=== PATIENT | female | born 1965 | race Caucasian/White ===

== ENCOUNTER → 2020-12-02 09:35 | Outpatient (BNVA) | payer OTHER, MEDICARE, SELFPAY | PROVIDERS: PCP Internal Medicine; Visit Provider Hospitalist ==

== ENCOUNTER → 2021-05-26 13:24 | Outpatient (BNVA) | payer OTHER, MEDICARE, SELFPAY | PROVIDERS: PCP Family Medicine; Visit Provider Hospitalist ==

== ENCOUNTER 2021-06-22 09:36 | Outpatient (REF) | payer OTHER, MEDICARE, SELFPAY ==
--- NOTE | ~2021-06-22 | XR_ITS ---
EXAMINATION: XR CHEST CLINICAL INFORMATION: Chronic obstructive pulmonary disease. COMPARISON: Most recent chest radiograph dated 09/08/2019. TECHNIQUE: 2 views of the chest were obtained. FINDINGS: The lungs are clear. The cardiomediastinal silhouette is normal in size. There is no pleural effusion or pneumothorax. No acute osseous abnormality. XR/XR chest 2V IMPRESSION: No acute cardiopulmonary findings.
[2021-06-22 10:43] LABS: MANUAL DIFF FLAG NO
[2021-06-22 10:57] LABS: Basophils Absolute Auto 0.1 X10*3/uL (0.0-0.2); Basophils Percent Auto 1.5 % (0-2); Eosinophils Absolute Auto 0.1 X10*3/uL (0.0-0.4); Eosinophils Percent Auto 1.9 % (0-4); Hematocrit 39.3 % (37-47); Hemoglobin 13.3 g/dl (12.0-16.0); Imm Gran Abs Auto 0.02 X10*3/uL (0.00-0.03); Imm Gran Pct Auto 0.3 % (0.0-0.4); Lymphocytes Absolute Auto 1.5 X10*3/uL (1.2-4.9); Lymphocytes Percent Auto 23.5 % (20-40); Mean Corpuscular HGB Conc 33.8 g/dl (31.0-35.0); Mean Corpuscular Hemoglobin 32.9 pg (27.0-33.0); Mean Corpuscular Volume 97.3 fL (80-98); Mean Platelet Volume 9.6 fL (9.4-12.3); Monocytes Absolute Auto 0.6 X10*3/uL (0.1-1.2); Neutrophils Absolute Auto 4.1 X10*3/uL (2.0-8.3); Neutrophils Percent Auto 63.8 % (45-73); Platelet Count 334 X10*3/uL (160-400); Red Blood Count 4.04 X10*6/uL (4.20-5.50); Red Cell Distribution Width 11.9 % (11.0-16.0); White Blood Count 6.5 X10*3/uL (4.8-10.8)
[2021-06-22 11:43] LABS: Erythrocyte Sedimentation Rate 9 MM/HR (0-20)
[2021-06-27 21:17] LABS: Immunoglobulin G Subclass 1 432 mg/dL (382-929); Immunoglobulin G Subclass 2 195 mg/dL (241-700); Immunoglobulin G Subclass 3 31 mg/dL (22-178); Immunoglobulin G Subclass 4 22.4 mg/dL (4-86); Immunoglobulin G Total 798 mg/dL (600-1640)
== END 2021-06-22 09:37 | disposition home or self-care (01) ==
LOC: HO.LAB 09:36
PROVIDERS: PCP Family Medicine; Visit Provider Hospitalist
DX: J44.9 Chronic obstructive pulmonary disease, unspecified (principal); R05 Cough; G47.33 Obstructive sleep apnea (adult) (pediatric)
CPT/HCPCS: 36415; 71046; 82784; 82785; 85025; 85652; 86003

== ENCOUNTER 2021-08-23 12:20 | Outpatient (RCR) | payer OTHER, MEDICARE, SELFPAY ==
--- NOTE | 2021-08-23 14:03 | MHC.PT.EP ---
[facility] [place] [facility] [place] [facility] [address] Rosmery Hardy [address] [phone] F: [phone] F: [phone] F: [phone] F: [phone] Physical Therapy Plan of Care Date of Evaluation: Date of Surgery: Diagnosis: vertigo Assessment: The patient arrived reporting dizziness consistent with positional vertigo. Upon examination she did not have any nystagmus in any diagnostic position. However she had reports of vertigo in right hallpike. I did CRM for the right PC as a precautionary measure. Upon repeat of CRM she no longer had reports of vertigo. The patient was encouraged to increase water intake, and to return for f/u to assess her balance and VOR. The patient is a good candidate for skilled PT. Frequency and Duration: The patient will be seen 1x/week x 4 weeks Short Term Goals: 1.Pt to be negative for nystagmus in all diagnostic positions for BPPV to facilitate improved functional movements. Nursing Home Goals: 1. For the patient to be negative for nystagmus or reports of vertigo in all diagnostic positions bilaterally to resolution of BPPV in 4 weeks. 2. For the patient to be able to functionally move in all planes and directions without provocation of dizziness to show return to PLOF. 3.For the patient to be educated on symptoms and indications to return to therapy when needed in 4 weeks. Treatment Plan: Modalities to reduce pain, spasms and effusion. Manual therapy to restore motion and function. Therapeutic exercise to improve strength and flexibility. Neuromuscular re-education for posture and balance. Therapeutic activities to return to functional activities of daily living. Electronically signed by: Cassie Lebron PT DPT Please sign and return to therapist. Thank you for your referral.
== END 2021-08-29 08:00 | disposition home or self-care (01) ==
LOC: HO.PT 12:20
PROVIDERS: PCP Family Medicine; Visit Provider Otolaryngology
DX: R42 Dizziness and giddiness (principal)
CPT/HCPCS: 95992; 97112; 97162

== ENCOUNTER → 2021-09-13 13:03 | Outpatient (BNVA) | payer OTHER, MEDICARE, SELFPAY | PROVIDERS: Visit Provider Hospitalist ==

== ENCOUNTER 2022-03-13 13:28 | Outpatient (REF) | payer OTHER, MEDICARE, SELFPAY ==
--- NOTE | ~2022-03-13 | XR_ITS ---
EXAMINATION: XR CHEST CLINICAL INFORMATION: Cough COMPARISON: Chest x-ray the 2020 TECHNIQUE: 2 views of the chest were obtained. FINDINGS: Cardiac silhouette is normal in size. The lungs are well aerated. There is no lobar consolidation. No pleural effusion or pneumothorax. Mild degenerative changes of the spine. XR/XR chest 2V IMPRESSION: No acute pulmonary pathology.
== END 2022-03-13 13:29 | disposition home or self-care (01) ==
LOC: HO.XRAY 13:28
PROVIDERS: PCP Family Medicine; Visit Provider Hospitalist
DX: Z23 Encounter for immunization (principal); R05.9 Cough, unspecified; G47.33 Obstructive sleep apnea (adult) (pediatric)
CPT/HCPCS: 71046; 90471; 90732

== ENCOUNTER 2022-05-04 06:18 | Day surgery (SDC) | payer OTHER, MEDICARE, SELFPAY ==
[2022-05-03 08:18] VITALS: BMI 31.4
--- NOTE | 2022-05-03 10:04 | P.CONAN_ITS ---
Documented by User: Yuki Cisneros NP 05/03/22 10:06 HPI - Anesthesia Eval Consult details Narrative: 56yo F for Upper Endoscopy with Balloon Dilitation PMFSH Active Problems Active Problems: All Active Problems (Updated 06/22/21 @ 22:50 by Kirill Huff MD) Chronic cough (Acute) Asthma-COPD overlap syndrome (Acute) BRIE (obstructive sleep apnea) (Acute) Past Medical History Medical History Asthma-COPD overlap syndrome Chronic cough BRIE (obstructive sleep apnea) Social History Social History Patient Tobacco Use Status: Never used Tobacco Use of substances other than those prescribed or required for medical reasons: Yes Substance Use Frequency: Daily Are you DNR?: No Advance Directives: No Advance Directives Information Provided: Yes Meds Allergies Allergy/AdvReac Type Severity Reaction Status Date / Time meperidine [Demerol] Allergy Severe Swelling Verified 03/13/22 14:19 sulfamethoxazole Allergy Severe Diarrhea Verified 03/13/22 14:20 [From Bactrim] trimethoprim [From Bactrim] Allergy Severe Diarrhea Verified 03/13/22 14:20 Home Medications Medication Instructions Recorded Confirmed Last Taken Type calcium carbonate 600 mg calcium 600 mg PO DAILY 12/02/20 06/22/21 Unknown History (1,500 mg) tablet (Calcium) cholecalciferol (vitamin D3) 25 25 mcg PO DAILY 12/02/20 06/22/21 Unknown History mcg (1,000 unit) capsule levothyroxine 100 mcg capsule 100 mcg PO DAILY 12/02/20 06/22/21 Unknown History lorazepam 1 mg tablet 1 mg PO DAILY PRN 12/02/20 06/22/21 Unknown History multivitamin 1 tab PO DAILY 12/02/20 06/22/21 Unknown History nortriptyline 10 mg capsule 10 mg PO DAILY 12/02/20 06/22/21 Unknown History omeprazole 40 mg capsule,delayed 40 mg PO DAILY 12/02/20 06/22/21 Unknown History release oxcarbazepine 300 mg tablet 300 mg PO BID 12/02/20 06/22/21 Unknown History (Trileptal) vitamin B complex (B 1 tab PO DAILY 12/02/20 06/22/21 Unknown History Complex-Vitamin B12) zonisamide 100 mg capsule 100 mg PO BID 12/02/20 06/22/21 Unknown History raloxifene 60 mg tablet 60 mg PO DAILY 05/26/21 06/22/21 Unknown History tizanidine 2 mg tablet 2 mg PO BID 09/13/21 Unknown History lidocaine 5 % topical patch 1 patch topical DAILY 03/13/22 Unknown History omega 0-pgd-xgv-fish oil 100 cap PO 03/13/22 Unknown History mg-160 mg-1,000 mg capsule (Fish Oil) Exam Exam Date and Time: May 03, 2022 1004 Height,Weight and Vital Signs: Height 5 ft 4 in Weight 83.007 kg Narrative Narrative: CXR 02/2022 FINDINGS: Cardiac silhouette is normal in size. The lungs are well aerated. There is no lobar consolidation. No pleural effusion or pneumothorax. Mild degenerative changes of the spine. XR/XR chest 2V IMPRESSION: No acute pulmonary pathology. Assessment and Plan Assessment Anesthesia Assessment: Chart Reviewed Documented by User: Elsa Miller MD 05/04/22 07:40 [facility] Active Problems Active Problems: All Active Problems (Updated 06/22/21 @ 22:50 by Kirill Huff MD) Chronic cough (Acute) Asthma-COPD overlap syndrome (Acute) BRIE (obstructive sleep apnea) (Acute) hypothyroid epilepsy Past Medical History Medical History Asthma-COPD overlap syndrome Chronic cough BRIE (obstructive sleep apnea) Surgical History History of Problems with Anesthesia: No Social History Social History Patient Tobacco Use Status: Never used Tobacco Use of substances other than those prescribed or required for medical reasons: Yes Substance Use Frequency: Daily Are you DNR?: No Advance Directives: No Advance Directives Information Provided: Yes Meds Allergies Allergy/AdvReac Type Severity Reaction Status Date / Time meperidine [Demerol] Allergy Severe Swelling Verified 03/13/22 14:19 sulfamethoxazole Allergy Severe Diarrhea Verified 03/13/22 14:20 [From Bactrim] trimethoprim [From Bactrim] Allergy Severe Diarrhea Verified 03/13/22 14:20 Home Medications Medication Instructions Recorded Confirmed Last Taken Type calcium carbonate 600 mg calcium 600 mg PO DAILY 12/02/20 06/22/21 Unknown History (1,500 mg) tablet (Calcium) cholecalciferol (vitamin D3) 25 25 mcg PO DAILY 12/02/20 06/22/21 Unknown History mcg (1,000 unit) capsule levothyroxine 100 mcg capsule 100 mcg PO DAILY 12/02/20 06/22/21 Unknown History lorazepam 1 mg tablet 1 mg PO DAILY PRN 12/02/20 06/22/21 Unknown History multivitamin 1 tab PO DAILY 12/02/20 06/22/21 Unknown History nortriptyline 10 mg capsule 10 mg PO DAILY 12/02/20 06/22/21 Unknown History omeprazole 40 mg capsule,delayed 40 mg PO DAILY 12/02/20 06/22/21 Unknown History release oxcarbazepine 300 mg tablet 300 mg PO BID 12/02/20 06/22/21 Unknown History (Trileptal) vitamin B complex (B 1 tab PO DAILY 12/02/20 06/22/21 Unknown History Complex-Vitamin B12) zonisamide 100 mg capsule 100 mg PO BID 12/02/20 06/22/21 Unknown History raloxifene 60 mg tablet 60 mg PO DAILY 05/26/21 06/22/21 Unknown History tizanidine 2 mg tablet 2 mg PO BID 09/13/21 Unknown History lidocaine 5 % topical patch 1 patch topical DAILY 03/13/22 Unknown History omega 2-cqd-tmo-fish oil 100 cap PO 03/13/22 Unknown History mg-160 mg-1,000 mg capsule (Fish Oil) Exam Airway Mallampati Class: II Neck ROM: Full Loose/Missing/Broken Teeth: No Heart: RRR Lungs: CTA Assessment and Plan Final Anesthetic Review History of Problems with Anesthesia: No NPO: Yes ASA Class: III Final Preanesthetic Review: Meds/Allgs Chart Reviewed, Consent Obtained/Reviewed and Anes Risks/Benef Reviewed Patient Risk: Intermediate Procedure Risk: Intermediate Anesthetic Plan Anesthetic Plan: MAC: Disposition: Standard PACU
[2022-05-04 07:02] VITALS: BP 145/91; PULSE 78; RESP 16; TEMP 35.7; O2SAT 99
[2022-05-04] MEDS: Lactated Ringers 1,000 ML 100 ML IVCONT (07:05)
[2022-05-04 08:13] VITALS: BP 138/63; PULSE 83; RESP 16; TEMP 36.6; O2SAT 96
--- NOTE | 2022-05-04 08:16 | P.BOP_ITS ---
Brief Operative Note Date of Service: 05/04/22 Pre-op diagnosis: GERD, Dysphagia Post-op diagnosis: other (Hiatal hernia, Gastric Retention, R/O EoE) Procedure: EGD with Balloon Dilation of EG Junction with 18mm to 19mm Balloons, and biopsie s Surgeon: Wilfrido Oconnell Anesthesia: MAC Was an Trench Digger Helper used for this Procedure?: No Estimated blood loss (mL): 2.0 Pathology: other (A. Gastric antrum B. Esophagus at 25cm) Condition: stable Disposition: PACU
[2022-05-04 08:28] VITALS: BP 137/84; PULSE 75; RESP 18; O2SAT 98
[2022-05-04 08:48] VITALS: BP 144/83; PULSE 69; RESP 18; TEMP 36.5; O2SAT 99
--- NOTE | 2022-05-04 10:03 | OP_ITS ---
SURGEON: Wilfrido Oconnell MD INDICATIONS: The patient presents for evaluation of dysphagia and abnormal upper GI series. Full consent has been obtained from her for this, including risks of bleeding and perforation. PREOPERATIVE DIAGNOSIS: Dysphagia and abnormal upper GI series. POSTOPERATIVE DIAGNOSIS: Dysphagia and abnormal upper GI series, gastric retention, rule out eosinophilic esophagitis, small hiatal hernia. PROCEDURE PERFORMED: Esophagogastroduodenoscopy with balloon dilation of gastroesophageal junction and biopsies. ESTIMATED BLOOD LOSS: COMPLICATIONS: ANESTHESIA: ASSISTANTS: SPECIMENS: PREOPERATIVE MEDICATIONS USED: Monitored anesthesia care. DESCRIPTION OF PROCEDURE: The patient was placed in left lateral decubitus position. The Olympus video gastroscope was passed in the posterior oropharynx and upper esophagus under direct vision. The scope was passed slowly to the distal esophagus. The gastroesophageal junction appeared at 34 cm. This appeared patent without any sign of stricture, ring, mass, inflammation, nor Manjarrez's esophagus. The scope easily entered into the stomach. There was a small hiatal hernia. There was a large amount of retained old food in the proximal portion of the stomach. The scope was advanced past this to the gastric antrum. The pyloric channel appeared normal and allowed easy passage of the scope into the 2nd and 3rd portions of duodenum. The duodenum including the bulb appeared normal without mass or ulceration. The scope was withdrawn back into the stomach. The gastric antrum and body had some mild areas of erythema, but no erosions or ulceration. Peristalsis appeared to be subjectively diminished. Again, the pyloric channel appeared widely patent and did not require dilation. Biopsies were obtained in the antrum. The scope was retroflexed but really was only able to visualize the old food. The scope was straightened and withdrawn back into the esophagus. I did use a [employer] incremental balloon to dilate the gastroesophageal junction from 18 mm to 19 mm at the recommended pressure for between 30 and 60 seconds each without any really appreciable effect nor any sign of heme post-dilation. The esophageal mucosa appeared normal. There were no proximal esophageal rings. Biopsies were obtained at 25 cm. The scope was then withdrawn from the patient. She tolerated the procedure well and was returned to the recovery area in stable condition. IMPRESSION: 1. Gastric retention with probable component of gastroparesis. 2. Small hiatal hernia. 3. Status post balloon dilation of gastroesophageal junction. 4. Rule out eosinophilic esophagitis. PLAN: The results of the biopsies will be checked. She has been advised to use omeprazole twice a day before breakfast and dinner. She has been advised to have small meals, and to stay on a low roughage diet with avoidance of things such as raw vegetables and salads. She has been advised to not eat for several hours before bedtime. I will arrange for an outpatient gastric emptying study. She will also have a followup office visit. She was instructed to speak with her neurologist to review all her medications, see if any of those might be causing the delayed emptying such as her nortriptyline. This has been discussed with her . She was advised not to use any aspirin or NSAIDs. Of note, she reports that her last intake of food was about 11 hours before the endoscopy at 8PM last evening. MD ROSALBA Dominique/JARED / [id number] MTDD
== END 2022-05-04 09:26 | disposition home or self-care (01) ==
PROVIDERS: PCP Family Medicine; Visit Provider Internal Medicine
PROC: (CPT 43249; principal; 2022-05-04 07:30)
DX: R13.10 Dysphagia, unspecified (principal); R93.3 Abnormal findings on diagnostic imaging of other parts of digestive tract; K30 Functional dyspepsia; K31.89 Other diseases of stomach and duodenum; K44.9 Diaphragmatic hernia without obstruction or gangrene; K21.9 Gastro-esophageal reflux disease without esophagitis; J44.9 Chronic obstructive pulmonary disease, unspecified; G40.909 Epilepsy, unspecified, not intractable, without status epilepticus; G62.9 Polyneuropathy, unspecified; E03.9 Hypothyroidism, unspecified; Z79.899 Other long term (current) drug therapy; Z88.2 Allergy status to sulfonamides; Z88.8 Allergy status to other drugs, medicaments and biological substances
CPT/HCPCS: 43249; 43239; 88305; 88342; C1726; J2250; J2405

== ENCOUNTER → 2022-05-08 07:45 | Outpatient (REF) | payer OTHER, MEDICARE, SELFPAY ==
--- NOTE | ~2022-05-08 | NM_ITS ---
EXAMINATION: RADIONUCLIDE SOLID FOOD GASTRIC EMPTYING 4-HOUR STUDY CLINICAL INFORMATION: Gastroparesis. COMPARISON: No previous gastric emptying study is available for comparison. TECHNIQUE: A standard meal consisting of 4 oz of Egg Beaters brand equivalent tagged with 890 microcuries Tc-99m Sulfur Colloid, 8 oz water and 2 slices of toast with jelly was administered orally to the patient. Images were obtained using a dual head gamma camera in the anterior and posterior projections over of the stomach immediately post ingestion and at hourly intervals up to 4 hours post ingestion. The anterior and posterior counts at each time interval were averaged using the geometric mean and expressed as percentage of the immediate post ingestion counts. FINDINGS: There is good visualization of activity in the stomach immediately post ingestion. As the study progresses, there is only minimal clearance of activity from the stomach with visualization of only a small amount of small bowel activity. At the end of the study at 4 hours post ingestion, there is marked abnormal retention of activity in the stomach. Retention in the stomach at each time interval was: 1 hour 89% (normal 37%-90%) 2 hours 81% (normal 30%-60%) 3 hours 84% 4 hours 85% (normal 0%-10%) NM/NM gastric emptying study IMPRESSION: Abnormal study. There is marked retention of solid food in the stomach at 4 hours.
== END ==
LOC: HO.NUCMED 07:45
PROVIDERS: PCP Family Medicine; Visit Provider Internal Medicine
DX: K31.84 Gastroparesis (principal); K31.89 Other diseases of stomach and duodenum
CPT/HCPCS: 78264; A9541

== ENCOUNTER → 2022-10-31 13:01 | Outpatient (BNVA) | payer OTHER, MEDICARE, SELFPAY | PROVIDERS: PCP Family Medicine; Visit Provider Hospitalist | DX: Z13.89 Encounter for screening for other disorder (principal) ==

== ENCOUNTER 2023-08-17 13:39 | Outpatient (AMB) | payer OTHER, MEDICARE, SELFPAY ==
[2023-08-17 13:44] VITALS: BP 128/70; PULSE 89; O2SAT 99; BMI 28.6
--- NOTE | 2023-08-17 13:44 | MHC.OFFVIS ---
Intake Vital Signs 08/17/23 13:44 Height 5 ft 5 in Weight 172 lb BMI 28.6 BP 128/70 Blood Pressure Location Rt brachial Position Sitting Pulse 89 Pulse Source Pulse Oximeter Pulse Oximetry (%) 99 Oxygen Delivery Method Room Air Intake Visit Reasons: asthma Wood Gluer Required: No Allergies meperidine [Demerol] Allergy (Severe, Verified 08/17/23 13:49) Swelling sulfamethoxazole [From Bactrim] Allergy (Severe, Verified 08/17/23 13:49) Diarrhea trimethoprim [From Bactrim] Allergy (Severe, Verified 08/17/23 13:49) Diarrhea HPI HPI Comments History of Present Illness Details The patient is a 57-year-old woman with known history of asthma COPD overlap syndrome in addition to history of seizures. She has had a persistent chronic cough. It is barky in nature, moderate in severity. Typically is worse at nighttime. She continues to use her respiratory medicine with only partial resolution of the symptoms. She has not had any recent x-rays are pulmonary function studies to review at this time. 12/02/2020 the patient is here for pulmonary follow-up visit. Overall the patient has been doing better from a respiratory status. The respiratory medications and the singular have been very effective. She had actually has not required the nebulized medicine as often. Sometimes the fact that she needs to set up she test to not be very adherent to the therapy. Therefore will go ahead and take her off the nebulized therapy and start her on inhaler therapy. Ideally Advair she can not use twice a day with better here as. In addition to that she should continue with the singular. The patient has been complaining of difficulty breathing at nighttime. She also has daytime drowsiness. Her [place] score is elevated 12/24. She also complains of headaches in the morning. She has a positive family history of sleep apnea. At this point doing home sleep study may be effective in treating her ongoing respiratory symptoms and her ongoing daytime drowsiness. 06/22/2021 the patient is here for a pulmonary follow-up visit. She continues to complain about her cough. Typically is nonproductive. Sometimes she is able to get a plug out. Did cough is usually worse at nighttime. She did complete the antibiotics and is doing a little bit better. She did feel improved after switching over to the Trelegy inhaler which appears to be more effective for her. She is going to significant amount of stress with her father's health. She has not had a sleep study as of yet. We will continue to maximize her respiratory therapy in order for her to be about a function well was she is tending to father. While she is in the hospital today I will have her get blood work and chest x-ray to further address this chronic cough. 09/13/2021 the patient is here for a pulmonary follow-up visit. overall she is doing better from a respiratory status. The Trelegy inhaler piece to be very effective for her. She has been able to be off her nebulized therapy. She recently was evaluated by Nephrology. It was noted that she has some slight renal insufficiency. She was wondering if any of her respiratory medications could be impacting her renal function. No real significant medication that I am concerned about. We did talk about considering decreasing the amount of inhaled steroids by decreasing the Trelegy from 200-100. But at this point I do not believe that does enough of a significant change to impacted kidneys. in addition to this the patient has been dealing with significant allergic symptoms. She complains of itchy eyes watery eyes. She has been seen by Ophthalmology. Will increase her allergy medication to see if we can provide some relief. Patient has been on singular. She is still grieving the loss of her father has been the depressed. Therefore I did recommend she cut down the singular to half tablet. If she did not see any significant difference to stop it altogether ascitic and worsening depressive symptoms. 03/13/2022 the patient is here for a pulmonary follow-up visit. She continues to have a persistent cough. The Trelegy has been helpful. She continues to require cough medicine. The patient also has been having significant allergies. She has been taking Lavonne in addition to singular. This is likely that her worse allergy season. She knows to continue rinsing her nose from the allergies in to continue with current regimen. She does have a rescue inhaler that she can use as needed as well. If the patient continues with symptoms she may benefit from an allergy referral. 10/31/2022 the patient is here for pulmonary follow-up visit. She is complaining of worsening shortness of breath. Moderate severity. Mainly when she is breathing in. She also notices worsening cough. Typically worse at nighttime. She ran out of her cough medicine. She has been using Trelegy inhaler without any significant improvement. She had a Combivent inhaler from her dad that she had available she did use it in did give her some relief. He is wondering if he can switch to that. Patient is agreeable to change her respiratory regimen. I will send Symbicort to the pharmacy and she can use Combivent also. The meantime we did talk about the reflux disease. Patient understands that reflux will resulting worsening there injury taken cough. This could explain her symptoms. She does have significant gastroparesis in addition to her reflux. She has been set up with a new GI doctor at this time. In the meantime we talked about the reflux diet again making sure that she sleeps elevated. She does have a positional bed. 08/17/2023 the patient is here for pulmonary follow-up visit. Overall she is doing a lot better. She is working on weight management and she is already lost more than 10 lb. Her breathing is also improved. She does continue to use her respiratory therapy as prescribed. Her cough is better although she still requires cough medication. Has not required any prednisone recently. No recent imaging studies to review. Her last chest x-ray from February 2022 was without any acute disease. overall the patient is doing well. She continues with positional therapy to minimize snoring and sleep apnea. [facility] Medical History (Updated 08/17/23 @ 13:59 by Kirill Huff MD) Epilepsy Asthma-COPD overlap syndrome Chronic cough BRIE (obstructive sleep apnea) Hypothyroidism GERD (gastroesophageal reflux disease) Surgical History (Updated 08/17/23 @ 12:37 by Vesna Cabrera PA-C) History of esophagogastroduodenoscopy (EGD) Social History Patient Tobacco Use Status: Never used Tobacco Review of Systems Const Denies night sweats Eyes Denies blurry vision ENT Denies change in voice, Denies lip swelling, Denies mouth pain, Reports nasal congestion, Reports nasal discharge and Denies tongue swelling Card Denies chest pain Resp Reports cough, Denies hemoptysis, Denies excessive phlegm production and Denies stridor GI Denies abdominal pain Musc Denies no additional complaints Neuro Denies Neuro-related abnormal movements Psych Denies no additional complaints Clark/Lymph Denies easy bleeding and Denies lymphadenopathy Aller/Immun Denies lip swelling and Denies tongue swelling Physical Exam Vital Signs: Last Vital Signs Pulse 89 08/17/23 13:44 BP 128/70 08/17/23 13:44 Pulse Ox 99 08/17/23 13:44 Oxygen Delivery Method Room Air 08/17/23 13:44 BMI result Body Mass Index 28.6 Const General: alert HEENT Ears: TM normal on the right ( Retracted) and TM normal on the left ( retracted) Eyes Pupils: Equal, round and reactive pupils present Neck Neck: Yes normal visual inspection, Yes full ROM and Yes no lymphadenopathy Chest Chest palpation & inspection: normal inspection of the chest Resp Effort & Inspection: normal respiratory effort Auscultation: clear to auscultation bilaterally Cardio Rate: regular rate Rhythm: regular rhythm Heart sounds: S1 normal heart sound present and S2 normal heart sound present GI Palpation (GI): Soft to palpation and nontender Auscultation: normal bowel sounds General: Yes no CVA tenderness Back/Spine/Pelvis Back: no CVA tenderness Skin General skin exam: rashes and/or lesions noted Neuro Cranial nerves: Yes Equal, round and reactive pupils present Assessment & Plan Assessment & Plan (1) Asthma-COPD overlap syndrome: Code(s): J44.9 - Chronic obstructive pulmonary disease, unspecified (2) BRIE (obstructive sleep apnea): Code(s): G47.33 - Obstructive sleep apnea (adult) (pediatric) (3) Chronic cough: Code(s): R05 - Cough (4) GERD (gastroesophageal reflux disease): Code(s): K21.9 - Gastro-esophageal reflux disease without esophagitis Qualifiers: Esophagitis presence: without esophagitis Qualified Code(s): K21.9 - Gastro-esophageal reflux disease without esophagitis Plan continue Advair continue combivent VINNY as needed Robitussin with codeine as needed for significant cough continue Singulair and zyrtec reflux diet sleep with HOB elevated F/U 12 months Medications: New azithromycin 500 mg PO DAILY 5 days 5 tabs 0RF Coding Level of Care Code Est Pt Level 4 (86574) Diagnoses Asthma-COPD overlap syndrome J44.9 BRIE (obstructive sleep apnea) G47.33 Chronic cough R05 Gastroesophageal reflux disease without esophagitis K21.9 Esophagitis presence: without esophagitis Time Spent (min) 16
== END 2023-08-17 14:06 | disposition home or self-care (01) ==
PROVIDERS: PCP Family Medicine; Visit Provider Hospitalist
DX: J44.9 Chronic obstructive pulmonary disease, unspecified (principal); G47.33 Obstructive sleep apnea (adult) (pediatric); R05.9 Cough, unspecified; K21.9 Gastro-esophageal reflux disease without esophagitis
CPT/HCPCS: 99214

== ENCOUNTER → 2023-08-17 13:39 | Outpatient (BNVA) | payer OTHER, MEDICARE, SELFPAY | PROVIDERS: Visit Provider Hospitalist ==

== ENCOUNTER 2024-09-30 14:36 | Outpatient (AMB) | payer OTHER, MEDICARE, SELFPAY ==
--- NOTE | 2024-09-30 14:38 | MHC.OFFVIS ---
Vital Signs 09/30/24 14:40 Height 5 ft 4 in Weight 174 lb 2.643 oz BMI 29.9 BP 120/70 Blood Pressure Location Rt brachial Position Sitting Pulse 78 Pulse Source Pulse Oximeter Pulse Oximetry (%) 100 Oxygen Delivery Method Room Air Intake Visit Reasons: Asthma Information Systems Security Developer Required: No Manager Talent: Manager Talent offered & declined Accompanied by: Self / Same As Patient Allergies meperidine [Demerol] Allergy (Severe, Verified 09/30/24 14:44) Swelling sulfamethoxazole [From Bactrim] Allergy (Severe, Verified 09/30/24 14:44) Diarrhea trimethoprim [From Bactrim] Allergy (Severe, Verified 09/30/24 14:44) Diarrhea Medication List - Last Reconciled 09/30/24 by Cecy Spence LPN azithromycin 500 mg PO DAILY 5 days benzonatate 200 mg PO BID PRN 30 days cetirizine 10 mg PO DAILY cholecalciferol (vitamin D3) 25 mcg PO DAILY fluticasone furoate-vilanterol 200-25 mcg/dose (Breo Ellipta) 1 inh inhalation DAILY 30 days gabapentin 300 mg PO BEDTIME ipratropium-albuterol 20-100 mcg/actuation (Combivent Respimat) 1 puff inhalation QID levothyroxine 100 mcg PO DAILY lidocaine 5% 1 patch topical DAILY magnesium 250 mg PO DAILY montelukast 10 mg PO DAILY multivitamin 1 tab PO DAILY nortriptyline 10 mg PO DAILY omega 0-cbx-vsc-fish oil 100-160-1,000 mg (Fish Oil) caps PO omeprazole 40 mg PO DAILY oxcarbazepine (Trileptal) 300 mg PO BID povidone (PF) 0.5% (iVizia (PF)) drps ophthalmic (eye) raloxifene 60 mg PO DAILY tizanidine 2 mg PO BID vitamin B complex (B Complex-Vitamin B12 tablet) 1 tab PO DAILY zonisamide 100 mg PO BID HPI Comments Details: The patient is a 59-year-old woman with known history of asthma COPD overlap syndrome in addition to history of seizures. She has had a persistent chronic cough. It is barky in nature, moderate in severity. Typically is worse at nighttime. She continues to use her respiratory medicine with only partial resolution of the symptoms. She has not had any recent x-rays are pulmonary function studies to review at this time. 12/02/2020 the patient is here for pulmonary follow-up visit. Overall the patient has been doing better from a respiratory status. The respiratory medications and the singular have been very effective. She had actually has not required the nebulized medicine as often. Sometimes the fact that she needs to set up she test to not be very adherent to the therapy. Therefore will go ahead and take her off the nebulized therapy and start her on inhaler therapy. Ideally Advair she can not use twice a day with better here as. In addition to that she should continue with the singular. The patient has been complaining of difficulty breathing at nighttime. She also has daytime drowsiness. Her [place] score is elevated 10/21. She also complains of headaches in the morning. She has a positive family history of sleep apnea. At this point doing home sleep study may be effective in treating her ongoing respiratory symptoms and her ongoing daytime drowsiness. 06/22/2021 the patient is here for a pulmonary follow-up visit. She continues to complain about her cough. Typically is nonproductive. Sometimes she is able to get a plug out. Did cough is usually worse at nighttime. She did complete the antibiotics and is doing a little bit better. She did feel improved after switching over to the Trelegy inhaler which appears to be more effective for her. She is going to significant amount of stress with her father's health. She has not had a sleep study as of yet. We will continue to maximize her respiratory therapy in order for her to be about a function well was she is tending to father. While she is in the hospital today I will have her get blood work and chest x-ray to further address this chronic cough. 09/13/2021 the patient is here for a pulmonary follow-up visit. overall she is doing better from a respiratory status. The Trelegy inhaler piece to be very effective for her. She has been able to be off her nebulized therapy. She recently was evaluated by Nephrology. It was noted that she has some slight renal insufficiency. She was wondering if any of her respiratory medications could be impacting her renal function. No real significant medication that I am concerned about. We did talk about considering decreasing the amount of inhaled steroids by decreasing the Trelegy from 200-100. But at this point I do not believe that does enough of a significant change to impacted kidneys. in addition to this the patient has been dealing with significant allergic symptoms. She complains of itchy eyes watery eyes. She has been seen by Ophthalmology. Will increase her allergy medication to see if we can provide some relief. Patient has been on singular. She is still grieving the loss of her father has been the depressed. Therefore I did recommend she cut down the singular to half tablet. If she did not see any significant difference to stop it altogether ascitic and worsening depressive symptoms. 03/13/2022 the patient is here for a pulmonary follow-up visit. She continues to have a persistent cough. The Trelegy has been helpful. She continues to require cough medicine. The patient also has been having significant allergies. She has been taking Lavonne in addition to singular. This is likely that her worse allergy season. She knows to continue rinsing her nose from the allergies in to continue with current regimen. She does have a rescue inhaler that she can use as needed as well. If the patient continues with symptoms she may benefit from an allergy referral. 10/31/2022 the patient is here for pulmonary follow-up visit. She is complaining of worsening shortness of breath. Moderate severity. Mainly when she is breathing in. She also notices worsening cough. Typically worse at nighttime. She ran out of her cough medicine. She has been using Trelegy inhaler without any significant improvement. She had a Combivent inhaler from her dad that she had available she did use it in did give her some relief. He is wondering if he can switch to that. Patient is agreeable to change her respiratory regimen. I will send Symbicort to the pharmacy and she can use Combivent also. The meantime we did talk about the reflux disease. Patient understands that reflux will resulting worsening there injury taken cough. This could explain her symptoms. She does have significant gastroparesis in addition to her reflux. She has been set up with a new GI doctor at this time. In the meantime we talked about the reflux diet again making sure that she sleeps elevated. She does have a positional bed. 08/17/2023 the patient is here for pulmonary follow-up visit. Overall she is doing a lot better. She is working on weight management and she is already lost more than 10 lb. Her breathing is also improved. She does continue to use her respiratory therapy as prescribed. Her cough is better although she still requires cough medication. Has not required any prednisone recently. No recent imaging studies to review. Her last chest x-ray from February 2022 was without any acute disease. overall the patient is doing well. She continues with positional therapy to minimize snoring and sleep apnea. 09/30/2024 the patient is here for a pulmonary follow-up visit. The patient overall has been doing well. Her Advair is no longer being made and she was switched over to Wixela. This is resulting in some chest heaviness and some coughing and she does not not like the adverse effects. Therefore will switch over to Advair HFA which she tolerated in the past. I did provide her with a spacer in order for her to minimize any upper airway adverse symptoms. The patient otherwise has been doing well from a respiratory status. She is monitoring closely reflux disease. No recent imaging studies at this time. Will plan to do 1 year's time when she comes back for her follow-up. If she has any issues with the Advair she will call otherwise will follow-up in a year's time. [facility] Medical History (Updated 08/17/23 @ 13:59 by Kirill Huff MD) Epilepsy Asthma-COPD overlap syndrome Chronic cough BRIE (obstructive sleep apnea) Hypothyroidism GERD (gastroesophageal reflux disease) Surgical History (Updated 08/17/23 @ 12:37 by Vesna Cabrera PA-C) History of esophagogastroduodenoscopy (EGD) Social History Patient Tobacco Use Status: Never used Tobacco Review of Systems Const Denies night sweats Eyes Denies blurry vision ENT Denies change in voice, Denies lip swelling, Denies mouth pain, Reports nasal congestion, Reports nasal discharge and Denies tongue swelling Card Denies chest pain Resp Reports cough, Denies hemoptysis, Denies excessive phlegm production and Denies stridor GI Denies abdominal pain Musc Denies no additional complaints Neuro Denies Neuro-related abnormal movements Psych Denies no additional complaints Clark/Lymph Denies easy bleeding and Denies lymphadenopathy Aller/Immun Denies lip swelling and Denies tongue swelling Physical Exam Vital Signs: Last Vital Signs Pulse 78 09/30/24 14:40 BP 120/70 09/30/24 14:40 Pulse Ox 100 09/30/24 14:40 Oxygen Delivery Method Room Air 09/30/24 14:40 BMI result Body Mass Index 29.9 Const General: alert HEENT Ears: TM normal on the right ( Retracted) and TM normal on the left ( retracted) Eyes Pupils: Equal, round and reactive pupils present Neck Neck: Yes normal visual inspection, Yes full ROM and Yes no lymphadenopathy Chest Chest palpation & inspection: normal inspection of the chest Resp Effort & Inspection: normal respiratory effort Auscultation: clear to auscultation bilaterally Cardio Rate: regular rate Rhythm: regular rhythm Heart sounds: S1 normal heart sound present and S2 normal heart sound present GI Palpation (GI): Soft to palpation and nontender Auscultation: normal bowel sounds General: Yes no CVA tenderness Back/Spine/Pelvis Back: no CVA tenderness Skin General skin exam: rashes and/or lesions noted Neuro Cranial nerves: Yes Equal, round and reactive pupils present Office Procedures Flu Questionnaire Does the patient have a severe egg allergy?: No Does the patient have severe life threatening allergies?: No Does the patient have a fever or illness today?: No Has the patient ever had Guillain-Galax Syndrome?: No Has the patient ever had any past reaction to a flu shot?: No Immunizations Fluarix Triv [id number] (PF) 45 mcg (15 mcg x 3)/0.5 mL IM syringe Performing Provider: Kirill Hfuf MD Performing Location: [facility] [place] [facility] Administered by: Nadja Valdez LPN on 09/30/24 15:13 Dose Route Admin Location Dispensed Lot Number Expiration Date NDC Pharmacy Analyst 0.5 mL IM Right Deltoid 0.5 mL [id number] 04/27/25 [id number] [email or web address] VIS Given Date VIS Provided VIS Publication Date 09/30/24 Single Vaccine 21 Eligibility Eligibility Date Funding Source Not [facility] [place] E[place]ible 09/30/24 Private Assessment & Plan Assessment & Plan (1) Asthma-COPD overlap syndrome: Code(s): J44.9 - Chronic obstructive pulmonary disease, unspecified Category: Medical (2) BRIE (obstructive sleep apnea): Code(s): G47.33 - Obstructive sleep apnea (adult) (pediatric) Category: Medical (3) Chronic cough: Code(s): R05 - Cough Category: Medical (4) GERD (gastroesophageal reflux disease): Code(s): K21.9 - Gastro-esophageal reflux disease without esophagitis Category: Medical Qualifiers: Esophagitis presence: without esophagitis Qualified Code(s): K21.9 - Gastro-esophageal reflux disease without esophagitis Plan start Advair HFA with spacer stop Wixela continue combivent VINNY as needed continue Singulair and zyrtec reflux diet sleep with HOB elevated F/U 12 months with CXR Orders: Orders Influenza [id number] Immunization Today J44.9 - Chronic obstructive pulmonary disease, unspecified XR chest 2V Today J44.9 - Chronic obstructive pulmonary disease, unspecified Medications: New fluticasone propion-salmeterol 115-21 mcg/actuation (Advair HFA) 2 puffs inhalation Q12H 30 days 12 grams 11RF Discontinued fluticasone furoate-vilanterol 200-25 mcg/dose (Breo Ellipta) Discontinued Reason: Doctor's Order 1 inh inhalation DAILY 30 days 60 ea 11RF Coding Level of Care Code Est Pt Level 4 (36798) Diagnoses Asthma-COPD overlap syndrome J44.9 BRIE (obstructive sleep apnea) G47.33 Chronic cough R05 Gastroesophageal reflux disease without esophagitis K21.9 Esophagitis presence: without esophagitis Time Spent (min) 16
[2024-09-30 14:40] VITALS: BP 120/70; PULSE 78; O2SAT 100; BMI 29.9
--- OUTSIDE RECORDS SUMMARY | 2024-10-07 14:59 | XMS_ITS | Continuity of Care Document ---
Author Organization [facility] Address [address] [place] [id number]- Support Name Relationship Address Phone WALI BROWNN Personal Relationship Unknown Unav ailable MIETKA, DIEUDONNE mother Unknown Unavailable STEPHANIE, MICHAAL Personal Relationship Unknown U navailable MIETKA, MUNIRA father Unknown Unavailable STEPHANIE, LUCRECIA Personal Relationship Unknown U navailable STEPHANIE, JOSETTE spouse Unknown Unavailabl e STEPHANIE, JOSETTE spouse Unknown Unavailabl e STEPHANIE, LUCRECIA spouse Unknown Unavailabl e STEPHANIE, JOSETTE Personal Relationship Unknown U navailable STEPHANIE, LUCRECIA Personal Relationship Unknown U navailable STEPHANIE, MARJAN Personal Relationship Unknown Unav ailable STEPHANIE, LUCRECIA Personal Relationship Unknown U navailable STEPHANIE, LUCRECIA Personal Relationship Unknown U navailable STEPHANIE, LUCRECIA Personal Relationship Unknown U navailable STEPHANIE, JOSETTE Personal Relationship Unknown U navailable STEPHANIE, LUCRECIA Personal Relationship Unknown U navailable STEPHANIE, LUCRECIA Personal Relationship Unknown U navailable STEPHANIE, LUCRECIA Personal Relationship Unknown U navailable Care Team Providers Care Life Trainer Name Role Phone Kacie Fajardo MD Primary Care Physician Encounter [facility] [place] Date(s): 08/28/24 - 09/27/24 [facility] [address] [place] [phone]- Encounter Type: Triage Allergies, Adverse Reactions, Alerts Substance Criticality Severity Reaction Reaction Severity Status Bactrim Unable to assess criticality Persistent Severe Active nystatin topical Unable to assess criticality Unknown rash Active Demerol HCl swelling Active Medications acetaminophen-oxyCODONE 325 mg-5 mg oral tablet Refills 0, Tot. Refills 0, Maintenance, 02/28/24 1:42:00 PM EDT, Partial fill upon patient request ifthe prescription is for a schedule II opioid drug. Start Date: 02/28/24 Status: Ordered Repeat number: 1 Advair HFA 230 mcg / 21 mcg 2 puffs, Inhalation, 2 times a day, 0 Refills, Maintenance, 11/06/13 3:03:46 PM EST Start Date: 11/06/13 Status: Ordered Repeat number: 1 B Complex 100 By Mouth, Daily, 0 Refills, Maintenance, 11/06/13 3:10:01 PM EST Start Date: 11/06/13 Status: Ordered Repeat number: 1 celecoxib 200 mg oral capsule 60 capsule, 0 Refill(s), 0 Refills, 08/06/24 1:49:00 PM EDT, Partial fill upon patient request if the prescription is for a schedule II opioid drug. Start Date: 08/06/24 Status: Ordered Repeat number: 1 CeleXA 10 mg oral tablet 10 mg, 1, tablet, By Mouth, Daily, # 30 tablet, Refills 3, Tot. Refills 3, Maintenance, 03/06/23 7:05:00 PM EDT, Route to Pharmacy Electronically, [id number], Partial fill upon patient request if the prescription is for a schedule II opioid drug., 167, cm, 03/06/23 13:45:00 EDT, Height, 82.5,kg, 04/20/22 13:47:00 EDT, Dry Weight Start Date: 03/06/23 Stop Date: 07/04/23 Status: Ordered Quantity: 30.0 Unit: tablet Repeat number: 4 Combivent Respimat 20 mcg-100 mcg/inh inhalation aerosol 1 puffs, Inhalation, 4 times a day, # 4 Gm, 0 Refills, Maintenance, 07/05/23 1:54:00 PM EDT, Aerosol,Partial fill upon patient request if the prescription is for a schedule II opioid drug. Start Date: 07/05/23 Status: Ordered Quantity: 4.0 Unit: g Repeat number: 1 cyclobenzaprine 5 mg oral tablet 60 tablet, 0 Refill(s), 0 Refills, 08/06/24 1:49:00 PM EDT, Partial fill upon patient request if theprescription is for a schedule II opioid drug. Start Date: 08/06/24 Status: Ordered Repeat number: 1 Daily Multiple Vitamins 1 tablet, By Mouth, Daily, 0 Refills, Maintenance, 11/06/13 3:08:43 PM EST Start Date: 11/06/13 Status: Ordered Repeat number: 1 Fish Oil = 1,000 mg, By Mouth, 0 Refills, Maintenance, 12/13/11 3:36:09 PM EST Start Date: 12/13/11 Status: Ordered Repeat number: 1 fluticasone 50 mcg/inh nasal spray 2 sprays, Nares, Both, 2 times a day, 0 Refills, Maintenance, 11/06/13 3:04:55 PM EST Start Date: 11/06/13 Status: Ordered Repeat number: 1 fluticasone-vilanterol 200 mcg-25 mcg/inh inhalation powder 0 Refill(s), 0 Refills, 08/06/24 1:49:00 PM EDT, Partial fill upon patient request if the prescription is for a schedule II opioid drug. Start Date: 08/06/24 Status: Ordered Repeat number: 1 ibuprofen 600 mg oral tablet 1 tablet = 600 mg, By Mouth, 4 times a day, PRN as needed for pain, 0 Refills, Maintenance, 11/06/13 3:11:00 PM EST Start Date: 11/06/13 Status: Ordered Repeat number: 1 Keppra 500 mg oral tablet See Instructions, 3 tabs By Mouth 2 times a day, # 540, 3 Refills Start Date: 04/15/07 Status: Ordered Quantity: 540.0 Unit: Repeat number: 4 Lamictal 100 mg oral tablet See Instructions, 3 tablet By Mouth bid, # 540, 0 Refills Start Date: 03/09/06 Status: Ordered Quantity: 540.0 Unit: Repeat number: 1 levothyroxine 0.1 mg oral tablet 1 tablet = 100 mcg, By Mouth, Daily, 0 Refills, Maintenance, 03/06/19 1:38:09 PM EDT Start Date: 03/06/19 Status: Ordered Repeat number: 1 lidocaine 1.8% topical film 1 patch, Topically, Daily, leave on up to 12 hours, # 30 each, 0 Refills, Maintenance, 03/01/22 4:11:00 PM EDT, Film, Partial fill upon patient request if the prescription is for a schedule II opioid drug. Start Date: 03/01/22 Status: Ordered Quantity: 30.0 Unit: each Repeat number: 1 Nasonex 50 mcg/inh nasal spray 2 sprays, Daily, 0 Refills, Maintenance, 03/01/22 4:11:00 PM EDT, Partial fill upon patient request if the prescription is for a schedule II opioid drug. Start Date: 03/01/22 Status: Ordered Repeat number: 1 nortriptyline 10 mg oral capsule 10 mg, 1, capsule, By Mouth, 3 times a day, Refills 0, Maintenance, 03/06/19 1:37:58 PM EDT Start Date: 03/06/19 Status: Ordered Repeat number: 1 OXcarbazepine 300 mg oral tablet 540 tablet, 0 Refill(s), Refills 0, 08/06/24 1:49:00 PM EDT, Partial fill upon patient request if the prescription is for a schedule II opioid drug. Start Date: 08/06/24 Status: Ordered Repeat number: 1 Prilosec OTC = 20 mg, By Mouth, Daily, 0 Refills, Maintenance, 07/05/23 1:42:00 PM EDT, Partial fill upon patient request if the prescription is for a schedule II opioid drug. Start Date: 07/05/23 Status: Ordered Repeat number: 1 ProAir HFA Inhalation, Every 6 hours, 0 Refills, Maintenance, 03/06/23 2:00:00 PM EDT, Partial fill upon patientrequest if the prescription is for a schedule II opioid drug. Start Date: 03/06/23 Status: Ordered Repeat number: 1 raloxifene 60 mg oral tablet 1 tablet = 60 mg, By Mouth, Daily, # 90 tablet, 3 Refills, Maintenance, 04/28/24 4:46:00 PM EDT, Tablet, [facility], 163, cm, 02/28/24 13:40:00 EDT, Height, 80, kg, 01/17/24 11:49:00 EDT, Dry Weight Start Date: 04/28/24 Stop Date: 04/23/25 Status: Ordered Quantity: 90.0 Unit: tablet Repeat number: 4 Singulair 10 mg oral tablet 10 mg, 1, tablet, By Mouth, Daily, Refills 0, Maintenance, 07/05/23 1:41:00 PM EDT, Partial fill uponpatient request if the prescription is for a schedule II opioid drug. Start Date: 07/05/23 Status: Ordered Repeat number: 1 tizanidine 2 mg oral capsule 2 capsule = 4 mg, By Mouth, 2 times a day, 0 Refills, Maintenance, 11/06/13 3:06:25 PM EST Start Date: 11/06/13 Status: Ordered Repeat number: 1 Trileptal 300 mg oral tablet 3 tablet = 900 mg, By Mouth, 2 times a day, 0 Refills, Maintenance, 11/06/13 3:07:55 PM EST Start Date: 11/06/13 Status: Ordered Repeat number: 1 Trileptal 300 mg oral tablet See Instructions, take two and a half (2.5) tabs PO BID, # 150, 5 Refills Start Date: 08/20/08 Status: Ordered Quantity: 150.0 Unit: Repeat number: 6 Tyrvaya 0.03 mg nasal spray 0 Refills, Maintenance, 03/06/23 2:03:00 PM EDT, Partial fill upon patient request if the prescription is for a schedule II opioid drug. Start Date: 03/06/23 Status: Ordered Repeat number: 1 Vitamin D3 = 1,000 International_Units, By Mouth, Daily, 0 Refills, Maintenance, 11/06/13 3:10:28 PM EST Start Date: 11/06/13 Status: Ordered Repeat number: 1 zonisamide = 100 mg, By Mouth, 2 times a day, 0 Refills, Maintenance, 11/06/13 3:08:15 PM EST Start Date: 11/06/13 Status: Ordered Repeat number: 1 zonisamide 100 mg oral capsule 450 capsule, 0 Refill(s), 0 Refills, 08/06/24 1:49:00 PM EDT, Partial fill upon patient request if the prescription is for a schedule II opioid drug. Start Date: 08/06/24 Status: Ordered Repeat number: 1 Zyrtec 10 mg oral tablet 1 tablet = 10 mg, By Mouth, Daily, 0 Refills, Maintenance, 11/06/13 3:05:24 PM EST Start Date: 11/06/13 Status: Ordered Repeat number: 1 Problem List Condition Confirmation Course Effective Dates Status Health St atus Informant Atypical lobular hyperplasia (ALH), Right breast, 2009 Confirmed 04/22/10 Active Atypical lobular hyperplasia (ALH) of left breast Confirmed Active Epilepsy Confirmed Active Mastalgia Confirmed Active Obese class I Confirmed Active Social History Social History Type Response Smoking Status Never (less than 100 in lifetime) entered on: 03/06/19 Sex Sex Representation Female (finding) Patient Care team information Care Team Personnel Name: Kacie Fajardo MD Position: Reference Physician Member Role: PCP Address: [address] [place] [address] Telecom: Care Team Related Persons Name: JOSETTE BROWN Name: MUNIRA HOWELL Insurance Providers Guarantor name: MARJAN BROWN Health Plan Information #: 1 Payer: [facility] Member Number: NA Policy Number: NA Group Number: NA Health Plan Information #: 2 Payer: MEDICARE PART B OUTPT Member Number: NA Policy Number: NA Group Number: NA
--- OUTSIDE RECORDS SUMMARY | 2024-10-07 15:00 | XMS_ITS | Patient Health Record ---
Author Organization [facility] Address [address] [place] [id number] Care Team Providers Care Asphalt Dauber Name Role Phone Kacie Fajardo Primary Care Provider Wilfrido Steinberg [phone] ALLERGIES Allergen (clinical drug ingredient) Drug/Non Drug Allergy documented on EMR Reaction Allergy Type Onset Date Status meperidine Demerol Unknown Drug Allergy Active sulfamethoxazole / trimethoprim Bactrim Unknown Drug Allergy Active REASON FOR REFERRAL No Information MEDICATIONS Medication SIG (Take, Route, Frequency, Duration) Notes Start Date End Date Status Prilosec 20 MG 2 capsule Orally twi ce a day Active tiZANidine HCl 2 MG 1 tablet as needed Orally twice a day Active Zonisamide 100 MG 1 capsule Orally Onc e a day Active Trileptal 300 MG 1 tablet Orally Twic e a day for 30 day(s) Active Nortriptyline HCl 10 MG 1 capsule Orally Once a day for 30 day(s) Active ZyrTEC Allergy 10 MG 1 tablet Orally Onc e a day for 30 day(s) Active Singulair 10 MG 1 tablet Orally Once a day for 30 day(s) Active Fish Oil 1200 MG 1 capsule Orally Onc e a day for 30 day(s) Active Levothyroxine Sodium 100 MCG 1 tablet in the morning on an empty stomach Orally Once a day for 30 day(s) Active LORazepam 1 MG 1 tablet at bedtime as needed Orally Once a day Active IMMUNIZATIONS Vaccine Route Administration Date Status Comme nts Influenza Unknown 06/29/2021 Administered Influenza Unknown 07/29/2021 Administered SOCIAL HISTORY Tobacco Use: Social History Observation Description Date Details (start date - stop date) Never Smoker NA - NA Sex Assigned At : Social History Observation Description Sex Assigned At Unknown Tobacco Use/Smoking Question Answer Notes Patient is a nonsmoker Alcohol Screen Question Answer Notes Did you have a drink containing alcohol in the p ast year? No Points 0 Interpretation Negative PROBLEMS Problem Type ICD Code Onset Dates Problem Status W/U Status Risk SNOMED Code Notes Problem Abnormal UGI series (R93.3) Active confirmed Problem Dysphagia (R13.10) Active confirmed Dysphagia (94851168) Problem Gastroparesis (K31.84) Active confirmed Gastroparesis (773779638) Problem Retained food in stomach (K31.89) Active confirmed PLAN OF TREATMENT Pending Test Test Name Order Date NUC GASTRIC ANTRUM EMPTYING 05/05/2022 Future Test Test Name Order Date UPPER GI ENDOSCOPY [place] DILATION OF ESOPH 04/18/2022 Insurance Providers Payer Name Payer Address Payer Phone Subscriber Number Group Number Insured Name Patient Relationship to Insured Coverage Start Date Coverage End Date [facility] [address] [address] [place] [address] [id number] MARJAN BROWN Self - patient is the insured MEDICARE OF [place] [address] [place] [address] [phone] [id number] MARJAN BROWN Self - patient is the insured MEDICAL (GENERAL) HISTORY Medical History History ICD Code Asthma/COPD Hypothyroidism Denies MT,DM,CVA,renal disease GERD-EGD with Dr. Schaefer--2017 per her P CP's records Negative colonoscopy-[address] Schaefer as per her PCP's records--patient states this was negative Epilepsy-uses meds and medical marijuana Neuropathy Surgical History Surgery Date(Month/Year) Thyroid Lipoma removal-abdominal wall Breast biopsies-[facility]
--- OUTSIDE RECORDS SUMMARY | 2024-10-07 15:00 | XMS_ITS | Data Portability ---
Author Organization [facility], Main Office Address [address] [place] [address] Care Team Providers Care Skid Wrapper Name Role Phone KAREN MCKEON Plastic Extrusion Operator ERIK WIHTE Neurologist [phone] ERIK NEWMAN Director Ship TAYLER MCLEOD Pet Supplies Salesperson PATRICA LEDBETTER Phys. Med. & Rehab [phone] [facility] Sports Medic ine LIV FAJARDO Primary Care Provider [phone] SELINA PERAZA Inside Sales Trainer [facility] Plastic/Reconstructive Surgeon DARIAN TOBAR Pool Hand NELY KRISHNAMURTHY Teletray Operator Assessment Encounter Date Assessment Date Assessment LastModified by Organization Details LastModified Time 01/28/2024 01/28/2024 Discussed with patient the signs/symptoms warranted for a return to office visit and/or an ER visit. Patient understood and agreed with the plan. [email or web address] Not available 01/27/2024 22:49:03 05/21/2024 05/21/2024 This service was provided using telemedicine. Patient consented to video & audio visit Patient was located in the [facility]. Provider was located in the office. No other persons participated in the telemedicine visit except for the patient unless otherwise indicated here. {{}} Total time of visit was 15 minutes. I was able to obtain a copy of the CT findings; the adrenal nodule is less than 3 cm. Her sunday school missionary has initiated some of the screening laboratory tests and I have added additional tests including serum catecholamines and serum metanephrines. 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 Once I receive these results, I will likely refer her to a urologist to determine if further follow-up is necessary. Previously, her osteoporosis was managed by an home service technician and breast specialist, and she was taking raloxifene. However, she experienced a lapse in care which she admitted and did not continue her treatment after her home service technician moved. There are plans to consider Prolia, which is a reasonable choice, but I suggested that if she completes therapy, it's important to be aware of the potential rebound effect. Data suggest transitioning to bisphosphonates after completing a course of Prolia to prevent this. I will defer this aspect of her care to her sunday school missionary, who has kindly agreed to help manage her osteoporosis. If the hormonal panel, which I have requested be done around 8 AM, indicates a possible overactive adrenal adenoma, further imaging and a referral to an home service technician might be warranted. The home service technician could also assist with her osteoporosis management if needed. [email or web address] Not available 05/21/2024 18:01:09 Plan of Treatment Reminders Order Date Submit Date Provider Last Modified By Organization Details Last Modified Time Details Appointments None recorde d. Lab vitamin D, 25-hydr oxy, total, serum 2022 [facility], [address], [address], [place], [address], 4 22:31:58 alkalin e phospha tase isoenzy mes, serum or plasma 2022 024 [facility], [address], [address], [place], [address], 4 02:05:50 unliste d lab - collage n 1 C telopep tide 2022 024 [facility], [address], [address], [place], [address], 4 17:05:46 unliste d lab - N-telop eptide cross links, serum 2022 024 [facility], [address], [address], [place], [address], 4 15:13:53 CBC w/ auto diff 2022 024 [facility], [address], [address], [place], [address], 4 20:33:42 CMP, serum or plasma 2022 024 [facility], [address], [address], [place], [address], 4 21:17:34 lipid panel, serum 2022 024 [facility], [address], [address], [place], [address], 4 17:10:57 thyroid panel, serum 2022 024 [facility], [address], [address], [place], [address], 4 22:31:57 folate, serum 2022 024 [facility], [address], [address], [place], [address], 4 22:37:58 haptogl obin, serum 2022 024 [facility], [address], [address], [place], [address], 4 21:17:36 homocys teine, serum or plasma 2022 024 [facility], [address], [address], [place], [address], 4 20:37:53 immunog lobulin s iga+igg +igm, quantit ative, serum 2022 024 [facility], [address], [address], [place], [address], 4 08:44:24 unliste d lab - kappa & lambda light chains, free, serum 2022 024 [facility], [address], [address], [place], [address], 4 12:14:02 mma (methyl malonic acid), serum 2022 [facility], [address], [address], [place], [address], 4 14:06:34 retic count, blood 2022 024 [facility], [address], [address], [place], [address], 4 20:33:44 vitamin B12, serum 2022 024 [facility], [address], [address], [place], [address], 4 22:37:28 ldh, serum or plasma 2022 024 [facility], [address], [address], [place], [address], 4 21:17:45 folate, RBC 2022 024 [facility], [address], [address], [place], [address], 4 15:06:44 gamma-g lutamyl transfe rase (ggt), serum 2022 024 [facility], [address], [address], [place], [address], 4 21:17:45 CBC w/ auto diff 2023 024 [facility], [address] [facility] [address], [place], [address], 4 18:05:51 CMP, serum or plasma 2023 024 [facility], [address], [place], [address], 4 18:05:52 vitamin D, 25-hydr oxy, total, serum 2023 024 [facility], [address], [facility] [address], [place], [address], 4 18:05:54 spep, serum, reflex immunof ixation 2023 024 [facility], [address] , [facility] [address], [place], [address], 4 18:05:52 protein electro phoresi s panel, serum or plasma 2023 024 [facility], [address] , [facility] [address], [place], [address], 4 18:05:53 catecho lamines , fractio nated, urine 2023 024 [facility], [address], [place], [address], 4 14:06:52 catecho lamines panel, QN, plasma 2023 024 [facility], [address], [place], [address], 4 16:06:51 metanep hrine, free, serum or plasma 2023 024 [facility], [address], [place], [address], 4 16:06:51 cytolog y, urine 2023 024 [facility], [address] [facility], [place], [address], 4 12:28:25 urinaly sis complet e, reflex culture 2023 024 [facility], [address] [address], [place], [address], 4 16:06:50 Referral sleep medicin e referra l 2023 024 [facility], [address] [place], [address], 4 08:31:05 dermato logist referra l 2023 024 [email or web address], [address] [facility] [address] [facility], [facility] [address], [place], [address], 4 10:01:[address] referra l 2023 024 [facility], [address] [place], [address], 4 08:48:03 physica l medicin e and rehabil itation referra l - t12 ani spenser 2023 024 [email or web address] [facility], [address] [place], [address], 4 15:01:17 Procedures None recorde d. Surgeries None recorde d. Imaging bone density 2023 024 [email or web address] [facility], [address], [place], [address], 11:15:20 DEXA 2023 024 [facility], [address], [place], [address], 4 10:45:30 US, bladder 2023 024 [facility] ([facility]), [address], [place], [address], 4 08:30:55 Medication Orders calcito jose elias (salmon ) 200 unit/ac tuation nasal spray 2023 [facility], [address] [place], [address], 4 11:44:43 Percoce t 5 mg-325 mg tablet 2023 024 [facility], [address] [place], [address], 11:46:43 Patient TargetsNo targets recorded. Patient Instructions Encounter Date Encounter Id Patient Instructions Last Modified By Organization Details Last Modified Time 12/31/2023 [id number] insomnia: care instructions [email or web address] Not available 12/31/2023 15:15:19 well visit, wome n 50 to 65: care instructions [email or web address] Not available 12/31/2023 15:13:44 starting a weigh t loss plan: care instructions [email or web address] Not available 12/31/2023 15:13:44 01/28/2024 [id number] At [facility] follow up visit, all current and discharge medications (OTC, herbal therapies, supplements) reviewed and reconciled with patient and or caregiver, including potential side effects, drug interactions, instructions, and the consequences of not taking medication. Reviewed potential barriers to medication adherence, such as side effects from medication or cost of medication. 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 Referring Physician: Liv Fajardo [facility], Encounter Date: 12/31/2023 Physical Therapist Referral for Compression fracture of thoracic vertebra Referring Physician: Aggie Solis [facility], Encounter Date: 01/28/2024 Physical Medicine And Rehabi litation Referral for Compression fracture of thoracic vertebra t12 compression Referring Physician: Aggie Solis [facility], Encounter Date: 01/28/2024 Results Created Date Observation Date Name Description Value Unit Range Abnormal Flag Note LastModifiedBy Organization Detail LastModifiedTime 03/21/2003/21/2023 COMPL ETE CBC WITH DIFF WBC 5.5 K/mm3 (4.0-1 1.0) Not Available [facility] [address] [place], [address], 03/21/2023 19:52:58 03/21/2003/21/2023 COMPL ETE CBC WITH DIFF RBC 3.82 M/mm3 (4.20- 5.40) low Not Available [facility] [address] [place], [address], 03/21/2023 19:52:58 03/21/2003/21/2023 COMPL ETE CBC WITH DIFF HGB 12.8 gm/dL (11.7- 15.5) Not Available [facility] [address] [place], [address], 03/21/2023 19:52:58 03/21/2003/21/2023 COMPL ETE CBC WITH DIFF HCT 38.9 % (35.7- 45.8) Not Available [facility] [address] [place], [address], 03/21/2023 19:52:58 03/21/20 23 03/21/2023 COMPL ETE CBC WITH DIFF MCV 101.8 fL (80.0- 100.0) high Not Available [facility] [address] [place], [address], 03/21/2023 19:52:58 03/21/20 23 03/21/2023 COMPL ETE CBC WITH DIFF MCH 33.5 pg (27.0- 34.0) Not Available [facility] [address] [place], [address], 03/21/2023 19:52:58 03/21/20 23 03/21/2023 COMPL ETE CBC WITH DIFF MCHC 32.9 g/dL (33.0- 37.0) low Not Available [facility] [address] [place], [address], 03/21/2023 19:52:58 03/21/20 23 03/21/2023 COMPL ETE CBC WITH DIFF plt 348 K/mm3 (150-4 60) Not Available [facility] [address] [place], [address], 03/21/2023 19:52:58 03/21/20 23 03/21/2023 COMPL ETE CBC WITH DIFF RDW-SD 45.1 fL (<47.0 ) Not Available [facility] [address] [place], [address], 03/21/2023 19:52:58 03/21/2003/21/2023 COMPL ETE CBC WITH DIFF MPV 10.4 fL (9.4-1 2.4) Not Available [facility] [address] [place], [address], 03/21/2023 19:52:58 03/21/2003/21/2023 COMPL ETE CBC WITH DIFF automated NRBC 0.0 #/100 _WBC' s Not Available [facility] [address] [place], [address], 03/21/2023 19:52:58 03/21/20 23 03/21/2023 COMPL ETE CBC WITH DIFF abs. NRBC 0.0 K/mm3 Not Available [facility] [address], [address], 03/21/2023 19:52:58 03/21/20 23 03/21/2023 COMPL ETE CBC WITH DIFF neut # 3.2 K/mm3 (1.3-7 .0) Not Available [facility] [address] [place], [address], 03/21/2023 19:52:58 03/21/20 23 03/21/2023 COMPL ETE CBC WITH DIFF lymph # 1.5 K/mm3 (0.8-3 .1) Not Available [facility] [address] [place], [address], 03/21/2023 19:52:58 03/21/20 23 03/21/2023 COMPL ETE CBC WITH DIFF mono# 0.6 K/mm3 (0.4-0 .9) Not Available [facility] [address] [place], [address], 03/21/2023 19:52:58 03/21/20 23 03/21/2023 COMPL ETE CBC WITH DIFF eo # 0.1 K/mm3 (0.0-0 .4) Not Available [facility] [address] [place], [address], 03/21/2023 19:52:58 03/21/20 23 03/21/2023 COMPL ETE CBC WITH DIFF baso # 0.1 K/mm3 (0.0-0 .1) Not Available [facility] [address] [place], [address], 03/21/2023 19:52:58 03/21/20 23 03/21/2023 COMPL ETE CBC WITH DIFF abs. imm gran 0.0 K/mm3 Not Available [facility] [address] [place], [address], 03/21/2023 19:52:58 03/21/20 23 03/21/2023 COMPL ETE CBC WITH DIFF neut 59.3 % (44-76 ) Not Available [facility] [address] [place], [address], 03/21/2023 19:52:58 03/21/20 23 03/21/2023 COMPL ETE CBC WITH DIFF lymph 26.5 % (15-43 ) Not Available [facility] [address] [place], [address], 03/21/2023 19:52:58 03/21/20 23 03/21/2023 COMPL ETE CBC WITH DIFF monocyte 10.1 % (4.5-1 0.5) Not Available [facility] [address] [place], [address], 03/21/2023 19:52:58 03/21/20 23 03/21/2023 COMPL ETE CBC WITH DIFF eo 2.0 % (0-6) Not Available [facility] [address] [place], [address], 03/21/2023 19:52:58 03/21/20 23 03/21/2023 COMPL ETE CBC WITH DIFF baso 1.6 % (0-2) Not Available [facility] [address] [place] [place], [address], 03/21/2023 19:52:58 03/21/20 23 03/21/2023 COMPL ETE CBC WITH DIFF imm gran 0.5 % Not Available [facility] [address] [place], [address], 03/21/2023 19:52:58 03/21/20 23 03/21/2023 BASIC METAB OLIC PANEL glucose 101 mg/dL (70-99 ) high Not Available [facility] [address] [place], [address], 03/21/2023 20:21:23 03/21/20 23 03/21/2023 BASIC METAB OLIC PANEL BUN 13 mg/dL (6-20) Not Available [facility] [address] [place], [address], 03/21/2023 20:21:23 03/21/20 23 03/21/2023 BASIC METAB OLIC PANEL creatinine 0.7 mg/dL (0.5-1 .0) Not Available [facility] [address], [address], 03/21/2023 20:21:23 03/21/20 23 03/21/2023 BASIC METAB OLIC PANEL sodium 133 mmol/ L (133-1 45) Not Available [facility] [address] [place], [address], 03/21/2023 20:21:23 03/21/20 23 03/21/2023 BASIC METAB OLIC PANEL potassium 4.1 mmol/ L (3.6-5 .2) Not Available [facility] [address] [place], [address], 03/21/2023 20:21:23 03/21/20 23 03/21/2023 BASIC METAB OLIC PANEL chloride 97 mmol/ L (98-10 7) low Not Available [facility] [address] [place], [address], 03/21/2023 20:21:23 03/21/20 23 03/21/2023 BASIC METAB OLIC PANEL bicarbonate 25 mmol/ L (22-29 ) Not Available [facility] [address] [place], [address], 03/21/2023 20:21:23 03/21/20 23 03/21/2023 BASIC METAB OLIC PANEL anion gap 11 (4-17) Not Available [facility] [address] [place], [address], 03/21/2023 20:21:23 03/21/20 23 03/21/2023 BASIC METAB OLIC PANEL calcium 10.0 mg/dL (8.6-1 0.5) Not Available [facility] [address] [place], [address], 03/21/2023 20:21:23 03/21/2003/21/2023 BASIC METAB OLIC PANEL estimated GFR creatinine 101 mL/mi n/1.7 3_M2 Creat inine based estim ated glome rular filtr ation (eGFR ) in adult s is calcu lated using the Natio nal Kidne y Found ation recom nallely d 2020 CKD-E PI equat ion. Estim ates GFR from serum creat inine , age and sex. Not Available [facility] [address] [place], [address], 03/21/2023 20:21:23 03/27/2003/27/2023 juvenal avery al (PROC ) done by Dr Fajardo Not Available In-Office Order Internal Use Only DO Not Attach Compendium DO Not Attach Compendium, Do Not Delete/merge, [id number] 03/25/2023 09:53:34 12/31/19 24 12/31/2023 COMPL ETE CBC WITH DIFF WBC 4.3 K/mm3 (4.0-1 1.0) Not Available [facility] [address] [place], [address], 12/31/2023 20:33:42 12/31/19 24 12/31/2023 COMPL ETE CBC WITH DIFF RBC 3.93 M/mm3 (4.20- 5.40) low Not Available [facility] [address] [place], [address], 12/31/2023 20:33:42 12/31/19 24 12/31/2023 COMPL ETE CBC WITH DIFF HGB 12.9 gm/dL (11.7- 15.5) Not Available [facility] [address] [place], [address], 12/31/2023 20:33:42 12/31/19 24 12/31/2023 COMPL ETE CBC WITH DIFF HCT 38.6 % (35.7- 45.8) Not Available [facility] [address] [place], [address], 12/31/2023 20:33:42 12/31/19 24 12/31/2023 COMPL ETE CBC WITH DIFF MCV 98.2 fL (80.0- 100.0) Not Available [facility] [address] [place], [address], 12/31/2023 20:33:42 12/31/19 24 12/31/2023 COMPL ETE CBC WITH DIFF MCH 32.8 pg (27.0- 34.0) Not Available [facility] [address] [place], [address], 12/31/2023 20:33:42 12/31/19 24 12/31/2023 COMPL ETE CBC WITH DIFF MCHC 33.4 g/dL (33.0- 37.0) Not Available [facility] [address] [place], [address], 12/31/2023 20:33:42 12/31/19 24 12/31/2023 COMPL ETE CBC WITH DIFF plt 329 K/mm3 (150-4 60) Not Available [facility] [address] [place], [address], 12/31/2023 20:33:42 12/31/19 24 12/31/2023 COMPL ETE CBC WITH DIFF RDW-SD 43.7 fL (<47.0 ) Not Available [facility] [address] [place], [address], 12/31/2023 20:33:42 12/31/19 24 12/31/2023 COMPL ETE CBC WITH DIFF MPV 10.2 fL (9.4-1 2.4) Not Available [facility] [address] [place], [address], 12/31/2023 20:33:42 12/31/19 24 12/31/2023 COMPL ETE CBC WITH DIFF automated NRBC 0.0 #/100 _WBC' s Not Available [facility] [address] [place], [address], 12/31/2023 20:33:42 12/31/19 24 12/31/2023 COMPL ETE CBC WITH DIFF abs. NRBC 0.0 K/mm3 Not Available [facility] [address] [place], [address], 12/31/2023 20:33:42 12/31/19 24 12/31/2023 COMPL ETE CBC WITH DIFF neut # 2.7 K/mm3 (1.3-7 .0) Not Available [facility] [address] [place], [address], 12/31/2023 20:33:42 12/31/19 24 12/31/2023 COMPL ETE CBC WITH DIFF lymph # 1.0 K/mm3 (0.8-3 .1) Not Available [facility] [address] [place], [address], 12/31/2023 20:33:42 12/31/19 24 12/31/2023 COMPL ETE CBC WITH DIFF mono# 0.4 K/mm3 (0.4-0 .9) Not Available [facility] [address] [place], [address], 12/31/2023 20:33:42 12/31/19 24 12/31/2023 COMPL ETE CBC WITH DIFF eo # 0.1 K/mm3 (0.0-0 .4) Not Available [facility] [address] [place], [address], 12/31/2023 20:33:42 12/31/19 24 12/31/2023 COMPL ETE CBC WITH DIFF baso # 0.1 K/mm3 (0.0-0 .1) Not Available [facility] [address] [place], [address], 12/31/2023 20:33:42 12/31/19 24 12/31/2023 COMPL ETE CBC WITH DIFF abs. imm gran 0.0 K/mm3 Not Available [facility] [address] [place], [address], 12/31/2023 20:33:42 12/31/19 24 12/31/2023 COMPL ETE CBC WITH DIFF neut 63.0 % (44-76 ) Not Available [facility] [address] [place], [address], 12/31/2023 20:33:42 12/31/19 24 12/31/2023 COMPL ETE CBC WITH DIFF lymph 24.2 % (15-43 ) Not Available [facility] [address] [place], [address], 12/31/2023 20:33:42 12/31/19 24 12/31/2023 COMPL ETE CBC WITH DIFF monocyte 9.1 % (4.5-1 0.5) Not Available [facility] [address] [place], [address], 12/31/2023 20:33:42 12/31/19 24 12/31/2023 COMPL ETE CBC WITH DIFF eo 1.6 % (0-6) Not Available [facility] [address] [place], [address], 12/31/2023 20:33:42 12/31/19 24 12/31/2023 COMPL ETE CBC WITH DIFF baso 1.9 % (0-2) Not Available [facility] [address] [place], [address], 12/31/2023 20:33:42 12/31/19 24 12/31/2023 COMPL ETE CBC WITH DIFF imm gran 0.2 % Not Available [facility] [address] [place], [address], 12/31/2023 20:33:42 12/31/19 24 12/31/2023 RETIC ULOCY TE COUNT retic % 1.2 % (0.9-2 .1) Not Available [facility] [address] [place], [address], 12/31/2023 20:33:43 12/31/19 24 12/31/2023 RETIC ULOCY TE COUNT reticulocyte count, corrected 1.0 % (0.9-2 .1) Not Available [facility] [address] [place], [address], 12/31/2023 20:33:43 12/31/19 24 12/31/2023 RETIC ULOCY TE COUNT reticulocyte production index 1.0 % (1.0-2 .0) Not Available [facility] [address] [place], [address], 12/31/2023 20:33:43 12/31/19 24 12/31/2023 HOMOC YSTEI NE, PLASM A homocysteine , plasma 8.8 umol/ L (0-15) Not Available [facility] [address] [place], [address], 12/31/2023 20:37:53 12/31/19 24 12/31/2023 COMPR EHENS JUAN METAB OLIC PANL glucose 116 mg/dL (70-99 ) high Not Available [facility] [address] [place], [address], 12/31/2023 21:17:34 12/31/19 24 12/31/2023 COMPR EHENS JUAN METAB OLIC PANL BUN 12 mg/dL (6-20) Not Available [facility] [address] [place], [address], 12/31/2023 21:17:34 12/31/19 24 12/31/2023 COMPR EHENS JUAN METAB OLIC PANL creatinine 0.8 mg/dL (0.5-1 .0) Not Available [facility] [address] [place], [address], 12/31/2023 21:17:34 12/31/19 24 12/31/2023 COMPR EHENS JUAN METAB OLIC PANL sodium 131 mmol/ L (133-1 45) low Not Available [facility] [address] [place], [address], 12/31/2023 21:17:34 12/31/19 24 12/31/2023 COMPR EHENS JUAN METAB OLIC PANL potassium 4.1 mmol/ L (3.6-5 .2) Not Available [facility] [address] [place], [address], 12/31/2023 21:17:34 12/31/19 24 12/31/2023 COMPR EHENS JUAN METAB OLIC PANL chloride 98 mmol/ L (98-10 7) Not Available [facility] [address], [address], 12/31/2023 21:17:34 12/31/19 24 12/31/2023 COMPR EHENS JUAN METAB OLIC PANL bicarbonate 22 mmol/ L (22-29 ) Not Available [facility] [address] [place], [address], 12/31/2023 21:17:34 12/31/19 24 12/31/2023 COMPR EHENS JUAN METAB OLIC PANL anion gap 11 (4-17) Not Available [facility] [address] [place], [address], 12/31/2023 21:17:34 12/31/19 24 12/31/2023 COMPR EHENS JUAN METAB OLIC PANL albumin 4.5 gm/dL (3.4-4 .8) Not Available [facility] [address] [place], [address], 12/31/2023 21:17:34 12/31/19 24 12/31/2023 COMPR EHENS JUAN METAB OLIC PANL calcium 9.5 mg/dL (8.6-1 0.5) Not Available [facility] [address] [place], [address], 12/31/2023 21:17:34 12/31/19 24 12/31/2023 COMPR EHENS JUAN METAB OLIC PANL bilirubin,to mounika 0.2 mg/dL (0-1.2 ) Not Available [facility] [address] [place], [address], 12/31/2023 21:17:34 12/31/19 24 12/31/2023 COMPR EHENS JUAN METAB OLIC PANL total protein 6.9 gm/dL (6.2-8 .2) Not Available [facility] [address] [place], [address], 12/31/2023 21:17:34 12/31/19 24 12/31/2023 COMPR EHENS JUAN METAB OLIC PANL Ag ratio 1.9 Not Available [facility] [address] [place], [address], 12/31/2023 21:17:34 12/31/19 24 12/31/2023 COMPR EHENS JUAN METAB OLIC PANL AST 18 U/L (0-32) Not Available [facility] [address] [place], [address], 12/31/2023 21:17:34 12/31/19 24 12/31/2023 COMPR EHENS JUAN METAB OLIC PANL alk phos 161 U/L (35-10 4) high Not Available [facility] [address] [place], [address], 12/31/2023 21:17:34 12/31/19 24 12/31/2023 COMPR EHENS JUAN METAB OLIC PANL ALT 15 U/L (0-33) Not Available [facility] [address] [place], [address], 12/31/2023 21:17:34 12/31/19 24 12/31/2023 COMPR EHENS JUAN METAB OLIC PANL estimated GFR creatinine 92 mL/mi n/1.7 3_M2 Creat inine based estim ated glome rular filtr ation (eGFR ) in adult s is calcu lated using the Natio nal Kidne y Found ation recom nallely d 2020 CKD-E PI equat ion. Estim ates GFR from serum creat inine , age and sex. Not Available [facility] [address] [place], [id number], 12/31/2023 21:17:34 12/31/19 24 12/31/2023 HAPTO GLOBI N haptoglobin 128 mg/dL (30-20 0) Not Available [facility] [address] [place], [id number], 12/31/2023 21:17:36 12/31/19 24 12/31/2023 GGTP ggtp 47 U/L (5-36) high Not Available [facility] [address] [place], [address], 12/31/2023 21:17:44 12/31/19 24 12/31/2023 LDH LDH 136 U/L (94-25 0) Not Available [facility] [address] [place], [id number], 12/31/2023 21:17:45 12/31/19 24 12/31/2023 THYRO ID PANEL free T4 0.71 NG/dL (0.70- 1.80) Not Available [facility] [address] [place], [id number], 12/31/2023 22:31:56 12/31/19 24 12/31/2023 THYRO ID PANEL TSH 0.60 uIU/m L (0.4-4 .2) Not Available [facility] [address] [place], [id number], 12/31/2023 22:31:56 12/31/19 24 12/31/2023 25OH VITAM IN D 25OH vitamin D 48.6 NG/mL (20-50 ) Not Available [facility] [address] [place], [address], 12/31/2023 22:31:58 12/31/19 24 12/31/2023 VITAM IN B12 vitamin B12 3281 pg/mL (232-1 245) high Not Available [facility] [address] [place], [address], 12/31/2023 22:37:28 12/31/19 24 12/31/2023 FOLIC ACID folic acid >40.0 NG/mL (4.8-3 7.3) high Not Available [facility] [address] [place], [address], 12/31/2023 22:37:58 12/31/19 24 01/01/2024 HEMOG LOBIN A1C hemoglobin A1C 5.3 % (4.0-5 .6) MONIT ORING : In known diabe tic patie nts, hemog lobin A1c targe ts shoul d be discu ssed with healt h care provi francisco j. DIAGN OSTIC USE: The Ameri can Diabe zak Assoc iatio n (ADA) and the World Healt h Organ izati on (WHO) recom mend the use of HbA1c to diagn ose diabe zak using a thres hold of 6.5%. Patie nts who have an HbA1c betwe en 5.7% and 6.4% are consi dered at incre ased risk for devel oping diabe zak in the futur nelli BACK ON: False ly low HbA1c resul ts may be obser payal in patie nts with hemol ytic anemi a, homoz ygous forms of abnor mal hemog lobin (e.g. SS, CC, SC), pregn camron, recen t blood loss or hemog lobin F great er than 7%. Fruct osami ne may be used as an alter rodrigo test in these cases . REFER ENCE: ADA: Stand ards of Medic al Care in Diabe zak 2019, The Journ al of Clini uriel and Appli ed Resea rc and Educa tion Volum e 43, Suppl ement 1 Not Available [facility] [address] [place], [address], 01/01/2024 10:27:15 12/31/19 24 01/02/2024 FREE KAPPA & LAMBD A LIGHT CHAIN S, SERUM free kappa, serum 14.87 mg/L (3.30- 19.40) Not Available [facility] [address] [place], [address], 01/02/2024 12:14:01 12/31/19 24 01/02/2024 FREE KAPPA & LAMBD A LIGHT CHAIN S, SERUM free lambda, serum 12.76 mg/L (5.71- 26.30) Not Available [facility] [address] [place], [address], 01/02/2024 12:14:01 12/31/19 24 01/02/2024 FREE KAPPA & LAMBD A LIGHT CHAIN S, SERUM free kappa/lambda ratio 1.17 (0.26- 1.65) A small porti on of sampl es conta ining high amilcar ntrat ions of free kappa and free lambd a can give a false ly low resul t for the invo lved light chain due to antig en exces s. Corre latio n with clini uriel prese ntati on and/o r other labor atory findi ngs is kapil carreon Not Available [facility] [address] [place], [address], 01/02/2024 12:14:01 12/31/19 24 01/02/2024 LIPID PANEL cholesterol, total 239 mg/dL (<200) high Not Available [facility] [address] [place], [address], 01/02/2024 17:10:57 12/31/19 24 01/02/2024 LIPID PANEL triglyceride 82 mg/dL (<150) Not Available [facility] [address] [place], [address], 01/02/2024 17:10:57 12/31/19 24 01/02/2024 LIPID PANEL HDL chol 64 mg/dL (>39) Not Available [facility] [address], [address], 01/02/2024 17:10:57 12/31/19 24 01/02/2024 LIPID PANEL LDL cholesterol, calculated 159 mg/dL (0-130 ) high Not Available [facility] [address], [address], 01/02/2024 17:10:57 12/31/19 24 01/02/2024 LIPID PANEL non HDL cholesterol (calc) 175 mg/dL (<160) high Not Available [facility] [address] [place], [address], 01/02/2024 17:10:57 12/31/19 24 12/31/2023 IMMUN OFIXA TION SERUM immunoglobul in IgG 742 mg/dL (700-1 600) Not Available [facility] [address] [place], [address], 01/03/2024 08:44:24 12/31/19 24 12/31/2023 IMMUN OFIXA TION SERUM immunoglobul in IgA 276 mg/dL (70-40 0) Not Available [facility] [address] [place], [address], 01/03/2024 08:44:24 12/31/19 24 12/31/2023 IMMUN OFIXA TION SERUM immunoglobul in IgM 49 mg/dL (40-23 0) Not Available [facility] [address] [place], [address], 01/03/2024 08:44:24 12/31/19 24 01/03/2024 IMMUN OFIXA TION SERUM immunofix Kasia l immun ofixa tion audelia rn (No monoc lonal prote in detec carol) Inter prete d by Kvng orta MD Not Available [facility] [address] [place], [address], 01/03/2024 08:44:24 12/31/19 24 01/03/2024 RBC FOLAT E RBC folate >1598 Refer ence range : >498 Unit: ng/mL Not Available [facility] [address] [place], [address], 01/03/2024 15:06:43 12/31/19 24 01/03/2024 RBC FOLAT E RBC HCT 38.8 (34.0- 46.6) Unit: % Not Available [facility] [address] [place], [address], 01/03/2024 15:06:43 12/31/19 24 01/03/2024 RBC FOLAT E folate hemolysate >620.0 Refer ence range : Not Estab . Unit: ng/mL Test perfo rmed by [facility], [address], [place], [place] [address] Not Available [facility] [address], [address], 01/03/2024 15:06:43 12/31/19 24 01/06/2024 COLLA GEN 1 C TELOP EPTID E collagen 1 C telopeptide 517 Unit: pg/mL (NOTE ) Refer ence Range : Preme nopau wendy Women : 34 - 635 Postm enopa usal Women : 34 - 1037 Test perfo rmed by Megna ricci, [address] [facility], [place] [address] Not Available [facility] [address] [place], [address], 01/06/2024 17:05:46 12/31/19 24 01/07/2024 ALK PHOS ISO alkaline phos, total for iso 163 high Refer ence range : 44 to 121 Unit: IU/L Test perfo rmed by [facility], [address], [place], [place] [address] Not Available [facility] [address] [place], [address], 01/07/2024 02:05:50 12/31/19 24 01/07/2024 ALK PHOS ISO bone fraction, alk phos isoenz 61 Refer ence range : 14 to 68 Unit: % Not Available [facility] [address] [place], [address], 01/07/2024 02:05:50 12/31/19 24 01/07/2024 ALK PHOS ISO intestinal frac alk phos isoen 9 Refer ence range : 0 to 18 Unit: % Not Available [facility] [address] [place], [address], 01/07/2024 02:05:50 12/31/19 24 01/07/2024 ALK PHOS ISO liver fraction alk phos isoenz 30 Refer ence range : 18 to 85 Unit: % [facility] [place] , [address] [place] [address] Not Available [facility] [address] [place], [address], 01/07/2024 02:05:50 12/31/19 24 01/07/2024 METHY LMALO LUIS A ACID, SERUM methylmaloni c acid, serum 185 Refer ence range : 0 to 378 Unit: nmol/ L (NOTE ) This test was devel oped and its perfo rmanc e charmaine cteri stics deter mined by [facility]. It has not been clear ed or appro payal by the Food and Drug Admin istra tion. Test [facility] at [facility] [place] , [address] [id number] Not Available [facility] [address] [place], [address], 01/07/2024 14:06:34 01/30/20 24 01/31/2024 CBC WITH DIFFE RENTI AL/PL ATELE T WBC 7.7 x10e3 /uL 3.4-10 .8 Not Available [facility] ([facility]) [address] [place], [address], 02/02/2024 18:05:51 01/30/20 24 01/31/2024 CBC WITH DIFFE RENTI AL/PL ATELE T RBC 3.76 x10e6 /uL 3.77-5 .28 below low normal Not Available [facility] ([facility]) [address] [facility], [place], [address], 02/02/2024 18:05:51 01/30/20 24 01/31/2024 CBC WITH DIFFE RENTI AL/PL ATELE T hemoglobin 12.3 g/dL 11.1-1 5.9 Not Available [facility] ([facility]) [address] [facility], [place], [address], 02/02/2024 18:05:51 01/30/20 24 01/31/2024 CBC WITH DIFFE RENTI AL/PL ATELE T hematocrit 37.0 % 34.0-4 6.6 Not Available [facility] ([facility]) [address] [facility], [place], [address], 02/02/2024 18:05:51 01/30/20 24 01/31/2024 CBC WITH DIFFE RENTI AL/PL ATELE T MCV 98 fL 79-97 above high normal Not Available [facility] ([facility]) [address] [facility], [place], [address], 02/02/2024 18:05:51 01/30/20 24 01/31/2024 CBC WITH DIFFE RENTI AL/PL ATELE T MCH 32.7 pg 26.6-3 3.0 Not Available [facility] ([facility]) [address] [facility], [place], [address], 02/02/2024 18:05:51 01/30/20 24 01/31/2024 CBC WITH DIFFE RENTI AL/PL ATELE T MCHC 33.2 g/dL 31.5-3 5.7 Not Available [facility] ([facility]) [address] [facility], [place], [address], 02/02/2024 18:05:51 01/30/20 24 01/31/2024 CBC WITH DIFFE RENTI AL/PL ATELE T RDW 11.6 % 11.7-1 5.4 below low normal Not Available [facility] ([facility]) [address] [facility], [place], [address], 02/02/2024 18:05:51 01/30/20 24 01/31/2024 CBC WITH DIFFE RENTI AL/PL ATELE T platelets 374 x10e3 /uL 150-45 0 Not Available [facility] ([facility]) [address] [facility], [place], [address], 02/02/2024 18:05:51 01/30/20 24 01/31/2024 CBC WITH DIFFE RENTI AL/PL ATELE T neutrophils 72 % not estab. Not Available [facility] ([facility]) [address] [facility], [place], [address], 02/02/2024 18:05:51 01/30/20 24 01/31/2024 CBC WITH DIFFE RENTI AL/PL ATELE T lymphs 18 % not estab. Not Available [facility] ([facility]) [address] [facility], [place], [address], 02/02/2024 18:05:51 01/30/20 24 01/31/2024 CBC WITH DIFFE RENTI AL/PL ATELE T monocytes 8 % not estab. Not Available [facility] ([facility]) [address] [facility], [place], [address], 02/02/2024 18:05:51 01/30/20 24 01/31/2024 CBC WITH DIFFE RENTI AL/PL ATELE T eos 1 % not estab. Not Available [facility] ([facility]) [address] [facility], [place], [address], 02/02/2024 18:05:51 01/30/20 24 01/31/2024 CBC WITH DIFFE RENTI AL/PL ATELE T basos 1 % not estab. Not Available [facility] ([facility]) [address] [facility], [place], [address], 02/02/2024 18:05:51 01/30/20 24 01/31/2024 CBC WITH DIFFE RENTI AL/PL ATELE T immature cells REPAIR CAMERAMAN Not Available [facility] ([facility]) [address] [facility], [place], [address], 02/02/2024 18:05:51 01/30/20 24 01/31/2024 CBC WITH DIFFE RENTI AL/PL ATELE T neutrophils (absolute) 5.5 x10e3 /uL 1.4-7. 0 Not Available [facility] ([facility]) [address] [place], [address], 02/02/2024 18:05:51 01/30/20 24 01/31/2024 CBC WITH DIFFE RENTI AL/PL ATELE T lymphs (absolute) 1.4 x10e3 /uL 0.7-3. 1 Not Available [facility] ([facility]) [address] [place], [address], 02/02/2024 18:05:51 01/30/20 24 01/31/2024 CBC WITH DIFFE RENTI AL/PL ATELE T monocytes(ab solute) 0.6 x10e3 /uL 0.1-0. 9 Not Available [facility] ([facility]) [address] [facility], [place], [address], 02/02/2024 18:05:51 01/30/20 24 01/31/2024 CBC WITH DIFFE RENTI AL/PL ATELE T eos (absolute) 0.1 x10e3 /uL 0.0-0. 4 Not Available [facility] ([facility]) [address] [place], [address], 02/02/2024 18:05:51 01/30/20 24 01/31/2024 CBC WITH DIFFE RENTI AL/PL ATELE T baso (absolute) 0.1 x10e3 /uL 0.0-0. 2 Not Available [facility] ([facility]) [address] [place], [address], 02/02/2024 18:05:51 01/30/20 24 01/31/2024 CBC WITH DIFFE RENTI AL/PL ATELE T immature granulocytes 0 % not estab. Not Available [facility] ([facility]) [address] [place], [address], 02/02/2024 18:05:51 01/30/20 24 01/31/2024 CBC WITH DIFFE RENTI AL/PL ATELE T immature grans (abs) 0.0 x10e3 /uL 0.0-0. 1 Not Available [facility] ([facility]) [address] [facility], [place], [address], 02/02/2024 18:05:51 01/30/20 24 01/31/2024 CBC WITH DIFFE RENTI AL/PL ATELE T NRBC REPAIR CAMERAMAN Not Available [facility] ([facility]) [address] [facility], [place], [address], 02/02/2024 18:05:51 01/30/20 24 01/31/2024 CBC WITH DIFFE RENTI AL/PL ATELE T hematology comments: REPAIR CAMERAMAN Not Available [facility] ([facility]) [address] [facility], [place], [address], 02/02/2024 18:05:51 01/30/20 24 01/31/2024 COMP. METAB OLIC PANEL (14) glucose 103 mg/dL 70-99 above high normal Not Available [facility] ([facility]) [address] [facility], [place], [address], 02/02/2024 18:05:52 01/30/20 24 01/31/2024 COMP. METAB OLIC PANEL (14) BUN 15 mg/dL 6-24 Not Available [facility] ([facility]) [address] [facility], [place], [address], 02/02/2024 18:05:52 01/30/20 24 01/31/2024 COMP. METAB OLIC PANEL (14) creatinine 0.64 mg/dL 0.57-1 .00 Not Available [facility] ([facility]) [address] [facility], [place], [address], 02/02/2024 18:05:52 01/30/20 24 01/31/2024 COMP. METAB OLIC PANEL (14) eGFR 102 mL/mi n/1.7 3 >59 Not Available [facility] ([facility]) [address] [facility], [place], [address], 02/02/2024 18:05:52 01/30/20 24 01/31/2024 COMP. METAB OLIC PANEL (14) BUN/creatini ne ratio 23 9-23 Not Available [facility] ([facility]) [address] [facility], [place], [address], 02/02/2024 18:05:52 01/30/20 24 01/31/2024 COMP. METAB OLIC PANEL (14) sodium 133 mmol/ L 134-14 4 below low normal Not Available [facility] ([facility]) [address] [facility], [place], [address], 02/02/2024 18:05:52 01/30/20 24 01/31/2024 COMP. METAB OLIC PANEL (14) potassium 4.1 mmol/ L 3.5-5. 2 Not Available [facility] ([facility]) [address] [facility], [place], [address], 02/02/2024 18:05:52 01/30/20 24 01/31/2024 COMP. METAB OLIC PANEL (14) chloride 96 mmol/ L 96-106 Not Available [facility] ([facility]) [address] [place], [address], 02/02/2024 18:05:52 01/30/20 24 01/31/2024 COMP. METAB OLIC PANEL (14) carbon dioxide, total 23 mmol/ L 20-29 Not Available [facility] ([facility]) [address] [place], [address], 02/02/2024 18:05:52 01/30/20 24 01/31/2024 COMP. METAB OLIC PANEL (14) calcium 9.5 mg/dL 8.7-10 .2 Not Available [facility] ([facility]) [address], [place], [address], 02/02/2024 18:05:52 01/30/20 24 01/31/2024 COMP. METAB OLIC PANEL (14) protein, total 6.8 g/dL 6.0-8. 5 Not Available [facility] ([facility]) [address], [place], [address], 02/02/2024 18:05:52 01/30/20 24 01/31/2024 COMP. METAB OLIC PANEL (14) albumin 4.4 g/dL 3.8-4. 9 Not Available [facility] ([facility]) [address], [place], [address], 02/02/2024 18:05:52 01/30/20 24 01/31/2024 COMP. METAB OLIC PANEL (14) globulin, total 2.4 g/dL 1.5-4. 5 Not Available [facility] ([facility]) [address] [facility] [place], [address], 02/02/2024 18:05:52 01/30/20 24 01/31/2024 COMP. METAB OLIC PANEL (14) A/G ratio 1.8 1.2-2. 2 Not Available [facility] ([facility]) [address] [facility] [place], [address], 02/02/2024 18:05:52 01/30/20 24 01/31/2024 COMP. METAB OLIC PANEL (14) bilirubin, total <0.2 mg/dL 0.0-1. 2 Not Available [facility] ([facility]) [address] [place], [address], 02/02/2024 18:05:52 01/30/20 24 01/31/2024 COMP. METAB OLIC PANEL (14) alkaline phosphatase 180 IU/L 44-121 above high normal Not Available [facility] ([facility]) [address] [facility], [place], [address], 02/02/2024 18:05:52 01/30/20 24 01/31/2024 COMP. METAB OLIC PANEL (14) AST (SGOT) 16 IU/L 0-40 Not Available [facility] ([facility]) [address] [facility], [place], [address], 02/02/2024 18:05:52 01/30/20 24 01/31/2024 COMP. METAB OLIC PANEL (14) ALT (SGPT) 17 IU/L 0-32 Not Available [facility] ([facility]) [address] [facility], [place], [address], 02/02/2024 18:05:52 01/30/20 24 01/30/2024 MULTI PLE MYELO MA CASCA DE please note: Commen t [facility] will follo w via compu ter, mail, or couri er arian fonseca. Not Available [facility] ([facility]) [address] [facility], [place], [address], 02/02/2024 18:05:52 01/30/20 24 02/01/2024 MULTI PLE MYELO MA CASCA DE albumin 3.8 g/dL 2.9-4. 4 Not Available [facility] ([facility]) [address] [facility], [place], [address], 02/02/2024 18:05:52 01/30/20 24 02/01/2024 MULTI PLE MYELO MA CASCA DE wowjb-4-vwfk ulin 0.3 g/dL 0.0-0. 4 Not Available [facility] ([facility]) [address] [facility], [place], [address], 02/02/2024 18:05:52 01/30/20 24 02/01/2024 MULTI PLE MYELO MA CASCA DE jqgub-2-cnvv ulin 0.8 g/dL 0.4-1. 0 Not Available [facility] ([facility]) [address] [facility], [place], [address], 02/02/2024 18:05:52 01/30/20 24 02/01/2024 MULTI PLE MYELO MA CASCA DE beta globulin 1.1 g/dL 0.7-1. 3 Not Available [facility] ([facility]) [address] [facility], [place], [address], 02/02/2024 18:05:52 01/30/20 24 02/01/2024 MULTI PLE MYELO MA CASCA DE gamma globulin 0.7 g/dL 0.4-1. 8 Not Available [facility] ([facility]) [address] [facility], [place], [address], 02/02/2024 18:05:52 01/30/20 24 02/01/2024 MULTI PLE MYELO MA CASCA DE M-spike Not Observ ed g/dL not observ ed Not Available [facility] ([facility]) [address] [facility], [place], [address], 02/02/2024 18:05:52 01/30/20 24 02/01/2024 MULTI PLE MYELO MA CASCA DE globulin, total 3.0 g/dL 2.2-3. 9 Not Available [facility] ([facility]) [address] [facility], [place], [address], 02/02/2024 18:05:52 01/30/20 24 02/01/2024 MULTI PLE MYELO MA CASCA DE A/G ratio 1.3 0.7-1. 7 Not Available [facility] ([facility]) [address] [facility], [place], [address], 02/02/2024 18:05:52 01/30/20 24 02/01/2024 MULTI PLE MYELO MA CASCA DE reflex testing . Not Available [facility] ([facility]) [address] [facility], [place], [address], 02/02/2024 18:05:52 01/30/20 24 02/01/2024 MULTI PLE MYELO MA CASCA DE pdf . Not Available [facility] ([facility]) [address] [facility], [place], [address], 02/02/2024 18:05:52 01/30/20 24 02/02/2024 MULTI PLE MYELO MA CASCA DE free kappa lt chains,S 16.3 mg/L 3.3-19 .4 Not Available [facility] ([facility]) [address] [facility], [place], [address], 02/02/2024 18:05:52 01/30/20 24 02/02/2024 MULTI PLE MYELO MA CASCA DE free lambda lt chains,S 13.6 mg/L 5.7-26 .3 Not Available [facility] ([facility]) [address] [facility], [place], [address], 02/02/2024 18:05:52 01/30/20 24 02/02/2024 MULTI PLE MYELO MA CASCA DE kappa/lambda ratio,S 1.20 0.26-1 .65 Not Available [facility] ([facility]) [address] [facility], [place], [address], 02/02/2024 18:05:52 01/30/20 24 02/02/2024 lab resul t comment: Commen t Consi francisco j order ing urine immun ofixa tion (uIFE ) to rule out Amylo idosi s (AL). Not Available [facility] ([facility]) [address] [facility], [place], [address], 02/02/2024 18:05:53 01/30/20 24 02/01/2024 PROTE IN ELEC + INTER P, SERUM P E interpretati on, S Commen t The SPE patte rn appea rs unrem arkab le. Evide nce of monoc lonal prote in is not appar ent. Not Available [facility] ([facility]) [address] [facility], [place], [address], 02/02/2024 18:05:53 01/30/20 24 01/31/2024 VITAM IN D, 25-HY DROXY vitamin D, 25-hydroxy 51.2 NG/mL 30.0-1 00.0 Vitam in D defic iency has been defin ed by the Insti tute of Medic ine and an Endoc rine Socie ty pract ice guide line as a level of serum 25-OH vitam in D less than 20 ng/mL (1,2) . The Endoc rine Socie ty went on to furth er defin e vitam in D insuf ficie ncy as a level betwe en 21 and 29 ng/mL (2). 1. IOM (Inst itute of Medic ine). 2010. Duong ry refer ence intak es for calci um and D. Duncan [place]: The [facility] . 2. Ariana gonzalez MF, Hema chaudhry [place], Prateek off-F debora i EVANS, et al. Evalu ation , treat ment, and preve ntion of vitam in D defic iency : an Endoc rine Socie ty clini uriel pract ice guide line. JCEM. 2010; 96(7) :1911 -30. Not Available [facility] ([facility]) [address] [facility], [place], [address], 02/02/2024 18:05:54 04/28/20 24 05/03/2024 BASIC METAB OLIC PANEL (8) glucose TNP mg/dL [facility] was unabl e to colle ct suffi cient speci men to perfo rm the follo wing test( s), and is provi ding the patie nt with re-co llect ion instr uctio ns. Not Available [facility] ([facility]) [address] [facility], [place], [address], 05/06/2024 16:07:00 04/28/20 24 05/03/2024 BASIC METAB OLIC PANEL (8) BUN TNP mg/dL [facility] was unabl e to colle ct suffi cient speci men to perfo rm the follo wing test( s), and is provi ding the patie nt with re-co llect ion instr uctio ns. Not Available [facility] ([facility]) [address] [facility], [place], [address], 05/06/2024 16:07:00 04/28/20 24 05/03/2024 BASIC METAB OLIC PANEL (8) creatinine TNP mg/dL [facility] was unabl e to colle ct suffi cient speci men to perfo rm the follo wing test( s), and is provi ding the patie nt with re-co llect ion instr uctio ns. Not Available [facility] ([facility]) [address] [facility], [place], [address], 05/06/2024 16:07:00 04/28/20 24 05/03/2024 BASIC METAB OLIC PANEL (8) eGFR REPAIR CAMERAMAN Not Available [facility] ([facility]) [address] [place], [address], 05/06/2024 16:07:00 04/28/20 24 05/03/2024 BASIC METAB OLIC PANEL (8) BUN/creatini ne ratio COMMEN T Unabl e to calcu late resul t since non-n umeri c resul t obtai barrie for compo nent test. Not Available [facility] ([facility]) [address] [facility], [place], [address], 05/06/2024 16:07:00 04/28/20 24 05/03/2024 BASIC METAB OLIC PANEL (8) sodium TNP mmol/ L [facility] was unabl e to colle ct suffi cient speci men to perfo rm the follo wing test( s), and is provi ding the patie nt with re-co llect ion instr uctio ns. Not Available [facility] ([facility]) [address] [place], [address], 05/06/2024 16:07:00 04/28/20 24 05/03/2024 BASIC METAB OLIC PANEL (8) potassium TNP mmol/ L [facility] was unabl e to colle ct suffi cient speci men to perfo rm the follo wing test( s), and is provi ding the patie nt with re-co llect ion instr uctio ns. Not Available [facility] ([facility]) [address] [place], [address], 05/06/2024 16:07:00 04/28/20 24 05/03/2024 BASIC METAB OLIC PANEL (8) chloride TNP mmol/ L [facility] was unabl e to colle ct suffi cient speci men to perfo rm the follo wing test( s), and is provi ding the patie nt with re-co llect ion instr uctio ns. Not Available [facility] ([facility]) [address] [place], [address], 05/06/2024 16:07:00 04/28/20 24 05/03/2024 BASIC METAB OLIC PANEL (8) carbon dioxide, total TNP mmol/ L [facility] was unabl e to colle ct suffi cient speci men to perfo rm the follo wing test( s), and is provi ding the patie nt with re-co llect ion instr uctio ns. Not Available [facility] ([facility]) [address] [place], [address], 05/06/2024 16:07:00 04/28/20 24 05/03/2024 BASIC METAB OLIC PANEL (8) calcium TNP mg/dL [facility] was unabl e to colle ct suffi cient speci men to perfo rm the follo wing test( s), and is provi ding the patie nt with re-co llect ion instr uctio ns. Not Available [facility] ([facility]) [address] [place], [address], 05/06/2024 16:07:00 04/28/20 24 05/05/2024 ANTI- EBONI H MUSCL E/DEEDEE OCHON D. actin (smooth muscle) antibody TNP units [facility] was unabl e to colle ct suffi cient speci men to perfo rm the follo wing test( s), and is provi ding the patie nt with re-co llect ion instr uctio ns. Negat juan 0 - 19 Weak posit juan 20 - 30 Moder ate to stron g posit juan >30 Actin Antib odies are found in 52-85 % of patie nts with autoi mmune hepat itis or chron ic activ e hepat itis and in 22% of patie nts with prima ry bilia ry cirrh osis. Not Available [facility] ([facility]) [address] [facility], [place], [address], 05/06/2024 16:07:01 04/28/20 24 05/05/2024 ANTI- EBONI H MUSCL E/DEEDEE OCHON D. mitochondria l (M2) antibody TNP units [facility] was unabl e to colle ct suffi cient speci men to perfo rm the follo wing test( s), and is provi ding the patie nt with re-co llect ion instr uctio ns. Negat juan 0.0 - 20.0 Equiv ocal 20.1 - 24.9 Posit juan >2 4.9 Mitoc hondr ial (M2) Antib odies are found in 90-96 % of patie nts with prima ry bilia ry cirrh osis. Not Available [facility] ([facility]) [address] [place], [address], 05/06/2024 16:07:01 04/28/20 24 04/30/2024 CORTI DYLON+A CTH acth, plasma TNP pg/mL [facility] was unabl e to colle ct suffi cient speci men to perfo rm the follo wing test( s), and is provi ding the patie nt with re-co llect ion instr uctio ns. ACTH refer ence inter errol for sampl es colle cted betwe en 7 and 10 AM. Not Available [facility] ([facility]) [address] [facility], [place], [address], 05/06/2024 16:07:02 04/28/20 24 05/03/2024 CORTI DYLON+A CTH cortisol TNP ug/dL [facility] was unabl e to colle ct suffi cient speci men to perfo rm the follo wing test( s), and is provi ding the patie nt with re-co llect ion instr uctio ns. Pleas e Note: The refer ence inter errol and casandra ing for this test is for an AM colle ction . If this is a PM colle ction pleas e use: Corti dylon PM: 2.3-1 1.9 Not Available [facility] ([facility]) [address] [facility], [place], [address], 05/06/2024 16:07:02 04/28/20 24 05/05/2024 OSMOL ALITY osmolality COMMEN T mosmo l/kg Test not perfo rmed. No serum recei payal. Not Available [facility] ([facility]) [address] [facility], [place], [address], 05/06/2024 16:07:02 04/28/20 24 05/03/2024 SODIU M, URINE sodium, urine TNP mmol/ L Test not perfo rmed. No urine speci men recei payal. Not Available [facility] ([facility]) [address] [facility], [place], [address], 05/06/2024 16:07:03 04/28/20 24 05/06/2024 ADALGISA BY IFA RFX TITER /NELA ENDY ADALGISA by ifa rfx titer/patter n TNP Test not perfo rmed. No serum gel recei payal. Negat juan <1:80 Borde rline 1:80 Posit juan >1:80 Not Available [facility] ([facility]) [address] [place], [address], 05/06/2024 16:07:04 04/28/20 24 04/30/[address] PROBL EM request problem TNP [facility] was unabl e to colle ct suffi cient speci men to perfo rm the follo wing test( s), and is provi ding the patie nt with re-co llect ion instr uctio ns. TEST: 55095 1 ACTH, Plasm a Panel : [id number] 3 Not Available [facility] ([facility]) [address] [place], [address], 05/06/2024 16:07:05 04/28/20 24 05/03/[address] PROBL EM request problem TNP [facility] was unabl e to colle ct suffi cient speci men to perfo rm the follo wing test( s), and is provi ding the patie nt with re-co llect ion instr uctio ns. TEST: 36018 5 Corti dylon Panel : [phone] 3 48048 2 Gluco se Panel : [phone] [phone] [id number] 0 BUN Panel : [id number] [phone] 00408 0 Creat inine Panel : 46141 8 46376 8 Sodiu m Panel : 10931 8 03778 0 Potas sium Panel : 54173 8 29863 6 Chlor stephanie Panel : [id number] 8 51936 8 Carbo n Dioxi de, Total Panel : 12483 8 37915 6 Calci um Panel : [id number] 8 Not Available [facility] ([facility]) [address] [facility], [place], [address], 05/06/2024 16:07:05 04/28/20 24 05/03/[address] PROBL EM request problem TNP Test not perfo rmed. No urine speci men recei payal. TEST: 15590 6 Sodiu m, Urine Not Available [facility] ([facility]) [address] [facility], [place], [address], 05/06/2024 16:07:06 04/28/20 24 05/05/2024 SPECI MEN STATU S REPOR T specimen status report TNP [facility] was unabl e to colle ct suffi cient speci men to perfo rm the follo wing test( s), and is provi ding the patie nt with re-co llect ion instr uctio ns. TEST: 54304 4 Actin (Smoo th Muscl e) Antib saji Panel : [id number] [phone] 41464 2 Mitoc hondr ial (M2) Antib saji Panel : [id number] 8 Not Available [facility] ([facility]) [address] [facility], [place], [address], 05/06/2024 16:07:07 05/22/20 24 05/26/2024 UA/M W/RFL X CULTU RE, COMP specific gravity COMMEN T Test not perfo rmed. Patie nt was unabl e to provi de a self- colle cted speci men for the reque sted testi ng. The follo wing test( s) were not perfo rmed: Not Available [facility] ([facility]) [address] [facility], [place], [address], 05/28/2024 16:06:50 05/22/20 24 05/26/2024 UA/M W/RFL X CULTU RE, COMP pH TNP Test not perfo rmed Not Available [facility] ([facility]) [address] [facility], [place], [address], 05/28/2024 16:06:50 05/22/20 24 05/26/2024 UA/M W/RFL X CULTU RE, COMP urine-color REPAIR CAMERAMAN Not Available [facility] ([facility]) [address] [facility], [place], [address], 05/28/2024 16:06:50 05/22/20 24 05/26/2024 UA/M W/RFL X CULTU RE, COMP appearance REPAIR CAMERAMAN Not Available [facility] ([facility]) [address] [facility], [place], [address], 05/28/2024 16:06:50 05/22/20 24 05/26/2024 UA/M W/RFL X CULTU RE, COMP WBC esterase REPAIR CAMERAMAN Not Available [facility] ([facility]) [address] [facility], [place], [address], 05/28/2024 16:06:50 05/22/20 24 05/26/2024 UA/M W/RFL X CULTU RE, COMP protein TNP Test not perfo rmed Not Available [facility] ([facility]) [address] [facility], [place], [address], 05/28/2024 16:06:50 05/22/20 24 05/26/2024 UA/M W/RFL X CULTU RE, COMP glucose TNP Test not perfo rmed Not Available [facility] ([facility]) [address] [place], [address], 05/28/2024 16:06:50 05/22/20 24 05/26/2024 UA/M W/RFL X CULTU RE, COMP ketones TNP Test not perfo rmed Not Available [facility] ([facility]) [address] [place], [address], 05/28/2024 16:06:50 05/22/20 24 05/26/2024 UA/M W/RFL X CULTU RE, COMP occult blood REPAIR CAMERAMAN Not Available [facility] ([facility]) [address] [place], [address], 05/28/2024 16:06:50 05/22/20 24 05/26/2024 UA/M W/RFL X CULTU RE, COMP bilirubin REPAIR CAMERAMAN Not Available [facility] ([facility]) [address] [place], [address], 05/28/2024 16:06:50 05/22/20 24 05/26/2024 UA/M W/RFL X CULTU RE, COMP urobilinogen ,semi-qn REPAIR CAMERAMAN Not Available [facility] ([facility]) [address] [facility], [place], [address], 05/28/2024 16:06:50 05/22/20 24 05/26/2024 UA/M W/RFL X CULTU RE, COMP nitrite, urine REPAIR CAMERAMAN Not Available [facility] ([facility]) [address] [facility], [place], [address], 05/28/2024 16:06:50 05/22/20 24 05/26/2024 UA/M W/RFL X CULTU RE, COMP microscopic examination REPAIR CAMERAMAN Not Available [facility] ([facility]) [address] [facility], [place], [address], 05/28/2024 16:06:50 05/22/20 24 05/26/2024 UA/M W/RFL X CULTU RE, COMP microscopic examination REPAIR CAMERAMAN Not Available [facility] ([facility]) [address] [facility], [place], [address], 05/28/2024 16:06:50 05/22/20 24 05/26/2024 UA/M W/RFL X CULTU RE, COMP urinalysis reflex REPAIR CAMERAMAN Not Available [facility] ([facility]) [address] [facility], [place], [address], 05/28/2024 16:06:50 05/22/20 24 05/27/2024 CATEC HOLAM KAYLA, PLASM A norepinephri ne, pl 880 pg/mL 0-874 above high normal Not Available [facility] ([facility]) [address] [facility], [place], [address], 05/28/2024 16:06:50 05/22/20 24 05/27/2024 CATEC HOLAM KAYLA, PLASM A epinephrine, pl <15 pg/mL 0-62 Not Available [facility] ([facility]) [address] [place], [address], 05/28/2024 16:06:50 05/22/20 24 05/27/2024 CATEC HOLAM KAYLA, PLASM A dopamine, pl <30 pg/mL 0-48 Not Available [facility] ([facility]) [address] [place], [address], 05/28/2024 16:06:50 05/22/20 24 05/28/2024 METAN EPHRI KRISTA, FRAC. , PL. FREE normetanephr ine, pl 113.5 pg/mL 0.0-24 4.0 Not Available [facility] ([facility]) [address] [place], [address], 05/28/2024 16:06:51 05/22/20 24 05/28/2024 METAN EPHRI KRISTA, FRAC. , PL. FREE metanephrine , pl <25.0 pg/mL 0.0-88 .0 Not Available [facility] ([facility]) [address] [place], [address], 05/28/2024 16:06:51 05/22/20 24 05/26/[address] PROBL EM request problem COMMEN T Test not perfo rmed. Patie nt was unabl e to provi de a self- colle cted speci men for the reque sted testi ng. The follo wing test( s) were not perfo rmed: TEST: [id number] 0 UA/M w/rfl x Cultu re, Comp Not Available [facility] ([facility]) [address] [place], [address], 05/28/2024 16:06:52 05/28/20 24 06/02/2024 IMMUN OFIXA TION, URINE ag interpretati on:U Commen t The immun ofixa tion audelia rn appea rs unrem arkab le. Evide nce of monoc lonal prote in is not appar ent. Not Available [facility] ([facility]) [address] [place], [address], 06/02/2024 14:06:19 05/28/20 24 05/28/2024 AG AND PE, RANDO M URINE note: Commen t Vito in elect [facility] scan will follo w via compu ter, mail, or couri reji fonseca. Not Available [facility] ([facility]) [address] [place], [address], 06/03/2024 20:06:33 05/28/20 24 05/29/2024 AG AND PE, RANDO M URINE protein,tota l,urine 4.8 mg/dL not estab. normal Not Available [facility] ([facility]) [address] [place], [address], 06/03/2024 20:06:33 05/28/20 24 05/30/2024 AG AND PE, RANDO M URINE albumin, U 70.4 % Not Available [facility] ([facility]) [address] [place], [address], 06/03/2024 20:06:33 05/28/20 24 05/30/2024 AG AND PE, RANDO M URINE ycxaz-8-ztaa ulin, U 4.0 % Not Available [facility] ([facility]) [address] [place], [address], 06/03/2024 20:06:33 05/28/20 24 05/30/2024 AG AND PE, RANDO M URINE dmiqp-2-pqqg ulin, U 6.3 % Not Available [facility] ([facility]) [address] [place], [address], 06/03/2024 20:06:33 05/28/20 24 05/30/2024 AG AND PE, RANDO M URINE beta globulin, U 13.9 % Not Available [facility] ([facility]) [address] [place], [address], 06/03/2024 20:06:33 05/28/20 24 05/30/2024 AG AND PE, RANDO M URINE gamma globulin, U 5.4 % Not Available [facility] ([facility]) [address] [place], [address], 06/03/2024 20:06:33 05/28/20 24 05/30/2024 AG AND PE, RANDO M URINE M-spike, % Not Observ ed % not observ ed Not Available [facility] ([facility]) [address] [place], [address], 06/03/2024 20:06:33 05/28/20 24 05/30/2024 AG AND PE, RANDO M URINE immunofixati on result, urine Commen t The immun ofixa tion audelia rn appea rs unrem arkab le. Evide nce of monoc lonal prote in is not appar ent. Not Available [facility] ([facility]) [address] [place], [address], 06/03/2024 20:06:33 05/28/20 24 05/30/2024 AG AND PE, RANDO M URINE pdf . Not Available [facility] ([facility]) [address] [place], [address], 06/03/2024 20:06:33 05/28/20 24 05/29/2024 BASIC METAB OLIC PANEL (8) glucose 91 mg/dL 70-99 normal Not Available [facility] ([facility]) [address] [place], [address], 06/03/2024 20:06:34 05/28/20 24 05/29/2024 BASIC METAB OLIC PANEL (8) BUN 11 mg/dL 6-24 normal Not Available [facility] ([facility]) [address] [facility] [place], [address], 06/03/2024 20:06:34 05/28/20 24 05/29/2024 BASIC METAB OLIC PANEL (8) creatinine 0.68 mg/dL 0.57-1 .00 normal Not Available [facility] ([facility]) [address] [facility] [place], [address], 06/03/2024 20:06:34 05/28/20 24 05/29/2024 BASIC METAB OLIC PANEL (8) eGFR 101 mL/mi n/1.7 3 >59 normal Not Available [facility] ([facility]) [address] [facility] [place], [address], 06/03/2024 20:06:34 05/28/20 24 05/29/2024 BASIC METAB OLIC PANEL (8) BUN/creatini ne ratio 16 9-23 normal Not Available [facility] ([facility]) [address] [facility], [place], [address], 06/03/2024 20:06:34 05/28/20 24 05/29/2024 BASIC METAB OLIC PANEL (8) sodium 129 mmol/ L 134-14 4 below low normal Not Available [facility] ([facility]) [address] [place], [address], 06/03/2024 20:06:34 05/28/20 24 05/29/2024 BASIC METAB OLIC PANEL (8) potassium 4.0 mmol/ L 3.5-5. 2 normal Not Available [facility] ([facility]) [address] [place], [address], 06/03/2024 20:06:34 05/28/20 24 05/29/2024 BASIC METAB OLIC PANEL (8) chloride 94 mmol/ L 96-106 below low normal Not Available [facility] ([facility]) [address] [facility], [place], [address], 06/03/2024 20:06:34 05/28/20 24 05/29/2024 BASIC METAB OLIC PANEL (8) carbon dioxide, total 22 mmol/ L 20-29 normal Not Available [facility] ([facility]) [address] [facility], [place], [address], 06/03/2024 20:06:34 05/28/20 24 05/29/2024 BASIC METAB OLIC PANEL (8) calcium 9.2 mg/dL 8.7-10 .2 normal Not Available [facility] ([facility]) [address] [facility], [place], [address], 06/03/2024 20:06:34 05/28/20 24 05/28/2024 N-TEL OPEPT STEPHANIE, URINE interpretive guide: Commen t The N-tel opept stephanie and Creat inine are used to calcu late the N-tel o/Cre at. Ratio which is refer red to as NTx . Junior gregg guide lines for the clini uriel use of NTx are as follo ws: 1. Menop ausal Women not on Hormo ne Repla cemen t Thera py (HRT) : Women with a basel ine NTx value >38 are at signi fican t risk for a decre ase in bone hide examiner al densi ty (BMD) after 1 year jeni red to women on HRT. The proba bilit y of a decli ne in BMD incre ases with NTx value as follo ws: (1): Basel ine NTx Proba bilit y of Decre ase in BMD 18- 38 1.4 p=0.2 8 38- 51 2.5 p=0.0 3 51- 67 3.8 p=0.0 006 67-18 8 17.3 p=0.0 001 2. Menop ausal Women Recei ving Antir esorp tive Thera py: The proba bilit y that treat ment is effec tive after three month s is incre ased when the measu red NTx value is or=30 % from basel ine.[ 1] 3. Patie nts with Paget 's Disea se of Bone: The proba bilit y that treat ment is effec tive after one month is incre ased when the measu red NTx value is withi n the refer ence range , or NTx has decre ased >or=3 0% from basel ine.[ 2] 1. Che ut CH, Lezama NH, Jim GS, et al. Am J Med, 102:2 9-37, 1996. (1):M 757, 1995. 2. Roman H, Breanne J, et al. J Bone Min Res.1 1(1): M757, 1995 Not Available [facility] ([facility]) [address] [place], [address], 06/03/2024 20:06:35 05/28/20 24 05/29/2024 N-TEL OPEPT STEPHANIE, URINE creatinine, urine 26.7 mg/dL not estab. normal Not Available [facility] ([facility]) [address] [place], [address], 06/03/2024 20:06:35 05/28/20 24 05/30/2024 N-TEL OPEPT STEPHANIE, URINE N-telopeptid e 480 nmol_ bce not estab. Not Available [facility] ([facility]) [address] [place], [address], 06/03/2024 20:06:35 05/28/20 24 05/30/2024 N-TEL OPEPT STEPHANIE, URINE N-telo/creat . ratio 203 nm_bc e/mm_ cr 0-89 above high normal Not Available [facility] ([facility]) [address] [place], [address], 06/03/2024 20:06:35 05/28/20 24 05/29/2024 KAIA+L IPASE amylase 34 U/L 31-110 normal Not Available [facility] ([facility]) [address] [place], [address], 06/03/2024 20:06:36 05/28/20 24 05/29/2024 KAIA+L IPASE lipase 24 U/L 14-72 normal Not Available [facility] ([facility]) [address] [place], [address], 06/03/2024 20:06:36 05/28/20 24 05/29/2024 CORTI DYLON+A CTH cortisol 15.0 ug/dL 6.2-19 .4 Pleas e Note: The refer ence inter errol and casandra ing for this test is for an AM colle ction . If this is a PM colle ction pleas e use: Corti dylon PM: 2.3-1 1.9 Not Available [facility] ([facility]) [address] [place], [address], 06/03/2024 20:06:36 05/28/20 24 05/29/2024 CORTI DYLON+A CTH acth, plasma 17.5 pg/mL 7.2-63 .3 ACTH refer ence inter errol for sampl es colle cted betwe en 7 and 10 AM. Not Available [facility] ([facility]) [address] [facility], [place], [address], 06/03/2024 20:06:36 05/28/20 24 06/02/2024 C-ANC A+P-A NCA W/REF GERSON cytoplasmic (C-anca) <1:20 titer neg:<1 :20 Not Available [facility] ([facility]) [address] [facility], [place], [address], 06/03/2024 20:06:37 05/28/20 24 06/02/2024 C-ANC A+P-A NCA W/REF GERSON perinuclear (P-anca) <1:20 titer neg:<1 :20 The prese nce of posit juan fluor escen ce exhib iting P-ANC A or C-ANC A patte rns alone is not speci fic for the diagn osis of Guera er's Granu lomat osis (WG) or micro scopi c polya ngiit is. Decis ions about treat ment shoul d not be based solel y on ANCA IFA resul ts. The Inter natio nal ANCA Group Conse nsus recom mends follo w up testi ng of posit juan sera with both MT-3 and MPO-A NCA enzym e immun oassa ys. As many as 5% serum sampl es are posit juan only by EIA. Ref. AM J Clin Patho l 1999; 111:5 07-51 3. Not Available [facility] ([facility]) [address] [facility], [place], [address], 06/03/2024 20:06:37 05/28/20 24 05/29/2024 PTH INTAC T+URIEL CIUM, IONIZ ED calcium, ionized, serum 5.0 mg/dL 4.5-5. 6 Not Available [facility] ([facility]) [address] [place], [address], 06/03/2024 20:06:37 05/28/20 24 05/29/2024 PTH INTAC T+URIEL CIUM, IONIZ ED PTH, intact 28 pg/mL 15-65 normal Not Available [facility] ([facility]) [address] [facility], [place], [address], 06/03/2024 20:06:37 05/28/20 24 06/03/2024 C-TEL OPEPT STEPHANIE, SERUM C-telopeptid e, serum 1156 pg/mL above high normal Refer ence Range : Preme nopau wendy Women : 34 - 635 Postm enopa usal Women : 34 - 1037 Not Available [facility] [address] [facility], [place], [address], 06/03/2024 20:06:38 05/28/20 24 05/31/2024 OSTEO CALCI N BY ECIA osteocalcin by ecia 34 NG/mL 8-36 INTER PRETI VE INFOR MATIO N: Osteo calci n by ECIA In patie nts with renal failu re, the osteo calci n resul t may be direc tly eleva carol, due to impai red clear ance, and/o r indir ectly eleva carol due to renal osteo dystr ophy. Acces s compl ete set of age- and/o r gende r-spe cifi refer ence inter vals for this test in the [facility] ([facility] om). Not Available [facility] ([facility]) [address] [place], [address], 06/03/2024 20:06:38 05/28/20 24 05/29/2024 ACTIN (SMOO TH MUSCL E) ANTIB SAJI actin (smooth muscle) antibody 3 units 0-19 Negat juan 0 - 19 Weak posit juan 20 - 30 Moder ate to stron g posit juan >30 Actin Antib odies are found in 52-85 % of patie nts with autoi mmune hepat itis or chron ic activ e hepat itis and in 22% of patie nts with prima ry bilia ry cirrh osis. Not Available [facility] ([facility]) [address] [place], [address], 06/03/2024 20:06:39 05/28/20 24 05/29/2024 MITOC HONDR IAL (M2) ANTIB SAJI mitochondria l (M2) antibody <20.0 units 0.0-20 .0 Negat juan 0.0 - 20.0 Equiv ocal 20.1 - 24.9 Posit juan >24.9 Mitoc hondr ial (M2) Antib odies are found in 90-96 % of patie nts with prima ry bilia ry cirrh osis. Not Available [facility] ([facility]) [address] [place], [address], 06/03/2024 20:06:39 05/28/20 24 05/29/2024 PHOSP HORUS phosphorus 3.0 mg/dL 3.0-4. 3 normal Not Available [facility] ([facility]) [address] [place], [address], 06/03/2024 20:06:40 05/28/20 24 05/29/2024 LDH LDH 136 IU/L 119-22 6 Not Available [facility] ([facility]) [address] [facility], [place], [address], 06/03/2024 20:06:40 05/28/20 24 05/31/2024 OSMOL ALITY osmolality 265 mosmo l/kg 275-29 5 below low normal Not Available [facility] ([facility]) [address] [facility], [place], [address], 06/03/2024 20:06:41 05/28/20 24 05/30/2024 OSMOL ALITY , URINE osmolality, urine 348 mosmo l/kg 24 hr : 300 - 900 Rando m: 50 - 1400 After 12hr fluid restr ictio n: >850 Not Available [facility] ([facility]) [address] [facility], [place], [address], 06/03/2024 20:06:41 05/28/20 24 05/29/2024 SODIU M, URINE sodium, urine 61 mmol/ L not estab. Not Available [facility] ([facility]) [address] [facility], [place], [address], 06/03/2024 20:06:42 05/28/20 24 05/29/2024 ADALGISA BY IFA RFX TITER /NELA ENDY ADALGISA by ifa rfx titer/patter n Negati ve Negat juan <1:80 Borde rline 1:80 Posit juan >1:80 ICAP nomen clatu re: AC-0 For more infor matio n about Hep-2 cell patte rns use ANApa ttern s.org , the offic ial websi te for the Inter natio nal Conse nsus on Antin uclea r Antib saji (ADALGISA) Patte rns (ICAP ). Not Available [facility] ([facility]) [address] [facility], [place], [address], 06/03/2024 20:06:42 06/06/20 24 06/12/2024 CATEC HOLAM KAYLA, UR.,F REE,2 4 HR epinephrine, urine <3 ug/L undefi barrie Total Volum e: 1000 mL Not Available [facility] ([facility]) [address] [place], [address], 06/12/2024 14:06:52 06/06/20 24 06/12/2024 CATEC HOLAM KAYLA, UR.,F REE,2 4 HR epinephrine, U, 24HR <3 ug/24 _HR 0-20 Not Available [facility] ([facility]) [address] [place], [address], 06/12/2024 14:06:52 06/06/20 24 06/12/2024 CATEC HOLAM KAYLA, UR.,F REE,2 4 HR norepinephri ne, ur 30 ug/L undefi barrie Not Available [facility] ([facility]) [address] [place], [address], 06/12/2024 14:06:52 06/06/20 24 06/12/2024 CATEC HOLAM KAYLA, UR.,F REE,2 4 HR norepinephri ne,U,24H 30 ug/24 _HR 0-135 Not Available [facility] ([facility]) [address] [place], [address], 06/12/2024 14:06:52 06/06/20 24 06/12/2024 CATEC HOLAM KAYLA, UR.,F REE,2 4 HR dopamine, urine 133 ug/L undefi barrie Not Available [facility] ([facility]) [address] [place], [address], 06/12/2024 14:06:52 06/06/20 24 06/12/2024 CATEC HOLAM KAYLA, UR.,F REE,2 4 HR dopamine, ur, 24HR 133 ug/24 _HR 0-510 Not Available [facility] ([facility]) [address] [place], [address], 06/12/2024 14:06:52 0806/14/2024 UA/M W/RFL X CULTU RE, ROUTI NE specific gravity 1.014 1.005- 1.030 normal Not Available [facility] ([facility]) [address] [facility], [place], [address], 06/14/2024 08:10:52 06/11/20 24 06/14/2024 UA/M W/RFL X CULTU RE, ROUTI NE pH 8.0 5.0-7. 5 above high normal Not Available [facility] ([facility]) [address] [facility], [place], [address], 06/14/2024 08:10:52 06/11/2006/14/2024 UA/M W/RFL X CULTU RE, ROUTI NE urine-color Yellow yellow Not Available [facility] ([facility]) [address] [facility], [place], [address], 06/14/2024 08:10:52 06/11/2006/14/2024 UA/M W/RFL X CULTU RE, ROUTI NE appearance Cloudy clear abnormal Not Available [facility] ([facility]) [address] [facility], [place], [address], 06/14/2024 08:10:52 06/11/20 24 06/14/2024 UA/M W/RFL X CULTU RE, ROUTI NE WBC esterase Negati ve negati ve Not Available [facility] ([facility]) [address] [facility], [place], [address], 06/14/2024 08:10:52 06/11/2006/14/2024 UA/M W/RFL X CULTU RE, ROUTI NE protein Negati ve negati ve/tra ce Not Available [facility] ([facility]) [address] [facility], [place], [address], 06/14/2024 08:10:52 06/11/20 24 06/14/2024 UA/M W/RFL X CULTU RE, ROUTI NE glucose Negati ve negati ve Not Available [facility] ([facility]) [address] [place], [address], 06/14/2024 08:10:52 06/11/20 24 06/14/2024 UA/M W/RFL X CULTU RE, ROUTI NE ketones Negati ve negati ve Not Available [facility] ([facility]) [address] [place], [address], 06/14/2024 08:10:52 06/11/2006/14/2024 UA/M W/RFL X CULTU RE, ROUTI NE occult blood Negati ve negati ve Not Available [facility] ([facility]) [address] [facility], [place], [address], 06/14/2024 08:10:52 06/11/20 24 06/14/2024 UA/M W/RFL X CULTU RE, ROUTI NE bilirubin Negati ve negati ve Not Available [facility] ([facility]) [address] [place], [address], 06/14/2024 08:10:52 06/11/20 24 06/14/2024 UA/M W/RFL X CULTU RE, ROUTI NE urobilinogen ,semi-qn 0.2 mg/dL 0.2-1. 0 normal Not Available [facility] ([facility]) [address] [place], [address], 06/14/2024 08:10:52 06/11/2006/14/2024 UA/M W/RFL X CULTU RE, ROUTI NE nitrite, urine Negati ve negati ve Not Available [facility] ([facility]) [address] [place], [address], 06/14/2024 08:10:52 06/11/20 24 06/14/2024 UA/M W/RFL X CULTU RE, ROUTI NE microscopic examination Commen t Micro scopi c follo ws if indic ated. Not Available [facility] ([facility]) [address] [facility], [place], [address], 06/14/2024 08:10:52 06/11/20 24 06/14/2024 UA/M W/RFL X CULTU RE, ROUTI NE microscopic examination See below: Micro scopi c was indic ated and was perfo rmed. Not Available [facility] ([facility]) [address] [facility], [place], [address], 06/14/2024 08:10:52 06/11/20 24 06/14/2024 UA/M W/RFL X CULTU RE, ROUTI NE WBC None seen /hpf 0 - 5 Not Available [facility] ([facility]) [address] [facility], [place], [address], 06/14/2024 08:10:52 06/11/20 24 06/14/2024 UA/M W/RFL X CULTU RE, ROUTI NE RBC None seen /hpf 0 - 2 Not Available [facility] ([facility]) [address] [facility], [place], [address], 06/14/2024 08:10:52 06/11/20 24 06/14/2024 UA/M W/RFL X CULTU RE, ROUTI NE epithelial cells (non renal) None seen /hpf 0 - 10 Not Available [facility] ([facility]) [address] [facility], [place], [address], 06/14/2024 08:10:52 06/11/20 24 06/14/2024 UA/M W/RFL X CULTU RE, ROUTI NE epithelial cells (renal) REPAIR CAMERAMAN Not Available [facility] ([facility]) [address] [facility], [place], [address], 06/14/2024 08:10:52 06/11/20 24 06/14/2024 UA/M W/RFL X CULTU RE, ROUTI NE casts None seen /lpf none seen Not Available [facility] ([facility]) [address], [place], [address], 06/14/2024 08:10:52 06/11/20 24 06/14/2024 UA/M W/RFL X CULTU RE, ROUTI NE cast type REPAIR CAMERAMAN Not Available [facility] ([facility]) [address], [place], [address], 06/14/2024 08:10:52 06/11/20 24 06/14/2024 UA/M W/RFL X CULTU RE, ROUTI NE crystals REPAIR CAMERAMAN Not Available [facility] ([facility]) [address] [facility], [place], [address], 06/14/2024 08:10:52 06/11/20 24 06/14/2024 UA/M W/RFL X CULTU RE, ROUTI NE crystal type REPAIR CAMERAMAN Not Available [facility] ([facility]) [address] [facility], [place], [address], 06/14/2024 08:10:52 06/11/20 24 06/14/2024 UA/M W/RFL X CULTU RE, ROUTI NE mucus threads REPAIR CAMERAMAN Not Available [facility] ([facility]) [address] [facility], [place], [address], 06/14/2024 08:10:52 06/11/20 24 06/14/2024 UA/M W/RFL X CULTU RE, ROUTI NE bacteria None seen none seen/f ew Not Available [facility] ([facility]) [address] [facility], [place], [address], 06/14/2024 08:10:52 06/11/20 24 06/14/2024 UA/M W/RFL X CULTU RE, ROUTI NE yeast REPAIR CAMERAMAN Not Available [facility] ([facility]) [address] [facility], [place], [address], 06/14/2024 08:10:52 06/11/20 24 06/14/2024 UA/M W/RFL X CULTU RE, ROUTI NE trichomonas REPAIR CAMERAMAN Not Available [facility] ([facility]) [address] [place], [address], 06/14/2024 08:10:52 06/11/20 24 06/14/2024 UA/M W/RFL X CULTU RE, ROUTI NE comment REPAIR CAMERAMAN Not Available [facility] ([facility]) [address] [place], [address], 06/14/2024 08:10:52 06/11/20 24 06/14/2024 UA/M W/RFL X CULTU RE, ROUTI NE urinalysis reflex Commen t This speci men will not refle x to a Urine Cultu re. 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 Red blood cells are prese nt. The speci men proce ssing and scree danii perfo rmed at [facility] , [address], [place] (CLIA #[id number]). Its perfo rmanc e charmaine cteri stics deter mined by [facility]. Clini uriel Histo ry: Date of Last Menst rual Perio d: not avail able Menst rual Histo ry: not avail able Contr acept juan Histo ry: not avail able Ancil neal Testi ng: not avail able Clini uriel Histo ry (othe r): not avail able Gross Descr iptio n: Recei payal 85cc of yello w, hazy fluid 1 ThinP rep cellu lar enhan cemen t techn ique Prima ry Patho logis t: Lissette james M.D. Phone #: [phone], On-Ca ll Patho logis t: [id number] Not Available [facility] [address], [place], [address], 06/17/2024 16:43:47 03/06/2003/06/2023 MAMMO , scree danii, digit al, bilat eral No observ ation record ed. [facility] [place] [address], [place], [address], 03/07/2023 05:53:25 03/11/20 23 03/11/2023 XR, foot No observ ation record ed. [facility] [address] [place] [address], [address], 03/12/2023 09:24:57 03/11/20 23 03/11/2023 CT, brain , w/o contr ast No observ ation record ed. [facility] [address] [place], [address], 03/12/2023 09:27:13 03/11/20 23 03/11/2023 XR, knee, 3 view No observ ation record ed. [facility] [address] [place], [address], 03/12/2023 09:26:48 03/11/20 23 03/11/2023 XR, chest , 2 view No observ ation record ed. [facility] [address] [place], [address], 03/12/2023 09:27:04 03/12/20 23 03/11/2023 elect bridgett schumachergr am No observ ation record ed. [email or web address] Not Available 2022 17:16:55 03/12/20 23 03/11/2023 CT, brain , w/o contr ast No observ ation record ed. [email or web address] Not Available 2022 17:16:55 03/12/20 23 03/11/2023 XR, chest , 2 view No observ ation record ed. [email or web address] Not Available 2022 17:16:56 03/12/20 23 03/11/2023 XR, foot, 3 or more view No observ ation record ed. [email or web address] Not Available 2022 17:16:56 03/12/20 23 03/11/2023 XR, knee, 4 or more view No observ ation record ed. [email or web address] Not Available 2022 17:16:57 07/09/20 loop monit or No observ ation record ed. [email or web address] Not Available 2022 15:46:59 12/03/19 24 12/03/2023 , echo ardio gram No observ ation record ed. [address], [place], [address], 12/03/2023 14:42:20 02/03/20 24 01/30/2024 bone densi ty Name:Negar FARHEENMarivel TITA Reynolds t ID: [id number] Age:58 years Sex:Fe male Ethnic ity:Wh ite Date of : [birth year] Reason : M48.54 XD; postme nopaus al. Collap sed thorac ic verteb ra with tresa isngh Referr ing Provid er:Devante Solis Study: Dexa Bone Densit y (Axial ) Bone Densit y: Region BMD T-Scor e Z-Scor e Classi ficati on AP Spine 0.682 -3.3 -2.0 Osteop orosis TOTAL HIP 0.750 -1.6 -0.7 Osteop enia FEM NECK 0.576 -2.5 -1.3 Osteop orosis 10-yea r Fractu re Risk: Fractu re Risk Not Report ed: FRAX not report ed becaus e: Some T-scor e for Spine Total or Hip Total or Femora l Neck at or below -2.5 Prior hip or verteb ral fractu re RATE OF CHANGE (SPINE ): BMD values have decrea sed11% from previo us BMD values have decrea sed 28.6% from baseli ne RATE OF CHANGE (TOTAL HIP): BMD values have decrea sed 9.8% from previo us BMD values have decrea sed 24.9% from baseli ne RATE OF CHANGE (FEMOR AL NECK): BMD values have decrea sed 6.9% from previo us BMD values have decrea sed 26.4% from baseli ne Impres spenser: The patien t has osteop orosis as determ ined by WHO criter ia. Based on the result s of the patien t's bone densit y assess ment, the risk of future fractu re increa ses approx imatel y two fold for each 1.0 SD decrea se in T-scor e. Howeve r, low BMD is not the only risk factor for a future fragil ity fractu re. Other clinic al risk factor s for osteop orotic fractu re should be consid ered in ascert aining this patien t's future fractu re risk includ ing the patien t's age, previo us osteop orotic (fragi lity) fractu re, estrog en defici ency/h ypogon adism, risk of fallin g, use of medica tions implic ated in bone loss (gluco cortic oids), family histor y of osteop orotic fractu re, diseas es and condit ions associ ated with bone loss, low body weight , smokin g, high bone turnov er, etc. Combin ing low BMD and other clinic al risk factor s result in a more precis e assess ment of future fractu re risk. Second shaka causes for osteop orosis , such as osteom alacia , other metabo lic bone disord ers, and diseas es and condit ions that may contri bute to accele rated bone loss may have to be consid ered depend ing on the clinic al situat ion. A repeat bone densit y assess ment should be consid ered in two years. WSN: [id number] Orderi ng Physic david: Aggie Solis Dictat ed By: Kaia Burton ra, MD Dictat ed Date/T jasmin: 8:22 pm Review ed By: Kaia Burton ra, MD Signed By: Kaia Burton ra, MD Signed Date/T jasmin: 8:22 pm Transc ribed By: CSB Transc ribed Date/T jasmin: 8:21 pm Patien t Class: Outpat ient [email or web address] [facility] (Outpt Imaging) [address] [place], [address], 04/29/2024 11:15:19 02/03/20 24 01/30/2024 DEXA No observ ation record ed. [facility] [address] [place], [address], 02/14/2024 11:53:32 04/18/20 24 04/11/2024 MRI, thora cic spine , w/o contr ast No observ ation record ed. clarence Not Available 2023 13:34:15 05/20/20 CT, abdom en + pelvi s, w/ contr ast No observ ation record ed. clarence Not Available 2023 17:11:16 06/11/20 24 06/11/2024 US, bladd er No observ ation record ed. [facility] [address] [place], [address], 06/11/2024 18:04:30 06/11/20 24 06/11/2024 US, bladd er US Bladde r Reason : Follow -up bladde r mass on prior CT. COMPAR VALERIA: CT Abdome n and Pelvis 024. FINDIN GS: Bladde r is underd istend ed, limiti aniyah its evalua tion. Patien t report s urge to void at the time of the examin ation and is unable to furthe r fill the bladde r. No stone or debris . There is no defini te sonogr aphic correl ate identi fied for the findin g descri bed on compar valeria CT. An ovoid slight ly hypere choic focus isolat ed for measur ement along the right bladde r wall measur ing 1.0 x 0.6 x 0.9 cm may repres ent the CT findin g, althou gh it is possib le this focus repres ents a fold of the urinar y bladde r wall second shaka to underd istent ion. No abnorm al vascul arity within this focus on color Dopple r imagin g. IMPRES SPENSER: Limite d assess ment due to underd istend ed urinar y bladde r. No defini te sonogr aphic correl ate for the findin g on compar valeria CT. Urolog ical consul tation with cystos copy can be consid ered for furthe r evalua tion if clinic [facility]. WSN: [id number] Orderi ng Physic david: Lisa Fajardo Dictat ed By: Lane Pierre MD Dictat ed Date/T jasmin: 5:25 pm Review ed By: Lane Pierre MD Signed By: Lane Pierre MD Signed Date/T jasmin: 5:25 pm Transc ribed By: LEXIE Transc ribed Date/T jasmin: 2:07 pm Patien t Class: Outpat ient [facility] (Outpt Imaging) [address], [place], [address], 06/11/2024 19:30:51 07/08/20 24 07/08/2024 US, abdom en, limit ed US RUQ Reason : Elevat ed alkali ne phosph atase. COMPAR VALERIA: Ultras ound 024, CT abdome n and pelvis 024. FINDIN GS: Liver: Normal in size and echote xture. No focal lesion . Smooth hepati c contou r. Main portal vein patent with normal hepato petal direct ion of flow. Gallbl adder: No gallst ones. Normal wall thickn ess. No perich olecys tic fluid. Negati ve Figueroa sign. Biliar y Tree: No intrah epatic or extrah epatic bile duct dilati on is identi fied. Common duct measur es: 0.3 cm. Pancre as: No abnorm ality in the visual ized portio ns of the pancre as. Right kidney : 10.3 cm in length . Normal parenc hymal echote xture and thickn ess. No hydron ephros is, stone or mass. IMPRES SPENSER: Normal right upper quadra nt ultras ound. I have person ally review ed the images and I agree with this report . WSN: [id number] Orderi ng Physic david: Lisa Fajardo Dictat ed By: Danielle Javed DO Dictat ed Date/T jasmin: 1:21 pm Review ed By: Lane Pierre MD Signed By: Lane Pierre MD Signed Date/T jasmin: 1:26 pm Transc ribed By: LEXIE Transc ribed Date/T jasmin: 1:18 pm Patien t Class: Outpat ient NAT [facility] (Outpt Imaging) [address] [place], [address], 07/08/2024 15:48:46 07/08/20 24 07/08/2024 US, abdom en, limit ed No observ ation record ed. [email or web address] [facility] [address] [facility], [place], [address], 07/09/2024 09:49:32 07/16/20 24 07/15/2024 CT, abdom en + pelvi s, w/ contr ast No observ ation record ed. [email or web address] [address], [place], [address], 07/16/2024 15:48:09 Result Notes None recorded. Problems Name Problem SNOMED Code Status Onset Date Resolution Date Notes Provider Name and Address Organization Details Recorded Time Mammogra phy abnormal 890686288 Completed 201305/12/2014 RECORDED 02/20/20 14 3:15PM BY ELIAS CORTEZ MA, ANNOTATI ON/ADDEN DUM Mikie HERMAN-C [address], [place], [address], [facility] 6 14:45:33 Allergic rhinitis 82093009 Completed 201301/29/2017 RECORDED 03/27/20 14 3:49PM BY SERENITY ROLAND MA, OFFICE VISIT Tiffany Wray MA [facility], [facility] 7 14:17:27 Anemia 682436165 Completed 201205/12/2014 RECORDED 10/14/20 13 3:55PM BY NICK CIFUENTES MD, ANNOTATI ON/ADDEN DUM Mikie HERMAN-C [address], [place], [address], [facility] 6 14:45:33 Adult health examinat ion Completed 201205/12/2014 RECORDED 02/26/20 13 4:42PM BY ELIAS CORTEZ MA, ANNOTATI ON/ADDEN DUM Mikie HERMAN-C [address], [place], [address], [facility] 6 14:45:33 Hypertro phy of breast 054356472 Completed 201303/04/2022 Liv Fajardo MD [address], [place], [address], [facility] 2 14:21:43 Screenin g for malignan t neoplasm of breast Completed 201105/12/2014 RECORDED 10/23/20 12 1:54PM BY BUCKY WILSON ON/ADDEN YEFRI HERMAN-C [address], [place], [address], [facility] 6 14:45:34 Neck pain 06951422 Completed 201105/12/2014 RECORDED 10/23/20 12 1:55PM BY BUCKY WILSON ON/ADDEN DUM Mikie Samuel PA-C [address] [facility] [address], [place], [address], [facility] 6 14:45:33 Cough 94742083 Completed 201105/12/2014 IMPRESSI ON: PERSISTE NT COUGH. LESS LIKELY TO BE POST-BRO NCHITIC GIVEN THE PROLONGE D DURATION ; RECORDED 10/23/20 12 1:56PM BY BUCKY IWLSON ON/ADDEN DUM Tiffany stevenson, [facility] 7 14:17:15 Major depressi on single episode, in partial remissio n 57892155 Active 2013 DX: F32.4 Ofelia Lindvedo null, [facility] 0 16:02:20 Dizzines s and giddines s 829263155 Completed 201305/12/2014 IMPRESSI ON: THERE SEEMS TO BE NO CHANGE FROM HER BASELINE AND HER EXAM IS NORMAL.; RECORDED 02/20/20 14 3:15PM BY ELIAS CORTEZ MA, BUCKY ON/ADDEN DUM Mikie Samuel PA-C [address] [facility] [address], [place], [address], [facility] 6 14:45:33 Epilepsy 06781146 Active 2013 RYANN Silvestre, [facility] 8 09:44:39 Epilepsy 32384453 Completed 201105/12/2014 RECORDED 01/19/20 12 1:46PM BY ELIAS CORTEZ MA, BUCKY ON/ADDEN DUM RYANN Silvestre, [facility] 8 09:44:39 Headache 69708121 Completed 201305/12/2014 RECORDED 02/20/20 14 3:15PM BY ELIAS CORTEZ MA, BUCKY ON/ADDEN DUM Mikie Samuel PA-C [address], [place], [address], [facility] 6 14:45:33 Influenz a vaccine needed 32529142615 06 Completed 201205/12/2014 RECORDED 01/07/20 13 1:14PM BY ELIAS CORTEZ MA, BUCKY ON/ADDEN DUM Mikie Samuel PA-C [address], [place], [address], [facility] 6 14:45:33 Follow-u p encounte r Completed 201105/12/2014 RECORDED 10/23/20 12 1:54PM BY BUCKY WILSON ON/ADDEN DUM Mikie Samuel PA-C [address] [facility] [address], [place], [address], [facility] 6 14:45:33 Gastroes ophageal reflux disease 895516788 Active 2013 Elias brennan [place] [facility], [facility] 6 13:19:02 Hip pain 14297695 Completed 201105/12/2014 IMPRESSI ON: FROM FALL, TO PT; RECORDED 10/23/20 12 1:55PM BY BUCKY WILSON ON/ADDEN DUM Mikie Samuel PA-C [address] [facility] [address], [place], [address], [facility] 6 14:45:33 Hyperlip idemia 68165449 Active 2013 11.19 - ascvd risk 3.6% Mikie Samuel PA-C [address], [place], [address], [facility] 9 13:45:01 Thyrotox icosis 65337883 Active 2013 STORY: FOLLOWED BY RYANN Mcgee, [facility] 8 09:44:46 Insomnia 259154562 Active 2013 RYANN Silvestre, [facility] 6 13:18:51 Irritabl e bowel syndrome 83145386 Active 2013 RYANN Silvestre, [facility] 6 13:18:38 Laborato ry procedur e performe d 106551798 Completed 201205/12/2014 RECORDED 10/14/20 13 3:15PM BY ELIAS CORTEZ MA, ANNOTATI ON/ADDEN DUM Mikie Samuel PA-C [address], [place], [address], [facility] 6 14:45:33 Malaise and fatigue 145203884 Completed 201205/12/2014 RECORDED 02/16/20 13 9:57AM BY SERENITY ROLAND MA, ANNOTATI ON/ADDEN DUM Mikie Samuel PA-C [address], [place], [address], [facility] 6 14:45:33 Renewal of prescrip tion Completed 201205/12/2014 RECORDED 02/16/20 13 9:57AM BY SERENITY ROLAND MA, ANNOTATI ON/ADDEN DUM Mikie Samuel PA-C [address], [place], [address], [facility] 6 14:45:33 Asthma 690536989 Active 2013 STORY: FOLLOWED BY RYANN Chance, [facility] 6 13:18:58 Multiple sclerosi s 22863523 Completed 201312/31/2023 Liv Fajardo MD [address], [place], [address], [facility] 4 14:55:38 Multiple sclerosi s 03291330 Completed 201105/12/2014 RECORDED 01/19/20 12 1:46PM BY ELIAS CORTEZ MA, ANNOTATI ON/ADDEN DUM Liv Fajardo MD [address] [facility] [address], [place], [address], [facility] 4 14:55:38 Administ ration of bacteria l and viral vaccine Completed 201105/12/2014 RECORDED 01/19/20 12 1:56PM BY ELIAS CORTEZ MA, OFFICE VISIT Mikie Samuel PA-C [address] [facility] [address], [place], [address], [facility] 6 14:45:33 Patient status finding 619631692 Completed 201205/12/2014 RECORDED 02/26/20 13 1:14PM BY DAWN FOWLER MA, YISSELATI ON/ADDEN DUM Mikie Samuel PA-C [address] [facility] [address], [place], [address], [facility] 6 14:45:33 Skin sensatio n disturba nce 01328726 Completed 201105/12/2014 IMPRESSI ON: PT TO ADDRESS WITH NEW NEUROLOG IST, THEY TOLD HER SHE DOES NOT HAVE MS BUT SHOUDL GET EYARLY MRI'S, PT WILL GET NEW NEUROLOG IST; RECORDED 10/23/20 12 1:54PM BY VONNIE LAW, BUCKY ON/ADDEN DUM Mikie Samuel PA-C [address] [facility] [address], [place], [address], [facility] 6 14:45:33 Postconc ussion syndrome 78054873 Completed 201312/31/2023 Liv Fajardo MD [address] [facility] [address], [place], [address], [facility] 4 14:56:04 Posttrau matic headache 94980787 Completed 201305/12/2014 RECORDED 03/02/20 14 1:27PM BY NADIA IBRAHIM MA, ANNOTATI ON/ADDEN DUM Mikie Samuel PA-C [address], [place], [address], [facility] 6 14:45:33 Pre-surg raymundo evaluati on Completed 201305/12/2014 RECORDED 02/20/20 14 3:15PM BY ELIAS CORTEZ MA, ANNOTATI ON/ADDEN DUM Mikie Samuel PA-C [address], [place], [address], [facility] 6 14:45:34 Chest pain 39494966 Completed 201205/12/2014 RECORDED 02/16/20 13 9:56AM BY SERENITY ROLAND MA, ANNOTATI ON/ADDEN DUM Mikie Samuel PA-C [address], [place], [address], [facility] 6 14:45:33 Shoulder joint pain 834758583 Completed 201105/12/2014 IMPRESSI ON: FROM FALL, PT TO SET UP PT AND START MUSCLE RELAXER; RECORDED 10/23/20 12 1:55PM BY YISSEL WILSONATI ON/ADDEN DUM Mikie Samuel PA-C [address], [place], [address], [facility] 6 14:45:33 Chronic sinusiti s 70304709 Completed 201205/12/2014 RECORDED 02/26/20 13 1:14PM BY DAWN FOWLER MA, ANNOTATI ON/ADDEN DUM Mikie Almeidaden PA-C [address], [place], [address], [facility] 6 14:45:33 Acute sinusiti s 02293936 Completed 201205/12/2014 RECORDED 10/14/20 13 3:15PM BY ELIAS CORTEZ MA, ANNOTATI ON/RYANN Blackmon, [facility] 6 13:18:43 Disorder of skin and/or subcutan eous tissue 38766212 Completed 201205/12/2014 IMPRESSI ON: SEE ABOVE NOTE, UNCLEAR CAUSE, PT TO SET UP APPT WITH DERM, URIEL IF WORSENS; RECORDED 10/14/20 13 3:15PM BY ELIAS CORTEZ MA, BUCKY ON/PRECIOUS Samuel PA-C [address], [place], [address], [facility] 6 14:45:33 Syncope and collapse 514957198 Completed 201301/29/2017 IMPRESSI ON: DUE TO BLOOD DONATION , NEG WORKUP FOR OTHER CAUSES, BP IS STABLE, NO FURTHER BLOOD DRAWS, NO DRIVING WHILE ON PAIN MEDS AND HAS SUCH SHOUDLER PAIN; RECORDED 03/27/20 14 3:49PM BY SERENITY ROLAND MA, OFFICE VISIT Tiffany stevenson, [facility] 7 14:17:03 Disorder of pharynx 63384142 Completed 201205/12/2014 IMPRESSI ON: FOR A MONTH LIMIT PHONE WORK TO 3 HOURS A DAY TO LIMIT THROAT IRRITATI ON; RECORDED 10/14/20 13 3:15PM BY ELIAS CORTEZ MA, BUCKY ON/ADDRADHA Samuel PA-C [address], [place], [address], [facility] 6 14:45:34 Non-toxi c uninodul ar goiter 195029808 Active 2013 RYANN Silvestre, [facility] 6 13:18:48 Abnormal involunt shaka movement 654546937 Completed 201205/12/2014 YOANNA ON: WE DISCUSSE D THAT NEUROLOG Y NEEDS TO TREAT HER TREMORS. SHE HAS ASKED THAT WE CALL HER NEUROLOG IST. I WILL CALL; RECORDED 10/14/20 13 3:15PM BY ELIAS CORTEZ MA, BUCKY ON/ADDEN DUM Mikie HERMAN-C [address], [place], [address], [facility] 6 14:45:33 Increase d frequenc y of urinatio n 166648206 Completed 201105/12/2014 RECORDED 10/23/20 12 1:54PM BY BUCKY WILSON ON/ADDRADHA Samuel PA-C [address], [place], [address], [facility] 6 14:45:33 Wheezing 82071665 Completed 201105/12/2014 RECORDED 10/23/20 12 1:54PM BY BUCKY WILSON ON/ADDEN DUM Mikie HERMAN-C [address], [place], [address], [facility] 6 14:45:33 Acute asthma 683997842 Completed 12/31/2023 Liv Fajardo MD [address], [place], [address], [facility] 4 14:54:02 Chronic headache disorder 421738891 Active follows neurolog y Liv Fajardo MD [address], [place], [address], [facility] 2 14:47:52 Mammogra phy abnormal 128500910 Completed 201306/04/2014 RECORDED 02/20/20 14 3:15PM BY ELIAS CORTEZ MA, BUCKY ON/ADDEN DUM Mikie Samuel PA-C [address], [place], [address], [facility] 6 14:45:33 Anemia 858880310 Completed 201206/04/2014 RECORDED 10/14/20 13 3:55PM BY NICK CIFUENTES MD, YISSELATI ON/ADDEN DUM Mikie Samuel PA-C [address], [place], [address], [facility] 6 14:45:33 Adult health examinat ion Completed 201206/04/2014 RECORDED 02/26/20 13 4:42PM BY ELIAS CORTEZ MA, BUCKY ON/ADDEN DUM Mikie Samuel PA-C [address] [facility] [address], [place], [address], [facility] 6 14:45:33 Screenin g for malignan t neoplasm of breast Completed 201106/04/2014 RECORDED 10/23/20 12 1:54PM BY BUCKY WILSON ON/ADDEN DUM Mikie Samuel PA-C [address] [facility] [address], [place], [address], [facility] 6 14:45:34 Neck pain 77147953 Completed 201106/04/2014 RECORDED 10/23/20 12 1:55PM BY BUCKY WILSON ON/ADDEN DUM Mikie Samuel PA-C [address] [facility] [address], [place], [address], [facility] 6 14:45:33 Cough 76448507 Completed 201106/04/2014 IMPRESSI ON: PERSISTE NT COUGH. LESS LIKELY TO BE POST-BRO NCHITIC GIVEN THE PROLONGE D DURATION ; RECORDED 10/23/20 12 1:56PM BY BUCKY WILSON ON/ADDEN [facility] 7 14:17:15 Dizzines s and giddines s 811986125 Completed 201306/04/2014 IMPRESSI ON: THERE SEEMS TO BE NO CHANGE FROM HER BASELINE AND HER EXAM IS NORMAL.; RECORDED 02/20/20 14 3:15PM BY ELIAS CORTEZ MA, BUCKY ON/ADDEN DUM Mikie Almeidaden PA-C [address], [place], [address], [facility] 6 14:45:33 Headache 68047285 Completed 201306/04/2014 RECORDED 02/20/20 14 3:15PM BY ELIAS CORTEZ MA, BUCKY ON/ADDEN DUM Mikie Almeidaden PA-C [address], [place], [address], [facility] [place] [place] 14:[place]:33 Influenz a vaccine needed [id number] Completed 201206/04/2014 RECORDED 01/07/20 13 1:14PM BY ELIAS CORTEZ MA, BUCKY ON/ADDEN DUM Mikie Samuel PA-C [address], [place], [address], [facility] [place] [facility] [place] Follow-u p encounte r Completed 201106/04/2014 RECORDED 10/23/20 12 1:54PM BY BUCKY WILSON ON/ADDRADHA Samuel PA-C [address], [place], [address], [facility] [place] [facility] [place] 14:[place] Hip pain [id number] Completed 201106/04/2014 IMPRESSI ON: FROM FALL, TO PT; RECORDED 10/23/20 12 1:55PM BY BUCKY WILSON ON/ADDRADHA DUM Mikie Almeidaden PA-C [address], [place], [address], [facility] [place] [place] 14:[place]:33 Laborato ry procedur e performe d [id number] Completed 201206/04/2014 RECORDED 10/14/20 13 3:15PM BY ELIAS CORTEZ MA, ANNOTATI ON/ADDEN DUM Mikie Samuel PA-C [address], [place], [address], [facility] 6 14:45:33 Malaise and fatigue [id number] Completed 201206/04/2014 RECORDED 02/16/20 13 9:57AM BY SERENITY ROLAND MA, YISSELATI ON/ADDEN DUM Mikie DICKEYC [address], [place], [address], [facility] 6 14:45:33 Renewal of prescrip tion Completed 201206/04/2014 RECORDED 02/16/20 13 9:57AM BY SERENITY ROLAND MA, BUCKY ON/ADDEN DUM Mikie DICKEYC [address], [place], [address], [facility] 6 14:45:33 Administ ration of bacteria l and viral vaccine Completed 201106/04/2014 RECORDED 01/19/20 12 1:56PM BY ELIAS CORTEZ MA, OFFICE VISIT Mikie Samuel PA-C [address] [facility] [address], [place], [address], [facility] 6 14:45:33 Skin sensatio n disturba vae [id number] Completed 201106/04/2014 IMPRESSI ON: PT TO ADDRESS WITH NEW NEUROLOG IST, THEY TOLD HER SHE DOES NOT HAVE MS BUT SHOUDL GET EYARLY MRI'S, PT WILL GET NEW NEUROLOG IST; RECORDED 10/23/20 12 1:54PM BY BUCKY WILSON ON/ADDEN DUM Mikie Samuel PA-C [address], [place], [address], [facility] 6 14:45:33 Posttrau matic headache [id number] Completed 201306/04/2014 RECORDED 03/02/20 14 1:27PM BY NADIA IBRAHIM MA, ANNOTATI ON/ADDEN DUM Mikie Samuel PA-C [address], [place], [address], [facility] 6 14:45:33 Pre-surg raymundo evaluati on Completed 201306/04/2014 RECORDED 02/20/20 14 3:15PM BY ELIAS CORTEZ MA, ANNOTATI ON/ADDEN DUM Mikie Samuel PA-C [address], [place], [address], [facility] 6 14:45:34 Chest pain [id number] Completed 201206/04/2014 RECORDED 02/16/20 13 9:56AM BY SERENITY ROLAND MA, ANNOTATI ON/ADDEN DUM Mikie Samuel PA-C [address], [place], [address], [facility] 6 14:45:33 Shoulder joint pain [id number] Completed 201106/04/2014 IMPRESSI ON: FROM FALL, PT TO SET UP PT AND START MUSCLE RELAXER; RECORDED 10/23/20 12 1:55PM BY BUCKY WILSON ON/ADDEN DUM Mikie Almeidaden PA-C [address] [facility] [address], [place], [address], [facility] 6 14:45:33 Chronic sinusiti s [id number] Completed 201206/04/2014 RECORDED 02/26/20 13 1:14PM BY DAWN FOWLER MA, ANNOTATI ON/ADDEN DUM Mikie Samuel PA-C [address], [place], [address], [facility] 6 14:45:33 Acute sinusiti s 66180150 Completed 201206/04/2014 RECORDED 10/14/20 13 3:15PM BY ELIAS CORTEZ MA, YISSELATI ON/ADDEN DUM Elias brennan MA [facility] 6 13:18:43 Disorder of skin and/or subcutan eous tissue [id number] Completed 201206/04/2014 IMPRESSI ON: SEE ABOVE NOTE, UNCLEAR CAUSE, PT TO SET UP APPT WITH DERM, URIEL IF WORSENS; RECORDED 10/14/20 13 3:15PM BY ELIAS CORTEZ MA, BUCKY ON/ADDEN DUM Mikie Samuel PA-C [address] [facility] [address], [place], [address], [facility] 6 14:45:33 Disorder of pharynx 04894542 Completed 201206/04/2014 IMPRESSI ON: FOR A MONTH LIMIT PHONE WORK TO 3 HOURS A DAY TO LIMIT THROAT IRRITATI ON; RECORDED 10/14/20 13 3:15PM BY ELIAS CORTEZ MA, BUCKY ON/ADD DUM Mikie Samuel PA-C [address] [facility] [address], [place], [address], [facility] 6 14:45:34 Abnormal involunt shaka movement [id number] Completed 201206/04/2014 IMPRESSI ON: WE DISCUSSE D THAT NEUROLOG Y NEEDS TO TREAT HER TREMORS. SHE HAS ASKED THAT WE CALL HER NEUROLOG IST. I WILL CALL; RECORDED 10/14/20 13 3:15PM BY ELIAS CORTEZ MA, BUCKY ON/ADDEN DUM Mikie Samuel PA-C [address] [facility] [address], [place], [address], [facility] 6 14:45:33 Increase d frequenc y of urinatio n [id number] Completed 201106/04/2014 RECORDED 10/23/20 12 1:54PM BY BUCKY WILSON ON/ADDEN DUM Mikie Samuel PA-C [address], [place], [address], [facility] 6 14:45:33 Wheezing [id number] Completed 201106/04/2014 RECORDED 10/23/20 12 1:54PM BY BUCKY WILSON ON/ADDEN DUM Mikie Almeidaden PA-C [address], [place], [address], [facility] 6 14:45:33 Mammogra phy abnormal [id number] Completed 201306/05/2014 RECORDED 02/20/20 14 3:15PM BY ELIAS CORTEZ MA, BUCKY ON/ADDEN DUM Mikie Almeidaden PA-C [address], [place], [address], [facility] 6 14:45:33 Anemia [id number] Completed 201206/05/2014 RECORDED 10/14/20 13 3:55PM BY NICK CIFUENTES MD, YISSELATI ON/ADDEN DUM Mikiemary Almeidaden PA-C [address], [place], [address], [facility] 6 14:45:33 Adult health examinat ion Completed 201206/05/2014 RECORDED 02/26/20 13 4:42PM BY ELIAS CORTEZ MA, BUCKY ON/ADDEN DUM Mikiemary Almeidaden PA-C [address], [place], [address], [facility] 6 14:45:33 Screenin g for malignan t neoplasm of breast Completed 201106/05/2014 RECORDED 10/23/20 12 1:54PM BY BUCKY WILSON ON/ADDEN DUM Mikiemary Almeidaden PA-C [address], [place], [address], [facility] 6 14:45:34 Neck pain [id number] Completed 201106/05/2014 RECORDED 10/23/20 12 1:55PM BY BUCKY WILSON ON/ADDEN DUM Mikie Samuel PA-C [address], [place], [address], [facility] 6 14:45:33 Cough [id number] Completed 201106/05/2014 IMPRESSI ON: PERSISTE NT COUGH. LESS LIKELY TO BE POST-BRO NCHITIC GIVEN THE PROLONGE D DURATION ; RECORDED 10/23/20 12 1:56PM BY BUCKY WILSON ON/ADDEN [facility] Dizzines s and giddines s [id number] Completed 201306/05/2014 IMPRESSI ON: THERE SEEMS TO BE NO CHANGE FROM HER BASELINE AND HER EXAM IS NORMAL.; RECORDED 02/20/20 14 3:15PM BY ELIAS CORTEZ MA, BUCKY ON/ADDEN DUM Mikie HERMAN-C [address] [facility] [address], [place], [address], [facility] 6 14:45:33 Headache [id number] Completed 201306/05/2014 RECORDED 02/20/20 14 3:15PM BY ELIAS CORTEZ MA, ANNOTATI ON/ADDEN DUM Mikie HERMAN-C [address] [facility] [address], [place], [address], [facility] 6 14:45:33 Influenz a vaccine needed [id number] 06 Completed 201206/05/2014 RECORDED 01/07/20 13 1:14PM BY ELIAS CORTEZ MA, BUCKY ON/ADDEN DUM Mikie HERMAN-C [address] [facility] [address], [place], [address], [facility] 6 14:45:33 Follow-u p encounte r Completed 201106/05/2014 RECORDED 10/23/20 12 1:54PM BY BUCKY WILSON ON/ADDEN DUM Mikie Almeidaden PA-C [address], [place], [address], [facility] 6 14:45:33 Hip pain [id number] Completed 201106/05/2014 IMPRESSI ON: FROM FALL, TO PT; RECORDED 10/23/20 12 1:55PM BY BUCKY WILSON ON/ADDEN DUM Mikie Samuel PA-C [address], [place], [address], [facility] 6 14:45:33 Laborato ry procedur e performe d [id number] Completed 201206/05/2014 RECORDED 10/14/20 13 3:15PM BY ELIAS CORTEZ MA, BUCKY ON/ADDEN DUM Mikie Samuel PA-C [address], [place], [address], [facility] 6 14:45:34 Malaise and fatigue 965971287 Completed 201206/05/2014 RECORDED 02/16/20 13 9:57AM BY SERENITY ROLAND MA, BUCKY ON/ADDEN DUM Mikie Almeidaden PA-C [address], [place], [address], [facility] 6 14:45:33 Renewal of prescrip tion Completed 201206/05/2014 RECORDED 02/16/20 13 9:57AM BY SERENITY ROLAND MA, BUCKY ON/ADDEN DUM Mikie Samuel PA-C [address], [place], [address], [facility] 6 14:45:33 Administ ration of bacteria l and viral vaccine Completed 201106/05/2014 RECORDED 01/19/20 12 1:56PM BY ELIAS CORTEZ MA, OFFICE VISIT Mikie Samuel PA-C [address], [place], [address], [facility] 6 14:45:33 Skin sensatio n disturba nce [id number] Completed 201106/05/2014 IMPRESSI ON: PT TO ADDRESS WITH NEW NEUROLOG IST, THEY TOLD HER SHE DOES NOT HAVE MS BUT SHOUDL GET EYARLY MRI'S, PT WILL GET NEW NEUROLOG IST; RECORDED 10/23/20 12 1:54PM BY BUCKY WILSON ON/ADDEN DUM Mikie Samuel PA-C [address], [place], [address], [facility] 6 14:45:33 Posttrau matic headache 46129380 Completed 201306/05/2014 RECORDED 03/02/20 14 1:27PM BY NADIA IBRAHIM MA, ANNOTATI ON/ADDEN DUM Mikie DICKEYC [address], [place], [address], [facility] 6 14:45:33 Pre-surg raymundo evaluati on Completed 201306/05/2014 RECORDED 02/20/20 14 3:15PM BY ELIAS CORTEZ MA, ANNOTATI ON/ADDEN DUM Mikie Samuel PA-C [address], [place], [address], [facility] 6 14:45:34 Chest pain [id number] Completed 201206/05/2014 RECORDED 02/16/20 13 9:56AM BY SERENITY ROLAND MA, YISSELATI ON/ADDEN DUM Mikie DICKEYC [address], [place], [address], [facility] 6 14:45:33 Shoulder joint pain 729862558 Completed 201106/05/2014 IMPRESSI ON: FROM FALL, PT TO SET UP PT AND START MUSCLE RELAXER; RECORDED 10/23/20 12 1:55PM BY BUCKY WILSON ON/ADDEN DUM Mikie HERMAN-C [address], [place], [address], [facility] 6 14:45:33 Chronic sinusiti s 64957516 Completed 201206/05/2014 RECORDED 02/26/20 13 1:14PM BY DAWN FOWLER MA, BUCKY ON/ADDEN DUM Mikie HERMAN-C [address] [facility] [address], [place], [address], [facility] 6 14:45:33 Acute sinusiti s 53845057 Completed 201206/05/2014 RECORDED 10/14/20 13 3:15PM BY ELIAS CORTEZ MA, BUCKY ON/ADDEN DUM Elias brennan MA [facility] 6 13:18:43 Disorder of skin and/or subcutan eous tissue 50595640 Completed 201206/05/2014 IMPRESSI ON: SEE ABOVE NOTE, UNCLEAR CAUSE, PT TO SET UP APPT WITH DERM, URIEL IF WORSENS; RECORDED 10/14/20 13 3:15PM BY ELIAS CORTEZ MA, BUCKY ON/ DUM Mikie HERMAN-C [address] [facility] [address], [place], [address], [facility] 6 14:45:33 Disorder of pharynx 48242129 Completed 201206/05/2014 IMPRESSI ON: FOR A MONTH LIMIT PHONE WORK TO 3 HOURS A DAY TO LIMIT THROAT IRRITATI ON; RECORDED 10/14/20 13 3:15PM BY ELIAS CORTEZ MA, BUCKY ON/ADD DUM Mikie HERMAN-C [address] [facility] [address], [place], [address], [facility] 6 14:45:34 Abnormal involunt shaka movement 422659201 Completed 201206/05/2014 YOANNA ON: WE DISCUSSE D THAT NEUROLOG Y NEEDS TO TREAT HER TREMORS. SHE HAS ASKED THAT WE CALL HER NEUROLOG IST. I WILL CALL; RECORDED 10/14/20 13 3:15PM BY ELIAS CORTEZ MA, BUCKY ON/ADDEN DUM Mikie Samuel PA-C [address], [place], [address], [facility] 6 14:45:33 Increase d frequenc y of urinatio n 680139394 Completed 201106/05/2014 RECORDED 10/23/20 12 1:54PM BY BUCKY WILSON ON/PRECIOUS DICKEYC [address], [place], [address], [facility] 6 14:45:33 Wheezing [id number] Completed 201106/05/2014 RECORDED 10/23/20 12 1:54PM BY BUCKY WILSON ON/PRECIOUS Samuel PA-C [address], [place], [address], [facility] 6 14:45:33 Cough 40295981 Completed 01/29/2017 Tiffany Wray MA [facility], [facility] 7 14:17:15 Menopaus al symptom 83665426 Completed 09/13/2022 Liv Fajardo MD [address], [place], [address], [facility] 2 14:48:10 Thoracic back pain 835925482 Completed 09/13/2022 Liv Fajardo MD [address], [place], [address], [facility] 2 14:48:24 Inflamma tion of sacroili ac joint 80394323 Active Mikie Samuel PA-C [address], [place], [address], [facility] 6 14:45:33 Inflamma tion of rotator cuff tendon 701336422 Completed 01/29/2017 Tiffany stevenson, [facility] 7 14:17:24 Acute upper respirat ory infectio n 46951307 Completed 01/29/2017 Tiffany stevenson, [facility] 7 14:17:19 Acute sinusiti s 78106218 Completed 09/13/2016 RYANN Silvestre, [facility] 6 13:18:43 Increase d blood pressure 59834749 Completed 09/13/2016 RYANN Silvestre, [facility] 6 13:19:07 Obesity 714825190 Active 2018 Ofelialinda Thrasher null, [facility] 9 16:45:45 Anxiety 44811247 Active 2020 Liv Fajardo MD [address], [place], [address], [facility] 1 18:28:09 Osteopor osis 85778326 Active 2021 Liv Fajardo MD [address], [place], [address], [facility] 2 14:32:37 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 [id number] 263647 Active 2021 follows [facility] center Liv Fajardo MD [address], [place], [address], [facility] 2 14:21:54 Gastropa resis syndrome 566312305 Active 2021 Mikie Samuel PA-C [address], [place], [address], [facility] 2 13:42:35 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 Please review this document and add these problems to the patient's chart manually as needed. Problem Notes None recorded. Procedures Surgical History Date Name Laterality Status Provider Name and Address Organization Details Recorded Time 023 Suture/Staple removal completed Liv Fajardo MD [address] [address], [place], [address], [facility] 04/02/2023 14:53:12 023 Suture/Staple removal completed Liv Fajardo MD [address] [address], [place], [address], [facility] 03/27/2023 14:58:04 023 Suture/Staple removal completed Caprice Cheney [facility] 03/23/2023 08:04:07 023 Dressing Change completed Caprice Cheney [facility] 03/23/2023 08:02:30 022 EGD completed Juliana Real [facility] 05/11/2022 15:28:09 021 laryngoscopy completed Juliana Real [facility] 08/23/2021 14:30:55 021 Most Recent Mammogram completed Juliana Real [facility] 12/07/2020 15:12:02 021 Mammogram Screening completed Juliana Real [facility] 12/07/2020 15:11:50 019 Mammogram one breast completed Serinaclay Chapman [facility] 04/02/2019 09:37:05 019 Most Recent Bone Density completed [facility] 03/26/2019 10:16:32 019 Dxa bone density study completed [facility] 03/26/2019 10:16:27 019 Date of Last Pap Smear completed Serina Money [facility] 07/24/2019 15:05:30 016 excision of intra-abdominal mass completed Elias Lucero MA [facility] 08/15/2021 13:53:40 016 Date of Last Colonoscopy completed Juliana Real [facility] 11/23/2015 09:28:38 016 Colonoscopy completed Juliana Real [facility] 11/23/2015 09:28:38 015 Joint Injection completed Nick Cifuentes MD [address] [address], [place], [address], [facility] 08/24/2015 14:54:08 013 Thyroid Surgery completed Dawn Fowler MA [facility] 08/18/2022 12:53:35 013 Gastrointestinal Surgery completed Dawn Fowler MA [facility] 08/18/2022 12:53:36 Imaging Results Imaging Date Name Status LastModified by Organization Details LastModified Time 03/06/2023 MAMMO, screening, digital, [facility] [address], [place], [address], 03/07/2023 05:53:25 03/11/2023 XR, foot completed [facility] [address] [place], [address], 03/12/2023 09:24:57 03/11/2023 CT, brain, w/o contrast completed [facility] [address] [place], [address], 03/12/2023 09:27:13 03/11/2023 XR, knee, 3 view completed [facility] [address] [place], [address], 03/12/2023 09:26:48 03/11/2023 XR, chest, [address] [facility] [address] [place] [address], [address], 03/12/2023 09:27:04 03/11/2023 electrocardiogram completed Informa tion not available 03/12/2023 17:16:55 03/11/2023 CT, brain, w/o contrast completed Information not available 03/12/2023 17:16:55 03/11/2023 XR, chest, 2 view completed Informa tion not available 03/12/2023 17:16:56 03/11/2023 XR, foot, 3 or more view completed Information not available 03/12/2023 17:16:56 03/11/2023 XR, knee, 4 or more view completed Information not available 03/12/2023 17:16:57 07/09/2023 loop monitor completed Information not available 07/09/2023 15:46:59 12/03/2023 US, echocardiogram completed [facility] [address] [facility], [place], [address], 12/03/2023 14:42:20 01/30/2024 bone density completed [address] (Outpt Imaging) [address] [place], [address], 04/29/2024 11:15:19 01/30/2024 DEXA completed [facility] [address] [place], [address], 02/14/2024 11:53:32 04/11/2024 MRI, thoracic spine, w/o contrast completed [facility] Information not available 04/18/2024 13:34:15 05/20/2024 CT, abdomen + pelvis, w/ contrast completed [facility] Information not available 05/20/2024 17:11:16 06/11/2024 US, bladder completed [facility] [address] [place], [address], 06/11/2024 18:04:30 06/11/2024 US, bladder completed [facility] (Outpt Imaging) [address] [place], [address], 06/11/2024 19:30:51 07/08/2024 US, abdomen, limited completed [facility] (Outpt Imaging) [address] [place] [address], [address], 07/08/2024 15:48:46 07/08/2024 US, abdomen, limited completed [address] [place] [address], [address], 07/09/2024 09:49:32 07/15/2024 CT, abdomen + pelvis, w/ contrast completed [facility] [address], [place], [address], 07/16/2024 15:48:09 Procedure Notes None recorded. Medical Equipment None Reported. Allergies Allergen ID Allergen Name Allergen Category Reaction Reaction Severity Criticality Documentation Date Start Date Code Code System Note Provider Name and Address Organization Details Recorded Time 3124 Demerol medicatio n angioedem a Not available Not available 05/12/20142013 70312 1 RxNorm arm swell ing Elias Farooq-RYANN Pa [place] - [facility] 5 14:10:49 Medications Name Sig Start Date Stop Date Status Note LastModified by Organization Details LastModified Time celecoxib 200 mg capsule 1 in am 1 in pm active Not Available Not Available No t Available cyclobenz aprine 10 mg tablet active Not Available Not Available No t Available amoxicill in 500 mg capsule TAKE 1 TABLET 3 TIMES A DAY UNTIL GONE 12/30 completed Not Available Not Available Not Available oxcarbaze pine 150 mg tablet THREE TIMES DAILY active RECORDED 03/02/20 14 1:27PM BY NADIA IBRAHIM MA, OFFICE VISIT;PE R NEUROLOG IST Not Available Not Available Not Available prednison e 10 mg tablet Take 4 tablets every day by oral route for 5 days. active Not Available Not Available No t Available doxycycli ne hyclate 100 mg capsule 06/28 completed Not Available Not Available Not Available ipratropi um 0.5 mg-albute rol 3 mg (2.5 mg base)/3 mL nebulizat ion soln Inhale 3 mL every 6 hours by inhalati on route as needed for 30 days. 11/20 completed Not Available Not Available Not Available tizanidin e 2 mg tablet TAKE ONE TABLET BY MOUTH TWICE A DAY NEEDED active Not Available Not Available No t Available albuterol sulfate 2.5 mg/3 mL (0.083 %) solution for nebulizat ion active Not Available Not Available Not Available azithromy melida 250 mg tablet TAKE 2 TABLETS (500 MG) BY ORAL ROUTE ONCE DAILY FOR 1 DAY THEN 1 TABLET (250 MG) BY ORAL ROUTE ONCE DAILY FOR 4 DAYS 07/29 completed Not Available Not Available Not Available benzonata te 200 mg capsule Take 1 capsule twice a day by oral route for 60 days. 12/30 completed Not Available Not Available Not Available sulfameth oxazole 400 mg-trimet hoprim 80 mg tablet 03/17 completed Not Available Not Available Not Available citalopra m 10 mg tablet 03/21 completed Not Available Not Available Not Available phenazopy ridine 200 mg tablet 03/13 completed Not Available Not Available Not Available ondansetr on HCl 4 mg tablet Take 1 tablet 3 times a day by oral route as needed for 30 days. 11/20 completed Not Available Not Available Not Available prednison e 20 mg tablet 2 tabs po qd x 5 days 06/18 completed Not Available Not Available Not Available calcium 600 mg tablet Take 1 tablet as needed by oral route as needed. 07/26 completed Not Available Not Available Not Available interfero n beta-1a (albumin) 30 mcg intramusc ular kit FOR MS active RECORDED 04/17/20 11 4:18PM BY JET Martins MD, ANNOTATI ON/PRECIOUS DUM; Not Available Not Available Not Available Zyrtec 10 mg tablet Take 1 tablet every day by oral route in the morning. active Not Available Not Available No t Available oxcarbaze pine 300 mg tablet Take 3 tablets twice a day by oral route. active Not Available Not Available No t Available acetamino phen 300 mg-codein e 30 mg tablet Take 1 tablet every 6 hours by oral route as needed for 7 days. 08/22 completed Not Available Not Available Not Available fexofenad ine 180 mg tablet Take 1 tablet every day by oral route in the morning. 06/20 completed Not Available Not Available Not Available ciproflox acin 500 mg tablet TAKE ONE TABLET BY MOUTH EVERY 12 HOURS FOR 7 DAYS 07/26 completed Not Available Not Available Not Available sulfameth oxazole 800 mg-trimet hoprim 160 mg tablet 08/15 completed Not Available Not Available Not Available omeprazol e 40 mg capsule,d elayed release TAKE ONE CAPSULE BY MOUTH TWICE A DAY active Not Available Not Available No t Available tramadol 50 mg tablet THREE TIMES DAILY, NEEDED. MAY TAKE WITH FLUOXETI NE 12/30 completed Not Available Not Available Not Available zonisamid e 100 mg capsule Take 3 capsules every day by oral route as directed . active Not Available Not Available No t Available levothyro xine 100 mcg tablet TAKE ONE TABLET BY MOUTH 6 DAYS PER WEEK AND 1+1/2 TABLETS ON 7TH DAY active Not Available Not Available No t Available Mobic 15 mg tablet Take 1 tablet every day by oral route for 10 days. 12/30 completed Not Available Not Available Not Available oxycodone -acetamin ophen 5 mg-325 mg tablet Take 1 tablet every 6 hours by oral route as needed for 3 days, for T12 compress ion. 05/21 completed Not Available Not Available Not Available levothyro xine 88 mcg tablet active Not Available Not Available Not Available amoxicill in 875 mg tablet TWO TIMES DAILY 02/25 completed RECORDED 02/26/20 13 12:09PM BY LUCRECIA GOMEZ MD, MEDICATI ON AUTO-ROSANNA CTIVATIO N; Not Available Not Available Not Available Vitamin C 1,000 mg tablet Take 1 tablet every day by oral route. 07/07 completed Not Available Not Available Not Available metoclopr amide 5 mg tablet Take 1 tablet twice a day by oral route as needed for 30 days. 03/21 completed Not Available Not Available Not Available methocarb emmy 750 mg tablet TAKE 1 TABLET BY MOUTH EVERY 6 HOURS NEEDED 03/23 completed Not Available Not Available Not Available calcitoni n (salmon) 200 unit/actu ation nasal spray Take 1 spray every day by nasal route as directed for 30 days. 05/21 completed Not Available Not Available Not Available amitripty line 10 mg tablet Take 1 tablet 4 times a day by oral route for 30 days. 06/18 completed Not Available Not Available Not Available benzonata te 100 mg capsule Take 1 capsule 3 times a day by oral route as needed for 10 days. 03/13 completed Not Available Not Available Not Available levothyro xine 50 mcg tablet DAILY active Not Available Not Available Not Available pantopraz ole 40 mg tablet,de layed release IN THE EVENING 11/16 completed RECORDED 11/16/19 11 4:03PM BY VONNIE LAW, OFFICE VISIT; Not Available Not Available Not Available nortripty line 10 mg capsule Take 2 capsules every day by oral route in the evening. active Not Available Not Available No t Available fluoxetin e 20 mg tablet TAKE ONE TABLET BY MOUTH EVERY DAY 2014 active Not Available Not Available Not Avai lable lidocaine 5 % topical patch APPLY 1 PATCH BY TOPICAL ROUTE ONCE DAILY (MAY WEAR UP TO 12HOURS. ) active Not Available Not Available No t Available fluticaso ne 500 mcg-salme terol 50 mcg/dose blistr powdr for inhalatio n Inhale 1 puff twice a day by inhalati on route. 05/21 completed generic Advair Not Available Not Available Not Available Advair Diskus 250 mcg-50 mcg/dose powder for inhalatio n Inhale 1 puff twice a day by inhalati on route. 10/18 /2021 completed Not Available Not Available Not Available methimazo le 5 mg tablet DAILY active RECORDED 03/02/20 14 1:27PM BY NADIA IBRAHIM MA, OFFICE VISIT;DR Charla ZIMMERMAN Not Available Not Available Not Available docusate sodium 100 mg capsule THREE TIMES PER WEEK 2012 active RECORDED 03/02/20 14 1:27PM BY NADIA IBRAHIM MA, OFFICE VISIT; Not Available Not Available Not Available gabapenti n 300 mg capsule Take 2 capsules twice a day by oral route for 90 days. active Not Available Not Available No t Available omeprazol e 20 mg capsule,d elayed release Take 1 capsule twice a day by oral route for 90 days. 01/29 completed Not Available Not Available Not Available budesonid e 0.5 mg/2 mL suspensio n for nebulizat ion Inhale 2 mL twice a day by nebuliza tion route as directed for 30 days. 03/13 completed Not Available Not Available Not Available raloxifen e 60 mg tablet Take 1 tablet every day by oral route for 90 days. active Not Available Not Available No t Available oxcarbaze pine 600 mg tablet DAILY 11/16 completed RECORDED 11/16/19 11 4:04PM BY VONNIE LAW, OFFICE VISIT;UT TH 150MG DOSE Not Available Not Available Not Available monteluka st 10 mg tablet Take 1 tablet every day by oral route for 90 days. active Not Available Not Available No t Available codeine 10 mg-guaife nesin 100 mg/5 mL oral liquid Take every 4-6 hours by oral route as needed for 10 days. 12/30 completed Not Available Not Available Not Available [facility] Vitamin B12 1,000 mcg tablet Take 1 tablet every day by oral route. 08/15 completed Not Available Not Available Not Available diclofena c sodium 50 mg tablet,de layed release 03/21 completed Not Available Not Available Not Available nystatin 100,000 unit/gram topical powder 08/22 completed Not Available Not Available Not Available lorazepam 1 mg tablet TAKE ONE TABLET BY MOUTH EVERY DAY DIRECTED 09/13 completed Not Available Not Available Not Available Nasonex 50 mcg/actua tion Fenton Fenton 2 sprays every day by intranas al route. 03/21 completed Not Available Not Available Not Available ibuprofen 600 mg tablet Take 1 tablet twice a day by oral route as needed. active Not Available Not Available No t Available methylpre dnisolone 4 mg tablets in a dose pack Take 1 dose pk by oral route. 08/11 completed Not Available Not Available Not Available albuterol sulfate HFA 90 mcg/actua tion aerosol inhaler Inhale 2 puffs every 4 hours by inhalati on route as directed for 30 days. 12/30 completed Not Available Not Available Not Available oxybutyni n chloride 5 mg tablet Take 1 tablet every day by oral route for 90 days. 06/28 completed Not Available Not Available Not Available fluoxetin e 20 mg capsule TAKE ONE CAPSULE BY MOUTH EVERY DAY 07/07 completed Not Available Not Available Not Available fluticaso ne propionat e 50 mcg/actua tion nasal spray,tej pension Inhale 2 sprays every day by nasal route for 90 days. 08/15 completed Not Available Not Available Not Available doxycycli ne hyclate 100 mg tablet Take 1 tablet twice a day by oral route for 10 days. 07/07 completed Not Available Not Available Not Available naproxen 500 mg tablet 03/13 completed Not Available Not Available Not Available amoxicill in 875 mg-potass ium clavulana te 125 mg tablet Take 1 tablet every 12 hours by oral route for 10 days. 01/30 completed Not Available Not Available Not Available oxycodone 5 mg tablet DAILY PRN PAIN 05/28 completed RECORDED 06/09/20 11 10:30AM BY JET Martins MD, MEDICATI ON AUTO-ROSANNA CTIVATIO N; Not Available Not Available Not Available albuterol (refill) 90 mcg/actua tion aerosol inhaler EVERY 4 HOURS NEEDED FOR EXACERBA TION OF ASTHMA 2012 active RECORDED 03/27/20 14 3:49PM BY SERENITY ROLAND MA, OFFICE VISIT; Not Available Not Available Not Available prednisol one sodium phosphate 5 mg base/5 mL (6.7 mg/5 mL) oral soln Take 5 mL twice a day by oral route for 7 days. 12/[address] Peraza Not Available Not Available Not Available azithromy melida 500 mg tablet 12/30 completed Not Available Not Available Not Available Vitamin D3 25 mcg (1,000 unit) capsule Take 1 capsule every day by oral route as directed for 90 days. active Not Available Not Available No t Available cyclobenz aprine 5 mg tablet 1 po bid active Not Available Not Available N ot Available bupropion HCl XL 300 mg 24 hr tablet, extended release DAILY 10/14 completed RECORDED 10/14/20 13 3:21PM BY ELIAS CORTEZ MA, OFFICE VISIT; Not Available Not Available Not Available nitrofura ntoin monohydra te/macroc rystals 100 mg capsule 03/13 completed Not Available Not Available Not Available Flonase TWO TIMES DAILY 2012 active RECORDED 10/14/20 13 3:22PM BY ELIAS CORTEZ MA, OFFICE VISIT; Not Available Not Available Not Available calcium DAILY active RECORDED 03/02/20 14 1:27PM BY NADIA IBRAHIM MA, OFFICE VISIT; Not Available Not Available Not Available B Complex 1 capsule po daily active Not Available Not Available No t Available Fish Oil 1 po qd active Not Available Not Hamida ilable Not Available amitripty line AT BEDTIME 2013 active RECORDED 03/02/20 14 2:17PM BY VIRGIL NEVAREZ, OFFICE VISIT; Not Available Not Available Not Available Trileptal active RECORDED 02/26/20 13 4:54PM BY ELIAS CORTEZ MA, OFFICE VISIT;PE R NEUROLOG Y Not Available Not Available Not Available multivita min 1 PO DAILY active Not Available Not Available No t Available Meclizine Hcl Chewable THREE TIMES DAILY active RECORDED 03/02/20 14 1:27PM BY NADIA IBRAHIM MA, OFFICE VISIT; Not Available Not Available Not Available Mucinex active RECORDED 03/27/20 14 4:39PM BY NICK CIFUENTES MD, OFFICE VISIT; Not Available Not Available Not Available fluticaso ne propionat e 115 mcg-salme terol 21 mcg/actua tion HFA inhaler active Not Available Not Available Not Available Advair HFA TWO TIMES DAILY active RECORDED 03/02/20 14 1:27PM BY NADIA IBRAHIM MA, OFFICE VISIT;DR Charla Ang Not Available Not Available Not Available Brovana 15 mcg/2 mL solution for nebulizat ion Inhale 2 mL twice a day by inhalati on route as directed for 30 days. 03/13 completed Not Available Not Available Not Available Symbicort 160 mcg-4.5 mcg/actua tion HFA aerosol inhaler Inhale 2 puffs twice a day by inhalati on route for 90 days. 09/09 completed PER pulmonar y Not Available Not Available Not Available CoQ-10 100 mg capsule Take 1 capsule every day by oral route. 02/04 completed Not Available Not Available Not Available Unisom SleepMelt s 25 mg disintegr ating tablet Take 1 tablet every 4 hours by oral route. 03/21 completed Not Available Not Available Not Available Calcium 500 + D (D3) 1 po daily 07/07 completed Not Available Not Available Not Available Vimpat 50 mg tablet Take 1 tablet every day by oral route as needed. 11/20 completed Not Available Not Available Not Available GaviLyte- G 236 gram-22.7 4 gram-6.74 gram-5.86 gram oral solution active Not Available Not Available Not Available Prolia 60 mg/mL subcutane ous syringe active Not Available Not Available Not Available Probiotic 1 po daily 09/17 completed Not Available Not Available Not Available loratadin e 10 mg capsule Take 1 capsule every day by oral route. 08/15 completed Not Available Not Available Not Available Daliresp 500 mcg tablet active Not Available Not Available Not Available Acidophil us Probiotic 1 po twice daily 09/17 completed Not Available Not Available Not Available gabapenti n ER 300 mg tablet,ex tended release 24 hr active Not Available Not Available Not Available melatonin 10 mg tablet Take 1 tablet every day by oral route at bedtime. active Not Available Not Available No t Available Combivent Respimat 20 mcg-100 mcg/actua tion solution for inhalatio n Inhale 1 puff 4 times a day by inhalati on route for 90 days. active Not Available Not Available No t Available Chlorella 500 mg PO 3 PO TWO TIMES DAILY 11/20 completed Not Available Not Available Not Available Breo Ellipta 200 mcg-25 mcg/dose powder for inhalatio n 1 puff am and 1 pm active Not Available Not Available No t Available Restasis MultiDose 0.05 % eye drops 01/15 completed Not Available Not Available Not Available Flonase Sensimist 27.5 mcg/actua tion nasal spray,tej pension Take 2 sprays every day by nasal route at bedtime for 30 days. 2023 active Not Available Not Available Not Avai lable Trelegy Ellipta 200 mcg-62.5 mcg-25 mcg powder for inhalatio n Inhale 1 inhalati on every day by inhalati on route in the morning for 90 days. 03/21 completed Not Available Not Available Not Available Vitals Date Recorded Body height Body mass index (BMI) Body weight Heart rate Oxygen saturation Oxygen saturation in Arterial blood by Pulse oximetry Body temperature Systolic blood pressure Diastolic blood pressure Provider Name and Address Organization Details Last Updated DateTime 3 163.2 cm 29.3 kg/m2 98139.8 9 g 71 /min 97 % 97 % 97.3 [degF] 128 mm[Hg] 80 mm[Hg] Elias brennan MA [facility] 3 14:36:40 Date Recorded Body height Body mass index (BMI) Body weight Heart rate Oxygen saturation Oxygen saturation in Arterial blood by Pulse oximetry Body temperature Systolic blood pressure Diastolic blood pressure Provider Name and Address Organization Details Last Updated DateTime 4 163.2 cm 30.5 kg/m2 22451.0 3 g 97 /min 98 % 98 % 97.9 [degF] 118 mm[Hg] 75 mm[Hg] Elias brennan MA [facility] 4 14:40:34 Date Recorded Body height Body mass index (BMI) Body weight Oxygen saturation Oxygen saturation in Arterial blood by Pulse oximetry Heart rate Body temperature Systolic blood pressure Diastolic blood pressure Provider Name and Address Organization Details Last Updated DateTime 4 163.2 cm 30.9 kg/m2 95651.6 2 g 98 % 98 % 80 /min 98 [degF] 127 mm[Hg] 81 mm[Hg] Vonnie Law MA [facility] 4 14:14:21 Date Recorded Body height Provider Name an d Address Organization Details Last Updated DateTime 05/21/2024 163.2 cm Vonnie Law MA [facility] 05/21/2024 11:43:45 Social History Question Answer Notes LastModified by Organizat ion Details LastModified Time Tobacco Smoking Status Never Smoker RYANN Meyer [facility] 05/19/2014 14:49:38 Do You Have An Advance Directive? Yes Information not available 09/13/2022 What Is Your Level Of Alcohol Consumption? Occasional Social Outings Information not available 05/19/2014 Is Blood Transfusion Acceptable In An Emergency? Yes Information not available 09/29/2015 What Is Your Level Of Caffeine Consumption? Moderate Coffee 2x Day Information not available 05/19/2014 How Much Tobacco Do You Chew? None Information not available 08/24/2015 Are You Currently Employed? No Information not available 08/31/2014 What Type Of Diet Are You Following? SPECIFIC Very Small Portions Due To Gastroparesis Information not available 12/31/2023 Which Illicit Or Recreational Drugs Have You Used? Medical Marijuana Medical Marijuana Card Information not available 08/15/2021 Do You Or Have You Ever Used E-cigarettes Or Vape? Never Used Electronic Cigarettes Information not available 09/13/2022 What Is Your Occupation? Disability Since 2013 Information not available 08/15/2021 Do You Take Precautions To Prevent Distracted Driving? Yes Information not available 11/20/2016 How Often Do You Need To Have Someone Help You When You Read Instructions, Pamphlets, Or Other Written Material From Your Doctor Or Pharmacy? Never Information not available 08/18/2022 Have You Served In The ? No Information not available 11/20/2016 Have You Or Anyone In Your Household Had Any Of The Following Symptoms In The Last 14 Days: Sore Throat, Cough, Chills, Body Aches For Unknown Reasons, Shortness Of Breath For Unknown Reasons, Loss Of Smell, Loss Of Taste, Fever At Or Greater Than 100 Degrees Fahrenheit? No Information not available 08/11/2020 Are You Or Anyone In Your Household A Health Care Provider Or Emergency Responder? No Information not available 08/11/2020 To The Best Of Your Knowledge Have You Been In Close Proximity To Any Individual Who Tested Positive For COVID-19? No Information not available 08/11/2020 *AWV ONLY* Are You Presently Prescribed Opioid Medication By PCP Or Specialist? If YES -Provider Assess The Benefit For Other, Non-opioid Pain Therapies Instead, Even If The Patient Does Not Have OUD But Is Possibly At Risk. No Information not available 08/18/2022 Have You Recently Traveled To A COVID-19 High Risk Area Or Gathering In The Last 10 Days? No Information not available 08/15/2021 What Was The Date Of Your Most Recent Tobacco Screening? 12/31/2023 Information not available 12/31/2023 How Many Children Do You Have? 0 Information not available 08/18/2022 Do You Use Protection During Sex? No Information not available 11/20/2016 Do You Use Your Seat Belt Or Car Seat Routinely? Yes Information not available 08/18/2022 Are You Sexually Active? Yes (Lucrecia) Information not available 12/31/2023 Do You Have Smoke And Carbon Monoxide Detectors In Your Home? Yes Information not available 08/18/2022 At What Age Did You Start Smoking Tobacco? 0 Information not available 08/24/2015 Are You Passively Exposed To Smoke? No Information not available 08/24/2015 Do You Or Have You Ever Used Smokeless Tobacco? Never Used Smokeless Tobacco rkanu Information not available 07/07/2019 How Much Tobacco Do You Smoke? No Information not available 08/24/2015 Do You Use Any Illicit Or Recreational Drugs? Yes Information not available 09/13/2022 Do You Use Sunscreen Routinely? Yes Information not available 09/29/2015 How Many Years Have You Smoked Tobacco? 0 Information not available 08/24/2015 Do You Or Have You Ever Used Any Other Forms Of Tobacco Or Nicotine? No Information not available 09/13/2022 Sex: Unknown Functional Status Question Answer Note LastModified by Organization D etails LastModified Time Are you able to walk? YESWOREST Information not available 09/13/2022 Are you able to care for yourself? Yes Information not available 05/19/2014 What is your exercise level? None Information not available 12/31/2023 Mental Status None recorded. Family History Relationship Description Onset Age of this Age Resolved Age Notes LastModified by Organization Details LastModified Time Father Congenital deafness Not available 2021 13:59:56 Father Emphysema Not available 09/13/2022 13:59:56 Father Depressive disorder [email or web address] Not available 11/2014 10:28:54 Father Leukemia 76 in 2020 [email or web address] s Not available 12/31/2023 14:45:52 Father Congestive heart failure Not available 2021 13:59:56 Father Heart disease abolcun Not available 2021 12:53:16 Father Sleep disorder abolcun Not available 2021 12:53:16 Father Allergy abolcun Not available 1 12:53:16 Mother Congenital deafness Not available 2021 13:59:56 Mother Hypertensive disorder [email or web address] Not available 11/2014 10:28:54 Mother Malignant neoplasm of skin Not available 2021 13:59:56 Mother Coronary arterioscler osis Not available 2021 13:59:56 Maternal Aunt Diabetes mellitus [email or web address] Not available 11/2014 10:28:54 Maternal Aunt Malignant tumor of ovary sabdulraheem Not available 11/2014 10:28:54 Brother Malignant lymphoma 56 Not available 2021 13:59:56 Brother Carcinoma in situ of body of stomach 2nd to lympho ma [email or web address] s Not available 12/31/2023 14:46:35 Unspecified Relation Blood coagulation disorder abolcun Not available 2021 12:53:16 Medical History Condition Response Gout N Other N Kidney Stones N Blood Diseases N Hyperthyroidism N Breast Cancer N Hypothyroidism Y Lung Disease N Depression N COPD Y Defects or Inherited Disease N Anesthesia Complications N Headaches/Migraines Y Anxiety Disorder N Varicose Veins N Obesity N Vision or Eye Problems N Arthritis N Head Injury/Concussion Y Infertility N Polyps N Congenital Anomalies N Acid Reflux (GERD) N Cancer N Stroke N ADHD N Endometriosis N High Cholesterol N Liver Disease N Fibromyalgia N Kidney Disease N Heart Problems N Ear or Hearing Problems N Hospitalizations N Thyroid Problems Y GI Problems Y Acne N Eating Disorder N Skin Problems N Anemia N Constipation N Bladder Problems N Mental Illness N Diabetes N Ovarian Cancer N Blood Transfusions N Seizures/Epilepsy Y Tuberculosis N AIDS/HIV N Congestive Heart Failure (CHF) N Eczema N Abuse/Domestic Violence N Diverticulitis N Asthma Y Allergies N Reflux/GERD Y Hepatitis N Pulmonary Embolism N Hypertension N Chicken Pox N Autism Spectrum Disorder (ASD) N Osteoporosis Y Gynecological History Statement/Question Response Date of Last Pap Smear 01/30/2019 Date of Last Colonoscopy 11/22/2015 Most Recent Mammogram 12/03/2020 Age at First Child 1 Most Recent Bone Density 03/10/2019 Obstetrics History GPAL:G 0 P 0 0 0 0 Type Value Living 0 Total 0 Immunizations Vaccine Type Date Status Provider Name and Address Organization Details Recorded Time Influenza, split virus, trivalent, preservative 09/07/2016 [facility] 13:22:20 Influenza, split virus, quadrivalent, preservative 07/13/2017 [facility] 13:39:59 Influenza, split virus, quadrivalent, preservative 09/08/2019 [facility] 15:17:51 COVID-19, mRNA, LNP-S, PF, 30 mcg/0.3 mL dose 03/25/2021 RYANN Cobian [facility] 08/15/2021 13:59:09 COVID-19, mRNA, LNP-S, PF, 30 mcg/0.3 mL dose 04/14/2021 completed Elias Lucero MA null, [facility] 08/15/2021 13:58:59 pneumococcal polysaccharide PPV23 03/13/2022 completed RYANN Mccormick, [facility] 03/23/2022 14:40:14 Influenza, split virus, quadrivalent, PF 08/15/2021 completed RYANN Alberts, [facility] 05/24/2022 15:17:50 Influenza, split virus, quadrivalent, PF 08/11/2020 completed RYANN Alberts, [facility] 05/24/2022 15:17:51 Tdap 08/15/2021 completed RYANN Alberts, [facility] 05/24/2022 15:17:51 Influenza, split virus, quadrivalent, PF 07/29/2018 completed RYANN Alberts, [facility] 05/24/2022 15:17:51 Influenza, split virus, quadrivalent, PF 08/18/2022 completed Laurita Arevalo MA null, [facility] 09/13/2022 14:08:34 Influenza, split virus, trivalent, preservative 09/16/2010 completed Not Available [facility] 05/12/2014 13:40:06 Tdap 01/19/2012 completed Not Available [facility] 13:40:06 Influenza, split virus, trivalent, preservative 07/24/2012 completed Not Available [facility] 05/12/2014 13:40:06 Influenza, split virus, trivalent, preservative 07/23/2013 completed Not Available [facility] 05/12/2014 13:40:06 Influenza, split virus, quadrivalent, PF 12/31/2023 completed RYANN Wilson, [facility] 12/31/2023 15:25:26 Past Encounters Encounter ID Performer Location Encounter Start Date Encounter Closed Date Diagnosis/Indication Diagnosis SNOMED-CT Code Diagnosis ICD10 Code [id number] Elias martin MA Main Office [address] [facility] [place] [id number] 05/19/2014 15:48:53 05/19/2014 16:39:57 Acute asthma 246250263 Chronic he adache disorder [id number] [employer] [address] [place] [address] 07/11/2010 00:00:00 [id number] [facility] [facility] [address] [facility],[address] [place] [address] 11/16/2010 00:00:00 [id number] [employer] [address] [facility],[address] [place] [address] 12/26/2010 00:00:00 [id number] [employer] [address] [facility] [address] [place] [address] 04/17/2011 00:00:00 [id number] [employer] [address] [facility],[address] [place] [address] 04/26/2011 00:00:00 [id number] [employer] [address] [facility],[address] [place] [address] 06/12/2011 00:00:00 [id number] [employer] [address] [facility],[address] [place] [address] 11/02/2011 00:00:00 [id number] [employer] [address] [facility],[address] [place] [address] 01/02/2012 00:00:00 [id number] [employer] [address] [facility],[address] [place] [address] 01/19/2012 00:00:00 [id number] [employer] [address] [facility],[address] [place] [address] 02/23/2012 00:00:00 [id number] [employer] [address] [facility],[address] [place] [address] 04/11/2012 00:00:00 [id number] [employer] [address] [place] [address] 10/23/2012 00:00:00 [id number] [employer] [address] [address] [place] [address] 01/06/2013 00:00:00 [id number] auto[employer] [address] [facility] [address] [place] [address] 02/15/2013 00:00:00 [id number] [employer] [address] [facility] [address] [place] [address] 02/25/2013 00:00:00 [id number] [employer] [address] [facility] [address] [place] [address] 04/16/2013 00:00:00 [id number] [employer] [address] [facility],[address] [place] [address] 10/14/2013 00:00:00 [id number] [employer] [address] [facility],[address] [place] [address] 01/31/2014 00:00:00 [id number] [employer] [address] [facility] [place] [address] 02/19/2014 00:00:00 [id number] [employer] [address] [facility],[address] [place] [address] 03/02/2014 00:00:00 [id number] [employer] [address] [facility],[address] [place] [address] 03/27/2014 00:00:00 [id number] Nadia [place] Main Office [address] [place], [place] [address] 08/31/2014 15:05:23 08/31/2014 15:54:26 Thoracic back pain [id number] [id number] Main Office [address] [place], [place] [address] 10/01/2014 14:00:18 10/01/2014 14:52:47 Screening for malignant neoplasm of cervix 356044427 Screening for malignant neoplasm of breast 255807971 Inflammati on of sacroiliac joint 45351276 Osteopenia 989921990 [id number] Nick Cifuentes MD Main Office [address] [facility] [address] [place] [address] 08/24/2015 14:03:42 08/24/2015 15:10:41 Inflammation of rotator cuff tendon 850476354 M65.812 [id number] Nick Cifuentes MD Main Office [address] [address] [place] [address] 09/29/2015 10:19:49 09/29/2015 10:59:05 Acute upper respiratory infection 15781042 J06.9 Multiple sclerosis 25331 007 G35 Asthma 642031668 J45.90 9 [id number] Jodi Boyce Main Office [address] [address] [place] [address] 01/11/2016 10:21:01 01/11/2016 13:07:30 Acute sinusitis 38758942 J01.90 [id number] Nick Cifuentes MD Main Office [address] [address] [place] [address] 03/20/2016 11:41:33 03/28/2016 18:07:28 [id number] Mike Ferreira MD Main Office [address] [address] [place] [address] 03/30/2016 13:48:22 03/30/2016 15:23:15 Epilepsy 51859870 G40.909 Increased blood pressure 65719391 R03.0 Asthma 335354024 J45.90 9 [id number] [employer] Main Office [address] [address] [place] [address] 08/16/2016 14:47:07 08/16/2016 15:34:58 Cough 22356866 R05 Epilepsy 31198516 G40.90 9 Sinusitis 15454429 J32.9 Asthma 326417375 J45.90 9 Right uppe r quadrant pain 830006270 R10.11 Nausea and vomiting 1693 2000 R11.2 [id number] Nick Cifuentes MD Main Office [address] [address] [place] [address] 08/22/2016 14:43:41 08/22/2016 16:04:19 Sinusitis 26634023 J32.9 Cough 72886812 R05 Asthma 684290292 J45.90 9 Right uppe r quadrant pain 521472657 R10.11 Nausea and vomiting 1693 1999 R11.2 Alkaline p hosphatase above reference range 302911129 R74.8 Non-alcoho lic fatty liver 360004384 K76.0 [id number] Nick Cifuentes MD Main Office [address] [address] 09/13/2016 13:14:09 09/13/2016 14:57:10 Shoulder joint pain 355468530 M25.519 Nausea and vomiting 1693 1999 R11.2 Asthma 520270446 J45.90 9 [id number] Yonny Heredia MD Main Office [address] [address] 11/20/2016 14:12:18 11/20/2016 15:54:29 Adult health examination 786036409 Z00.00 Body mass index 30+ - obesity 437707467 Z68.39 Hypothyroidism 48934430 E03.9 Asthma 465228569 J45.30 Epilepsy 20759118 G40.90 9 Multiple sclerosis 07497 007 G35 Irritable bowel syndrome 43832558 K58.9 Gastroesop hageal reflux disease 294989150 K21.9 Mixed anxi ety and depressive disorder 855369768 F41.8 [id number] Nick Cifuentes MD Main Office [address] [address] 01/29/2017 14:04:22 01/29/2017 15:22:00 Asthma 221571190 J45.30 Gastroesop hageal reflux disease 004677719 K21.9 Cough 89230662 R05 Sinusitis 90788789 J32.9 [id number] Ofelia Thrasher Main Office [address] [place] [address] 05/09/2017 14:36:53 05/09/2017 15:44:21 Dizziness 991849330 R42 Benign par oxysmal positional vertigo 275844204 H81.10 [id number] Nick Cifuentes MD Main Office [address] [address] 09/04/2017 14:48:06 09/04/2017 16:07:23 Moderate persistent asthma 989854259 J45.40 Atypical chest pain 1025 25830 R07.89 Costal chondritis 289986 04 M94.0 Allergic rhinitis 486440 04 J30.9 [id number] Yonny Heredia MD Main Office [address] [address] [place] [address] 01/15/2018 13:34:51 01/15/2018 16:01:17 Cough 42365195 R05 Acute sinusitis 73552459 J01.90 [id number] Yonny Heredia MD Main Office [address] [address] [place] [address] 01/30/2018 12:43:28 01/30/2018 13:38:24 Cough 70925743 R05 Pneumonia 544238586 J18. 9 Acute asthma 127663760 J 45.901 [id number] Nick Cifuentes MD Main Office [address] [address] [place] [address] 02/04/2018 13:20:28 02/04/2018 14:55:42 Adult health examination 300024378 Z00.00 Screening for malignant neoplasm of cervix 481277943 Z12.4 Thyrotoxicosis 63598687 E05.90 Chronic back pain 923677 002 G89.29 Epilepsy 77351624 G40.90 9 Multiple sclerosis 68181 007 G35 Asthma 446451196 J45.40 Major depr ession single episode, in partial remission 04416453 F32.4 Irritable bowel syndrome 14442357 K58.9 Gastroesop hageal reflux disease 663750306 K21.9 Body mass index 30+ - obesity 099965023 Z68.33 Obesity 347940950 E66.9 Vitamin D deficiency 347 64169 E55.9 [id number] Yonny Heredia MD Main Office [address] [address] [place] [address] 06/18/2018 15:49:55 06/18/2018 17:00:50 Dysphagia 84942434 R13.10 Atypical chest pain 1025 96336 R07.89 Chronic low back pain 27 5976003 M54.5 G89.29 Gastroesop hageal reflux disease without esophagitis 657842491 K21.9 Costal chondritis 379275 04 M94.0 [id number] Nick Cifuentes MD Main Office [address] [address] [place] [address] 07/29/2018 13:21:09 07/29/2018 14:23:06 Needs influenza immunization 431818365 Z23 Gastroesop hageal reflux disease without esophagitis 534130489 K21.9 Patient en counter status 794635752 Z00.00 Hypothyroidism 34536821 E03.9 Epilepsy 04787096 G40.90 9 Abrasion o f skin of left knee 8573911936 4828818 S80.212A [id number] Ofelia Thrasher Main Office [address] [address] [place] [address] 07/07/2019 12:52:15 07/07/2019 15:06:02 Adult health examination 367328154 Z00.00 Osteoporosis 83556277 M8 1.0 Thyrotoxicosis 66880158 E05.90 Asthma 043326263 J45.40 Multiple sclerosis 17657 007 G35 Epilepsy 82580299 G40.90 9 Major depr essive disorder 866814171 F32.9 Gastroesop hageal reflux disease 075947850 K21.9 Varicella vaccination 68 453755 Z23 Body mass index 30+ - obesity 750054281 Z68.32 Obesity 359438563 E66.9 Chronic low back pain 27 8169558 M54.5 G89.29 Impaired f asting glycemia 407727783 R73.01 [id number] Shyla Samuel PA-C Main Office [address] [address] [place] [address] 08/22/2019 11:27:14 08/22/2019 12:41:24 Upper respiratory infection 53741065 J06.9 Acute asthma 187057808 J 45.901 [id number] Ofelia Thrasher Main Office [address] [address] [place] [address] 08/11/2020 13:27:52 08/11/2020 14:45:28 Adult health examination 478214920 Z00.00 Needs infl uenza immunization 506354329 Z23 Tension-type headache 39 1261521 G44.209 Neck pain 46093180 M54.2 Dizziness 060596725 R42 Osteoporosis 80696411 M8 1.0 Thyrotoxicosis 08758520 E05.90 Asthma 275811817 J45.40 Multiple sclerosis 25094 007 G35 Epilepsy 68384603 G40.90 9 Major depr essive disorder 142570366 F32.9 Gastroesop hageal reflux disease 281658595 K21.9 Obesity 941196454 E66.9 Body mass index 30+ - obesity 759003940 Z68.33 Impaired f asting glycemia 041968784 R73.01 Varicella vaccination 68 111789 Z23 Hyperlipidemia 39474312 E78.5 Benign par oxysmal positional vertigo 601928332 H81.10 Constipation 92794304 K5 9.00 [id number] Mikie Samuel PA-C Main Office [address] [address] 03/17/2021 13:52:13 03/17/2021 14:55:32 Pain of left wrist 4077879989 21184 M25.532 [id number] Liv Fajardo MD Main Office [address] [address] 06/28/2021 13:04:48 06/28/2021 14:53:24 Dizziness 918391321 R42 Sore throat 121246539 J0 2.9 Elevated blood-pressure reading without diagnosis of hypertension 983211877 R03.0 Benign par oxysmal positional vertigo 545062431 H81.10 [id number] Ofelia Thrasher Main Office [address] [address] 08/15/2021 13:38:43 08/15/2021 15:02:38 Epilepsy 10800957 G40.909 Major depr ession single episode, in partial remission 16920007 F32.4 Adult heal th examination 583913655 Z00.00 Needs infl uenza immunization 213360255 Z23 Administra tion of viral vaccine 51255297 Z23 Varicella vaccination 68 394130 Z23 Screening for malignant neoplasm of breast 016728970 Z12.39 Multiple sclerosis 51357 007 G35 Counseling 609041321 Z71 .9 Menopause present 449801 006 Z78.0 Bereavement 02009165 Z63 .4 Right uppe r quadrant pain 581918916 R10.11 Impaired f asting glycemia 313339949 R73.01 Obesity 789198862 E66.9 Body mass index 30+ - obesity 546182912 Z68.30 Elevated blood-pressure reading without diagnosis of hypertension 628402470 R03.0 [id number] Liv Fajardo MD Main Office [address] [address] [place] [address] 12/07/2021 09:42:51 12/07/2021 11:27:13 Multiple sclerosis 24639981 G35 Epilepsy 36576213 G40.90 9 Neck pain 53134502 M54.2 Hip pain 87713764 M25.55 2 [id number] Liv Fajardo MD Main Office [address] [address] [place] [address] 02/13/2022 13:58:44 02/13/2022 14:48:43 Mixed anxiety and depressive disorder 821398780 F41.8 Hyperlipidemia 07331197 E78.5 Major depr ession single episode, in partial remission 18045000 F32.4 Osteoporosis 37432341 M8 1.0 Anxiety 16876508 F41.9 Spasm of back muscles 20 0873053 M62.830 [id number] Mikie Samuel PA-C Main Office [address] [address] [place] [address] 03/23/2022 14:25:01 03/23/2022 15:20:22 Gastroesophageal reflux disease 151443142 K21.9 Epigastric pain 46974821 R10.13 Early satiety 948811452 R68.81 Nausea 786607634 R11.0 [id number] Mikie Samuel PA-C Main Office [address] [address] [place] [address] 05/24/2022 14:56:33 05/24/2022 16:08:23 Gastroesophageal reflux disease 919014075 K21.9 Gastropare sis syndrome 266529678 K31.84 Constipation 12878866 K5 9.00 [id number] Mik[facility]C [facility] [address] [place] [address] 06/20/2022 08:32:15 06/20/2022 13:48:59 Burning sensation 68636580 R20.8 Urinary tr act infectious disease 05041549 N39.0 Gastropare sis syndrome 606967220 K31.84 [id number] Ofelia Thrasher Main Office [address] [address] [place] [address] 07/26/2022 15:44:16 07/26/2022 16:56:33 Postconcussion syndrome 94524099 F07.81 Contusion of head 010540 009 S00.03XA Accidental ly struck by or against objects or persons 694911183 W22.8XXA [id number] Liv Fajardo MD Main Office [address] [address] [place] [address] 08/18/2022 12:42:04 08/18/2022 13:53:20 Adult health examination 679564244 Z00.00 Epilepsy 55535901 G40.90 9 Major depr ession single episode, in partial remission 39568621 F32.4 Obesity 720951527 E66.9 Body mass index 30+ - obesity 282361043 Z68.30 Elevated blood-pressure reading without diagnosis of hypertension 109858667 R03.0 Varicella vaccination 68 889828 Z23 Needs infl uenza immunization 052582437 Z23 Screening for malignant neoplasm of breast 786679742 Z12.39 Gastropare sis syndrome 944437244 K31.84 Fatigue 84907205 R53.83 Hyperlipidemia 67061884 E78.5 Anxiety 18133381 F41.9 [id number] Liv Fajardo MD Main Office [address] [address] [place] [address] 09/13/2022 13:59:36 09/13/2022 15:03:04 Elevated blood-pressure reading without diagnosis of hypertension 074314205 R03.0 Hyperlipidemia 72319587 E78.5 Gastropare sis syndrome 118271270 K31.84 Pain of right wrist 3169 340564 70709 M25.531 [id number] Ofelia Thrasher Main Office [address] [address] [place] [address] 03/21/2023 13:20:35 03/21/2023 14:34:36 Laceration of left knee 2942135483 7227665 S81.012A Closed fra cture of fifth metatarsal bone 51158364 S92.354A Syncope 238465578 R55 Hyponatremia 64406622 E8 7.1 [id number] Ofelia Thrasher Main Office [address] [facility] [address] [place] [address] 03/27/2023 14:18:40 03/27/2023 15:18:53 Removal of suture 16384767 Z48.02 Closed fra cture of fifth metatarsal bone 86418527 S92.351D [id number] Ofelia Thrasher Main Office [address] [facility] [address] [place] [address] 04/02/2023 14:12:59 04/02/2023 15:01:40 Removal of suture 63309661 Z48.02 Closed fra cture of fifth metatarsal bone 46753654 S92.351D [id number] Liv Fajardo MD Main Office [address] [facility] [address] [place] [address] 12/31/2023 14:18:56 12/31/2023 15:26:13 Adult health examination 904665606 Z00.00 Epilepsy 37595223 G40.90 9 Major depr ession single episode, in partial remission 48862733 F32.4 Obesity 025853885 E66.9 Body mass index 30+ - obesity 405261803 Z68.30 Varicella vaccination 68 238794 Z23 Screening for malignant neoplasm of breast 367629220 Z12.39 Gastropare sis syndrome 848887058 K31.84 Fatigue 50409310 R53.83 Hyperlipidemia 02999430 E78.5 Macrocytos is - no anemia 317274423 D75.89 Alkaline p hosphatase above reference range 891836305 R74.8 Osteoporosis 30987878 M8 1.0 Thyrotoxicosis 19280040 E05.90 Needs infl uenza immunization 696348766 Z23 Insomnia 334796098 G47.0 0 Melanocytic nevus 987750 001 D22.9 [id number] VIRGIL DYER Main Office [address] [facility] [address] [place] [address] 01/18/2024 08:58:26 01/18/2024 14:23:50 [id number] iLv Fajardo MD Main Office [address] [place] [address] 01/28/2024 13:57:09 01/28/2024 14:46:09 Syncope 607619369 R55 Compressio n fracture of thoracic vertebra 7233583710 104 M48.54XD Transition of care from emergency department to self-care 4540552093 93796 Z76.89 Bone density finding 385 459415 M85.89 [id number] Liv Fajardo MD Main Office [address] [place] [address] 05/21/2024 11:40:11 05/21/2024 14:41:30 Adrenal incidentaloma 2463789707 9105 D49.7 Mass of ur inary bladder 037474642 N32.89 Osteoporosis 49189297 M8 1.0 Health Concerns Section Related Observation LastModified by Organization Detai ls LastModified Time None Recorded Concern Status LastModified by Organization Details LastModified Time None Recorded Advance Directives Directive Y: Payers Encounter Date Sequence Insurance Name Policy Number Policy Barbour Covered Member ID Barbour Member ID Guarantor Name 04/02/2023 1 [facility] [id number] Lucrecia Cleaning [id number] Lucrecia Cleaning 04/02/2023 2 MEDICARE [place]: [facility] Laurie Cleaning [id number] Lucrecia Cleaning 12/31/2023 1 [facility] [id number] Lucrecia Cleaning [id number] Lucrecia Cleaning 12/31/2023 2 [place] [employer] Laurie Cleaning [id number] Lucrecia Cleaning 01/18/2024 1 [facility] [id number] Lucrecia Cleaning [id number] Lucrecia Cleaning 01/18/2024 2 MED[place]: [employer] Laurie Cleaning [id number] Lucrecia Cleaning 01/28/2024 1 [facility] [id number] Lucrecia Cleaning [id number] Lucrecia Cleaning 01/28/2024 2 MEDICARE [place]: [employer] Laurie Cleaning [id number] Lucrecia Cleaning 05/21/2024 1 [facility] [id number] Lucrecia Cleaning [id number] Lucrecia Cleaning 05/21/2024 2 MEDICARE [place]: [facility] [employer] SERVICES Laurie Cleaning [id number] Lucrecia Cleaning Notes Date Note Type Note Provider Name and Address Organization Details Recorded Time 04/02/2023 text/html A follow-up visi t for suture removal.Last vist we removed 3 suture as, 2 other side still open, return today for wound check.No new recent episode feels fine. Ofelia stevenson, [facility] 04/06/2023 11:14:58 12/31/2023 text/html Here for wellnes s visit. Reviewed chronic medications and medical problems. Discussed screening guidelines as well as goals for fitness and weight management. Liv Fajardo MD [address], [address], [facility] 12/31/2023 15:19:57 01/18/2024 text/html Emergency Depart ment Follow-Up RecordReported bypatient.Discharge Informationname of [facility]; emergency department discharge date: (Please enter in format 'MM/DD/YYYY') (01/17/2024); date of follow-up phone call: (Please enter in format 'MM/DD/YYYY') (01/18/2024)Notes:58 year old female presented to [facility] after sustaining 2 syncopal episodes per witness of her . Patient did sustained a fall during the second event. Laying on the floor patient complained of severe lower back pain unable to get up. ED evaluation: EKG within normal limitsChest x ray within normal limitsHead CT within normal limitsCT of abdomen and pelvis revealed T12 lumbar compression fracture.- Patient was consulted by neuro surgery was given brace to wear at home and to follow up in 6 weeks. Given short course of muscle relaxant. Gauge Inspector outreach call to patient regarding ED discharge status, reports stable at this time. No further syncopal episodes since discharge to home. Denies nausea, vomiting , chest pain, shortness of breath, fever, headache or visual changes. Scheduled patient with Aggie on 01/28/2024 at 2pm , patient deferred sooner appointment. Aware to return to ED in status changes . VIRGIL DYER [address] [facility] [address], [place], [address], [facility] 01/18/2024 14:23:48 01/28/2024 text/html Emergency Room Follow-Up RecordFor discharge information, patient reports name of ed [facility], emergency department discharge date: (01/17/2024), and date of follow-up phone call: (01/18/2024). 58 year old female presented to [facility] after sustaining 2 syncopal episodes per witness of her . Patient did sustained a fall during the second event. Laying on the floor patient complained of severe lower back pain unable to get up. ED evaluation: EKG within normal limitsChest x ray within normal limitsHead CT within normal limitsCT of abdomen and pelvis revealed T12 lumbar compression fracture.- Patient was consulted by neuro surgery was given brace to wear at home and to follow up in 6 weeks. Given short course of muscle relaxant. Gauge Inspector outreach call to patient regarding ED discharge status, reports stable at this time. No further syncopal episodes since discharge to home. Denies nausea, vomiting , chest pain, shortness of breath, fever, headache or visual changes. Scheduled patient with Aggie on 01/28/2024 at 2pm , patient deferred sooner appointment. Aware to return to ED in status changes. Laurie presents to the office wearing a back brace. Was advised to wear the back brace daily- takes it off when laying down. Has an appt with neurology scheduled in April and a f/u appt with neurosurgery in February. Has been applying heat the the area and taking motrin to alleviate the pain. Conservative measurements reduce the pain from a 8-9/10 to a 6/10. Liv Fajardo MD [address] [facility] [address], [place], [address], [facility] 02/01/2024 08:02:50 05/21/2024 text/html Laurie presents fo r a visit to discuss incidental findings from a CT scan of her abdomen and pelvis, performed at the hospital where she was treated for a vertebral compression fracture at the thoracic levels. She recently underwent a kyphoplasty and is recovering well. She has been under the care of a sunday school missionary who initiated a workup for an adrenal incidentaloma discovered during the CT scan. Additionally, the scan incidentally revealed a hypodensity protruding from the right wall of the bladder, suspected to be a small bladder lipoma. Her sunday school missionary recommended she follow up with us for this issue. She also has an upcoming appointment for suture removal, and plans to begin treatment for her osteoporosis. Liv Fajardo MD [address] [address], [place], [address], [facility] 05/21/2024 18:06:21 OBGyn Episode No OBEpisode recorded.
== END 2024-09-30 15:08 | disposition home or self-care (01) ==
PROVIDERS: PCP Family Medicine; Visit Provider Hospitalist
DX: J44.9 Chronic obstructive pulmonary disease, unspecified (principal); G47.33 Obstructive sleep apnea (adult) (pediatric); R05.9 Cough, unspecified; K21.9 Gastro-esophageal reflux disease without esophagitis
CPT/HCPCS: 99214

== ENCOUNTER → 2024-09-30 14:36 | Outpatient (BNVA) | payer OTHER, MEDICARE, SELFPAY | PROVIDERS: PCP Family Medicine; Visit Provider Hospitalist | DX: J44.89 Other specified chronic obstructive pulmonary disease (principal); G47.33 Obstructive sleep apnea (adult) (pediatric); K21.9 Gastro-esophageal reflux disease without esophagitis; Z23 Encounter for immunization | CPT/HCPCS: 90471; 90656 ==

== ENCOUNTER 2025-05-19 08:59 | Outpatient (AMB) | payer OTHER, MEDICARE, SELFPAY ==
[2025-05-19 09:08] VITALS: BP 134/80; PULSE 76; O2SAT 97; BMI 33.3
--- NOTE | 2025-05-19 09:08 | A.OFFVIS_ITS ---
Vital Signs 05/19/25 09:08 Height 5 ft 4 in Weight 194 lb 0.108 oz BMI 33.3 BP 134/80 Blood Pressure Location Lt brachial Position Sitting Pulse 76 Pulse Source Pulse Oximeter Pulse Oximetry (%) 97 Oxygen Delivery Method Room Air Intake Visit Reasons: Asthma Linux System Engineer Required: No Allergies meperidine (Demerol) Allergy (Severe, Verified 05/19/25 09:13) Swelling sulfamethoxazole (From Bactrim) Allergy (Severe, Verified 05/19/25 09:13) Diarrhea trimethoprim (From Bactrim) Allergy (Severe, Verified 05/19/25 09:13) Diarrhea HPI Comments Details: The patient is a 59-year-old woman with known history of asthma COPD overlap syndrome in addition to history of seizures. She has had a persistent chronic cough. It is barky in nature, moderate in severity. Typically is worse at nighttime. She continues to use her respiratory medicine with only partial resolution of the symptoms. She has not had any recent x-rays are pulmonary function studies to review at this time. 12/02/2020 the patient is here for pulmonary follow-up visit. Overall the patient has been doing better from a respiratory status. The respiratory medications and the singular have been very effective. She had actually has not required the nebulized medicine as often. Sometimes the fact that she needs to set up she test to not be very adherent to the therapy. Therefore will go ahead and take her off the nebulized therapy and start her on inhaler therapy. Ideally Advair she can not use twice a day with better here as. In addition to that she should continue with the singular. The patient has been complaining of difficulty breathing at nighttime. She also has daytime drowsiness. Her [place] score is elevated 12/24. She also complains of headaches in the morning. She has a positive family history of sleep apnea. At this point doing home sleep study may be effective in treating her ongoing respiratory symptoms and her ongoing daytime drowsiness. 06/22/2021 the patient is here for a pulmonary follow-up visit. She continues to complain about her cough. Typically is nonproductive. Sometimes she is able to get a plug out. Did cough is usually worse at nighttime. She did complete the antibiotics and is doing a little bit better. She did feel improved after switching over to the Trelegy inhaler which appears to be more effective for her. She is going to significant amount of stress with her father's health. She has not had a sleep study as of yet. We will continue to maximize her respiratory therapy in order for her to be about a function well was she is tending to father. While she is in the hospital today I will have her get blood work and chest x-ray to further address this chronic cough. 09/13/2021 the patient is here for a pulmonary follow-up visit. overall she is doing better from a respiratory status. The Trelegy inhaler piece to be very effective for her. She has been able to be off her nebulized therapy. She recently was evaluated by Nephrology. It was noted that she has some slight renal insufficiency. She was wondering if any of her respiratory medications could be impacting her renal function. No real significant medication that I am concerned about. We did talk about considering decreasing the amount of inhaled steroids by decreasing the Trelegy from 200-100. But at this point I do not believe that does enough of a significant change to impacted kidneys. in addition to this the patient has been dealing with significant mazin rgic symptoms. She complains of itchy eyes watery eyes. She has been seen by Ophthalmology. Will increase her allergy medication to see if we can provide some relief. Patient has been on singular. She is still grieving the loss of her father has been the depressed. Therefore I did recommend she cut down the singular to half tablet. If she did not see any significant difference to stop it altogether ascitic and worsening depressive symptoms. 03/13/2022 the patient is here for a pulmonary follow-up visit. She continues to have a persistent cough. The Trelegy has been helpful. She continues to require cough medicine. The patient also has been having significant allergies. She has been taking Lavonne in addition to singular. This is likely that her worse allergy season. She knows to continue rinsing her nose from the allergies in to continue with current regimen. She does have a rescue inhaler that she can use as needed as well. If the patient continues with symptoms she may benefit from an allergy referral. 10/31/2022 the patient is here for pulmonary follow-up visit. She is complaining of worsening shortness of breath. Moderate severity. Mainly when she is breathing in. She also notices worsening cough. Typically worse at nighttime. She ran out of her cough medicine. She has been using Trelegy inhaler without any significant improvement. She had a Combivent inhaler from her dad that she had available she did use it in did give her some relief. He is wondering if he can switch to that. Patient is agreeable to change her respiratory regimen. I will send Symbicort to the pharmacy and she can use Combivent also. The meantime we did talk about the reflux disease. Patient understands that reflux will resulting worsening there injury taken cough. This could explain her symptoms. She does have significant gastroparesis in addition to her reflux. She has been set up with a new GI doctor at this time. In the meantime we talked about the reflux diet again making sure that she sleeps elevated. She does have a positional bed. 08/17/2023 the patient is here for pulmonary follow-up visit. Overall she is doing a lot better. She is working on weight management and she is already lost more than 10 lb. Her breathing is also improved. She does continue to use her respiratory therapy as prescribed. Her cough is better a lthough she still requires cough medication. Has not required any prednisone recently. No recent imaging studies to review. Her last chest x-ray from February 2022 was without any acute disease. overall the patient is doing well. She continues with positional therapy to minimize snoring and sleep apnea. 09/30/2024 the patient is here for a pulmonary follow-up visit. The patient overall has been doing well. Her Advair is no longer being made and she was switched over to [place]. This is resulting in some chest heaviness and some coughing and she does not not like the adverse effects. Therefore will switch over to Advair HFA which she tolerated in the past. I did provide her with a spacer in order for her to minimize any upper airway adverse symptoms. The patient otherwise has been doing well from a respiratory status. She is monitoring closely reflux disease. No recent imaging studies at this time. Will plan to do 1 year's time when she comes back for her follow-up. If she has any issues with the Advair she will call otherwise will follow-up in a year's time. 05/19/2025 the patient is here for a pulmonary follow-up visit. Overall she is doing okay. She does respond very well to the Advair HFA. However, feels like she has been having increasing chest tightness and wheezing. Qkiu-xi-xnoyzgon severity. The inhalers helping but only partially. She also c ontinues with the other allergy medications. She is also dealing with other issues including back problems. In addition she was found to have an abnormal finding in the kidney. She is following closely with specialists for that as well. Will go ahead and maximize her respiratory therapy by switching her Advair to the highest dose. She knows to rinse and gargle to minimize any thrush. Should continue with the allergy medicine as prescribed. [facility] Medical History (Updated 08/17/23 @ 13:59 by Kirill Huff MD) Epilepsy Asthma-COPD overlap syndrome Chronic cough BRIE (obstructive sleep apnea) Hypothyroidism GERD (gastroesophageal reflux disease) Surgical History (Updated 08/17/23 @ 12:37 by Vesna Cabrera PA-C) History of esophagogastroduodenoscopy (EGD) Social History Patient Tobacco Use Status: Never used Tobacco Review of Systems Const Denies night sweats Eyes Denies blurry vision ENT Denies change in voice, Denies lip swelling, Denies mouth pain, Reports nasal congestion, Reports nasal discharge and Denies tongue swelling Card Denies chest pain, Reports radiating jaw, neck or arm pain and Reports dyspnea on exertion Resp Reports cough, Denies hemoptysis, Denies excessive phlegm production, Reports dyspnea on exertion, Denies stridor and Reports wheezing GI Denies abdominal pain Musc Reports back pain Neuro Denies Neuro-related abnormal movements Psych Denies no additional complaints Clark/Lymph Denies easy bleeding and Denies lymphadenopathy Aller/Immun Denies lip swelling, Denies tongue swelling and Reports wheezing Physical Exam Vital Signs: Last Vital Signs Pulse 76 05/19/25 09:08 BP 134/80 05/19/25 09:08 Pulse Ox 97 05/19/25 09:08 Oxygen Delivery Method Room Air 05/19/25 09:08 BMI result Body Mass Index 33.3 Const General: alert HEENT Ears: TM normal on the right ( Retracted) and TM normal on the left ( retracted) Eyes Pupils: Equal, round and reactive pupils present Neck Neck: Yes normal visual inspection, Yes full ROM and Yes no lymphadenopathy Chest Chest palpation & inspection: normal inspection of the chest Resp Effort & Inspection: normal respiratory effort Auscultation: diminished lung sounds Cardio Rate: regular rate Rhythm: regular rhythm Heart sounds: S1 normal heart sound present and S2 normal heart sound present GI Palpation (GI): Soft to palpation and nontender Auscultation: normal bowel sounds General: Yes no CVA tenderness Back/Spine/Pelvis Back: no CVA tenderness Skin General skin exam: rashes and/or lesions noted Neuro Cranial nerves: Yes Equal, round and reactive pupils present Assessment & Plan Assessment & Plan (1) Asthma-COPD overlap syndrome: Code(s): J44.9 - Chronic obstructive pulmonary disease, unspecified Category: Medical (2) BRIE (obstructive sleep apnea): Code(s): G47.33 - Obstructive sleep apnea (adult) (pediatric) Category: Medical (3) Chronic cough: Code(s): R05 - Cough Category: Medical (4) GERD (gastroesophageal reflux disease): Code(s): K21.9 - Gastro-esophageal reflux disease without esophagitis Category: Medical Qualifiers: Esophagitis presence: without esophagitis Qualified Code(s): K21.9 - Gastro-esophageal reflux disease without esophagitis Plan increase Advair HFA 115->230/21 rx a spacer continue combivent VINNY as needed continue Singulair and zyrtec reflux diet sleep with HOB elevated F/U 6 months Medications: New inhalational spacing device (Aerochamber MV spacer) As directed 1 ea 0RF fluticasone propion-salmeterol 230-21 mcg/actuation (Advair HFA) 2 puffs inhalation BID 12 grams 11RF 30 days Coding Level of Care Code Est Pt Level 4 (71913) Diagnoses Asthma-COPD overlap syndrome J44.9 BRIE (obstructive sleep apnea) G47.33 Chronic cough R05 Gastroesophageal reflux disease without esophagitis K21.9 Esophagitis presence: without esophagitis Time Spent (min) 16
--- OUTSIDE RECORDS SUMMARY | 2025-05-19 09:28 | XMS_ITS | Patient Health Record ---
Author Organization [facility] Address [address] [place] [id number] Care Team Providers Care Motor Vehicle Dispatcher Name Role Phone Kacie Fajardo Primary Care Provider Wilfrido Steinberg [phone] Allergies Allergen (clinical drug ingredient) Drug/Non Drug Allergy documented on EMR Reaction Allergy Type Onset Date Status meperidine Demerol Unknown Drug Allergy Active sulfamethoxazole / trimethoprim Bactrim Unknown Drug Allergy Active Reason For Referral No Information Medications Medication SIG (Take, Route, Frequency, Duration) Notes [...] as needed Orally Once a day Active Immunizations Vaccine Route Administration Date Status Comme nts Influenza Unknown 06/29/2021 Administered Influenza Unknown 07/29/2021 Administered Social History Tobacco Use: Social History Observation Description Date Details (start date - stop date) Never Smoker NA - NA Tobacco Use/Smoking Question Answer Notes Patient is a nonsmoker Alcohol Screen Question Answer Notes Did you have a drink containing alcohol in the p ast year? No Points 0 Interpretation Negative Section Notes: Nonsmoker; no alcohol Problems Problem Type SNOMED Code ICD Code Onset Dates Problem Status W/U Status Risk Notes Problem Gastroparesis (041379306) Gastroparesis (K31.84) Active confirmed Problem Dysphagia (21253578) Dysphagia (R13.10) Active confirmed Problem Abnormal UGI series (R93.3) Active confirmed Problem Retained food in stomach (K31.89) Active confirmed Plan Of Treatment Pending Test Test Name Order Date NUC GASTRIC ANTRUM EMPTYING 05/05/2022 Future Test Test Name Order Date UPPER GI ENDOSCOPY [place] DILATION OF ESOPH 04/18/2022 Insurance Providers Payer Name Payer Address Payer Phone Subscriber Number Group Number Insured Name Patient Relationship to Insured Coverage Start Date Coverage End Date [facility] [address] [address] [place] [address] [id number] MARJAN BROWN Self - patient is the insured MEDICARE OF [place] [address] [place] [address] [phone] [id number] MARJAN BROWN Self - patient is the insured Medical (General) History Medical History History ICD Code Asthma/COPD Hypothyroidism Denies MS,DM,CVA,renal disease GERD-EGD with Dr. Schaefer--2017 per her P CP's records Negative colonoscopy-2015 Dr. Schaefer as per her PCP's records--patient states this was negative Epilepsy-uses meds and medical marijuana Neuropathy Surgical History Surgery Date(Month/Year) Thyroid Lipoma removal-abdominal wall Breast biopsies-[facility]
--- OUTSIDE RECORDS SUMMARY | 2025-05-19 09:28 | XMS_ITS | Clinical Summary ---
Author Organization [facility] Address [address] [place] [address] Care Team Providers Care Workforce Development Specialist Name Role Phone Kacie Fajardo Primary Care Provider [phone] Allergies Active Allergy Reactions Criticality Noted Date Comments Sulfamethoxazole-Trimethopr im Gastritis 09/05/2021 Meperidine Edema 09/05/2021 Arm swelling per patient Morphine Swelling High ALLERGY PER PATIENT Nystatin Rash 05/05/2024 Medications * This document contains information received from the source organization and may not represent a complete record from that organization. fluticasone (FLONASE) 50 mcg/actuation nasal spray Administer 2 sprays into each nostril 2 times a day. Active montelukast (SINGULAIR) 10 mg tablet Take 10 mg by mouth nightly. Active VITAMIN B COMPLEX (B COMPLEX ORAL) B Complex TABS 100 MG TAKE 1 TABLET DAILY Refills: 0 Active Active levothyroxine (SYNTHROID, LEVOTHROID) 100 mcg tablet 1 tab (6 days) 1 1/2 on (7 days) 04/13/20 15 Active multivitamin (THERAGRAN) tablet Multivitamins CAPS 1TAB Qday, Quantity: 0; Refills: 0 Started 12-Nov-2008 Active 11/12/19 09 Active omega-3 acid ethyl esters (LOVAZA) 1 gram capsule [place] 3 1000 MG Oral Capsule 1 TAB DAILY Refills: 0 Active Active tiZANidine (ZANAFLEX) 2 mg tablet TiZANidine HCl - 2 MG Oral Tablet 1 TAB 2XDAY Refills: 0 ERIK WHITE M.D.; Active Active cholecalcifero l (VITAMIN D3) 2,000 unit tablet 12/03/19 09 Active cetirizine (ZyrTEC) 10 mg tablet ZyrTEC Allergy 10 MG Oral Tablet TAKE 1 TABLET DAILY DIRECTED. Quantity: 90; Refills: 3 Active Active omeprazole (PriLOSEC) 20 mg capsule Take 40 mg by mouth once a day. Active raloxifene (EVISTA) 60 mg tablet 60 mg daily. 02/27/20 20 Active fluticasone propion-salmet Ilsa (ADVAIR DISKUS) 500-50 mcg inhaler Inhale 1 puff by mouth 2 times a day. Rinse mouth with water after use. Do not swallow. Active cyanocobalamin (vitamin B-12) 1,000 mcg tablet Take 1,000 mcg by mouth once a day. Active lidocaine (LIDODERM) 5% patch Active magnesium 250 mg tablet Take by mouth. Activ e benzonatate (TESSALON) 200 mg capsule As needed Active cloBAZam (ONFI) 10 mg tabletIndicati ons:Partial symptomatic epilepsy with complex partial seizures, intractable, without status epilepticus (HCC) Take 1 tablet (10 mg total) by mouth 2 times a day. Start taking 0.5 tablets (5 mg) at bedtime for 1 week, then take 1 tablet (10 mg) at bedtime for next 1 week, and then increase to 1 tablet (10 mg) twice daily (20 mg total) which is your goal maintenance dose. 60 tablet 1 03/12/20 25 Active OXcarbazepine (TRILEPTAL) 300 mg tabletIndicati ons:Localz-rlt d symptomatic epilepsy w smpl part sz, intract, wo status (HCC) TAKE THREE TABLETS BY MOUTH TWICE A DAY 540 tablet 1 04/17/20 25 Active zonisamide (ZONEGRAN) 100 mg capsuleIndicat ions:Localz-rl td symptomatic epilepsy w smpl part sz, intract, wo status (HCC) TAKE 2 CAPSULES BY MOUTH EVERY MORNING AND TAKE 3 CAPSULES BY MOUTH EVERY EVENING 450 capsule 1 04/22/20 25 Active nortriptyline (PAMELOR) 10 mg capsule TAKE TWO CAPSULES BY MOUTH EVERY EVENING 180 capsule 04/27/20 25 Active nortriptyline (PAMELOR) 10 mg capsule TAKE TWO CAPSULES BY MOUTH EVERY EVENING 180 capsule 08/12/20 24 2024 Discontinued Active Problems Problem Noted Date Diagnosed Date Musculoskeletal pain 06/17/2018 Vertigo 03/22/2017 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 Presurgical work up was discussed with patient, in the past, but patient continues to declines surgical interventions. She has been maintained on Zonisamide and Oxcarbazepine with no side effects. Seizure frequency is increased when she is ill; but are brief, denies AJ/LOC, no injuries. At this time, seizures are stable, ~3 every other month. In the past, she had reported up to 42 seizures/per month. Syncopal events that occurred in December likely related to hypoglycemia. We discussed keeping a diary of dizzy spells and to adequately hydrate during this season. During our visit, I did call surgical center to discuss sedation concerns but unable to reach the anesthesiologist. - Continue Zonisamide 200 mg in AM and 300 mg in PM - Continue Oxcarbazepine 900 mg BID - Continue Nortriptyline 20 mg for nerve pain/migraines - AED levels ordered - Seizure and Fall precautions at all times - Seizure diary encouraged. Recommend she also keep track of dizzy events - Adequate hydration encouraged - Follow up in June 2024 as scheduled Assessment & Plan (03/05/2023 1:34 PM EDT): This is a 57 year old right handed female with right mesial temporal sclerosis, confirmed on MRI brain. Presurgical work up was discussed with patient, in the past, but patient continues to declines surgical interventions. She has been maintained on Zonisamide and Oxcarbazepine with no side effects. Seizure frequency is increased when she is ill; but are brief, denies AJ/LOC, no injuries.At this time, seizures are stable, ~3 every other month. In the past, she had reported up to 42 seizures/per month. - Continue Zonisamide 200 mg in AM and 300 mg in PM - Continue Oxcarbazepine 900 mg BID - Continue Nortriptyline 20 mg for nerve pain/migraines - Continue Magnesium oxide 400 mg daily for migraines. Hold for loose stool - Defer labs until next visit - Seizure and Fall precautions at all times - Seizure diary encouraged - Follow up in 8 months Assessment & Plan (09/01/2022 2:54 PM EDT): This is a 56 year old right handed female with right mesial temporal sclerosis, confirmed on MRI brain. Presurgical work up was discussed with patient, in the past, but patient continues to declines surgical interventions. She has been maintained on Zonisamide and Oxcarbazepine with no side effects. Seizure frequency is increased when she is ill; but are brief, denies AJ/LOC, no injuries. She reports recent concussion resulting in increase in seizures, headaches, and photophobia. We discussed symptoms from a cncsuiion may last several months. She has an upcoming follow up with her PCP, who had also referred her to a concussion clinic. At this time, seizures are stable, ~3 every other month. In the past, she had reported up to 42 seizures/per month. Based off pt's description, she may have physiologic tremors, likely related to medications. Plan to check labs and follow up with PCP. For poor sleep, can trial Melatonin 3 mg , titrate up to 10 mg as needed. She would like to keep trying Unisom at this time. - Continue Zonisamide 200 mg in AM and 300 mg in PM - Continue Oxcarbazepine 900 mg BID - Continue Nortriptyline 20 mg for nerve pain/migraines - Trial Magnesium oxide 400 mg daily for migraines. Hold for loose stool - Surveillance lab work ordered/mailed to pt's home address - Seizure and Fall precautions at all times. Discussed [place] state law regarding no driving x 6 months with any event involving LOC. - Seizure diary encouraged - Continue follow up with PCP as scheduled - Follow up in 6 months Numbness 03/11/2015 Irritable bowel syndrome 04/01/2009 Esophageal reflux 04/01/2009 Encounters Date Type Department Care Team Description 05/17/2025 Banyan Message [facility] [address] [place] [address] [id number] Zhou Pineda MD Dizziness and balance 05/12/2025 Banyan Message [facility] [address] [place] [address] [phone] Zhou Pineda MD Approval 05/07/2025 myChart Message [facility] [address] [place] [address] [phone] Zhou Pineda MD Lab work 05/06/2025 Telephone [facility] [address] [place] [address] [id number] Zhou Pineda MD 05/02/2025 myChart Message [facility] [address] [place] [address] [id number] Zhou Pineda MD I had a fall on 05/0104/27/2025 Refill [facility] [address] [place] [address] [phone] Parth Stallworth, DEYA 04/21/2025 Refill [facility] [address] [place] [address] [phone] Eileen Cornell MA Seizure disorder, partial, intractable 04/20/2025 Orders Only [facility] [address] [place] [address] [id number] Provider, Raimundo, 04/16/2025 Refill [facility] [address] [place] [address] [phone] Parth Stallworth, CLIENT SERVICES ASSISTANT Seizure disorder, partial, intractable; Localz-rltd symptomatic epilepsy w smpl part sz, intract, wo status ([facility]) 04/10/2025 myChart Message [facility] [address] [place] [address] [id number] Zhou Pineda MD Dizziness 03/26/2025 Telephone [facility] [address] [place] [address] [phone] Mera Escobar, rental sales representative Follow Up Assessment 03/16/2025 Documentation [facility] Building [address] [place] [address] [phone] Calos Ferreira CPhT Prior Authorization ([place] Appro[place] for Clobazam 10mg tablet, #60/30, through [employer] [PA# [id number]]. Effective 03/13/25 - 03/13/26. May fill with [facility]/) 03/13/2025 Telephone [facility] [address] [place] [address] [phone] Zhou Pineda MD Prior Authorization (ONFI 10MG TABLET) 03/10/2025 3:00 PM EDT Office Visit [facility] [address] [place] [address] [phone] Zhou Pineda MD Partial symptomatic epilepsy with complex partial seizures, intractable, without status epilepticus (HCC) (Primary Dx) from Last 3 Months Family History Medical History Relation Name Comments Other Mother Family History of cardiac disorder /Family History of hypertension Relation Name Status Comments Father Alive Mother Alive Social History Tobacco Use Types Packs/Day Years Used Date Smoking Tobacco: Never Smokeless Tobacco: Never Comments:: Alcohol Use Standard Drinks/Week Comments No 0 (1 standard drink = 0.6 oz pur e alcohol) Comments Unknown Sex and Gender Information Value Date Recorded Sex Assigned at Female 08/15/2021 5:07 PM EDT Legal Sex Female 1:41 AM EDT Gender Identity Female 08/15/2021 5:07 PM EDT Sexual Orientation Straight 08/15/2021 5: 07 PM EDT Last Filed Vital Signs Vital Sign Reading Time Taken Comments Blood Pressure 128/80 03/10/2025 2:34 PM EDT Pulse 64 03/10/2025 2:34 PM EDT Temperature 36.7 C (98.1 F) 03/10/2025 2:34 PM EDT Respiratory Rate 18 03/10/2025 2:34 PM EDT Oxygen Saturation - - Inhaled Oxygen Concentration - - Weight 48 kg (105 lb 13.1 oz) 03/10/2025 2:34 PM EDT Height 165.1 cm (5' 5 ) 05/05/2024 1:37 PM EDT Body Mass Index 17.61 05/05/2024 1:37 PM EDT Plan of Treatment Upcoming Encounters Date Type Department Care Team (Late st Contact Info) Description 06/03/2025 10:30 AM EDT Appointment [facility] [address] [place] [phone] Zhou Pineda MD [address] [place] [address] Jojo Simms 09/01/2025 3:30 PM EST Telehealth [facility] [address] [place] [address] Zhou Pineda MD [address] [place] [address] Health Maintenance Due Date Last Done Comments Cervical Cancer Screening 1965 Cologuard 1965 Colon Cancer Screening 1965 Colonoscopy 1965 FOBT / Fit Test 1965 HIV Screening 1965 HPV and Pap Smear 1965 Hepatitis C Screening 1965 Pap Smear 1965 Sigmoidoscopy 1965 Hepatitis B Vaccines (1 of 3 - 19+ 3-dose series) 1984 Mammogram 2005 Zoster Vaccines (1 of 2) 2015 Pneumococcal Vaccine: 50+ Ye ars (2 of 2 - PCV) 03/13/2023 03/13/2022 COVID-19 Vaccine (3 - 2023-2 5 season) 2024 04/14/2021, 03/25/2021 Alcohol/Substance Use Screening 10/29/2024 Depression Screening and Follow-Up 10/29/2024 Social Drivers of Health Roseline ual Screening 10/29/2024 Influenza Vaccine (#1) 2025 , 12/31/2023, 08/18/2022, Additional history exists DTaP,Tdap,and Td Vaccines (3 - Td or Tdap) 08/15/2031 08/15/2021, 01/19/2012 RSV Vaccine (60+ years old a nd patients) (1 - 1-dose 75+ series) 2040 Procedures * Due to [place] [employer] law, this organization might not be sharing negative HIV tests. Procedure Name Priority Date/Time Associated Diagnosis Comments LAB - SCANNED Routine 04/14/2025 9:46 AM EDT from Last 3 Months Results * Due to [place] state law, this organization might not be sharing negative HIV tests. * LAB - SCANNED (04/14/2025 9:46 AM EDT) us Unknown Provider MD LAB HISTORICAL RESULTS Final Result from Last 3 Months Insurance MEDICARE [facility] Advance Directives Documents on File Type Date Recorded Patient Datacap Developer Expl anation Advance Directive 05/29/2009 12:00 AM [facility] dical Dec Making (Adv.Dir) Care Teams Workforce Development Specialist Relationship Specialty Start Date End Date Kacie Fajardo [id number] [address] PCP - General 08/16/21
--- OUTSIDE RECORDS SUMMARY | 2025-05-19 09:29 | XMS_ITS | Clinical Summary ---
Author Organization [employer] [facility] Address [address] [place] [address] Care Team Providers Care Internet Architect Name Role Phone Kacie Fajardo MD Primary Care Provider [phone] Surgical History Surgery Date Site/Laterality Comments OTHER SURGICAL HISTORY 2013 Right PROCEDURE: HISTORICAL SUBTOTAL THYROIDECTOMY UPPER GASTROINTESTINAL ENDOSCOPY PROCEDURE: WA UPPER GI ENDOSCOPY PERFORMED; COMMENT: 2002, 2000-normal; no report BREAST BIOPSY PROCEDURE: BX BREAST; PERC NEEDLE CORE W/IMAG GUID; COMMENT: multiple Medical History Medical History Date Comments Asthma, moderate persistent DX:A sthma, moderate persistent At high risk for breast cancer 04/16/2019 D X:At high risk for breast cancer; COMMENT: Fern risk estimate 38% life time risk Depression DX:Depression Hypothyroidism 01/30/2017 DX:Hypothyroidis m; COMMENT: 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 Multiple sclerosis (CMS/HCC V24, CMS/HCC V28) DX:Multiple sclerosis (HCC) BRIE (obstructive sleep apnea) DX :BRIE (obstructive sleep apnea) Osteopenia 04/16/2019 DX:Osteopenia Seasonal allergic rhinitis 01/31/2019 DX:Se asonal allergic rhinitis Seizure disorder (CMS/HCC V2 4, CMS/HCC V28) DX:Seizure disorder (HCC) Family History Medical History Relation Name Comments Other: cancer in ovary Aunt maternal Depression Father reflux Hypertension Mother melanoma in her 60's, , IBS, migraine, hyperlipidemia Breast cancer Other paternal 1st cousin Relation Name Status Comments Aunt maternal Alive Father Alive Mother Alive Other paternal 1st cousin Alive Social History Tobacco Use Types Packs/Day Years Used Date Smoking Tobacco: Never Smokeless Tobacco: Never Alcohol Use Standard Drinks/Week Comments No 0 (1 standard drink = 0.6 oz pur e alcohol) Comments Unknown Sex and Gender Information Value Date Recorded Sex Assigned at Not on file Legal Sex Female 2:01 PM EST Gender Identity Not on file Sexual Orientation Not on file Obstetrics History Plan of Treatment Upcoming Encounters Date Type Department Care Team (Collins st Contact Info) Description 06/02/2025 3:15 PM EDT Appointment [facility] CT Scan [address] [place] [address] Health Maintenance Due Date Last Done Comments Hepatitis B Vaccines (1 of 3 - 19+ 3-dose series) 1984 Cervical Cancer Screening: Pap Smear 1986 Zoster Vaccines (1 of 2) 2015 Cholesterol Screening (Lipid Panel) 09/27/2022 Colorectal Cancer Screening: Colonoscopy 09/27/2022 HIV Screening 09/27/2022 Hepatitis C Screening 09/27/2022 Medicare Annual Wellness Visit 09/27/2022 Social Influencers of Health Screening 09/27/2022 Breast Cancer Screening 12/03/2022 12/03/19, 03/31/2019, 09/09/2018 Pneumococcal Vaccine: 50+ Years (2 of 2 - PCV) 03/13/2023 03/13/2022 Osteoporosis Screening (Bone Density Screening) 03/10/2024 03/10/2019 COVID-19 Vaccine ( season) 2024 04/14/2021, 03/25/2021 Depression Screening 10/29/2024 Influenza Vaccine (#1) 2025 , 12/31/2023, 08/18/2022, Additional history exists Hypertension/CHF/CAD Annual BMP Blood Test 04/14/2026 04/14/2025 DTaP,Tdap,and Td Vaccines (3 - Td or Tdap) 08/15/2031 08/15/2021, 01/19/2012 RSV Immunization Adult Patients (1 - 1-dose 75+ series) 2040 HIB Vaccines Aged Out No longer eligi ble based on patient's age to complete this topic HPV Vaccines Aged Out No longer eligi ble based on patient's age to complete this topic Hepatitis A Vaccines Aged Out No long er eligible based on patient's age to complete this topic IPV Vaccines Aged Out No longer eligi ble based on patient's age to complete this topic MMR Vaccines Aged Out No longer eligi ble based on patient's age to complete this topic Meningococcal ACWY Vaccine Aged Out N o longer eligible based on patient's age to complete this topic Meningococcal B Vaccine Aged Out No l onger eligible based on patient's age to complete this topic RSV Immunization Patients Under 20 months Aged Out No longer eligible based on patient's age to complete this topic Varicella Vaccines Aged Out No longer eligible based on patient's age to complete this topic Procedures Procedure Name Priority Date/Time Associated Diagnosis Comments [facility] SCREENING DIGITAL Routine 09/09/2018 5:27 PM EST Encounter for screening mammogram for malignant neoplasm of breast from Last 3 Months or Most Recently Relevant to Health Maintenance Results * [facility] SCREENING DIGITAL (09/09/2018 5:27 PM EST) Anatomical Region Laterality Modality Mammography 09/09/2018 3:22 PM EST Narrative 09/09/2018 5:27 PM EST [facility] Diagnostic Imaging Department [address] [place] [address] Patient: LAURIE CLEANING Nash /Age/Sex: 1965 - 53 - F Unit#: [id number] [facility]Ordering Site[facility] Ordering Physician: NICK HARRINGTON MD [facility] Screening Digital - 09/09/18 - 1547 INDICATION: SCREENING COMPARISON: 08/29/2017, and additional outside prior mammograms of April 2016, April 2015 and April 2014 FINDINGS: CC and MLO views of the breasts were obtained, using full field digital mammography with 3D tomosynthesis views in the MLO projection. Computer aided detection with the Sprio 7.2-H was employed. Previous benign breast biopsies bilaterally most recently in 2015 reported. The breasts contain scattered fibroglandular tissues. 3 biopsy markers are visualized within the right breast one within the upper outer quadrant into within the upper inner quadrant. A metallic marker is seen within the 7:00 axis of left breast anteriorly. Developing seen microcalcifications within the central third of the right breast lateral to the nipple line only seen in the CC projection. There is no evidence for developing suspicious microcalcification on the left. No suspicious masses, or areas of architectural distortion are identified within either breast. IMPRESSION: Developing faint microcalcifications within the lateral right breast only seen in the CC projection. Recommend full field ML and CC magnification views of the right breast for initial further evaluation. No specific mammographic evidence of breast malignancy or adverse interval change on the left. Lack of a mammographic finding in the presence of a clinically suspicious palpable abnormality does not preclude the possibility of malignancy or alter th e indications for biopsy. BI-RADS - Category 0 - Incomplete needs additional imaging evaluation. [id number], [id number] ([id number] / [id number]) , [id number] Dictating Physician: SHAWN HURTADO MD Electronically Signed by: SHAWN HURTADO MD Dic Date/Time: 09/09/181718 Sign date/Time: 09/09/181726 Procedure Note Shawn Hurtado MD - 10/17/2022 [facility] Diagnostic Imaging Department [address] [place] [id number] Patient: WALI CLEANINGGenny Cao D.O.B./Age/Sex: 1965 - 53 - F Unit#: [id number] Location/Status: [facility] Mnemonic/Ordering Site: [facility] Ordering Physician: NICK HARRINGTON MD [facility] Screening Digital - 09/09/18 - 1547 INDICATION: SCREENING COMPARISON: 08/29/2017, and additional outside prior mammograms of April2016, April 2015 and April 2014 FINDINGS: CC and MLO views of the breasts were obtained, using full field digital mammography with 3D tomosynthesis views in the MLO projection. Computeraided detection with the Social Reality.2-WeatherBug was employed. Previous benign breast biopsies bilaterally most recently in 2014reported. The breasts contain scattered fibroglandular tissues. 3 biopsy markersare visualized within the right breast one within the upper outer quadrantinto within the upper inner quadrant. A metallic marker is seen within the 7:00axis of left breast anteriorly. Developing seen microcalcifications within the central third of theright breast lateral to the nipple line only seen in the CC projection. There isno evidence for developing suspicious microcalcification on the left. No suspicious masses, or areas of architectural distortion areidentified within either breast. IMPRESSION: Developing faint microcalcifications within the lateralright breast only seen in the CC projection. Recommend full field ML and CC magnification views of the right breast for initial further evaluation. No specific mammographic evidence of breast malignancy or adverseinterval change on the left. Lack of a mammographic finding in the presence of a clinicallysuspicious palpable abnormality does not preclude the possibility of malignancy oralter th e indications for biopsy. BI-RADS - Category 0 - Incomplete needs additional imaging evaluation.[id number], [id number] ([id number] / [id number]) , [id number] Dictating Physician: SHAWN HURTADO MD Electronically Signed by: SHAWN HURTADO MD Dic Date/Time: 09/09/181718 Sign date/Time: 09/09/181726 Nick Harrington MD IMG BI PROCEDURES Final Result from Last 3 Months or Most Recently Relevant to Health Maintenance Insurance MEDICARE [facility] [place] [id number] Care Teams Internet Architect Relationship Specialty Start Date End Date Kacie Fajardo MD [address] [id number] PCP - General Family Medicine 05/14/25
--- OUTSIDE RECORDS SUMMARY | 2025-05-19 09:29 | XMS_ITS | Clinical Summary ---
Author Organization [facility] Address [address] [phone] Phone Care Team Providers Care Outsole Compressor Name Role Phone Kacie Fajardo MD Primary Care Provider Allergies Active Allergy Reactions Criticality Noted Date Comments Meperidine Swelling 09/05/2021 Arm swelling per patient Morphine Swelling High 10/07/2024 ALLERGY PER PATIENT Nystatin Rash Low 05/05/2024 Sulfamethoxazole-Trime thoprim Other (see comments),Cough 09/05/2021 Medications albuterol (2.5 MG/3ML) 0.083% nebulizer solution Active cetirizine (ZyrTEC ALLERGY) 10 MG tablet Take 1 tablet every day by oral route in the morning. 4 Active cyclobenzaprine (FLEXERIL) 5 MG tablet 60 tablet, 0 Refill(s), 0 Refills, 08/06/24 1:49:00 PM EDT, Partial fill upon patient request if the prescription is for a schedule II opioid drug. 4 Active fluticasone (Flonase Sensimist) 27.5 MCG/SPRAY nasal spray Administer 2 sprays into each nostril 1 (one) time each day 4 Active Breo Ellipta 200-25 MCG/ACT aerosol powder 4 Active ipratropium-alb uterol (Combivent Respimat) 20-100 MCG/ACT inhaler Inhale 1 puff 4 times a day by inhalation route for 90 days. 3 Active levothyroxine (SYNTHROID, LEVOTHROID) 100 MCG tablet TAKE ONE TABLET BY MOUTH 6 DAYS PER WEEK AND 1+1/2 TABLETS ON 7TH DAY 5 Active lidocaine (LIDODERM) 5 % patch 4 Active nortriptyline (PAMELOR) 10 MG capsule TAKE TWO CAPSULES BY MOUTH EVERY EVENING 9 Active omeprazole (PriLOSEC) [address] capsule 180 capsule, 0 Refill(s), 0 Refills, 08/06/24 13:49:00 EDT, Partial fill upon patient request if the prescription is for a schedule II opioid drug. 4 Active OXcarbazepine (TRILEPTAL) 300 MG tablet Take 300 mg by mouth in the morning and 300 mg in the evening. Active zonisamide (ZONEGRAN) 100 MG capsule Take 100 mg by mouth 1 (one) time each day Active tiZANidine (ZANAFLEX) 2 MG tablet Take 1 tablet by mouth 2 (two) times a day if needed 4 Active Active Problems Problem Noted Date Diagnosed Date Asthma Chronic airway obstruction, not elsewhere classi fied Epilepsy Esophageal reflux Hypothyroidism Migraine Osteoporosis Thyroid acropachy Encounters Date Type Department Care Team Description 05/03/2025 Orders Only [facility] [address] [phone] David Martinez MD Hypo-osmolality and hyponatremia 04/03/2025 Orders Only [facility] [address] [phone] David Martinez MD Hypo-osmolality and hyponatremia 03/03/2025 1:45 PM EDT Office Visit [facility] [address] [phone] David Martinez MD Hypo-osmolality and hyponatremia (Primary Dx) from Last 3 Months Family History Medical History Relation Comments Bipolar disorder Father Emphysema Father Heart failure Father Leukemia Father 2020 Sleep disorder Father congestional deafness Mother hypertensive disoder Mother Relation Status Comments Father Mother Social History Tobacco Use Types Packs/Day Years Used Date Smoking Tobacco: Never Assessed Comments Unknown Sex and Gender Information Value Date Recorded Sex Assigned at Not on file Legal Sex Female 3:23 PM EDT Gender Identity Not on file Sexual Orientation Not on file Last Filed Vital Signs Vital Sign Reading Time Taken Comments Blood Pressure 132/88 03/03/2025 1:47 PM EDT Pulse 98 03/03/2025 1:47 PM EDT Temperature - - Respiratory Rate - - Oxygen Saturation 97% 03/03/2025 1:47 PM EDT Inhaled Oxygen Concentration - - Weight 84.8 kg (187 lb) 03/03/2025 1:47 PM EDT Height - - Body Mass Index - - Plan of Treatment Upcoming Encounters Date Type Department Care Team (Late st Contact Info) Description 06/03/2025 Orders Only [facility] [address] [phone] David Martinez MD [address] [place] [phone] Hypo-osmolality and hyponatremia 08/03/2025 9:15 AM EDT Office Visit [facility] [address] [phone] David Martinez MD [address] [place] [phone] Health Maintenance Due Date Last Done Comments Breast Cancer Screening 1965 Hepatitis B Vaccine (1 of 3 - 19+ 3-dose series) 1984 Colorectal Cancer Screening: Annual FOBT 2014 Colorectal Cancer Screening: Colonoscopy 2014 Colorectal Cancer Screening: Sigmoidoscopy 2014 Pneumococcal Vaccine: 50+ Ye ars (2 of 2 - PCV) 03/13/2023 03/13/2022 Influenza Vaccine (#1) 2025 , 12/31/2023, 08/18/2022, Additional history exists Pneumococcal Vaccine: Peds ( 0 to 5 Years) and At-Risk Patients (6 to 49 Years) Discontinued 03/13/2022 Procedures Procedure Name Priority Date/Time Associated Diagnosis Comments BASIC METABOLIC PANEL Routine 04/14/2025 3:47 PM EDT from Last 3 Months Results * Basic Metabolic Panel (04/14/2025 3:47 PM EDT) Sodium 136 134 - 144 mmol/L [facility] Chloride 98 96 - 106 mmol/L [facility] Calcium 9.4 8.7 - 10.2 mg/dL [facility] Glucose 90 70 - 99 mg/dL [facility] BUN 15 6 - 24 mg/dL [facility] Creatinine 0.69 0.57 - 1.00 mg/dL [facility] eGFR CKD-EPI CR 2020 100 >59 mL/min/1.7 3 [facility] BUN/Creatinine Ratio 22 9 - 23 [facility] Potassium 4.6 3.5 - 5.2 mmol/L [facility] Bicarbonate (CO2) 21 20 - 29 mmol/L [facility] 04/14/2025 3:47 PM EDT 04/14/2025 us David Martinez MD LAB BLOOD ORDERABLES Final Result [facility] [address] [place] [phone] from Last 3 Months Insurance [facility] Medicare Medicare Care Teams Outsole Compressor Relationship Specialty Start Date End Date Kacie Fajardo MD [address] [phone] PCP - General Family Medicine 07/17/24
--- OUTSIDE RECORDS SUMMARY | 2025-05-19 09:29 | XMS_ITS | Data Portability ---
Author Organization [facility], Main Office Address [address] [place] [address] Care Team Providers Care Assistant Inventory Manager Name Role Phone KAREN MCKEON Account Strategist ERIK WHITE Neurologist ERIK NEWMAN Superintendent [employer] [phone] TAYLER HUFF Wire Fence Erector [phone] PATRICA LEDBETTER Phys. Med. & Rehab [phone] [facility] Sports Medic ine LIV FAJARDO Primary Care Provider [phone] SELINA PERAZA Clamper [phone] [facility] PLASTIC SURGERY Plastic/Reconstructive Surgeon DARIAN TOBAR Physical Testing Supervisor [phone] NELY KRISHNAMURTHY Lead Machinist HEATHER ISBELL Neurologist OCTAVIANO REAVES Trimmer Buffing Wheel Assessment Encounter Date Assessment Date Assessment LastModified by Organization Details LastModified Time 05/21/2024 05/21/2024 This service was provided using telemedicine. Patient consented to video & audio visit Patient was located in the [facility]. Provider was located in the office. No other persons participated in the telemedicine visit except for the patient unless otherwise indicated here. Total time of visit was 15 minutes. I was able to obtain a copy of the CT findings; the adrenal nodule is less than 3 cm. Her skylights assembler has initiated some of the screening laboratory [...] Previously, her osteoporosis was managed by an meal cooker and breast specialist, and she was taking raloxifene. However, she experienced a lapse in care which she admitted and did not continue her treatment after her meal cooker moved. There are plans to consider Prolia, which is a reasonable choice, but I suggested that if she completes therapy, it's important to be aware of the potential rebound effect. Data suggest transitioning to bisphosphonates after completing a course of Prolia to prevent this. I will defer this aspect of her care to her skylights assembler, who has kindly agreed to help manage her osteoporosis. If the hormonal panel, which I have requested be done around 8 AM, indicates a possible overactive adrenal adenoma, further imaging and a referral to an meal cooker might be warranted. The meal cooker could also assist with her osteoporosis management if needed. clarence Not available 05/21/2024 18:01:09 11/19/2024 11/19/2024 This service was provided using telemedicine. Patient consented to video & audio visit Patient was located in the [facility]. Provider was located in the office. No other persons participated in the telemedicine visit except for the patient unless otherwise indicated here. Total time of visit was 15 minutes. [email or web address] Not available 11/19/2024 15:40:59 02/06/2025 02/06/2025 This service was provided using telemedicine. Patient consented to video & audio visit Patient was located at home in the [facility]. Provider was located in the office. No other persons participated in the telemedicine visit except for the patient unless otherwise indicated here. Total time of visit was 19 minutes. hector Not available 02/06/2025 14:56:48 Plan of Treatment Reminders Order Date Submit Date Provider Last Modified By Organization Details Last Modified Time Details Appointments PE EST 2024 02:30P M Liv Fajardo MD Not available Not available Not available Lab uric acid, serum or plasma 2024 025 NAT [facility] (Centralized Electronic Ordering - All Locations), Patient Can Go To The Location Of Their Choice, 05/06/2025 16:24:34 urinalysi s, complete 2024 025 NAT [facility] (Centralized Electronic Ordering - All Locations), Patient Can Go To The Location Of Their Choice, 05/06/2025 16:24:34 culture, urine 2024 025 NAT [facility] (Centralized Electronic Ordering - All Locations), Patient Can Go To The Location Of Their Choice, 05/06/2025 16:24:18 phosphoru s, serum or plasma 2024 025 NAT [facility] (Centralized Electronic Ordering - All Locations), Patient Can Go To The Location Of Their Choice, 05/06/2025 16:24:19 magnesium , serum or plasma 2024 025 NAT [facility] (Centralized Electronic Ordering - All Locations), Patient Can Go To The Location Of Their Choice, 05/06/2025 16:24:19 TSH, ultra-sen sitive, serum 2024 025 NAT [facility] (Centralized Electronic Ordering - All Locations), Patient Can Go To The Location Of Their Choice, 05/06/2025 16:24:19 CBC w/ auto diff 2024 025 NAT [facility] (Centralized Electronic Ordering - All Locations), Patient Can Go To The Location Of Their Choice, 05/06/2025 16:24:19 CMP, serum or plasma 2024 025 NAT [facility] ([facility]ized Electronic Ordering - All Locations), Patient Can Go To The Location Of Their Choice, 05/06/2025 16:24:19 vitamin D, 25-hydrox y, total, serum 2024 025 NAT [facility], [address], [place], [address], 05/06/2025 16:24:34 catechola mines, fractiona carol, urine 2023 024 NAT [facility] (Centralized [facility] Ordering - All Locations), Patient Can Go To The Location Of Their Choice, [id number] 06/12/2024 14:06:52 catechola mines panel, QN, plasma 2023 024 NAT [facility] (Centralized Electronic Ordering - All Locations), Patient Can Go To The Location Of Their Choice, 05/28/2024 16:06:51 metanephr ine, free, serum or plasma 2023 024 NAT [facility] (Centralized Electronic Ordering - All Locations), Patient Can Go To The Location Of Their Choice, 05/28/2024 16:06:51 cytology, urine 2023 024 NAT [facility] (Centralized Electronic Ordering - All Locations), Patient Can Go To The Location Of Their Choice, 05/21/2024 12:28:25 urinalysi s complete, reflex culture 2023 024 CROP[facility]Y [facility] (Centralized Electronic Ordering - All Locations), Patient Can Go To The Location Of Their Choice, 05/28/2024 16:06:50 Referral dermatolo gist referral - for eval of recurrent left sided abdominal rash 2024 025 [email or web address] [facility], [address], [facility] [address], [address], 03/03/2025 12:30:33 Procedures electroen cephalogr am (EEG), ambulator y (PROC) 2024 025 stacy [facility] (Imaging), [address] [place], [address], 05/13/2025 11:18:53 Surgeries None recorded. Imaging CT, brain, w/o contrast - s/p head strike - pt symptomat ic - r/o intracran ial hemorrhag e 2024 025 stacy [facility] M[facility], [address] [place], [address], 05/08/2025 15:36:35 electroca rdiogram 2024 025 [email or web address] In-Office Order, Internal Use Only DO Not Attach Compendium DO Not Attach Compendium, Do Not Delete/merge, [id number] 03/03/2025 12:30:33 US, bladder 2023 024 stacy [facility] ([facility]), [address] [place] [address], [address], 06/17/2024 08:30:55 Medication Orders ondansetr on 4 mg disintegr ating tablet 2024 025 [facility], [address] [place], [address], 05/06/2025 16:24:17 verapamil ER (SR) 120 mg tablet,ex tended release 2024 025 [facility], [address] [place], [address], 03/03/2025 12:07:47 ketoconaz ole 2 % topical cream 2024 025 [facility], [address] [place], [address], 03/03/2025 12:47:45 cephalexi n 500 mg capsule 2024 025 [facility], [address] [place], [address], 02/18/2025 05:01:33 prednison e 10 mg tablet 2024 025 [facility], [address] [place], [address], 03/03/2025 11:34:00 prednison e 20 mg tablet 2024 025 [facility], [address] [place], [address], 01/12/2025 12:23:58 doxycycli ne hyclate 100 mg tablet 2024 025 NAT [facility], [address] [facility], [place], [address], 02/06/2025 14:16:03 Patient TargetsNo targets recorded. Patient Instructions Encounter Date Encounter Id Patient Instructions Last Modified By Organization Details Last Modified Time 05/21/2024 [id number] osteoporosis: ca re instructions [email or web address] Not available 05/21/2024 12:28:15 11/19/2024 [id number] asthma in adults : care instructions [email or web address] Not available 11/19/2024 15:42:18 Acute Sinusitis: Care Instructions [email or web address] Not available 11/19/2024 15:37:00 To call or retur n for worsening or concerns jthabet Not available 11/19/2024 15:38:27 03/03/2025 [id number] high blood pressure: care instructions [email or web address] Not available 03/03/2025 12:04:44 learning about high blood pressure awychowski Not available 03/03/2025 12:04:44 05/06/2025 [id number] postconcussion syndrome: care instructions pmadden Not available 05/06/2025 16:24:14 Patient will follow up and keep appointment as scheduled. [email or web address] Not available 05/06/2025 16:22:29 Reason for Referral Tax Manager Cpa Referral for P ruritic dermatitis for eval of recurrent left sided abdominal rash Referring Physician: Yonny Heredia, Family Medicine, Encounter Date: 03/03/2025 Results Created Date Observation Date Name Description Value Unit Range Abnormal Flag Note LastModifiedBy Organization Detail LastModifiedTime 04/28/2005/03/2024 BASIC METAB OLIC PANEL (8) glucose TNP mg/dL [facility] was unabl e to colle ct suffi cient speci men to perfo rm the follo wing test( s), and is provi ding the patie nt with re-co llect ion instr uctio ns. Not Available [facility] ([facility]) [address], [place], [address], 05/06/2024 16:07:00 04/28/20 24 05/03/2024 BASIC METAB OLIC PANEL (8) BUN TNP mg/dL [facility] was unabl e to colle ct suffi cient speci men to perfo rm the follo wing test( s), and is provi ding the patie nt with re-co llect ion instr uctio ns. Not Available [facility] ([facility]) [address], [place], [address], 05/06/2024 16:07:00 04/28/20 24 05/03/2024 BASIC METAB OLIC PANEL (8) creatinine TNP mg/dL [facility] was unabl e to colle ct suffi cient speci men to perfo rm the follo wing test( s), and is provi ding the patie nt with re-co llect ion instr uctio ns. Not Available [facility] ([facility]) [address], [place], [address], 05/06/2024 16:07:00 04/28/20 24 05/03/2024 BASIC METAB OLIC PANEL (8) eGFR BUSINESS DEVELOPMENT ASSISTANT Not Available [facility] ([facility]) [address], [place], [address], 05/06/2024 16:07:00 04/28/20 24 05/03/2024 BASIC METAB OLIC PANEL (8) BUN/creatini ne ratio COMMEN T Unabl e to calcu late resul t since non-n umeri c resul t obtai barrie for compo nent test. Not Available [facility] ([facility]) [address], [place], [address], 05/06/2024 16:07:00 04/28/20 24 05/03/2024 BASIC METAB OLIC PANEL (8) sodium TNP mmol/ L [facility] was unabl e to colle ct suffi cient speci men to perfo rm the follo wing test( s), and is provi ding the patie nt with re-co llect ion instr uctio ns. Not Available [facility] ([facility]) [address] [place], [address], 05/06/2024 16:07:00 04/28/20 24 05/03/2024 BASIC METAB OLIC PANEL (8) potassium TNP mmol/ L [facility] was unabl e to colle ct suffi cient speci men to perfo rm the follo wing test( s), and is provi ding the patie nt with re-co llect ion instr uctio ns. Not Available [facility] ([facility]) [address] [place], [address], 05/06/2024 16:07:00 04/28/20 24 05/03/2024 BASIC METAB OLIC PANEL (8) chloride TNP mmol/ L [facility] was unabl e to colle ct suffi cient speci men to perfo rm the follo wing test( s), and is provi ding the patie nt with re-co llect ion instr uctio ns. Not Available [facility] ([facility]) [address], [place], [address], 05/06/2024 16:07:00 04/28/20 24 05/03/2024 BASIC METAB OLIC PANEL (8) carbon dioxide, total TNP mmol/ L [facility] was unabl e to colle ct suffi cient speci men to perfo rm the follo wing test( s), and is provi ding the patie nt with re-co llect ion instr uctio ns. Not Available [facility] ([facility]) [address] [place], [address], 05/06/2024 16:07:00 04/28/20 24 05/03/2024 BASIC METAB OLIC PANEL (8) calcium TNP mg/dL [facility] was unabl e to colle ct suffi cient speci men to perfo rm the follo wing test( s), and is provi ding the patie nt with re-co llect ion instr uctio ns. Not Available [facility] ([facility]) [address] [facility], [place], [address], 05/06/2024 16:07:00 04/28/20 24 05/05/2024 ANTI- EBONI [...] bilia ry cirrh osis. Not Available [facility] ([facility]) [address], [place], [address], 05/06/2024 16:07:01 04/28/20 24 05/05/2024 ANTI- EBONI [...] bilia ry cirrh osis. Not Available [facility] ([facility]) [address], [place], [address], 05/06/2024 16:07:01 04/28/20 24 04/30/2024 CORTI DYLON+A [...] 7 and 10 AM. Not Available [facility] ([facility]) [address], [place], [address], 05/06/2024 16:07:02 04/28/20 24 05/03/2024 CORTI DYLON+A [...] dylon PM: 2.3-1 1.9 Not Available [facility] ([facility]) [address], [place], [address], 05/06/2024 16:07:02 04/28/20 24 05/05/2024 OSMOL ALITY osmolality COMMEN T mosmo l/kg Test not perfo rmed. No serum recei payal. Not Available [facility] ([facility]) [address], [place], [address], 05/06/2024 16:07:02 04/28/20 24 05/03/2024 SODIU M, URINE sodium, urine TNP mmol/ L Test not perfo rmed. No urine speci men recei payal. Not Available [facility] ([facility]) [address], [place], [address], 05/06/2024 16:07:03 04/28/20 24 05/06/2024 ADALGISA BY IFA RFX TITER /NELA ENDY ADALGISA by ifa rfx titer/patter n TNP Test not perfo rmed. No serum gel recei payal. Negat juan <1:80 Borde rline 1:80 Posit juan >1:80 Not Available [facility] ([facility]) [address] [place], [address], 05/06/2024 16:07:04 04/28/20 24 04/30/[address] PROBL EM request problem TNP [facility] was unabl e to colle ct suffi cient speci men to perfo rm the follo wing test( s), and is provi ding the patie nt with re-co llect ion instr uctio ns. TEST: [id number] 1 ACTH, Plasm a Panel : 11138 3 Not Available [facility] ([facility]) [address] [place], [address], 05/06/2024 16:07:05 04/28/20 24 05/03/[address] PROBL EM request problem TNP [facility] was unabl e to colle ct suffi cient speci men to perfo rm the follo wing test( s), and is provi ding the patie nt with re-co llect ion instr uctio ns. TEST: [id number] 5 Corti dylon Panel : 17663 3 72495 2 Gluco se Panel : 44428 8 59500 0 BUN Panel : 36256 8 68974 0 Creat inine Panel : 79863 8 28607 8 Sodiu m Panel : 69453 8 44661 0 Potas sium Panel : 25457 8 14358 6 Chlor stephanie Panel : 94541 8 00249 8 Carbo n Dioxi de, Total Panel : 71528 8 72138 6 Calci um Panel : 45180 8 Not Available [facility] ([facility]) [address], [place], [address], 05/06/2024 16:07:05 04/28/20 24 05/03/[address] PROBL EM request problem TNP Test not perfo rmed. No urine speci men recei payal. TEST: 07538 6 Sodiu m, Urine Not Available [facility] ([facility]) [address] [place], [address], 05/06/2024 16:07:06 04/28/20 24 05/05/2024 SPECI MEN STATU S REPOR T specimen status report TNP [facility] was unabl e to colle ct suffi cient speci men to perfo rm the follo wing test( s), and is provi ding the patie nt with re-co llect ion instr uctio ns. TEST: [id number] 4 Actin (Smoo th Muscl e) Antib saji Panel : 13372 8 96675 2 Mitoc hondr ial (M2) Antib saji Panel : 35287 8 Not Available [facility] ([facility]) [address] [place], [address], 05/06/2024 16:07:07 05/22/20 24 05/26/2024 UA/M W/RFL X CULTU RE, COMP specific gravity COMMEN T Test not perfo rmed. Patie nt was unabl e to provi de a self- colle cted speci men for the reque sted testi ng. The follo wing test( s) were not perfo rmed: Not Available [facility] ([facility]) [address] [place], [address], 05/28/2024 16:06:50 05/22/20 24 05/26/2024 UA/M W/RFL X CULTU RE, COMP pH TNP Test not perfo rmed Not Available [facility] ([facility]) [address] [place], [address], 05/28/2024 16:06:50 05/22/20 24 05/26/2024 UA/M W/RFL X CULTU RE, COMP urine-color BUSINESS DEVELOPMENT ASSISTANT Not Available [facility] ([facility]) [address] [place], [address], 05/28/2024 16:06:50 05/22/20 24 05/26/2024 UA/M W/RFL X CULTU RE, COMP appearance BUSINESS DEVELOPMENT ASSISTANT Not Available [facility] ([facility]) [address] [place], [address], 05/28/2024 16:06:50 05/22/20 24 05/26/2024 UA/M W/RFL X CULTU RE, COMP WBC esterase BUSINESS DEVELOPMENT ASSISTANT Not Available [facility] ([facility]) [address], [place], [address], 05/28/2024 16:06:50 05/22/20 24 05/26/2024 UA/M W/RFL X CULTU RE, COMP protein TNP Test not perfo rmed Not Available [facility] ([facility]) [address], [place], [address], 05/28/2024 16:06:50 05/22/20 24 05/26/2024 UA/M W/RFL X CULTU RE, COMP glucose TNP Test not perfo rmed Not Available [facility] ([facility]) [address], [place], [address], 05/28/2024 16:06:50 05/22/20 24 05/26/2024 UA/M W/RFL X CULTU RE, COMP ketones TNP Test not perfo rmed Not Available [facility] ([facility]) [address], [place], [address], 05/28/2024 16:06:50 05/22/20 24 05/26/2024 UA/M W/RFL X CULTU RE, COMP occult blood BUSINESS DEVELOPMENT ASSISTANT Not Available [facility] ([facility]) [address], [place], [address], 05/28/2024 16:06:50 05/22/20 24 05/26/2024 UA/M W/RFL X CULTU RE, COMP bilirubin BUSINESS DEVELOPMENT ASSISTANT Not Available [facility] ([facility]) [address], [place], [address], 05/28/2024 16:06:50 05/22/20 24 05/26/2024 UA/M W/RFL X CULTU RE, COMP urobilinogen ,semi-qn BUSINESS DEVELOPMENT ASSISTANT Not Available [facility] ([facility]) [address], [place], [address], 05/28/2024 16:06:50 05/22/20 24 05/26/2024 UA/M W/RFL X CULTU RE, COMP nitrite, urine BUSINESS DEVELOPMENT ASSISTANT Not Available [facility] ([facility]) [address] [place], [address], 05/28/2024 16:06:50 05/22/20 24 05/26/2024 UA/M W/RFL X CULTU RE, COMP microscopic examination BUSINESS DEVELOPMENT ASSISTANT Not Available [facility] ([facility]) [address] [place], [address], 05/28/2024 16:06:50 05/22/20 24 05/26/2024 UA/M W/RFL X CULTU RE, COMP microscopic examination BUSINESS DEVELOPMENT ASSISTANT Not Available [facility] ([facility]) [address] [place], [address], 05/28/2024 16:06:50 05/22/20 24 05/26/2024 UA/M W/RFL X CULTU RE, COMP urinalysis reflex BUSINESS DEVELOPMENT ASSISTANT Not Available [facility] ([facility]) [address] [place], [address], 05/28/2024 16:06:50 05/22/20 24 05/27/2024 CATEC HOLAM KAYLA, PLASM A norepinephri ne, pl 880 pg/mL 0-874 above high normal Not Available [facility] ([facility]) [address] [place], [address], 05/28/2024 16:06:50 05/22/20 24 05/27/2024 CATEC HOLAM KAYLA, PLASM A epinephrine, pl <15 pg/mL 0-62 Not Available [facility] ([facility]) [address] [place], [address], 05/28/2024 16:06:50 05/22/20 24 05/27/2024 CATEC HOLAM KAYLA, PLASM A dopamine, pl <30 pg/mL 0-48 Not Available [facility] ([facility]) [address] [place], [address], 05/28/2024 16:06:50 05/22/20 24 05/28/2024 METAN EPHRI KRISTA, FRAC. , PL. FREE normetanephr ine, pl 113.5 pg/mL 0.0-24 4.0 Not Available [facility] ([facility]) [address] [place], [address], 05/28/2024 16:06:51 05/22/20 24 05/28/2024 METAN EPHRI KRISTA, FRAC. , PL. FREE metanephrine , pl <25.0 pg/mL 0.0-88 .0 Not Available [facility] ([facility]) [address] [place], [address], 05/28/2024 16:06:51 05/22/20 24 05/26/[address] PROBL EM request problem COMMEN T Test not perfo rmed. Patie nt was unabl e to provi de a self- colle cted speci men for the reque sted testi ng. The follo wing test( s) were not perfo rmed: TEST: [id number] 0 UA/M w/rfl x Cultu re, Comp Not Available [facility] ([facility]) [address] [place], [address], 05/28/2024 16:06:52 05/28/20 24 06/02/2024 IMMUN OFIXA TION, URINE ag interpretati on:U Commen t The immun ofixa tion liliate rn appea rs unrem arkab le. Evide nce of monoc lonal prote in is not appar ent. Not Available [facility] ([facility]) [address], [place], [address], 06/02/2024 14:06:19 05/28/20 24 05/28/2024 AG AND PE, RANDO M URINE note: Commen t Prote in [facility] scan will follo w via compu ter, mail, or couri er arian fonseca. Not Available [facility] ([facility]) [address], [place], [address], 06/03/2024 20:06:33 05/28/20 24 05/29/2024 AG AND PE, RANDO M URINE protein,tota l,urine 4.8 mg/dL not estab. normal Not Available [facility] ([facility]) [address] [facility], [place], [address], 06/03/2024 20:06:33 05/28/20 24 05/30/2024 AG AND PE, RANDO M URINE albumin, U 70.4 % Not Available [facility] ([facility]) [address] [facility], [place], [address], 06/03/2024 20:06:33 05/28/20 24 05/30/2024 AG AND PE, RANDO M URINE bmstq-3-miac ulin, U 4.0 % Not Available [facility] ([facility]) [address] [facility], [place], [address], 06/03/2024 20:06:33 05/28/20 24 05/30/2024 AG AND PE, RANDO M URINE fwtak-7-zawy ulin, U 6.3 % Not Available [facility] ([facility]) [address] [facility], [place], [address], 06/03/2024 20:06:33 05/28/20 24 05/30/2024 AG AND PE, RANDO M URINE beta globulin, U 13.9 % Not Available [facility] ([facility]) [address] [place], [address], 06/03/2024 20:06:33 05/28/20 24 05/30/2024 AG AND PE, RANDO M URINE gamma globulin, U 5.4 % Not Available [facility] ([facility]) [address] [place], [address], 06/03/2024 20:06:33 05/28/20 24 05/30/2024 AG AND PE, RANDO M URINE M-spike, % Not Observ ed % not observ ed Not Available [facility] ([facility]) [address] [place], [address], 06/03/2024 20:06:33 05/28/20 24 05/30/2024 AG AND PE, RANDO M URINE immunofixati on result, urine Commen t The immun ofixa mylene win rn appea rs unrem arkab le. Evide nce of monoc lonal prote in is not appar ent. Not Available [facility] ([facility]) [address] [place], [address], 06/03/2024 20:06:33 05/28/20 24 05/30/2024 AG AND PE, RANDO M URINE pdf . Not Available [facility] ([facility]) [address] [place], [address], 06/03/2024 20:06:33 05/28/20 24 05/29/2024 BASIC METAB OLIC PANEL (8) glucose 91 mg/dL 70-99 normal Not Available [facility] ([facility]) [address] [place], [address], 06/03/2024 20:06:34 05/28/20 24 05/29/2024 BASIC METAB OLIC PANEL (8) BUN 11 mg/dL 6-24 normal Not Available [facility] ([facility]) [address] [place], [address], 06/03/2024 20:06:34 05/28/20 24 05/29/2024 BASIC METAB OLIC PANEL (8) creatinine 0.68 mg/dL 0.57-1 .00 normal Not Available [facility] ([facility]) [address] [place], [address], 06/03/2024 20:06:34 05/28/20 24 05/29/2024 BASIC METAB OLIC PANEL (8) eGFR 101 mL/mi n/1.7 3 >59 normal Not Available [facility] ([facility]) [address] [place], [address], 06/03/2024 20:06:34 05/28/20 24 05/29/2024 BASIC METAB OLIC PANEL (8) BUN/creatini ne ratio 16 9-23 normal Not Available [facility] [facility]) [address] [place], [address], 06/03/2024 20:06:34 05/28/20 24 05/29/2024 BASIC METAB OLIC PANEL (8) sodium 129 mmol/ L 134-14 4 below low normal Not Available [facility] ([facility]) [address], [place], [address], 06/03/2024 20:06:34 05/28/20 24 05/29/2024 BASIC METAB OLIC PANEL (8) potassium 4.0 mmol/ L 3.5-5. 2 normal Not Available [facility] ([facility]) [address] [place], [address], 06/03/2024 20:06:34 05/28/20 24 05/29/2024 BASIC METAB OLIC PANEL (8) chloride 94 mmol/ L 96-106 below low normal Not Available [facility] ([facility]) [address] [facility], [address], 06/03/2024 20:06:34 05/28/20 24 05/29/2024 BASIC METAB OLIC PANEL (8) carbon dioxide, total 22 mmol/ L 20-29 normal Not Available [facility] ([facility]) [address] [facility], [place], [address], 06/03/2024 20:06:34 05/28/20 24 05/29/2024 BASIC METAB OLIC PANEL (8) calcium 9.2 mg/dL 8.7-10 .2 normal Not Available [facility] ([facility]) [address] [facility], [place], [address], 06/03/2024 20:06:34 05/28/20 24 05/28/2024 N-TEL OPEPT [...] risk for a decre ase in bone digital forensics examiner al densi ty (BMD) after 1 [...] >or=3 0% from basel ine.[ 2] 1. Marvin feliciano CH, Lise NH, Jim GS, et al. Am J Med, 102:2 9-37, 1996. (1):M 75, 1995. 2. Bone H, Breanne J, et al. J Bone Min Res.1 1(1): M757, 1995 Not Available [facility] ([facility]) [address] [place], [address], 06/03/2024 20:06:35 05/28/20 24 05/29/2024 N-TEL OPEPT STEPHANIE, URINE creatinine, urine 26.7 mg/dL not estab. normal Not Available [facility] ([facility]) [address] [place], [address], 06/03/2024 20:06:35 05/28/20 24 05/30/2024 N-TEL OPEPT STEPHANIE, URINE N-telopeptid e 480 nmol_ bce not estab. Not Available [facility] ([facility]) [address] [place], [address], 06/03/2024 20:06:35 05/28/20 24 05/30/2024 N-TEL OPEPT STEPHANIE, URINE N-telo/creat . ratio 203 nm_bc e/mm_ cr 0-89 above high normal Not Available [facility] ([facility]) [address] [place], [address], 06/03/2024 20:06:35 05/28/20 24 05/29/2024 SUREKHA+L IPASE amylase 34 U/L 31-110 normal Not Available [facility] ([facility]) [address] [place], [address], 06/03/2024 20:06:36 05/28/20 24 05/29/2024 SUREKHA+L IPASE lipase 24 U/L 14-72 normal Not Available [facility] ([facility]) [address] [facility], [place], [address], 06/03/2024 20:06:36 05/28/20 24 05/29/2024 CORTI DYLON+A CTH cortisol 15.0 ug/dL 6.2-19 .4 Pleas e Note: The refer ence inter errol and casandra ing for this test is for an AM colle ction . If this is a PM colle ction pleas e use: Corti dylon PM: 2.3-1 1.9 Not Available [facility] ([facility]) [address] [facility], [place], [address], 06/03/2024 20:06:36 05/28/20 24 05/29/2024 CORTI DYLON+A CTH acth, plasma 17.5 pg/mL 7.2-63 .3 ACTH refer ence inter errol for sampl es colle cted betwe en 7 and 10 AM. Not Available [facility] ([facility]) [address] [facility], [place], [address], 06/03/2024 20:06:36 05/28/20 24 06/02/2024 C-ANC A+P-A NCA W/REF GERSON cytoplasmic (C-anca) <1:20 titer neg:<1 :20 Not Available [facility] ([facility]) [address] [facility], [place], [address], 06/03/2024 20:06:37 05/28/20 24 06/02/2024 C-ANC A+P-A [...] ng of posit juan sera with both NH-3 and MPO-A NCA enzym e immun oassa ys. As many as 5% serum sampl es are posit juan only by EIA. Ref. AM J Clin Patho l 1999; 111:5 07-51 3. Not Available [facility] ([facility]) [address] [facility], [place], [address], 06/03/2024 20:06:37 05/28/20 24 05/29/2024 PTH INTAC T+URIEL CIUM, IONIZ ED calcium, ionized, serum 5.0 mg/dL 4.5-5. 6 Not Available [facility] ([facility]) [address] [facility], [place], [address], 06/03/2024 20:06:37 05/28/20 24 05/29/2024 PTH INTAC T+URIEL CIUM, IONIZ ED PTH, intact 28 pg/mL 15-65 normal Not Available [facility] ([facility]) [address] [facility], [place], [address], 06/03/2024 20:06:37 05/28/20 24 06/03/2024 C-TEL OPEPT STEPHANIE, SERUM C-telopeptid e, serum 1156 pg/mL above high normal Refer ence Range : Preme nopau wendy Women : 34 - 635 Postm enopa usal Women : 34 - 1037 Not Available [facility] [address] [facility], [place], [address], 06/03/2024 20:06:38 05/28/20 24 05/31/2024 OSTEO CALCI [...] set of age- and/o r gende r-spe cific refer ence inter vals for this test in the [facility] ([facility]). Not Available [facility] ([facility]) [address] [place], [address], 06/03/2024 20:06:38 05/28/20 24 05/29/2024 ACTIN (SMOO [...] bilia ry cirrh osis. Not Available [facility] ([facility]) [address] [facility], [place], [address], 06/03/2024 20:06:39 05/28/20 24 05/29/2024 MITOC HONDR IAL (M2) ANTIB SAJI mitochondria l (M2) antibody <20.0 units 0.0-20 .0 Negat juan 0.0 - 20.0 Equiv ocal 20.1 - 24.9 Posit juan >24.9 Mitoc hondr ial (M2) Antib odies are found in 90-96 % of patie nts with prima ry bilia ry cirrh osis. Not Available [facility] ([facility]) [address] [facility], [place], [address], 06/03/2024 20:06:39 05/28/20 24 05/29/2024 PHOSP HORUS phosphorus 3.0 mg/dL 3.0-4. 3 normal Not Available [facility] ([facility]) [address] [facility], [place], [address], 06/03/2024 20:06:40 05/28/20 24 05/29/2024 LDH LDH 136 IU/L 119-22 6 Not Available [facility] ([facility]) [address] [facility], [place], [address], 06/03/2024 20:06:40 05/28/20 24 05/31/2024 OSMOL ALITY osmolality 265 mosmo l/kg 275-29 5 below low normal Not Available [facility] ([facility]) [address] [facility], [place], [address], 06/03/2024 20:06:41 05/28/20 24 05/30/2024 OSMOL ALITY , URINE osmolality, urine 348 mosmo l/kg 24 hr : 300 - 900 Rando m: 50 - 1400 After 12hr fluid restr ictio n: >850 Not Available [facility] ([facility]) [address] [facility], [place], [address], 06/03/2024 20:06:41 05/28/20 24 05/29/2024 SODIU M, URINE sodium, urine 61 mmol/ L not estab. Not Available [facility] ([facility]) [address] [facility], [place], [address], 06/03/2024 20:06:42 05/28/20 24 05/29/2024 ADALGISA BY [...] uclea r Antib saji (ADALGISA) Patte rns (ICA ). Not Available [facility] ([facility]) [address] [facility], [place], [address], 06/03/2024 20:06:42 06/06/20 24 06/12/2024 CATEC HOLAM KAYLA, UR.,F REE,2 4 HR epinephrine, urine <3 ug/L undefi barrie Total Volum e: 1000 mL Not Available [facility] ([facility]) [address] [place], [address], 06/12/2024 14:06:52 06/06/20 24 06/12/2024 CATEC HOLAM KAYLA, UR.,F REE,2 4 HR epinephrine, U, 24HR <3 ug/24 _HR 0-20 Not Available [facility] ([facility]) [address] [place], [address], 06/12/2024 14:06:52 06/06/20 24 06/12/2024 CATEC HOLAM KAYLA, UR.,F REE,2 4 HR norepinephri ne, ur 30 ug/L undefi barrie Not Available [facility] ([facility]) [address] [place], [address], 06/12/2024 14:06:52 06/06/20 24 06/12/2024 CATEC HOLAM KAYLA, UR.,F REE,2 4 HR norepinephri ne,U,24H 30 ug/24 _HR 0-135 Not Available [facility] ([facility]) [address] [place], [address], 06/12/2024 14:06:52 06/06/20 24 06/12/2024 CATEC HOLAM KAYLA, UR.,F REE,2 4 HR dopamine, urine 133 ug/L undefi barrie Not Available [facility] ([facility]) [address] [place], [address], 06/12/2024 14:06:52 06/06/20 24 06/12/2024 CATEC HOLAM KAYLA, UR.,F REE,2 4 HR dopamine, ur, 24HR 133 ug/24 _HR 0-510 Not Available [facility] ([facility]) [address] [place], [address], 06/12/2024 14:06:52 06/11/2006/14/2024 UA/M W/RFL X CULTU RE, ROUTI NE specific gravity 1.014 1.005- 1.030 normal Not Available [facility] ([facility]) [address] [facility], [place], [address], 06/14/2024 08:10:52 06/11/2006/14/2024 UA/M W/RFL X CULTU RE, ROUTI NE pH 8.0 5.0-7. 5 above high normal Not Available [facility] ([facility]) [address] [facility], [place], [address], 06/14/2024 08:10:52 06/11/2006/14/2024 UA/M W/RFL X CULTU RE, ROUTI NE urine-color Yellow yellow Not Available [facility] ([facility]) [address] [facility], [place], [address], 06/14/2024 08:10:52 06/11/2006/14/2024 UA/M W/RFL X CULTU RE, ROUTI NE appearance Cloudy clear abnormal Not Available [facility] ([facility]) [address] [facility], [place], [address], 06/14/2024 08:10:52 06/11/2006/14/2024 UA/M W/RFL X CULTU RE, ROUTI NE WBC esterase Negati ve negati ve Not Available [facility] ([facility]) [address] [facility], [place], [address], 06/14/2024 08:10:52 06/11/2006/14/2024 UA/M W/RFL X CULTU RE, ROUTI NE protein Negati ve negati ve/tra ce Not Available [facility] ([facility]) [address] [facility], [place], [address], 06/14/2024 08:10:52 06/11/20 24 06/14/2024 UA/M W/RFL X CULTU RE, ROUTI NE glucose Negati ve negati ve Not Available [facility] ([facility]) [address] [place], [address], 06/14/2024 08:10:52 06/11/2006/14/2024 UA/M W/RFL X CULTU RE, ROUTI NE ketones Negati ve negati ve Not Available [facility] ([facility]) [address] [facility], [place], [address], 06/14/2024 08:10:52 06/11/2006/14/2024 UA/M W/RFL X CULTU RE, ROUTI NE occult blood Negati ve negati ve Not Available [facility] ([facility]) [address] [place], [address], 06/14/2024 08:10:52 06/11/2006/14/2024 UA/M W/RFL X CULTU RE, ROUTI NE bilirubin Negati ve negati ve Not Available [facility] ([facility]) [address] [place], [address], 06/14/2024 08:10:52 06/11/2006/14/2024 UA/M W/RFL X CULTU RE, ROUTI NE urobilinogen ,semi-qn 0.2 mg/dL 0.2-1. 0 normal Not Available [facility] ([facility]) [address] [place], [address], 06/14/2024 08:10:52 06/11/2006/14/2024 UA/M W/RFL X CULTU RE, ROUTI NE nitrite, urine Negati ve negati ve Not Available [facility] ([facility]) [address] [place], [address], 06/14/2024 08:10:52 06/11/2006/14/2024 UA/M W/RFL X CULTU RE, ROUTI NE microscopic examination Commen t Micro scopi c follo ws if indic ated. Not Available [facility] ([facility]) [address] [facility], [place], [address], 06/14/2024 08:10:52 06/11/20 24 06/14/2024 UA/M W/RFL X CULTU RE, ROUTI NE microscopic examination See below: Micro scopi c was indic ated and was perfo rmed. Not Available [facility] ([facility]) [address] [facility], [place], [address], 06/14/2024 08:10:52 06/11/20 24 06/14/2024 UA/M W/RFL X CULTU RE, ROUTI NE WBC None seen /hpf 0 - 5 Not Available [facility] ([facility]) [address] [facility], [place], [address], 06/14/2024 08:10:52 06/11/20 24 06/14/2024 UA/M W/RFL X CULTU RE, ROUTI NE RBC None seen /hpf 0 - 2 Not Available [facility] ([facility]) [address] [facility], [place], [address], 06/14/2024 08:10:52 06/11/20 24 06/14/2024 UA/M W/RFL X CULTU RE, ROUTI NE epithelial cells (non renal) None seen /hpf 0 - 10 Not Available [facility] ([facility]) [address] [facility], [place], [address], 06/14/2024 08:10:52 06/11/20 24 06/14/2024 UA/M W/RFL X CULTU RE, ROUTI NE epithelial cells (renal) BUSINESS DEVELOPMENT ASSISTANT Not Available [facility] ([facility]) [address] [facility], [place], [address], 06/14/2024 08:10:52 06/11/20 24 06/14/2024 UA/M W/RFL X CULTU RE, ROUTI NE casts None seen /lpf none seen Not Available [facility] ([facility]) [address] [facility], [place], [address], 06/14/2024 08:10:52 06/11/20 24 06/14/2024 UA/M W/RFL X CULTU RE, ROUTI NE cast type BUSINESS DEVELOPMENT ASSISTANT Not Available [facility] ([facility]) [address] [facility], [place], [address], 06/14/2024 08:10:52 06/11/20 24 06/14/2024 UA/M W/RFL X CULTU RE, ROUTI NE crystals BUSINESS DEVELOPMENT ASSISTANT Not Available [facility] ([facility]) [address] [facility], [place], [address], 06/14/2024 08:10:52 06/11/20 24 06/14/2024 UA/M W/RFL X CULTU RE, ROUTI NE crystal type BUSINESS DEVELOPMENT ASSISTANT Not Available [facility] ([facility]) [address] [facility], [place], [address], 06/14/2024 08:10:52 06/11/20 24 06/14/2024 UA/M W/RFL X CULTU RE, ROUTI NE mucus threads BUSINESS DEVELOPMENT ASSISTANT Not Available [facility] ([facility]) [address] [facility], [place], [address], 06/14/2024 08:10:52 06/11/20 24 06/14/2024 UA/M W/RFL X CULTU RE, ROUTI NE bacteria None seen none seen/f ew Not Available [facility] ([facility]) [address] [facility], [place], [address], 06/14/2024 08:10:52 06/11/20 24 06/14/2024 UA/M W/RFL X CULTU RE, ROUTI NE yeast BUSINESS DEVELOPMENT ASSISTANT Not Available [facility] ([facility]) [address] [facility], [place], [address], 06/14/2024 08:10:52 06/11/20 24 06/14/2024 UA/M W/RFL X CULTU RE, ROUTI NE trichomonas BUSINESS DEVELOPMENT ASSISTANT Not Available [facility] ([facility]) [address] [facility], [place], [address], 06/14/2024 08:10:52 06/11/20 24 06/14/2024 UA/M W/RFL X CULTU RE, ROUTI NE comment BUSINESS DEVELOPMENT ASSISTANT Not Available [facility] ([facility]) [address] [facility], [place], [address], 06/14/2024 08:10:52 06/11/20 24 06/14/2024 UA/M W/RFL X CULTU RE, ROUTI NE urinalysis reflex Commen t This speci men will not refle x to a Urine Cultu re. Not Available [facility] ([facility]) [address] [facility], [place], [address], 06/14/2024 08:10:52 06/13/2006/13/2024 [facility] CYTOL OGY results Patie nt Name: LAURIE SCOTT nt : 1964 [...] [facility] , [address], [place] (CLIA #[id number]). Its perfo rmanc e charmaine cteri [...] logis t: Lissette james M.D. Phone #: [phone], On-Ca ll Patho logis t: [id number] Not Available [facility] (Centralized Electronic Ordering - All Locations) Patient Can Go To The Location Of Their Choice, [id number] 06/17/2024 16:43:47 05/20/20 CT, abdom en + pelvi s, w/ contr ast No observ ation record ed. [email or web address] Not Available 2023 17:11:16 06/11/20 24 06/11/2024 US, bladd er No observ ation record ed. [email or web address] [facility] [address], [place], [address], 06/11/2024 18:04:30 06/11/20 24 06/11/2024 US, bladd er US Bladde r Reason : Follow -up bladde r mass on prior CT. COMPAR VALERIA: CT Abdome n and Pelvis 024. FINDIN GS: Bladde r is underd istend ed, limiti ng its evalua tion. Patien t report s [...] evalua tion if [facility]. WSN: [id number] Orderi ng Physic advid: Lisa Fajardo Dictat ed By: Lane Pierre MD Dictat ed Date/T jasmin: 5:25 pm Review ed By: Lane Pierre MD Signed By: Lane Pierre MD Signed Date/T jasmin: 5:25 pm Transc ribed By: LEXIE Transc ribed Date/T jasmin: 2:07 pm Patien t Class: Outpat ient [facility] [address] , [place], [address], 06/11/2024 19:30:51 07/08/20 24 07/08/2024 US, abdom [...] I agree with this report . WSN: [id number] Orderi ng Physic david: Lisa Fajardo ai Dictat ed By: Danielle Javed DO Dictat ed Date/T jasmin: 1:21 pm Review ed By: Lane Pierre MD Signed By: Lane Pierre MD Signed Date/T jasmin: 1:26 pm Transc ribed By: LEXIE Transc ribed Date/T jasmin: 1:18 pm Patien t Class: Outpat ient [facility] ([facility]) [address], [place], [address], 07/08/2024 15:48:46 07/08/20 24 07/08/2024 US, abdom en, limit ed No observ ation record ed. [email or web address] [facility] [address], [place], [address], 07/09/2024 09:49:32 07/16/20 24 07/15/2024 CT, abdom en + pelvi s, w/ contr ast No observ ation record ed. [facility] [address], [place], [address], 07/16/2024 15:48:09 03/03/20 25 03/03/2025 elect rocar diogr am No observ ation record ed. [email or web address] In-Office Order Internal Use Only DO Not Attach Compendium DO Not Attach Compendium, Do Not Delete/merge, [id number] 03/03/2025 15:12:02 03/03/20 elect rocar diogr am No observ ation record ed. NAT In-Office Order Internal Use Only DO Not Attach Compendium DO Not Attach Compendium, Do Not Delete/merge, [id number] 03/03/2025 13:47:23 Result Notes None recorded. Problems Name Problem SNOMED Code Status Onset Date Resolution Date Notes Provider Name and Address Organization Details Recorded Time Acute asthma 523693029 Completed 12/31/2023 Liv Fajardo MD [address], [place], [address], [facility] 4 14:54:02 Chronic headache disorder 881205983 Active follows neurolog y Liv Fajardo MD [address], [place], [address], [facility] 2 14:47:52 Cough 25624946 Completed 01/29/2017 Tiffany stevenson, [facility] 7 14:17:15 Menopaus al symptom 43201854 Completed 09/13/2022 Liv Fajardo MD [address], [place], [address], [facility] 2 14:48:10 Thoracic back pain 665132988 Completed 09/13/2022 Liv Fajardo MD [address], [place], [address], [facility] 2 14:48:24 Inflamma tion of sacroili ac joint 58457717 Active Mikie Samuel PA-C [address], [place], [address], [facility] 6 14:45:33 Inflamma tion of rotator cuff tendon 089833795 Completed 01/29/2017 Tiffnay stevenson, [facility] 7 14:17:24 Acute upper respirat ory infectio n 87785804 Completed 01/29/2017 Tiffany stevenson, [facility] 7 14:17:19 Acute sinusiti s 90180331 Completed 09/13/2016 JOSE GUADALUPE Ortiz [address] [facility], [place], [address], [facility] 5 15:35:52 Increase d blood pressure 17131182 Completed 09/13/2016 Elias brennan MA null, [facility] 6 13:19:07 Epilepsy 80804296 Completed 201105/12/2014 RECORDED 01/19/20 12 1:46PM BY ELIAS CORTEZ MA, ANNOTATI ON/ADDEN DUM Elias brennan MA null, [facility] 8 09:44:39 Multiple sclerosi s 86987221 Completed 201105/12/2014 RECORDED 01/19/20 12 1:46PM BY ELIAS CORTEZ MA, ANNOTATI ON/ADDEN DUM Liv Fajardo MD [address], [facility] [place], [address], [facility] 4 14:55:38 Administ ration of bacteria l and viral vaccine Completed 201105/12/2014 RECORDED 01/19/20 12 1:56PM BY ELIAS CORTEZ MA, OFFICE VISIT Mikie Samuel PA-C [address], [place], [address], [facility] 6 14:45:33 Administ ration of bacteria l and viral vaccine Completed 201106/04/2014 RECORDED 01/19/20 12 1:56PM BY ELIAS CORTEZ MA, OFFICE VISIT Mikie Samuel PA-C [address], [place], [address], [facility] 6 14:45:33 Administ ration of bacteria l and viral vaccine Completed 201106/05/2014 RECORDED 01/19/20 12 1:56PM BY ELIAS CORTEZ MA, OFFICE VISIT Mikie Samuel PA-C [address], [place], [address], [facility] 6 14:45:33 Screenin g for malignan t neoplasm of breast Completed 201105/12/2014 RECORDED 10/23/20 12 1:54PM BY BUCKY WILSON ON/ADDEN DUM Mikie HERMAN-C [address] [facility] [address], [place], [address], [facility] 6 14:45:34 Neck pain 18210261 Completed 201105/12/2014 RECORDED 10/23/20 12 1:55PM BY BUCKY WILSON ON/ADDEN DUM Mikie HERMAN-C [address] [facility] [address], [place], [address], [facility] 6 14:45:33 Cough 36689538 Completed 201105/12/2014 IMPRESSI ON: PERSISTE NT COUGH. LESS LIKELY TO BE POST-BRO NCHITIC GIVEN THE PROLONGE D DURATION ; RECORDED 10/23/20 12 1:56PM BY BUCKY WILSON ON/ADDEN YEFRI Wray MA null, [facility] 7 14:17:15 Follow-u p encounte r Completed 201105/12/2014 RECORDED 10/23/20 12 1:54PM BY BUCKY WILSON ON/ADDEN DUM iMkie HERMAN-C [address] [facility] [address], [place], [address], [facility] 6 14:45:33 Pain of hip region 20452352 Completed 201105/12/2014 IMPRESSI ON: FROM FALL, TO PT; RECORDED 10/23/20 12 1:55PM BY BUCKY WILSON ON/PRECIOUS DICKEYC [address] [facility] [address], [place], [address], [facility] 6 14:45:33 Skin sensatio n disturba nce 04858923 Completed 201105/12/2014 IMPRESSI ON: PT TO ADDRESS WITH NEW NEUROLOG IST, THEY TOLD HER SHE DOES NOT HAVE MS BUT SHOUDL GET EYARLY MRI'S, PT WILL GET NEW NEUROLOG IST; RECORDED 10/23/20 12 1:54PM BY BUCKY WILSON ON/ADDRADHA HERMAN-C [address], [place], [address], [facility] 6 14:45:33 Shoulder joint pain 131394998 Completed 201105/12/2014 IMPRESSI ON: FROM FALL, PT TO SET UP PT AND START MUSCLE RELAXER; RECORDED 10/23/20 12 1:55PM BY BUCKY WILSON ON/ADDRADHA Samuel PA-C [address], [place], [address], [facility] 6 14:45:33 Increase d frequenc y of urinatio n [id number] Completed 201105/12/2014 RECORDED 10/23/20 12 1:54PM BY BUCKY WILSON ON/ADDRADHA DUM Mikie Samuel PA-C [address], [place], [address], [facility] 6 14:45:33 Wheezing 28090568 Completed 201105/12/2014 RECORDED 10/23/20 12 1:54PM BY BUCKY WILSON ON/PRECIOUS HERMAN-C [address], [place], [address], [facility] 6 14:45:33 Screenin g for malignan t neoplasm of breast Completed 201106/04/2014 RECORDED 10/23/20 12 1:54PM BY BUCKY WILSON ON/PRECIOUS HERMAN-C [address], [place], [address], [facility] 6 14:45:34 Neck pain 93942585 Completed 201106/04/2014 RECORDED 10/23/20 12 1:55PM BY BUCKY WILSON ON/ADDEN DUM Mikie Samuel PA-C [address] [facility] [address], [facility] [place], [address], [facility] 6 14:45:33 Cough 63051687 Completed 201106/04/2014 IMPRESSI ON: PERSISTE NT COUGH. LESS LIKELY TO BE POST-BRO NCHITIC GIVEN THE PROLONGE D DURATION ; RECORDED 10/23/20 12 1:56PM BY BUCKY WILSON ON/ADDEN DUM Tiffany Wray MA null, [facility] 7 14:17:15 Follow-u p encounte r Completed 201106/04/2014 RECORDED 10/23/20 12 1:54PM BY BUCKY WILSON ON/ADDEN DUM Mikie Samuel PA-C [address] [facility] [address], [facility] [place], [phone], [facility] 6 14:45:33 Pain of hip region [id number] Completed 201106/04/2014 IMPRESSI ON: FROM FALL, TO PT; RECORDED 10/23/20 12 1:55PM BY BUCKY WILSON ON/ADDRADHA DUM Mikie Samuel PA-C [address] [facility] [address], [place], [phone], [facility] 6 14:45:33 Skin sensatio n disturba are [id number] Completed 201106/04/2014 IMPRESSI ON: PT TO ADDRESS WITH NEW NEUROLOG IST, THEY TOLD HER SHE DOES NOT HAVE MS BUT SHOUDL GET EYARLY MRI'S, PT WILL GET NEW NEUROLOG IST; RECORDED 10/23/20 12 1:54PM BY BUCKY WILSON ON/PRECIOUS Samuel PA-C [address] [facility] [address], [place], [address], [facility] 6 14:45:33 Shoulder joint pain [id number] Completed 201106/04/2014 IMPRESSI ON: FROM FALL, PT TO SET UP PT AND START MUSCLE RELAXER; RECORDED 10/23/20 12 1:55PM BY BUCKY WILSON ON/ADDEN DUM Mikie Samuel PA-C [address] [facility] [address], [place], [address], [facility] 6 14:45:33 Increase d frequenc y of urinatio n 627855039 Completed 201106/04/2014 RECORDED 10/23/20 12 1:54PM BY BUCKY WILSON ON/ADDEN DUM Mikie Samuel PA-C [address] [facility] [address], [place], [address], [facility] 6 14:45:33 Wheezing 91548527 Completed 201106/04/2014 RECORDED 10/23/20 12 1:54PM BY BUCKY WILSON ON/ADDEN DUM Mikie Samuel PA-C [address] [facility] [address], [place], [address], [facility] 6 14:45:33 Screenin g for malignan t neoplasm of breast Completed 201106/05/2014 RECORDED 10/23/20 12 1:54PM BY BUKCY WILSON ON/ADDEN DUM Mikie Samuel PA-C [address] [facility] [address], [place], [address], [facility] 6 14:45:34 Neck pain 02606093 Completed 201106/05/2014 RECORDED 10/23/20 12 1:55PM BY BUCKY WILSON ON/ADDEN DUM Mikie Samuel PA-C [address] [facility] [address], [place], [address], [facility] 6 14:45:33 Cough 14121582 Completed 201106/05/2014 IMPRESSI ON: PERSISTE NT COUGH. LESS LIKELY TO BE POST-BRO NCHITIC GIVEN THE PROLONGE D DURATION ; RECORDED 10/23/20 12 1:56PM BY BUCKY WILSON ON/ADDEN DUM Tiffany Wray MA null, [facility] 7 14:17:15 Follow-u p encounte r Completed 201106/05/2014 RECORDED 10/23/20 12 1:54PM BY BUCKY WILSON ON/ADDEN DUM Mikie HERMAN-C [address], [place], [address], [facility] 6 14:45:33 Pain of hip region 57844785 Completed 201106/05/2014 IMPRESSI ON: FROM FALL, TO PT; RECORDED 10/23/20 12 1:55PM BY BUCKY WILSON ON/PRECIOUS HERMAN-C [address] [facility] [address], [place], [address], [facility] 6 14:45:33 Skin sensatio n disturba are 37988141 Completed 201106/05/2014 IMPRESSI ON: PT TO ADDRESS WITH NEW NEUROLOG IST, THEY TOLD HER SHE DOES NOT HAVE MS BUT SHOUDL GET EYARLY MRI'S, PT WILL GET NEW NEUROLOG IST; RECORDED 10/23/20 12 1:54PM BY BUCKY WILSON ON/ADDRADHA DUM Mikie HERMAN-C [address] [facility] [address], [place], [address], [facility] 6 14:45:33 Shoulder joint pain 777273519 Completed 201106/05/2014 IMPRESSI ON: FROM FALL, PT TO SET UP PT AND START MUSCLE RELAXER; RECORDED 10/23/20 12 1:55PM BY BUCKY WILSON ON/PRECIOUS HERMAN-C [address] [facility] [address], [place], [address], [facility] 6 14:45:33 Increase d frequenc y of urinatio n 482691137 Completed 201106/05/2014 RECORDED 10/23/20 12 1:54PM BY BUCKY WILSON ON/ADDEN DUM Mikie Samuel PA-C [address] [facility] [address], [place], [address], [facility] 6 14:45:33 Wheezing 64849798 Completed 201106/05/2014 RECORDED 10/23/20 12 1:54PM BY YISSEL WILSONATI ON/ADDEN DUM Mikie Samuel PA-C [address] [facility] [address], [place], [address], [facility] 6 14:45:33 Influenz a vaccine needed [id number] 06 Completed 201205/12/2014 RECORDED 01/07/20 13 1:14PM BY ELIAS CORTEZ MA, YISSELATI ON/ADDEN DUM Mikie Samuel PA-C [address] [facility] [address], [place], [address], [facility] 6 14:45:33 Influenz a vaccine needed 24393638791 06 Completed 201206/04/2014 RECORDED 01/07/20 13 1:14PM BY ELIAS CORTEZ MA, BUCKY ON/ADDEN DUM Mikie Samuel PA-C [address] [facility] [address], [place], [address], [facility] 6 14:45:33 Influenz a vaccine needed 73699566149 06 Completed 201206/05/2014 RECORDED 01/07/20 13 1:14PM BY ELIAS CORTEZ MA, YISSELATI ON/ADDEN DUM Mikie Samuel PA-C [address] [facility] [address], [place], [address], [facility] 6 14:45:33 Malaise and fatigue 496057560 Completed 201205/12/2014 RECORDED 02/16/20 13 9:57AM BY SERENITY ROLAND MA, ANNOTATI ON/ADDEN DUM Mikie Samuel PA-C [address] [facility] [address], [place], [address], [facility] 6 14:45:33 Renewal of prescrip tion Completed 201205/12/2014 RECORDED 02/16/20 13 9:57AM BY SERENITY ROLAND MA, ANNOTATI ON/ADDEN DUM Mikie Samuel PA-C [address], [place], [address], [facility] 6 14:45:33 Chest pain 05331105 Completed 201205/12/2014 RECORDED 02/16/20 13 9:56AM BY SERENITY ROLAND MA, ANNOTATI ON/ADDEN DUM Mikie Samuel PA-C [address], [place], [address], [facility] 6 14:45:33 Malaise and fatigue 360840974 Completed 201206/04/2014 RECORDED 02/16/20 13 9:57AM BY SERENITY ROLAND MA, ANNOTATI ON/ADDEN DUM Mikie Samuel PA-C [address], [place], [address], [facility] 6 14:45:33 Renewal of prescrip tion Completed 201206/04/2014 RECORDED 02/16/20 13 9:57AM BY SERENITY ROLAND MA, ANNOTATI ON/ADDEN DUM Mikie Samuel PA-C [address], [place], [address], [facility] 6 14:45:33 Chest pain 76814832 Completed 201206/04/2014 RECORDED 02/16/20 13 9:56AM BY SERENITY ROLAND MA, ANNOTATI ON/ADDEN DUM Mikie Samuel PA-C [address], [place], [address], [facility] 6 14:45:33 Malaise and fatigue 963713467 Completed 201206/05/2014 RECORDED 02/16/20 13 9:57AM BY SERENITY ROLAND MA, ANNOTATI ON/ADDEN DUM Mikie Samuel PA-C [address], [place], [address], [facility] 6 14:45:33 Renewal of prescrip tion Completed 201206/05/2014 RECORDED 02/16/20 13 9:57AM BY SERENITY ROLAND MA, ANNOTATI ON/ADDEN DUM Mikie Samuel PA-C [address], [place], [address], [facility] 6 14:45:33 Chest pain 72096686 Completed 201206/05/2014 RECORDED 02/16/20 13 9:56AM BY SERENITY ROLAND MA, ANNOTATI ON/ADDEN DUM Mikie Samuel PA-C [address], [place], [address], [facility] 6 14:45:33 Adult health examinat ion Completed 201205/12/2014 RECORDED 02/26/20 13 4:42PM BY ELIAS CORTEZ MA, ANNOTATI ON/ADDEN DUM Mikie Samuel PA-C [address], [place], [address], [facility] 6 14:45:33 Patient status finding [id number] Completed 201205/12/2014 RECORDED 02/26/20 13 1:14PM BY DAWN FOWLER MA, ANNOTATI ON/ADDEN DUM Mikie Samuel PA-C [address], [place], [address], [facility] 6 14:45:33 Chronic sinusiti s 04356721 Completed 201205/12/2014 RECORDED 02/26/20 13 1:14PM BY DAWN FOWLER MA, ANNOTATI ON/ADDEN DUM Mikie Almeidaden PA-C [address], [place], [address], [facility] 6 14:45:33 Adult health examinat ion Completed 201206/04/2014 RECORDED 02/26/20 13 4:42PM BY ELIAS CORTEZ MA, ANNOTATI ON/ADDEN DUM Mikie Samuel PA-C [address], [place], [address], [facility] 6 14:45:33 Chronic sinusiti s 19612450 Completed 201206/04/2014 RECORDED 02/26/20 13 1:14PM BY DAWN FOWLER MA, ANNOTATI ON/ADDEN DUM Mikie Samuel PA-C [address], [place], [address], [facility] 6 14:45:33 Adult health examinat ion Completed 201206/05/2014 RECORDED 02/26/20 13 4:42PM BY ELIAS CORTEZ MA, ANNOTATI ON/ADDEN DUM Mikie Samuel PA-C [address], [place], [address], [facility] 6 14:45:33 Chronic sinusiti s 79516903 Completed 201206/05/2014 RECORDED 02/26/20 13 1:14PM BY DAWN FOWLER MA, ANNOTATI ON/ADDEN DUM Mikie Samuel PA-C [address], [place], [address], [facility] 6 14:45:33 Anemia 868069875 Completed 201205/12/2014 RECORDED 10/14/20 13 3:55PM BY NICK CIFUENTES MD, ANNOTATI ON/ADDEN DUM Mikie Samuel PA-C [address], [place], [address], [facility] 6 14:45:33 Laborato ry procedur e performe d 528810906 Completed 201205/12/2014 RECORDED 10/14/20 13 3:15PM BY ELIAS CORTEZ MA, ANNOTATI ON/ADDEN DUM Mikie Samuel PA-C [address] [facility] [address], [place], [address], [facility] 6 14:45:33 Acute sinusiti s 12895892 Completed 201205/12/2014 RECORDED 10/14/20 13 3:15PM BY ELIAS CORTEZ MA, ANNOTATI ON/ADDEN DUM JOSE GUADALUPE Ortiz [address] [facility] [address], [place], [address], [facility] 5 15:35:52 Disorder of skin and/or subcutan eous tissue 84259035 Completed 201205/12/2014 IMPRESSI ON: SEE ABOVE NOTE, UNCLEAR CAUSE, PT TO SET UP APPT WITH DERM, URIEL IF WORSENS; RECORDED 10/14/20 13 3:15PM BY ELIAS CORTEZ MA, ANNOTBEBETO ON/ADDEN DUM Mikie Samuel PA-C [address] [facility] [address], [place], [address], [facility] 6 14:45:33 Disorder of pharynx 36028878 Completed 201205/12/2014 IMPRESSI ON: FOR A MONTH LIMIT PHONE WORK TO 3 HOURS A DAY TO LIMIT THROAT IRRITATI ON; RECORDED 10/14/20 13 3:15PM BY ELIAS CORTEZ MA, BUCKY ON/ADDRADHA Samule PA-C [address] [facility] [address], [place], [address], [facility] 6 14:45:34 Abnormal involunt shaka movement 371009555 Completed 201205/12/2014 IMPRESSI ON: WE DISCUSSE D THAT NEUROLOG Y NEEDS TO TREAT HER TREMORS. SHE HAS ASKED THAT WE CALL HER NEUROLOG IST. I WILL CALL; RECORDED 10/14/20 13 3:15PM BY ELIAS CORTEZ MA, BUCKY ON/ADDRADHA HERMAN-C [address], [place], [address], [facility] 6 14:45:33 Anemia 539425484 Completed 201206/04/2014 RECORDED 10/14/20 13 3:55PM BY NICK CIFUENTES MD, BUCKY ON/ADDRADHA HERMAN-C [address], [place], [address], [facility] 6 14:45:33 Laborato ry procedur e performe d 644002957 Completed 201206/04/2014 RECORDED 10/14/20 13 3:15PM BY ELIAS CORTEZ MA, BUCKY ON/ADDRADHA DUM Mikie HERMAN-C [address], [place], [address], [facility] 6 14:45:33 Acute sinusiti s 50982811 Completed 201206/04/2014 RECORDED 10/14/20 13 3:15PM BY ELIAS CORTEZ MA, BUCKY ON/ADDEN DUM JOSE GUADALUPE Ortiz [address] [facility] [address], [place], [address], [facility] 5 15:35:52 Disorder of skin and/or subcutan eous tissue 64959407 Completed 201206/04/2014 IMPRESSI ON: SEE ABOVE NOTE, UNCLEAR CAUSE, PT TO SET UP APPT WITH DERM, URIEL IF WORSENS; RECORDED 10/14/20 13 3:15PM BY ELIAS CORTEZ MA, BUCKY ON/PRECIOUS HERMAN-C [address], [place], [address], [facility] 6 14:45:33 Disorder of pharynx 00739529 Completed 201206/04/2014 IMPRESSI ON: FOR A MONTH LIMIT PHONE WORK TO 3 HOURS A DAY TO LIMIT THROAT IRRITATI ON; RECORDED 10/14/20 13 3:15PM BY ELIAS CORTEZ MA, BUCKY ON/PRECIOUS Samuel PA-C [address] [facility] [address], [place], [address], [facility] 6 14:45:34 Abnormal involunt shaka movement 769623757 Completed 201206/04/2014 IMPRESSI ON: WE DISCUSSE D THAT NEUROLOG Y NEEDS TO TREAT HER TREMORS. SHE HAS ASKED THAT WE CALL HER NEUROLOG IST. I WILL CALL; RECORDED 10/14/20 13 3:15PM BY ELIAS CORTEZ MA, BUCKY ON/PRECIOUS DICKEYC [address] [facility] [address], [place], [address], [facility] 6 14:45:33 Anemia 369041363 Completed 201206/05/2014 RECORDED 10/14/20 13 3:55PM BY NICK CIFUENTES MD, BUCKY ON/PRECIOUS Samuel PA-C [address] [facility] [address], [place], [address], [facility] 6 14:45:33 Laborato ry procedur e performe d 408598527 Completed 201206/05/2014 RECORDED 10/14/20 13 3:15PM BY ELIAS CORTEZ MA, BUCKY ON/PRECIOUS Samuel PA-C [address] [facility] [address], [place], [address], [facility] 6 14:45:34 Acute sinusiti s 67854435 Completed 201206/05/2014 RECORDED 10/14/20 13 3:15PM BY ELIAS CORTEZ MA, BUCKY ON/JOSE GUADALUPE Britt [address] [facility] [address], [place], [address], [facility] 5 15:35:52 Disorder of skin and/or subcutan eous tissue 14613997 Completed 201206/05/2014 IMPRESSI ON: SEE ABOVE NOTE, UNCLEAR CAUSE, PT TO SET UP APPT WITH DERM, URIEL IF WORSENS; RECORDED 10/14/20 13 3:15PM BY ELIAS CORTEZ MA, BUCKY ON/PRECIOUS Samuel PA-C [address] [facility] [address], [place], [address], [facility] 6 14:45:33 Disorder of pharynx 09462028 Completed 201206/05/2014 IMPRESSI ON: FOR A MONTH LIMIT PHONE WORK TO 3 HOURS A DAY TO LIMIT THROAT IRRITATI ON; RECORDED 10/14/20 13 3:15PM BY ELIAS CORTEZ MA, BUCKY ON/PRECIOUS Samuel PA-C [address] [facility] [address], [place], [address], [facility] 6 14:45:34 Abnormal involunt shaka movement 436287527 Completed 201206/05/2014 IMPRESSI ON: WE DISCUSSE D THAT NEUROLOG Y NEEDS TO TREAT HER TREMORS. SHE HAS ASKED THAT WE CALL HER NEUROLOG IST. I WILL CALL; RECORDED 10/14/20 13 3:15PM BY ELIAS CORTEZ MA, BUCKY ON/PRECIOUS Samuel PA-C [address] [facility] [address], [place], [address], [facility] 6 14:45:33 Mammogra phy abnormal 627165518 Completed 201305/12/2014 RECORDED 02/20/20 14 3:15PM BY ELIAS CORTEZ MA, ANNOTATI ON/ADDEN DUM Mikie Samuel PA-C [address], [place], [address], [facility] 6 14:45:33 Dizzines s and giddines s 642739966 Completed 201305/12/2014 IMPRESSI ON: THERE SEEMS TO BE NO CHANGE FROM HER BASELINE AND HER EXAM IS NORMAL.; RECORDED 02/20/20 14 3:15PM BY ELIAS CORTEZ MA, ANNOTATI ON/ADDEN DUM Mikie Samuel PA-C [address], [place], [address], [facility] 6 14:45:33 Headache 08803391 Completed 201305/12/2014 RECORDED 02/20/20 14 3:15PM BY ELIAS CORTEZ MA, ANNOTATI ON/ADDEN DUM Mikie Samuel PA-C [address], [place], [address], [facility] 6 14:45:33 Pre-surg raymundo evaluati on Completed 201305/12/2014 RECORDED 02/20/20 14 3:15PM BY ELIAS CORTEZ MA, ANNOTATI ON/ADDEN DUM Mikie Samuel PA-C [address], [place], [address], [facility] 6 14:45:34 Mammogra phy abnormal 594755325 Completed 201306/04/2014 RECORDED 02/20/20 14 3:15PM BY ELIAS CORTEZ MA, ANNOTATI ON/ADDEN DUM Mikie Samuel PA-C [address], [place], [address], [facility] 6 14:45:33 Dizzines s and giddines s 410620634 Completed 201306/04/2014 IMPRESSI ON: THERE SEEMS TO BE NO CHANGE FROM HER BASELINE AND HER EXAM IS NORMAL.; RECORDED 02/20/20 14 3:15PM BY ELIAS CORTEZ MA, ANNOTATI ON/ADDEN DUM Mikie Samuel PA-C [address], [place], [address], [facility] 6 14:45:33 Headache 80442765 Completed 201306/04/2014 RECORDED 02/20/20 14 3:15PM BY ELIAS CORTEZ MA, ANNOTATI ON/ADDEN DUM Mikiemary Almeidaden PA-C [address], [place], [address], [facility] 6 14:45:33 Pre-surg raymundo evaluati on Completed 201306/04/2014 RECORDED 02/20/20 14 3:15PM BY ELIAS CORTEZ MA, ANNOTATI ON/ADDEN DUM Mikie Samuel PA-C [address], [place], [address], [facility] 6 14:45:34 Mammogra phy abnormal 400870924 Completed 201306/05/2014 RECORDED 02/20/20 14 3:15PM BY ELIAS CORTEZ MA, ANNOTATI ON/ADDEN DUM Mikie Samuel PA-C [address], [place], [address], [facility] 6 14:45:33 Dizzines s and giddines s 078833279 Completed 201306/05/2014 IMPRESSI ON: THERE SEEMS TO BE NO CHANGE FROM HER BASELINE AND HER EXAM IS NORMAL.; RECORDED 02/20/20 14 3:15PM BY ELIAS CORTEZ MA, ANNOTATI ON/ADDEN DUM Mikie Samuel PA-C [address], [place], [address], [facility] 6 14:45:33 Headache 14089635 Completed 201306/05/2014 RECORDED 02/20/20 14 3:15PM BY ELIAS CORTEZ MA, ANNOTATI ON/ADDEN DUM Mikie Samuel PA-C [address], [place], [address], [facility] 6 14:45:33 Pre-surg raymundo evaluati on Completed 201306/05/2014 RECORDED 02/20/20 14 3:15PM BY ELIAS CORTEZ MA, ANNOTATI ON/ADDEN DUM Mikie Samuel PA-C [address], [place], [address], [facility] 6 14:45:34 Posttrau matic headache 10426591 Completed 201305/12/2014 RECORDED 03/02/20 14 1:27PM BY ANDRZEJ IBRAHIM MA, ANNOTATI ON/ADDEN DUM Mikie Samuel PA-C [address], [place], [address], [facility] 6 14:45:33 Posttrau matic headache 96650435 Completed 201306/04/2014 RECORDED 03/02/20 14 1:27PM BY ANDRZEJ IBRAHIM MA, ANNOTATI ON/ADDEN DUM Mikie Samuel PA-C [address], [place], [address], [facility] 6 14:45:33 Posttrau matic headache 03573026 Completed 201306/05/2014 RECORDED 03/02/20 14 1:27PM BY ANDRZEJ IBRAHIM MA, ANNOTATI ON/ADDEN DUM Mikie Samuel PA-C [address], [place], [address], [facility] 6 14:45:33 Allergic rhinitis 76086949 Completed 201301/29/2017 RECORDED 03/27/20 14 3:49PM BY SERENITY ROLAND MA, OFFICE VISIT Tiffany stevenson, [facility] 7 14:17:27 Hypertro phy of breast 786324026 Completed 201303/04/2022 Liv Fajardo MD [address], [facility] [place], [address], [facility] 2 14:21:43 Major depressi on single episode, in partial remissio n 47558864 Active 2013 DX: F32.4 Ofelia stevenson, [facility] 0 16:02:20 Epilepsy 67064055 Active 2013 RYANN Silvestre, [facility] 8 09:44:39 Gastroes ophageal reflux disease 397925063 Active 2013 RYANN Silvestre, [facility] 6 13:19:02 Hyperlip idemia 49158026 Active 2013 11.19 - ascvd risk 3.6% Mikie Samuel PA-C [address] [facility] [address], [facility] [place], [address], [facility] 9 13:45:01 Thyrotox icosis 07292671 Active 2013 STORY: FOLLOWED BY RYANN Mcgee, [facility] 8 09:44:46 Insomnia 953276906 Active 2013 RYANN Silvestre, [facility] 6 13:18:51 Irritabl e bowel syndrome 04297854 Active 2013 RYANN Silvestre, [facility] 6 13:18:38 Asthma 228374967 Active 2013 STORY: FOLLOWED BY RYANN Chance, [facility] 6 13:18:58 Multiple sclerosi s 40385832 Completed 201312/31/2023 Liv Fajardo MD [address], [place], [address], [facility] 4 14:55:38 Postconc ussion syndrome 02412574 Completed 201312/31/2023 Mikie Samuel PA-C [address], [place], [address], [facility] 5 16:02:11 Syncope and collapse 911175642 Completed 201301/29/2017 IMPRESSI ON: DUE TO BLOOD DONATION , NEG WORKUP FOR OTHER CAUSES, BP IS STABLE, NO FURTHER BLOOD DRAWS, NO DRIVING WHILE ON PAIN MEDS AND HAS SUCH SHOUDLER PAIN; RECORDED 03/27/20 14 3:49PM BY SERENITY ROLAND MA, OFFICE VISIT Tiffany stevenson, [facility] 7 14:17:03 Non-toxi c uninodul ar goiter 422336190 Active 2013 RYANN Silvestre, [facility] 6 13:18:48 Obesity 981506006 Active 2018 Ofelia stevenson [facility] 9 16:45:45 Anxiety 29902812 Active 2020 Liv Fajardo MD [address], [place], [address], [facility] 1 18:28:09 Osteopor osis 51211079 Active 2021 Liv Fajardo MD [address], [place], [address], [facility] 2 14:32:37 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 28893370067 567793 Active 2021 follows breast center Liv Fajardo MD [address], [place], [address], [facility] 2 14:21:54 Gastropa resis syndrome 005995244 Active 2021 Mikie Samuel PA-C [address], [place], [address], [facility] 2 13:42:35 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 054359270 Active 2022 Liv Fajardo MD [address], [place], [address], [facility] 3 17:39:21 Obstruct juan sleep apnea syndrome 67552179 Active 2023 Liv Fajardo MD [address], [place], [address], [facility] 4 07:27:30 Acute sinusiti s 15917570 Active 2024 Sotero Cao [facility] [address] [facility] [address], [place], [address], [facility] 5 15:35:52 Mass of right adrenal gland 80530130219 933099 Active 2024 Yonny Heredia MD [address], [place], [address], [facility] 5 12:03:03 Essentia l hyperten spenser 65968747 Active 2024 Yonny Heredia MD [address], [place], [address], [facility] 5 12:52:08 Tachycar maya 2519265 Active 2024 Yonny Heredia MD [address], [place], [address], [facility] 5 12:53:42 Postconc ussion syndrome 41165630 Active 2024 Mikie Samuel PA-C [address] [address], [place], [address], [facility] 5 16:02:11 Notes:Some problems listed i n Documents: #[id number], #[id number], #[id number] could not be added to this patient's chart. Please review these documents and add these problems to the patient's chart manually as needed. Problem Notes None recorded. Procedures Surgical History Date Name Laterality Status Provider Name and Address Organization Details Recorded Time 023 Suture/Staple removal completed Liv Fajardo MD [address] [address], [place], [address], [facility] 04/02/2023 14:53:12 023 Suture/Staple removal completed Liv Fajardo MD [address] [address], [place], [address], [facility] 03/27/2023 14:58:04 023 Suture/Staple removal completed Caprice Cheney [facility] 03/23/2023 08:04:07 023 Dressing Change completed Caprice Cheney [facility] 03/23/2023 08:02:30 022 EGD completed Juliana Real [facility] 05/11/2022 15:28:09 021 laryngoscopy completed Juliana Real [facility] 08/23/2021 14:30:55 021 Most Recent Mammogram completed Juliana Real [facility] 12/07/2020 15:12:02 021 Mammogram Screening completed Juliana Rael [facility] 12/07/2020 15:11:50 019 Mammogram one breast completed Serina Chapman [facility] 04/02/2019 09:37:05 019 Most Recent Bone Density completed Serinaclay Chapman [facility] 03/26/2019 10:16:32 019 Dxa bone density nader vrt fx completed Serina Chapman [facility] 03/26/2019 10:16:27 019 Date of Last Pap Smear completed Serina Ari [facility] 07/24/2019 15:05:30 016 excision of intra-abdominal mass completed Elias Lucero MA [facility] 08/15/2021 13:53:40 016 Date of Last Colonoscopy completed Juliana Real [facility] 11/23/2015 09:28:38 016 Colonoscopy completed Juliana Real [facility] 11/23/2015 09:28:38 015 Joint Injection completed Nick Cifuentes MD [address] [address], [place], [address], [facility] 08/24/2015 14:54:08 013 Thyroid Surgery completed Dawn Fowler MA [facility] 08/18/2022 12:53:35 013 Gastrointestinal Surgery completed Dawn Fowler MA [facility] 08/18/2022 12:53:36 Imaging Results None recorded. Procedure Notes None recorded. Medical Equipment None Reported. Allergies Allergen ID Allergen Name Allergen Category Reaction Reaction Severity Criticality Documentation Date Start Date Code Code System Note Provider Name and Address Organization Details Recorded Time 3124 Demerol medicatio n angioedem a Not available Not available 05/12/20142013 77651 1 RxNorm arm swell ing RYANN Silvestre [facility] 5 14:10:49 Medications Name Sig Start Date Stop Date Status Note LastModified by Organization Details LastModified Time verapamil ER (SR) 120 mg tablet,ex tended release Take 1 tablet every day by oral route. 2024 active Not Available Not Available Not Avai lable celecoxib 200 mg capsule 1 in am 1 in pm 03/03 completed Not Available Not Available Not Available cyclobenz aprine 10 mg tablet 03/03 completed Not Available Not Available Not Available amoxicill in 500 mg capsule TAKE 1 TABLET 3 TIMES A DAY UNTIL GONE 12/30 completed Not Available Not Available Not Available oxcarbaze pine 150 mg tablet THREE TIMES DAILY active RECORDED 03/02/20 14 1:27PM BY ANDRZEJ IBRAHIM MA, OFFICE VISIT;PE R NEUROLOG IST Not Available Not Available Not Available prednison e 10 mg tablet Take 4 tablets by mouth daily for 3 days, then 3 tablets by mouth daily for 3 days, then 2 tablets by mouth daily for 3 days, then 1 tablet by mouth daily. 03/03 completed Not Available Not Available Not Available doxycycli ne hyclate 100 mg capsule [...] TABLET BY MOUTH TWICE A DAY NEEDED 2024 active Not Available Not Available Not Avai lable albuterol sulfate 2.5 mg/3 mL (0.083 %) [...] Not Available prednison e 20 mg tablet Take 2 tablets every day by oral route as directed for 5 days. 01/12 completed Not Available Not Available Not Available [...] day by oral route as directed . 05/06 completed Not Available Not Available Not Available verapamil 120 mg tablet TAKE ONE TABLET BY MOUTH EVERY DAY 05/06 completed Not Available Not Available Not Available levothyro xine 100 mcg tablet TAKE ONE TABLET BY MOUTH 6 DAYS PER WEEK AND 1 AND 1/2 TABLETS BY MOUTH 1 DAY PER WEEK 2024 active Not Available Not Available Not Avai lable Mobic 15 mg tablet Take 1 tablet [...] active Not Available Not Available Not Available cephalexi n 500 mg capsule Take 1 capsule every 8 hours by oral route for 5 days. 02/18 completed Not Available Not Available Not Available pantopraz [...] twice a day by inhalati on route. 08/15 completed Not Available Not Available Not Available methimazo le 5 mg tablet DAILY active RECORDED 03/02/20 14 1:27PM BY ANDRZEJ IBRAHIM MA, OFFICE VISIT;DR Charla ZIMMERMAN Not Available Not Available Not Available betametha sone dipropion ate 0.05 % topical cream USE 1 APPLICAT ION TWICE DAILY FOR 14 DAYS active Not Available Not Available No t Available docusate sodium 100 mg capsule THREE TIMES PER WEEK 2012 active RECORDED 03/02/20 14 1:27PM BY ANDRZEJ IBRAHIM MA, OFFICE VISIT; Not Available Not [...] 11/16/19 11 4:04PM BY VONNIE LAW, OFFICE VISIT;CARLOS TH 150MG DOSE Not Available Not Available [...] Available Not Available Nasonex 50 mcg/actua tion Weatherby Weatherby 2 sprays every day by intranas al [...] completed Not Available Not Available Not Available ketoconaz ole 2 % topical cream Apply 1 applicat ion every day by topical route for 14 days. 2024 active Not Available Not Available Not Avai lable oxybutyni n chloride 5 mg tablet Take 1 tablet every day by oral route for 90 days. 06/28 completed Not Available Not Available Not Available ondansetr on 4 mg disintegr ating tablet Place 1 tablet 3 times a day by translin gual route as needed for 5 days. 2024 active Not Available Not Available Not Avai lable fluoxetin e 20 mg capsule TAKE ONE [...] tablet twice a day by oral route with meal(s) for 10 days. 02/06 completed Not Available Not Available Not Available naproxen 500 mg tablet 03/13 completed Not Available Not Available Not Available amoxicill in 875 mg-potass ium clavulana te 125 mg tablet Take 1 tablet every 12 hours by oral route for 10 days. 11/19 completed Not Available Not Available Not Available [...] 5 mg tablet 1 po bid active prn Not Available Not Available N ot Available [...] DAILY active RECORDED 03/02/20 14 1:27PM BY ANDRZEJ IBRAHIM MA, OFFICE VISIT; Not Available Not [...] DAILY active RECORDED 03/02/20 14 1:27PM BY ANDRZEJ IBRAHIM MA, OFFICE VISIT; Not Available Not Available Not Available Mucinex active RECORDED 03/27/20 14 4:39PM BY NICK CIFUENTES MD, OFFICE VISIT; Not Available Not Available Not Available fluticaso ne propionat e 115 mcg-salme terol 21 mcg/actua tion HFA inhaler active Not Available Not Available Not Available Advair HFA 230 mcg-21 mcg/actua tion aerosol inhaler Inhale 2 puffs twice a day by inhalati on route. active Not Available Not Available No t Available Advair HFA TWO TIMES DAILY active RECORDED 03/02/20 14 1:27PM BY ANDRZEJ IBRAHIM MA, OFFICE VISIT;DR Charla Ang Not [...] Available Prolia 60 mg/mL subcutane ous syringe 02/06 completed Not Available Not Available Not Available Probiotic [...] 300 mg tablet,ex tended release 24 hr 03/03 completed Not Available Not Available Not Available melatonin 10 mg tablet Take 1 tablet every day by oral route at bedtime. active Not Available Not Available No t Available Combivent Respimat 20 mcg-100 mcg/actua tion solution for inhalatio n Inhale 1 puff 4 times a day by inhalati on route for 90 days. active per patient uses 2-23 times daily Not Available Not Available Not Available Chlorella 500 mg PO 3 PO TWO TIMES DAILY 11/20 completed Not Available Not Available Not Available Breo Ellipta 200 mcg-25 mcg/dose powder for inhalatio n 1 puff am and 1 pm 11/19 completed Not Available Not Available Not Available Restasis MultiDose 0.05 % eye drops [...] Not Available Vitals Date Recorded Body height Provider Name an d Address Organization Details Last Updated DateTime 11/19/2024 163.2 cm Magnolia Bowers MA [facility] 11/19/2024 15:25:05 Date Recorded Body height Provider Name an d Address Organization Details Last Updated DateTime 02/06/2025 163.2 cm Magnolia Bowers [facility] 02/06/2025 14:14:49 Date Recorded Heart rate Systolic And Diastolic Provider Name and Address Organization Details Last Updated DateTime 03/03/2025 98 /min 139/91 mm[Hg] Yonny Heredia MD [address], [place], [address], [facility] 03/03/2025 12:00:48 Date Recorded Body height Body mass index (BMI) Body weight Heart rate Oxygen saturation Oxygen saturation in Arterial blood by Pulse oximetry Body temperature Systolic And Diastolic Provider Name and Address Organization Details Last Updated DateTime 163.2 cm 31.3 kg/m2 02820 g 102 /min 96 % 96 % 97.4 [degF] 142/89 mm[Hg] Ava Beck MA [facility] 11:31:15 Date Recorded Body height Body mass index (BMI) Body weight Oxygen saturation Oxygen saturation in Arterial blood by Pulse oximetry Heart rate Body temperature Systolic And Diastolic Provider Name and Address Organization Details Last Updated DateTime 163.2 cm 32.5 kg/m2 55535.1 4 g 97 % 97 % 80 /min 97.5 [degF] 127/83 mm[Hg] Vonnie Law MA [facility] 15:34:54 Date Recorded Body height Provider Name an d Address Organization Details Last Updated DateTime 05/21/2024 163.2 cm Vonnie Law MA [facility] 05/21/2024 11:43:45 Social History Question Answer Notes LastModified by Organizat ion Details LastModified Time Tobacco Smoking Status Never Smoker Elias Lucero MA null, [facility] 05/19/2014 14:49:38 Do You Have An Advance Directive? Yes Information not available 09/13/2022 Is Blood Transfusion Acceptable In An Emergency? Yes Information not available 09/29/2015 What Is Your Level Of Caffeine Consumption? Moderate Coffee 2x Day Information not available 05/19/2014 How Much Tobacco Do You Chew? None Information not available 08/24/2015 What Type Of Diet Are You Following? SPECIFIC Very Small Portions Due To Gastroparesis Information not available 12/31/2023 Which Illicit Or Recreational Drugs Have You Used? Medical Marijuana Medical Marijuana Card Information not available 08/15/2021 Do You Take [...] Health Care Provider Or Emergency Responder? No [email or web address] Information not available 08/11/2020 To The Best Of Your Knowledge Have You Been In Close Proximity To Any Individual Who Tested Positive For COVID-19? No [email or web address] Information not available 08/11/2020 *AWV ONLY* Are [...] To Smoke? No Information not available 08/24/2015 How Much Tobacco Do You Smoke? No Information not available 08/24/2015 Do You Use Sunscreen Routinely? Yes Information not available 09/29/2015 How Many Years Have You Smoked Tobacco? 0 Information not available 08/24/2015 Sex: Unknown Functional Status Question Answer Note LastModified by [employer] [place] ion Details LastModified Time Do you use any illicit or recreational drugs? Yes Information not available 09/13/2022 Do you or have you ever used any other forms of tobacco or nicotine? No Information not available 09/13/2022 What is your level of alcohol consumption? Occasional social outings Information not available 05/19/2014 Do you or have you ever used smokeless tobacco? Never used smokeless tobacco rkanu Information not available 07/07/2019 Are you currently employed? No Information not available 08/31/2014 Are you able to walk? YESWOREST Information not available 09/13/2022 Are you able to care for yourself? Yes Information not available 05/19/2014 What is your occupation? Disability since 2013 Information not available 08/15/2021 Do you or have you ever used e-cigarettes or vape? Never used electronic cigarettes Information not available 09/13/2022 What is your exercise level? None Information [...] Not available 11/2014 10:28:54 Maternal Aunt Malignant neoplasm of ovary [email or web address] Not available 11/2014 10:28:54 Brother Malignant lymphoma 56 Not available 2021 13:59:56 Brother Carcinoma in situ of body of stomach 2nd to lympho ma [email or web address] s Not available 12/31/2023 14:46:35 Unspecified Relation Blood coagulation disorder [email or web address] Not available 2021 12:53:16 Medical History Condition Response Gout N Other N Kidney Stones N Blood Diseases N Hyperthyroidism N Breast Cancer N COPD Y Depression N Lung Disease N Hypothyroidism Y Defects or Inherited Disease N Anesthesia Complications N Headaches/Migraines Y Anxiety Disorder N Varicose Veins N Obesity N Vision or Eye Problems N Arthritis N Head Injury/Concussion Y Polyps N Infertility N Congenital Anomalies N Acid Reflux (GERD) [...] Total 0 Immunizations Vaccine Type Date Status Note Provider Nam e and Address Organization Details Recorded Time Influenza, split virus, trivalent, preservative 6 [facility] 13:22:20 Influenza, split virus, quadrivalent, preservative 7 [facility] 02/04/2018 13:39:59 Influenza, split virus, quadrivalent, preservative 9 [facility] 05/24/2022 15:17:51 COVID-19, mRNA, LNP-S, PF, 30 mcg/0.3 mL dose 1 completed [facility] 08/15/2021 13:59:09 COVID-19, mRNA, LNP-S, PF, 30 mcg/0.3 mL dose 1 completed [facility] 08/15/2021 13:58:59 pneumococcal polysaccharide PPV23 2 completed [facility] 03/23/2022 14:40:14 Influenza, split virus, quadrivalent, PF 1 [facility] 05/24/2022 15:17:50 Influenza, split virus, quadrivalent, PF 0 completed RYANN Alberts, [facility] 05/24/2022 15:17:51 Tdap 1 completed RYANN Alberts, [facility] 05/24/2022 15:17:51 Influenza, split virus, quadrivalent, PF 8 completed RYANN Alberts, [facility] 05/24/2022 15:17:51 Influenza, split virus, quadrivalent, PF 2 completed RYANN Reece, [facility] 09/13/2022 14:08:34 Influenza, split virus, trivalent, PF 4 completed RYANN Wilson, [facility] 02/06/2025 13:49:47 Influenza, split virus, trivalent, preservative 0 completed Not Available [facility] 05/12/2014 13:40:06 Tdap 2 completed Not Available [facility] 05/12/2014 13:40:06 Influenza, split virus, trivalent, preservative 2 completed Not Available [facility] 05/12/2014 13:40:06 Influenza, split virus, trivalent, preservative 3 completed Not Available [facility] 05/12/2014 13:40:06 Influenza, split virus, quadrivalent, PF 4 completed RYANN Wilson, [facility] 12/31/2023 15:25:26 Past Encounters Encounter ID Performer Location Encounter Start Date Encounter Closed Date Diagnosis/Indication Diagnosis SNOMED-CT Code Diagnosis ICD10 Code Diagnosis Note [id number] Nick Cifuentes MD Main Office [address] [facility][1] [address] [place] [address] 05/19/2014 15:48:53 05/19/2014 16:39:57 Acute asthma 431858016 Chronic he adache disorder 868821243 [id number] [employer] [address] [place] [address] 07/11/2010 00:00:00 [id number] [address] [address] [place] [address] 11/16/2010 00:00:00 [id number] [address] [address] [place] [address] 12/26/2010 00:00:00 [id number] [employer] [address] [place] [address] 04/17/2011 00:00:00 [id number] auto[employer] erce [address] [facility] [address] [place] [address] 04/26/2011 00:00:00 [id number] auto[employer]ce [address] [facility],[address] [place] [address] 06/12/2011 00:00:00 [id number] auto[employer] erce [address] [facility],[address] [place] [address] 11/02/2011 00:00:00 [id number] auto[employer] erce [address] [facility] [address] [place] [address] 01/02/2012 00:00:00 [id number] auto[employer] erce [address] [facility],[address] [place] [address] 01/19/2012 00:00:00 [id number] auto[employer] erce [address] [facility] [address] [place] [address] 02/23/2012 00:00:00 [id number] auto[employer] erce [address] [facility] [address] [place] [address] 04/11/2012 00:00:00 [id number] auto[employer] erce [address] [facility] [address] [place] [address] 10/23/2012 00:00:00 [id number] auto[employer] erce [address] [facility] [address] [place] [address] 01/06/2013 00:00:00 [id number] auto[employer]Comm [employer]ce [address] [place] [address] 02/15/2013 00:00:00 [id number] auto[employer] erce [address] [place] [address] 02/25/2013 00:00:00 [id number] [employer] [address] [place] [address] 04/16/2013 00:00:00 [id number] auto[employer] erce [address] [place] [address] 10/14/2013 00:00:00 [id number] autoEComm erce [address] [facility] [address] [place] [address] 01/31/2014 00:00:00 [id number] auto[employer]Comm erce [address] [facility],[address] [place] [address] 02/19/2014 00:00:00 [id number] auto[employer]Comm erce [address] [facility] [address] [place] [address] 03/02/2014 00:00:00 [id number] auto[employer]Comm erce [address] [facility],[address] [place] [address] 03/27/2014 00:00:00 [id number] Nick Cifuentes MD Main Office [address] [address] [place], [place] [address] 08/31/2014 15:05:23 08/31/2014 15:54:26 Thoracic back pain 220844766 [id number] Nick Cifuentes MD Main Office [address] [facility][1] [address] [place], [place] [address] 10/01/2014 14:00:18 10/01/2014 14:52:47 Screening for malignant neoplasm of cervix 900068467 Screening for malignant neoplasm of breast 597569775 Inflammati on of sacroiliac joint 90612245 Osteopenia 572116853 Bon e density 08/2014 [id number] Nick Cifuentes MD Main Office [address] [place] [address] 08/24/2015 14:03:42 08/24/2015 15:10:41 Inflammation of rotator cuff tendon 527317875 M65.812 [id number] JOSE GUADALUPE Ortiz Main Office [address] [address] [place] [address] 09/29/2015 10:19:49 09/29/2015 10:59:05 Acute upper respiratory infection 29827851 J06.9 Symptomati c treatment- lots of fluids, rest, tea with honey, OTC cough drops/ cough med as needed, humidifier as needed, continue inhalers as prescribed , she will call Dr. Huff for a refill on robitussin with codeine, in the meantime she may take tylenol #3 every 6 hours as needed. Multiple sclerosis 50374 007 G35 Asthma 578583771 J45.90 9 [id number] Nick Cifuentes MD Main Office [address] [address] [place] [address] 01/11/2016 10:21:01 01/11/2016 13:07:30 Acute sinusitis 01456360 J01.90 [id number] Nick Cifuentes MD Main Office [address] [address] [place] [address] 03/20/2016 11:41:33 03/28/2016 18:07:28 [id number] Mikie Samuel PA-C Main Office [address] [address] [place] [address] 03/30/2016 13:48:22 03/30/2016 15:23:15 Epilepsy 93495691 G40.909 is on new med - to f/u c neuro on 16 Increased blood pressure 00815446 R03.0 Asthma 871539315 J45.90 9 [id number] Mikie Samuel PA-C Main Office [address] [address] [place] [address] 08/16/2016 14:47:07 08/16/2016 15:34:58 Cough 61846309 R05 prob d/t pnd Epilepsy 36338722 G40.90 9 cont. to f/u c neuro Sinusitis 10736085 J32.9 Asthma 093145010 J45.90 9 stable Right uppe r quadrant pain 493753991 R10.11 Nausea and vomiting 1692 1999 R11.2 [id number] Mikie Samuel PA-C Main Office [address] [facility][1] [address] [place] [address] 08/22/2016 14:43:41 08/22/2016 16:04:19 Sinusitis 69230184 J32.9 ? contributi ng to fatigue Cough 28868381 R05 prob d/t pnd Asthma 158175495 J45.90 9 stable Right uppe r quadrant pain 936263309 R10.11 mild, persistent - ? d/t gallbladde r dyskinesia - will send to GI for eval Nausea and vomiting 1692 1999 R11.2 cont prn zofran, offered reassuranc e that Cr is stable Alkaline p hosphatase above reference range 422410919 R74.8 nl ast/alt Non-alcoho lic fatty liver 183720732 K76.0 as per abd u/s 08/13 - pt does not drink etoh - will send to GI for eval - see above [id number] Mikie Samuel PA-C Main Office [address] [facility][1] [address] [place] [address] 09/13/2016 13:14:09 09/13/2016 14:57:10 Shoulder joint pain 413862057 M25.519 pain / ecch at injxn site p rec'd flu shot from [facility] on 09.07 - no evidence of cellulitis at this time - offered re-assuran ce - hematoma prob bothering her at end of day - rec use warm compress 25 minute office visit with greater than 50% of the visit face-to-fa ce with the patient and/or family providing counseling and/or coordinati on of care. Nausea and vomiting 1692 1999 R11.2 seen by gi and gen surg (no notes to review - sent to medical records to get them faxed to us) - has pending lap vs open awais on 10.06.16 Asthma 167130382 J45.90 9 stable [id number] Mikie Samuel PA-C Main Office [address] [facility][1] [address] [place] [address] 11/20/2016 14:12:18 11/20/2016 15:54:29 Adult health examination 957012187 Z00.00 reviewed breast center consult .16 - pt considertabatha g breast mri, was supposed to get 10/13 - encouraged pt to call them to schedule & f/u c them in 4.17 encouraged pt to call Dr. Mckeon's office - due for pap smear colon utd last cmp nonfasting - will get fasting labs Body mass index 30+ - obesity 474299148 Z68.39 Hypothyroidism 08225212 E03.9 cont to f/u c endo - reviewed note 06/13 Asthma 217887926 J45.30 stable, cont to f/u c Dr. Huff Epilepsy 37616858 G40.90 9 cont. to f/u c neuro Multiple sclerosis 45626 007 G35 cont to f/u c neuro Irritable bowel syndrome 54315667 K58.9 stable lately, had neg. colonoscop y Gastroesop hageal reflux disease 439451168 K21.9 getting breakthru sxs on 20mg - will increase to 40mg qd Mixed anxi ety and depressive disorder 344075337 F41.8 not followed by psych or counsellor , doing okay - pt will consider if worse [id number] Mikie Samuel PA-C Main Office [address] [facility][1] [address] [place] [address] 01/29/2017 14:04:22 01/29/2017 15:22:00 Asthma 454982784 J45.30 stable, cont meds / f/u c Dr. Bateman tomorrow Gastroesop hageal reflux disease 395636717 K21.9 stable on ppi & probiotic Cough 92214894 R05 prob d/t pnd, but c deep cough worried about possible pna given her sig asthma hx Sinusitis 33216884 J32.9 [id number] Mikie Samuel PA-C Main Office [address] [facility] [address] [place] [address] 05/09/2017 14:36:53 05/09/2017 15:44:21 Dizziness 448476961 R42 better lately, normal exam - rec. increase water intake and more sleep Benign par oxysmal positional vertigo 534771730 H81.10 25 minute office visit with greater than 50% of the visit face-to-fa ce with the patient and/or family providing counseling and/or coordinati on of care. [id number] Mikie Samuel PA-C Main Office [address] [facility][1] [address] [place] [address] 09/04/2017 14:48:06 09/04/2017 16:07:23 Moderate persistent asthma 767776675 J45.40 nl spirometry - cont inhalers as dir - cont f/u c pulm also - pt expressed a lot of concern / confusion over new meds to rx her sz, etc - will arrange for eval c pharm clinic Atypical chest pain 1025 68756 R07.89 m-s d/t cough - see below Costal chondritis 007166 04 M94.0 Allergic rhinitis 265461 04 J30.9 [id number] Mikie Samuel PA-C Main Office [address] [facility][1] [address] [place] [address] 01/15/2018 13:34:51 01/15/2018 16:01:17 Cough 88313789 R05 prob d/t pnd - see below - more concerned about sinusitis than clinical pna Acute sinusitis 96494042 J01.90 rec. take probiotic supp or uzbek yogurt while on abx [id number] Mikie Samuel PA-C Main Office [address] [facility][1] [address] [place] [address] 01/30/2018 12:43:28 01/30/2018 13:38:24 Cough 39906651 R05 finished augmentin for sinusitis, still coughing despite karuna ac - more so barking cough but tdap is utd - will empiricall y cover c zpak and check cxr for further evaluation take probiotics while on abx Pneumonia 464019922 J18. 9 will cover for atypical pna Acute asthma 566252049 J 45.901 [id number] Mikie Samuel PA-C Main Office [address] [facility][1] [address] [place] [address] 02/04/2018 13:20:28 02/04/2018 14:55:42 Adult health examination 830012144 Z00.00 encouraged pt to call Dr. Mckeon's office - due for pap smear colon utd encouraged pt to call Dr Hinojosa for breast mri as per mammo report 11.17 Screening for malignant neoplasm of cervix 518517321 Z12.4 Thyrotoxicosis 71233175 E05.90 h/o graves s/p surgery, now on supp, cont f/u c endo Chronic back pain 119967 002 G89.29 acute on chronic - rec. hep, not interested in PT d/t $ Epilepsy 70377559 G40.90 9 cont. to f/u c neuro q yr Multiple sclerosis 39568 007 G35 ? not demyelinat ing d/o - cont to f/u c specialist prn Asthma 073031488 J45.40 stable, cont meds / f/u c Dr. Huff tomorrow-- lungs clear, finish abx / pred as dir Major depr ession single episode, in partial remission 95038950 F32.4 has good support system at home, no seen by counsellor in a long time Irritable bowel syndrome 27120453 K58.9 stable lately, had neg. colonoscop y - rec. probiotic yogurt Gastroesop hageal reflux disease 966305355 K21.9 stable on ppi Body mass index 30+ - obesity 155432199 Z68.33 Obesity 935620848 E66.9 Vitamin D deficiency 347 48194 E55.9 [id number] Mikie Samuel PA-C Main Office [address] [facility][1] [address] [facility] [place] [address] 06/18/2018 15:49:55 06/18/2018 17:00:50 Dysphagia 02521461 R13.10 had small HH c egd 1.25.16 - ? peptic stricture vs other - see below Atypical chest pain 1025 75825 R07.89 neg cardiac w/u in ER 2 days ago - see below - likely d/t gerd and / or costochond ritis (lifting heavy lately) Chronic low back pain 27 3321160 M54.5 G89.29 ongoing, int - rec increase hep, recently resumed Gastroesop hageal reflux disease without esophagitis 403747318 K21.9 rec increase ppi to bid x few wks Costal chondritis 350915 04 M94.0 [id number] Mikie Samuel PA-C Main Office [address] [facility][1] [address] [place] [address] 07/29/2018 13:21:09 07/29/2018 14:23:06 Needs influenza immunization 291102213 Z23 Gastroesop hageal reflux disease without esophagitis 397308629 K21.9 s/p egd c dil a few wks ago, helped a little- cont ppi as dir - tolerating qd - still has some pill dysphagia to large pills - so advised her to stop fish oil supp and consider look for a smaller supp - ? in gummy form Patient en counter status 825766071 Z00.00 needs for QM Hypothyroidism 07095267 E03.9 cont to f/u c endo - reviewed note 06/13 Epilepsy 24311945 G40.90 9 cont. to f/u c neuro q yr - next is 1.19 Abrasion o f skin of left knee 8467448201 6264787 S80.212A full epidermal abrasion, no evidence of cellulitis - gave xeroform - use qd x 1 wk to help promote re-epithel ialization - then can go back to triple abx ointment 1-2x/day as dir - f/u if worse/no better [id number] Yonny Heredia MD Main Office [address] [place] [address] 07/07/2019 12:52:15 07/07/2019 15:06:02 Adult health examination 348541125 Z00.[address] Mckeon's office - pap (will attempt to get records), mammo and bone density utd colon utd Osteoporosis 84692573 M8 1.0 had recent bone density (ordered by jewelry jobber) - cont raloxifene as dir by breast specialist (h/o pre-breast cancer, no h/o lumpectomy ) and f/u c endo 10.19 Thyrotoxicosis 11760054 E05.90 h/o graves s/p surgery, now on supp, cont f/u c endo Asthma 753170070 J45.40 stable, cont meds / f/u c Dr. Huff Multiple sclerosis 06668 007 G35 ? not demyelinat ing d/o - cont to f/u c specialist prn Epilepsy 17364117 G40.90 9 cont. to f/u c neuro q yr Major depr essive disorder 616930363 F32.9 sig better off fluoxetine x 10 days - no evidence of withdrawal , doing very well - will take off med list, no need for counsellin g Gastroesop hageal reflux disease 929479684 K21.9 stable on ppi Varicella vaccination 68 013768 Z23 Body mass index 30+ - obesity 051712282 Z68.32 Obesity 847136270 E66.9 Chronic low back pain 27 9094332 M54.5 G89.29 ongoing, int - rec increase hep, has had int x yrs - will get xrays and refer to pssp Impaired f asting glycemia 910981070 R73.01 [id number] Nick Cifuentes MD Main Office 36[address] [facility][1] [address] [place] [address] 08/22/2019 11:27:14 08/22/2019 12:41:24 Upper respiratory infection 43510234 J06.9 Acute asthma 358814204 J 45.901 Continue Symbicort BID and rescue inhaler. Add Medrol dose pack. [id number] Yonny Heredia MD Main Office 3640 [facility][1] [address] [place] [address] 08/11/2020 13:27:52 08/11/2020 14:45:28 Adult health examination 534920725 Z00.[address] Mckeon's office - pap utd, mammo pending and bone density utd (fol by endo) colon utd Needs infl uenza immunization 911853104 Z23 Tension-type headache 39 8792548 G44.209 Neck pain 75653842 M54.2 Dizziness 304346076 R42 cont f/u c neuro pending see eye md in a few wks d/t decreased visual acuity lately see below Osteoporosis 51085850 M8 1.0 had recent bone density (ordered by jewelry jobber) - cont raloxifene as dir by breast specialist (h/o pre-breast cancer, no h/o lumpectomy ) and f/u c endo Thyrotoxicosis 06644728 E05.90 h/o graves s/p surgery, now on supp, cont f/u c endo Asthma 529374448 J45.40 stable, cont meds / f/u c Dr. Huff Multiple sclerosis 63896 007 G35 ? not demyelinat ing d/o - cont to f/u c specialist prn Epilepsy 20985559 G40.90 9 cont. to f/u c neuro Major depr essive disorder 586280965 F32.9 sig better off fluoxetine , no need for counsellin g Gastroesop hageal reflux disease 268070758 K21.9 stable on ppi Obesity 894499767 E66.9 Body mass index 30+ - obesity 717827196 Z68.33 Impaired f asting glycemia 828968232 R73.01 Varicella vaccination 68 192903 Z23 Hyperlipidemia 04425575 E78.5 Benign par oxysmal positional vertigo 272349382 H81.10 rec stay hydrated, try exercises - no help, then get vestibular therapy Constipation 84328815 K5 9.00 mild - consider colace qd [id number] Mikie Samuel PA-C Main Office [address] [facility][1] [address] [facility] [place] [address] 03/17/2021 13:52:13 03/17/2021 14:55:32 Pain of left wrist 9022085747 97386 M25.532 ? wrist tendinitis and/or lateral/me dial epicondyli tis - will change wrist splint to thumb spica, add TE support, cont prn motrin, and will get hand specialist eval [id number] Liv Fajardo MD Main Office [address] [place] [address] 06/28/2021 13:04:48 06/28/2021 14:53:24 Dizziness 745336434 R42 EKG unremarkab le and orthostati c negative. Chapito hallpike resulted in dizziness - see plan below under BPPV.Will also refer to ENT. Sore throat 765757483 J0 2.9 Could be in the setting of reflux vs LPR or post nasal drip.Rod pollock had covid test and strep by ED which was negative, no exudates, fever or lymphadeno shan to suggest infections process thus will hold abx for now.No dysphagia thus will hold EGD for now. She is already on PPI and has had EGD, never been eval by ent, given that she has some dizziness in setting of throat pain will refer to ent.Switch ed flonase to sensimist version, patient already on loratidine and singular.a dvised warm water/salt gargle, chlorasept ic spray, avoid foods that can trigger lpr type symptoms. Elevated blood-pressure reading without diagnosis of hypertension 094795586 R03.0 No hx of bp elevation, could be due toA. discomfort B. Recent loss and stress with familyWith dizziness will hold adding medication but rather educate on signs sx of htn emergency and red flags, including when to go to ed.She has cuff at home advise to take BP daily will have [employer]ACH[employer] OVER f/u reading. Benign par oxysmal positional vertigo 948681210 H81.10 [id number] Liv Fajardo MD Main Office [address] [facility] [address] [facility] [place] [address] 08/15/2021 13:38:43 08/15/2021 15:02:38 Epilepsy 08689497 G40.909 Follows in [place] in [facility] depr ession single episode, in partial remission 25215464 F32.4 Denies homicidal suicidal ideation. Adult heal th examination 375668115 Z00.00 Patient was counseled on healthy diet, exercise and nutrition due to Body mass index is 30.7 kg/m . Last Colonoscop y:Date: 11/22/15Res ult: wnlPlan: Per GI repeat 10yrs Last Mammogram: Date: 12/03/20Resu lt: Birad -1Plan: Repeat next year Last Pap smearDate: 01/30/19Resu lt: Neg for MELIDA, TZ present, HPV negPlan: Repeat in 5 yrs per USPTF Bone density scanDate: 02/28/19Resu lt: osteoporos isPlan: On raloxifene , will get repeat last in 2019 Vaccines:T dAP: 08/15/21Zo ster: scrip providedPC V13: not vqmPPQV13: not dueInfluen za: 08/15/21Co vid: 03/25/21, 04/09/21 Routine labs today, with STI workupProv ided derm referral for annual skin check. Immunizati on status reviewed. Will screen based on risk factors. Regular dental and ophtho care advised as well as seat belt and sunscreen use. Distracted driving discussed. Medication reconciled . Needs infl uenza immunization 192351407 Z23 Administra tion of viral vaccine 77539595 Z23 Varicella vaccination 68 629976 Z23 Screening for malignant neoplasm of breast 458135508 Z12.39 follows breast center Multiple sclerosis 94560 007 G35 Saw MS doctor does not believe MS, has open channel with them if this worsens. Counseling 262585318 Z71 .9 Referral for counseling with Genny / DOC Connolly. Please provide patient with contact info to schedule their appointmen abi [phone] email: [email or web address] Menopause present 323819 006 Z78.0 Bereavement 42763454 Z63 .4 Right uppe r quadrant pain 054216880 R10.11 On exam Laurie had some discomfort of the RUQ on palpation. Figueroa;s sign was negative, will start with LFT's first, prior to imaging. Impaired f asting glycemia 686668392 R73.01 On PO steroids. Obesity 464357585 E66.9 Body mass index 30+ - obesity 438757635 Z68.30 - Diet and exercise discussed- Patient made aware of risks of obesity- Encouraged to loose weight- Avoid starchy and fatty food- Encouraged use of green vegetables and fruits Elevated blood-pressure reading without diagnosis of hypertension 576317330 R03.0 Laurie has kept a BP log with acceptable BP ranges and reading in office today has been great.Will continue to monitor on regular office visits, cw lifestyle changes, no medication s needed at this time. [id number] Liv Fajardo MD Main Office [address] [facility] [address] [place] [address] 12/07/2021 09:42:51 12/07/2021 11:27:13 Multiple sclerosis 56888695 G35 Saw MS doctor does not believe MS, has open channel with them if this worsens. Epilepsy 09509337 G40.90 9 Follows in [place] in [place] Neck pain 12032763 M54.2 Sent to ed Pain of hip region 85436 002 M25.552 sent to ED [id number] Liv Fajardo MD Main Office [address] [facility] [place] [address] 02/13/2022 13:58:44 02/13/2022 14:48:43 Mixed anxiety and depressive disorder 567375168 F41.8 Hyperlipidemia 27781168 E78.5 Will re-check lipids Major depr ession single episode, in partial remission 98324324 F32.4 Denies homicidal suicidal ideation.D iscussed option for therapy as grief can percipitat e sx. Osteoporosis 57525429 M8 1.0 Following endo.and breast sp.On raloxifene . Anxiety 41344287 F41.9 Spasm of back muscles 20 1321817 M62.830 RUQ and to back likely MSK as it is palpable, will do trial of lidocainte patch. [id number] Yonny Heredia MD Main Office [address] [place] [address] [place] [address] 03/23/2022 14:25:01 03/23/2022 15:20:22 Gastroesophageal reflux disease 029998764 K21.9 pt states is running low on ppi - requests refill Epigastric pain 08991467 R10.13 will check labs and stool study for further eval Early satiety 856335747 R68.81 will check ugis to r/o goo - may need gastric emptying scan and / or gi re-eval if no sig improvemen t Nausea 034917207 R11.0 [id number] Yonny Heredia MD Main Office [address] [place] [address] 05/24/2022 14:56:33 05/24/2022 16:08:23 Gastroesophageal reflux disease 333456630 K21.9 cont ppi as dir Gastropare sis syndrome 884883353 K31.84 recently dx'd by gi, but advised to f/u c pcp - rec many, small meals per day, low fiber diet - consider scrambled eggs, protein drinks / milkshakes -- this consistenc y is easiest on your stomach -- try reglan prn as dir - reviewed possible SE of TD - use sparingly in low dose, may also help c constipati on below, consider seeing specialist for gastric pacemaker if no better Constipation 40678379 K5 9.00 mild - consider increasing colace to qod, could skip a day if has good bm c reglan above [id number] Yonny Heredia MD Tele[facility] [address] [place] [address] [place] [address] 06/20/2022 08:32:15 06/20/2022 13:48:59 Burning sensation 50594123 R20.8 SYMPTOMS:b urning with urination? yesfrequen cy? yeshematur ia? yeslower abdominal pain? yessymptom s similar to previous UTI? yes POSSIBLE CONTRAINDI CATIONS TO TELEPHONE TREATMENT: > 65 years of age? yesfevers? norecent UTI (within 1 month)? nonew low back pain? yesnausea or vomiting? yespregnan t? nohistory of interstiti al cystitis? no PROVIDER ACTION: Reviewed nursing notes?Max mmended action Antibiotic treatment Urinary tr act infectious disease 29570295 N39.0 she already took bactrim bid x 3 days - better, last took sunday - now worse - will rx c cipro recommend probiotics while on abx Gastropare sis syndrome 355627991 K31.84 recently dx'd by gi, but advised to f/u c pcp - rec many, small meals per day, low fiber diet - consider scrambled eggs, protein drinks / milkshakes -- this consistenc y is easiest on your stomach -- try reglan prn as dir - reviewed possible SE of TD - use sparingly in low dose, may also help c constipati on below, consider seeing specialist for gastric pacemaker if no better 8.22 - fairly stable, only used reglan once [id number] Yonny Heredia MD Main Office [address] [facility][1] [address] [place] [address] 07/26/2022 15:44:16 07/26/2022 16:56:33 Postconcussion syndrome 88227533 F07.81 Patient symptoms correlate with post-concu ssive syndrome. No LOC, vision changes, or vomiting right after episode. Incident occurred 12 days ago. if worse, then consider PT @ concussion clinic *rec brain rest -- donato less cell phone use (playing games on cell) has small hematoma top of head - very sensitive - rec avoid headband, limit/avoi d brushing hair in this region, consider local ice prn Contusion of head 720505 009 S00.03XA has small hematoma top of head - very sensitive - rec avoid headband, limit/avoi d brushing hair in this region, consider local ice prn Accidental ly struck by or against objects or persons 712498755 W22.8XXA [id number] Liv Fajardo MD Main Office [address] [facility][1] [address] [place] [address] 08/18/2022 12:42:04 08/18/2022 13:53:20 Adult health examination 672626710 Z00.00 Patient was counseled on healthy diet, exercise and nutrition due to Body mass index is 30.1 kg/m . Last Colonoscop y:Date: 11/22/15Res ult: wnlPlan: Per GI repeat 10yrs Last Mammogram: Date: 12/03/20Resu lt: Birad -1Plan: [place] done [place] [facility] [place]. Last Pap smearDate: 01/30/19Resu lt: Neg for MELIDA, TZ present, HPV negPlan: Repeat in 5 yrs per USPTF Bone density scanDate: 01/16/22Res ult: osteoporos isPlan: On raloxifene , by [facility]. Vaccines:T dAP: 08/15/21Zo ster rec: scrip providedPC V20: not ppdKHUN33: 03/13/22Inf luenza: 08/18/21Co vid: 03/25/21, 04/09/21, bivalent vaccine discussed. Routine labs today Provided derm referral for annual skin check. Immunizati on status reviewed. Will screen based on risk factors. Regular dental and ophtho care advised as well as seat belt and sunscreen use. Distracted driving discussed. Medication reconciled . Epilepsy 02024655 G40.90 9 Follows in [place] in [facility] single episode, in partial remission 07367986 F32.4 Denies homicidal suicidal ideation. Obesity 796172103 E66.9 Body mass index 30+ - obesity 950361061 Z68.30 - Diet and exercise discussed- Patient made aware of risks of obesity- Encouraged to loose weight- Avoid starchy and fatty food- Encouraged use of green vegetables and fruits Elevated blood-pressure reading without diagnosis of hypertension 714858769 R03.0 Advised to keep bp log, notes home bp under 130/90, BP reading in office today borderline .cw lifestyle changesWil l follow up in 1 mo. Varicella vaccination 68 393699 Z23 Needs infl uenza immunization 384895464 Z23 Screening for malignant neoplasm of breast 943913419 Z12.39 follows [facility] Gastropare sis syndrome 264915615 K31.84 Followed by GI Fatigue 37623564 R53.83 Hyperlipidemia 28842268 E78.5 Will re-check lipids Anxiety 05982554 F41.9 Discussed risk of benzo use. Will refer to nai. Gave 2 resources and advised to also reach out to insurance. [id number] Liv Fajardo MD Main Office [address] [facility][1] [address] [place] [address] 09/13/2022 13:59:36 09/13/2022 15:03:04 Elevated blood-pressure reading without diagnosis of hypertension 017103206 R03.0 BP at home within ACC guideline today BP is also stable with out signs of hypertensi ve emergency. Will hold any meds and cont to follow up in [place]. Hyperlipidemia 92574892 E78.5 Will re-check lipids Gastropare sis syndrome 316567188 K31.84 Followed by GI, looking for second opinion, referral msg to help her with this. Pain of right wrist 3169 268578 43558 M25.531 Laurie noted to me some tenderness at the ulnar styloid process, there was no anatomical snuffbox tenderness . radial pulses and sensation intact. I suspect this is possibly due to a ganglion cyst however we will get an x-ray first and have her follow-up in about 1 to 2 weeks. [id number] Caprice shi, BUSINESS DEVELOPMENT ASSISTANT Main Office [address] [facility][1] [address] [facility] [place] [address] 03/21/2023 13:20:35 03/21/2023 14:34:36 Laceration of left knee 5779379004 6608951 S81.012A #6 stitches removed, will come back in 2 days for re evaluation and possible rest of sutures out, would steristrip ped and bandaged. Watch for any sx of infection Closed fra cture of fifth metatarsal bone 64572189 S92.354A Has ortho appt next week, use ice and elevation, otc pain reliever. Syncope 928253365 R55 2 back to back syncopal episodes, will do holter and see cardiology , to call neurology to make followup appt. Does not think fall was seizure related, lab today . Call if has any other presyncope or dizziness Hyponatremia 49276110 E8 7.1 recheck labs, sodium was 132, K+ 3.5 in ED [id number] Liv Fajardo MD Main Office [address] [facility][1] [address] [facility] [place] [address] 03/27/2023 14:18:40 03/27/2023 15:18:53 Removal of suture 07590838 Z48.02 3 suture removed, area clean, no warmth erythema or fluctuanac e.Will keep 3 more in, in medial position as wound still open.Will follow up after day 21 for suture removal. Closed fra cture of fifth metatarsal bone 86055496 S92.351D Pending podiatry follow up. [id number] Liv Fajardo MD Main Office [address] [facility] [address] [facility] [place] [address] 04/02/2023 14:12:59 04/02/2023 15:01:40 Removal of suture 75927780 Z48.02 3 suture removed, area clean, no warmth erythema or fluctuanac e.Will keep 3 more in, in medial position as wound still open.scar away advised. Closed fra cture of fifth metatarsal bone 02913458 S92.351D Pending podiatry follow up. [id number] Liv Fajardo MD Main Office 36[address] [facility][1] [address] [facility] [place] [address] 12/31/2023 14:18:56 12/31/2023 15:26:13 Adult health examination 383161824 Z00.00 Patient was counseled on healthy diet, exercise and nutrition due to Body mass index is 30.1 kg/m . Last Colonoscop y:Date: 11/22/15Res ult: wnlPlan: Per GI repeat 10yrs Last Mammogram: Date: 03/06/23Resu lt: Birad -1Plan: gets done at [facility] center Last Pap smearDate: 01/30/19Resu lt: Neg for MELIDA, TZ present, HPV negPlan: Repeat in 5 yrs per USPTF Bone density scanDate: 01/16/22Res ult: osteoporos isPlan: On raloxifene , by breast center. Vaccines:T dAP: 08/15/21Zo ster rec: scrip provided [id number] : not uorPIFL93: 03/13/22Inf luenza: 12/31/23Covi d: 03/25/21, 04/09/21, encourage updated vaccine. Routine labs today Provided derm referral for annual skin check. Immunizati on status reviewed. Will screen based on risk factors. Regular dental and ophtho care advised as well as seat belt and sunscreen use. Distracted driving discussed. Medication reconciled . Epilepsy 25411664 G40.90 9 Follows [facility] [place] [facility] single [facility], in partial remission 27881395 F32.4 Denies homicidal suicidal Ideation. Obesity 477647724 E66.9 Body mass index 30+ - obesity 083377212 Z68.30 - Diet and exercise discussed- Encouraged to loose weight- Avoid starchy and fatty food- Encouraged use of green vegetables and fruits Varicella vaccination 68 931427 Z23 Screening for malignant neoplasm of breast 410458132 Z12.39 follows [facility] Gastropare sis syndrome 174238317 K31.84 Followed by GI Fatigue 26583097 R53.83 Hyperlipidemia 38102301 E78.5 Will re-check lipids Macrocytos is - no anemia 504016697 D75.89 Alkaline p hosphatase above reference range 550881364 R74.8 Osteoporosis 30255583 M8 1.0 Following endo.and breast sp.On raloxifene . Thyrotoxicosis 84881293 E05.90 Needs infl uenza immunization 194076906 Z23 Insomnia 014633603 G47.0 0 Melanocytic nevus 134915 001 D22.9 [id number] Liv Fajardo MD Main Office [address] [place] [address] 01/18/2024 08:58:26 01/18/2024 14:23:50 [id number] Mike Ferreira MD Main Office [address] [place] [address] 01/28/2024 13:57:09 01/28/2024 14:46:09 Syncope 572528400 R55 2 syncopal episodes per witness of her . Patient did sustained a fall during the second event. Laying on the floor patient complained of severe lower back pain unable to get up-has appt scheduled with neurology in April-ED workup; EKG was unremarkab le and head CT was WNL Compressio n fracture of thoracic vertebra 4341383452 104 M48.54XD -c/w wearing back brace daily and taking motrin/aries lying heating pad for pain relief-has appt scheduled with neurosurge ry in February-will further evaluate with lab work, dexa scan, and multiple myeloma work up-discuss ed with pt the importance of light movement, will refer to PT and will have patient schedule sessions after discussion with neurosurge ry Transition of care from emergency department to self-care 9346863601 00450 Z76.89 reviewed hospital documentat ion Bone density finding 385 372046 M85.89 [id number] Liv Fajardo MD Main Office [address] [place] [address] 05/21/2024 11:40:11 05/21/2024 14:41:30 Adrenal incidentaloma 2946866351 9105 D49.7 Mass of ur inary bladder 269614111 N32.89 Osteoporosis 79444127 M8 1.0 Following endo.and breast sp.On raloxifene . [id number] Mike Ferreira MD [place] [address] [place] [address] 11/19/2024 15:14:08 11/19/2024 15:52:48 Acute sinusitis 88842294 J01.90 Sx since september, green nasal discharge, now moving into her chest.Hydr ation, rest, tylenol or ibuprofen as needed, tea with honey, OTC cough meds as needed, nasal sinus rinses as needed, continue Asthma 538154029 J45.40 prednisone burst as directed x 5 days. Continue inhalers as directed. [id number] Yonny Heredia MD [address] [place] [address] 02/06/2025 12:36:47 02/06/2025 16:30:48 Erysipelas 95787883 A46 Possibly infectious . Will see if short course of cephalexin helps with this. Eczema 96330525 L30.9 Has a atopic medical history, and pollen counts are rising. Will see if short steroid taper helps. Advised to continue all her usual allergy meds. [id number] Yonny Heredia MD Main Office [facility] [place] [address] [place] [address] 03/03/2025 11:19:41 03/03/2025 12:30:32 Pruritic dermatitis 1738381254 L30.8 Will see if antifungal therapy helps and if not ask derm for insight. Essential hypertension 52658726 I10 New diagnosis but present on 2 separate office visits. Given her tachycardi a something to decrease rate but won't affect asthma seem warranted. Reluctant to use diuretic with her low Na. See if more cardiosele ctive CCB helps and is tolerated. Tachycardia 5706868 R00. 0 Had extended rhythm monitoring done in 2022 that showed SVT/tachyc ardia, ECHO was normal in 11/2023. ECG without acute findings today. Labs deferred to nephrology who she will be seeing later today. Mass of ri ght adrenal gland 3566693704 7872431 E27.8 Based on follow up imaging and lab testing determined to be a benign adenoma. Dizziness 372102548 R42 Possibly related to AEDs vs HTN. Will monitor with effort to control BP. Adequate hydration advised with electrolyt e water given her low Na. 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 No LOC, vision changes, or vomiting right after episode. Incident occurred 12 days ago. if worse, then consider PT @ concussion clinic *rec brain rest -- donato less cell phone use (playing games on cell) has small hematoma top of head - very sensitive - rec avoid headband, limit/avoi d brushing hair in this region, consider local ice prn 7.25 - rec brain rest - limit use of cell phone & tv & reading Dizziness 015796285 R42 cont f/u c neuro pending see eye md in a few wks d/t decreased visual acuity lately 7.25 - dizzy x past 6 months, cont f/u c neuro Epilepsy 85902470 G40.90 9 will check eeg as per neuro reccont. to f/u c neuro -- cc: results of eeg and head ct to neuro *will fwd copy of this ov note to neuro* Fatigue 78070326 R53.83 Vitamin D deficiency 347 77755 E55.9 Hypophosphatemia 0349476 E83.39 Hypomagnesemia 357566892 E83.42 Primary gout 01907003 M1 0.00 pt had low uric acid level in 1.25 - will recheckas per online:Low uric acid levels may be associated with dizziness, particular ly in the context of benign paroxysmal positional vertigo (BPPV). Dysuria 31346335 R30.0 Nausea 846906861 R11.0 will give prn zofran Hyponatremia 05112100 E8 7.1 cont f/u c neph *will fwd copy of this ov note to neph* Health Concerns Section Related Observation LastModified by Organization Detai ls LastModified Time None Recorded Concern Status LastModified by Organization Details LastModified Time None Recorded Advance Directives Directive Y: Payers Insurance Date Sequence Insurance Name Policy Number Policy Barbour Covered Member ID Barbour Member ID Guarantor Name 05/07/2025 1 [facility] [id number] Lucrecia Cleaning [id number] Lucrecia Cleaning 05/07/2025 2 MEDICARE B-[place]: [facility] [employer] Laurie Cleaning [id number] Lucrecia Cleaning 03/17/2021 1 [facility] [id number] Lucrecia Cleaning [id number] Lucrecia Cleaning Notes Date Note Type Note Provider Name and Address Organization Details Recorded Time 05/21/2024 text/html Laurie presents fo r a visit to discuss incidental findings from a CT scan of her abdomen and pelvis, performed at the hospital where she was treated for a vertebral compression fracture at the thoracic levels. She recently underwent a kyphoplasty and is recovering well. She has been under the care of a skylights assembler who initiated a workup for an adrenal incidentaloma discovered during the CT scan. Additionally, the scan incidentally revealed a hypodensity protruding from the right wall of the bladder, suspected to be a small bladder lipoma. Her skylights assembler recommended she follow up with us for this issue. She also has an upcoming appointment for suture removal, and plans to begin treatment for her osteoporosis. Liv Fajardo MD [address] [address], [place], [phone], [facility] 05/21/2024 18:06:21 11/19/2024 text/html Generic HPI TemplateReported bypatient.Notes:Video visit:Seen by dr Huff October 02- he prescribed clindamycin and she stopped taking it as she was having diarrhea- took 5 days. No relief from med.Chronic nasal congestion, green nasal discharge, not feels it is in her chest, dry cough. + ear pain and feelign blocked/ popping sore throat. needing to use nasal gel anytime she feels like there is dryness. She sees a title supervisor for low sodium- she was told she can drink 50oz fluid and justCalled and told to cut back to 40oz because she is still low on sodium. Was told to discuss with seizure med, she did bring it up with neurology PA and she will not change it. She has appt in January with neurology. JOSE GUADALUPE Ortiz [address] [address], [place], [phone], [facility] 11/19/2024 15:43:21 02/06/2025 text/html Rash/Skin LesionReported bypatient.Location:[address]; arms; hands; back Quality:itchy;dry Severity:moderate; worsening Duration:has noted for 3-4 weeks Onset/Timing:gradual onset Context:no new detergents or skin products; no one else with similar rash; not scratching Associated Symptoms:no fever; no cold symptoms; no nausea; no vomiting; no diarrhea Treatment History:prescription topical treatment 02/03/25 with no improvementNotes:First noticed after a bladder ultrasound at the end of December 2024. Yonny Heredia MD [address] [facility] [address], [place], [phone], [facility] 03/03/2025 12:34:55 03/03/2025 text/html Hypertension F/UReported bypatient.Associated Symptoms:no chest pain; no palpitations; no edema;dizziness;lighth eadedness;shortness of breath Lifestyle:not exercising regularly;high salt intake Medications:taking medications as directed; no side effects from medicationNotes:Has hyponatremia (most likely for AEDs) and is scheduled for renal consult this afternoon. Reports longstanding dizziness and also history of benign adrenal adenoma as well as asthma. Was hypertensive at recent endo appt in December.Rash/Skin LesionReported bypatient.Location:[facility] Quality:not painful; not bleeding; decreasing in size; getting provider network manager;itchy Severity:mild Duration:has noted for 3-4 weeks Onset/Timing:abrupt onset Context:no new detergents or skin products; no one else with similar rash;scratching Alleviating Factors:nothing gives relief (prednisone) Associated Symptoms:no fever; no cold symptoms; no nausea; no vomitingNotes:Pt states that the rash resolved after course of cephalexin and prednisone taper but the left lower abdomen portion returned. States that is is most pruritic at bedtime. Has asthma/allergy history. No new medications. Yonny Heredia MD [address] [address], [place], [phone], [facility] 03/03/2025 13:01:06 05/06/2025 text/html Pt fell in her b edroom on May 01 2025(she is seeing Neurology for seizures and was on Zonisamide). Pt phoned the Neurologist after her fall and the Zonisamide was stopped (thinking this may have caused the fall),pts balance is no better and both her and her mom note a speech delay since the fall and pt is having intermittent pain in her head and back. pt states she did not go to ER or ucc p fallshe has had chronic dizziness, and a few sz's latelyshe states she just got off the phone c her neurologist - Dr. Isbell - [facility] - he rec check eegas per pt has been doing okay lately - able to do adl's/iadl's, just takes longer d/t dizzinessno double vision, mild blurry vision+ nausea but no vomiting Mikie Samuel PA-C [address] [facility] [address], [place], [phone], [facility] 05/06/2025 17:59:23 OBGyn Episode No OBEpisode recorded.
== END 2025-05-19 09:38 | disposition home or self-care (01) ==
LOC: HO.HPS 09:00
PROVIDERS: PCP Family Medicine; Visit Provider Hospitalist
DX: J44.9 Chronic obstructive pulmonary disease, unspecified (principal); G47.33 Obstructive sleep apnea (adult) (pediatric); R05.9 Cough, unspecified; K21.9 Gastro-esophageal reflux disease without esophagitis
CPT/HCPCS: 99214

== ENCOUNTER 2025-05-19 08:59 | Outpatient (REF) | payer OTHER, MEDICARE, SELFPAY ==
[2025-05-19 10:04] LABS: MANUAL DIFF FLAG NO
[2025-05-19 10:36] LABS: Hematocrit 35.0 % (37.0-47.0); Hemoglobin 12.4 g/dl (12.0-16.0); Imm Gran Abs Auto 0.02 X10*3/uL (0.00-0.03); Imm Gran Pct Auto 0.4 % (0.0-0.4); Lymphocytes Absolute Auto 1.8 X10*3/uL (1.2-4.9); Mean Corpuscular HGB Conc 35.4 g/dl (31.0-35.0); Mean Corpuscular Hemoglobin 33.4 pg (27.0-33.0); Mean Corpuscular Volume 94.3 fL (80.0-98.0); NRBC Abs Auto 0.000 X10*3/uL (0.0-0.012); NRBC Pct Auto 0.0 /100WBC (0.0-0.2); Platelet Count 282 X10*3/uL (160-400); Red Blood Count 3.71 X10*6/uL (4.20-5.50); White Blood Count 5.4 X10*3/uL (4.8-10.8)
[2025-05-19 11:02] LABS: Alanine Aminotransferase 20 U/L (0-31); Albumin Level 4.3 g/dL (3.5-5.0); Alkaline Phosphatase 102 U/L (39-117); Anion Gap 13 (12-20); Aspartate Amino Transferase 21 U/L (5-31); Blood Urea Nitrogen 15 mg/dL (9-16); Calcium 9.1 mg/dL (8.4-10.2); Carbon Dioxide 25 mmol/L (22-29); Chloride 99 mmol/L (96-108); Estimated Glomerular Filt Rate > 60; Magnesium 2.1 mg/dL (1.6-2.6); Potassium 3.9 mmol/L (3.3-5.1); Sodium 133 mmol/L (135-145); Total Protein 6.6 g/dL (6.5-8.0); Uric Acid 2.5 mg/dL (2.4-5.7)
== END 2025-05-19 09:00 | disposition home or self-care (01) ==
LOC: HO.LAB 08:59
PROVIDERS: Absent Provider Physician Assistant Medical; PCP Family Medicine; Visit Provider Hospitalist
DX: R53.83 Other fatigue (principal); M10.00 Idiopathic gout, unspecified site; R30.0 Dysuria; E55.9 Vitamin D deficiency, unspecified
CPT/HCPCS: 36415; 80053; 82306; 83735; 84100; 84443; 84550; 85025

== ENCOUNTER 2025-09-15 12:33 | Outpatient (AMB) | payer OTHER, MEDICARE, SELFPAY ==
--- NOTE | 2025-09-15 12:49 | A.OFFVIS_ITS ---
Vital Signs 09/15/25 12:50 Height 5 ft 4 in Weight 192 lb 14.472 oz BMI 33.1 BP 140/94 H Blood Pressure Location Lt brachial Position Sitting Pulse 99 Pulse Source Pulse Oximeter Pulse Oximetry (%) 100 Oxygen Delivery Method Room Air Intake Visit Reasons: Asthma Underwriting Sales Representative Required: No Accompanied by: Self / Same As Patient Allergies meperidine (Demerol) Allergy (Severe, Verified 09/15/25 12:53) Swelling sulfamethoxazole (From Bactrim) Allergy (Severe, Verified 09/15/25 12:53) Diarrhea trimethoprim (From Bactrim) Allergy (Severe, Verified 09/15/25 12:53) Diarrhea HPI Comments Details: The patient is a 60-year-old woman with known history of asthma COPD overlap syndrome in addition to history of seizures. She has had a persistent chronic cough. It is barky in nature, moderate in severity. Typically is worse at nighttime. She continues to use her respiratory medicine with only partial resolution of the symptoms. She has not had any recent x-rays are pulmonary function studies to review at this time. 12/02/2020 the patient is here for pulmonary follow-up visit. Overall the patient has been doing better from a respiratory status. The respiratory medications and the singular have been very effective. She had actually has not required the nebulized medicine as often. Sometimes the fact that she needs to set up she test to not be very adherent to the therapy. Therefore will go ahead and take her off the nebulized therapy and start her on inhaler therapy. Ideally Advair she can not use twice a day with better here as. In addition to that she should continue with the singular. The patient has been complaining of difficulty breathing at nighttime. She also has daytime drowsiness. Her [place] score is elevated 10/21. She also complains of headaches in the morning. She has a positive family history of sleep apnea. At this point doing home sleep study may be effective in treating her ongoing respiratory symptoms and her ongoing daytime drowsiness. 06/22/2021 the patient is here for a pulmonary follow-up visit. She continues to complain about her cough. Typically is nonproductive. Sometimes she is able to get a plug out. Did cough is usually worse at nighttime. She did complete the antibiotics and is doing a little bit better. She did feel improved after switching over to the Trelegy inhaler which appears to be more effective for her. She is going to significant amount of stress with her father's health. She has not had a sleep study as of yet. We will continue to maximize her respiratory therapy in order for her to be about a function well was she is tending to father. While she is in the hospital today I will have her get blood work and chest x-ray to further address this chronic cough. 09/13/2021 the patient is here for a pulmonary follow-up visit. overall she is doing better from a respiratory status. The Trelegy inhaler piece to be very effective for her. She has been able to be off her nebulized therapy. She recently was evaluated by Nephrology. It was noted that she has some slight renal insufficiency. She was wondering if any of her respiratory medications could be impacting her renal function. No real significant medication that I am concerned about. We did talk about considering decreasing the amount of inhaled steroids by decreasing the Trelegy from 200-100. But at this point I do not believe that does enough of a significant change to impacted kidneys. in addition to this the patient has been dealing with significant allergic symptoms. She complains of itchy eyes watery eyes. She has been seen by Ophthalmology. Will increase her allergy medication to see if we can provide some relief. Patient has been on singular. She is still grieving the loss of her father has been the depressed. Therefore I did recommend she cut down the singular to half tablet. If she did not see any significant difference to stop it altogether ascitic and worsening depressive symptoms. 03/13/2022 the patient is here for a pulmonary follow-up visit. She continues to have a persistent cough. The Trelegy has been helpful. She continues to require cough medicine. The patient also has been having significant allergies. She has been taking Lavonne in addition to singular. This is likely that her worse allergy season. She knows to continue rinsing her nose from the allergies in to continue with current regimen. She does have a rescue inhaler that she can use as needed as well. If the patient continues with symptoms she may benefit from an allergy referral. 10/31/2022 the patient is here for pulmonary follow-up visit. She is complaining of worsening shortness of breath. Moderate severity. Mainly when she is breathing in. She also notices worsening cough. Typically worse at nighttime. She ran out of her cough medicine. She has been using Trelegy inhaler without any significant improvement. She had a Combivent inhaler from her dad that she had available she did use it in did give her some relief. He is wondering if he can switch to that. Patient is agreeable to change her respiratory regimen. I will send Symbicort to the pharmacy and she can use Combivent also. The meantime we did talk about the reflux disease. Patient understands that reflux will resulting worsening there injury taken cough. This could explain her symptoms. She does have significant gastroparesis in addition to her reflux. She has been set up with a new GI doctor at this time. In the meantime we talked about the reflux diet again making sure that she sleeps elevated. She does have a positional bed. 08/17/2023 the patient is here for pulmonary follow-up visit. Overall she is doing a lot better. She is working on weight management and she is already lost more than 10 lb. Her breathing is also improved. She does continue to use her respiratory therapy as prescribed. Her cough is better although she still requires cough medication. Has not required any prednisone recently. No recent imaging studies to review. Her last chest x-ray from February 2022 was without any acute disease. overall the patient is doing well. She continues with positional therapy to minimize snoring and sleep apnea. 09/30/2024 the patient is here for a pulmonary follow-up visit. The patient overall has been doing well. Her Advair is no longer being made and she was switched over to Wixela. This is resulting in some chest heaviness and some coughing and she does not not like the adverse effects. Therefore will switch over to Advair HFA which she tolerated in the past. I did provide her with a spacer in order for her to minimize any upper airway adverse symptoms. The patient otherwise has been doing well from a respiratory status. She is monitoring closely reflux disease. No recent imaging studies at this time. Will plan to do 1 year's time when she comes back for her follow-up. If she has any issues with the Advair she will call otherwise will follow-up in a year's time. 05/19/2025 the patient is here for a pulmonary follow-up visit. Overall she is doing okay. She does respond very well to the Advair HFA. However, feels like she has been having increasing chest tightness and wheezing. [id number] severity. The inhalers helping but only partially. She also continues with the other allergy medications. She is also dealing with other issues including back problems. In addition she was found to have an abnormal finding in the kidney. She is following closely with specialists for that as well. Will go ahead and maximize her respiratory therapy by switching her Advair to the highest dose. She knows to rinse and gargle to minimize any thrush. Should continue with the allergy medicine as prescribed. 09/15/2025 the patient is here for pulmonary follow-up visit. She has not been feeling well. She has been sick now for the last 3 4 weeks. She developed a significant tremor. Not appeared to be rigors. She has not had any fevers. She complains of sinus congestion. She has taken jwhf-stt-pufvucb medications without significant improvement. She also complains of chest tightness. Her respiratory exam is reassuring. The patient continues her respiratory medications as prescribed. They have been helpful. In the meantime we are going to go ahead and start her on doxycycline to treat her for sinusitis. The patient also can start a nasal spray. She is going to refrain from Afrin. She is going to follow-up with her primary care doctor regarding her significant tremors. PENDING SALE TO [facility] Medical History (Updated 09/15/25 @ 21:24 by Kirill Huff MD) Epilepsy Asthma-COPD overlap syndrome Chronic cough BRIE (obstructive sleep apnea) Hypothyroidism GERD (gastroesophageal reflux disease) Surgical History (Updated 08/17/23 @ 12:37 by Vesna Cabrera PA-C) History of esophagogastroduodenoscopy (EGD) Social History Patient Tobacco Use Status: Never used Tobacco Review of Systems Const Denies night sweats Eyes Denies blurry vision ENT Denies change in voice, Denies lip swelling, Denies mouth pain, Reports nasal congestion, Reports nasal discharge, Reports sinus pressure and Denies tongue swelling Card Denies chest pain Resp Reports cough, Denies hemoptysis, Denies excessive phlegm production, Denies stridor and Reports wheezing GI Denies abdominal pain Musc Reports back pain Neuro Denies Neuro-related abnormal movements and Reports tremor(s) Psych Denies no additional complaints Clark/Lymph Denies easy bleeding and Denies lymphadenopathy Aller/Immun Denies lip swelling, Denies tongue swelling and Reports wheezing Physical Exam Vital Signs: Last Vital Signs Pulse 99 09/15/25 12:50 BP 140/94 H 09/15/25 12:50 Pulse Ox 100 09/15/25 12:50 Oxygen Delivery Method Room Air 09/15/25 12:50 BMI result Body Mass Index 33.1 Const General: alert Orientation/consciousness: patient oriented x3 HEENT Ears: TM normal on the right ( Retracted) and TM normal on the left ( retracted) Eyes Pupils: Equal, round and reactive pupils present Neck Neck: Yes normal visual inspection, Yes full ROM and Yes no lymphadenopathy Chest Chest palpation & inspection: normal inspection of the chest Resp Effort & Inspection: normal respiratory effort Auscultation: diminished lung sounds Cardio Rate: regular rate Rhythm: regular rhythm Heart sounds: S1 normal heart sound present and S2 normal heart sound present GI Palpation (GI): Soft to palpation and nontender Auscultation: normal bowel sounds General: Yes no CVA tenderness Back/Spine/Pelvis Back: no CVA tenderness Skin General skin exam: rashes and/or lesions noted Neuro General: patient oriented x3 Cranial nerves: Yes Equal, round and reactive pupils present Motor exam (neuro): Tremors during motor activity present Assessment & Plan Assessment & Plan (1) Asthma-COPD overlap syndrome: Code(s): J44.9 - Chronic obstructive pulmonary disease, unspecified Category: Medical (2) BRIE (obstructive sleep apnea): Code(s): G47.33 - Obstructive sleep apnea (adult) (pediatric) Category: Medical (3) Chronic cough: Code(s): R05 - Cough Category: Medical (4) GERD (gastroesophageal reflux disease): Code(s): K21.9 - Gastro-esophageal reflux disease without esophagitis Category: Medical Qualifiers: Esophagitis presence: without esophagitis Qualified Code(s): K21.9 - Gastro-esophageal reflux disease without esophagitis (5) Sinusitis: Code(s): J32.9 - Chronic sinusitis, unspecified Category: Medical Qualifiers: Sinusitis location: unspecified location Chronicity: subacute Qualified Code(s): J01.90 - Acute sinusitis, unspecified Plan start Doxycycline start Dysmista Advair HFA 115->230/21 continue combivent VINNY as needed continue Singulair and zyrtec reflux diet sleep with HOB elevated Needs to seek medical advice re: tremors F/U 6-12 months Medications: New doxycycline monohydrate 100 mg PO BID 28 tabs 0RF 14 days azelastine-fluticasone 137-50 mcg/spray (Dymista) administer into each nostril 1 spray intranasal BID 23 grams 6RF Coding Level of Care Code Est Pt Level 4 (98456) Complex EM visit Add On G2211 Diagnoses Asthma-COPD overlap syndrome J44.9 BRIE (obstructive sleep apnea) G47.33 Chronic cough R05 Gastroesophageal reflux disease without esophagitis K21.9 Esophagitis presence: without esophagitis Subacute sinusitis, unspecified location J01.90 Sinusitis location: unspecified location Chronicity: subacute Time Spent (min) 16
[2025-09-15 12:50] VITALS: BP 140/94; PULSE 99; O2SAT 100; BMI 33.1
--- OUTSIDE RECORDS SUMMARY | 2025-09-16 03:29 | XMS_ITS | Data Portability ---
Author Organization [facility], Main Office Address [address] [facility] [place] [id number] Care Team Providers Care Garage Worker Name Role Phone KAREN MCKEON Blade Changer ERIK NEWMAN Statistical Typist TAYLER HUFF Air Marshal PATRICA LEDBETTER Phys. [facility]. [facility] in[facility] LIV FAJARDO Primary Care Provider SELINA PERAZA Fountain Brush Assembler [facility] Plastic/Reconstructive Surgeon DARIAN TOBAR Clerical Secretary [phone] NELY KRISHNAMURTHY Emergency Care Attendant HEATHER ISBELL Neurologist OCTAVIANO REAVES Kitchen Lead Assessment Encounter Date Assessment Date Assessment LastModified by Organization Details LastModified Time 07/14/2025 07/14/2025 Seizure disorder -Continue oxcarbazepine and Keppra as prescribed. -Neurology follow-up scheduled for 09/01/2025 (telehealth). -Monitor for aura/rising sensation. -Surgical management remains an option; defer discussion to neurology/epilepto logy. -Defer further epilepsy management to neurology, neuropsychology, and epileptology. Hyponatremia (oxcarbazepine-rel ated) -Continue sodium supplementation as prescribed. -Monitor sodium levels per neurologist s orders. Anxiety/Panic disorder -Hydroxyzine prescribed during admission; patient does not feel it is necessary. -No clear evidence of behavioral disorder per patient/family. -Advised patient to discuss medication indication and necessity with neurologist at follow-up. Blood pressure -BP elevated in office today; likely related to rushing to visit. -Advised patient to check BP at home and bring readings and home cuff to next visit. -No dx of HTN, on verapamil for tachycardia not HTN. -Follow-up for BP in 2 4 weeks. Specialist follow-up -Nephrology and cardiology referrals provided; patient to schedule. -Epileptology and neuropsychology follow-up ongoing. -Pending upper arm ultrasound, hearing screen coordinator assisting. Care coordination / SHAJI -Follow-up scheduled within 2 weeks of discharge. -Reviewed medications; patient adherent. -No current questions or concerns. [email or web address] Not available 07/14/2025 12:47:29 Plan of Treatment Reminders Order Date Submit Date Provider Last Modified By Organization Details Last Modified Time Details Appointments FOLLOW UP 30MIN 2025 01:45P Nash Fajardo MD Not available Not available Not available Lab lipid panel, serum 2024 025 [facility], [address] [address], [place], [address], 06/23/2025 15:24:29 uric acid, serum or plasma 2024 025 [facility] (Centralized Electronic Ordering - All Locations), Patient Can Go To The Location Of Their Choice, [id number] 06/05/2025 22:05:47 urinalysi s, complete 2024 025 [facility] (Centralized Electronic Ordering - All Locations), Patient Can Go To The Location Of Their Choice, [id number] 06/05/2025 22:05:44 culture, urine 2024 025 [facility] (Centralized Electronic Ordering - All Locations), Patient Can Go To The Location Of Their Choice, [id number] 06/05/2025 22:05:49 phosphoru s, serum or plasma 2024 025 [facility] (Centralized Electronic Ordering - All Locations), Patient Can Go To The Location Of Their Choice, 06/05/2025 22:05:47 magnesium , serum or plasma 2024 025 [facility] (Centralized Electronic Ordering - All Locations), Patient Can Go To The Location Of Their Choice, 07/15/2025 10:06:45 TSH, ultra-sen sitive, serum 2024 025 [facility] (Centralized Electronic Ordering - All Locations), Patient Can Go To The Location Of Their Choice, 06/05/2025 22:05:46 CBC w/ auto diff 2024 025 [facility] (Centralized Electronic Ordering - All Locations), Patient Can Go To The Location Of Their Choice, 07/15/2025 10:06:42 CMP, serum or plasma 2024 025 [facility] (Centralized Electronic Ordering - All Locations), Patient Can Go To The Location Of Their Choice, 05/20/2025 12:37:38 vitamin D, 25-hydrox y, total, serum 2024 025 [facility], [address], [place], [address], 06/05/2025 22:05:46 Referral gynecolog ist referral - Patient to schedule 2024 025 [email or web address] Not available 06/23/2025 15:40:26 cardiolog ist referral 2024 Christopher kumar [facility] Cardiology Scheduling Dept, [address] [facility], [facility] [address], [address], 07/02/2025 10:26:36 nephrolog ist referral 2024 025 CAMERON Cao MD, [address], [facility] [address], [place], [address], 06/15/2025 13:31:42 Procedures electroen cephalogr am (EEG), ambulator y (PROC) 2024 Christopher kumar [facility] (Imaging), [address] [place], [address], 06/04/2025 13:48:46 Surgeries None recorded. Imaging US, upper arm - left upper arm, suspected lipoma. 2024 025 [facility] (Ultrasound), [address] [place], [address], 08/21/2025 11:50:12 CT, brain, w/o contrast - s/p head strike - pt symptomat ic - r/o intracran ial hemorrhag e 2024 025 [facility] Mri Department, [address] [place], [address], 05/08/2025 15:36:35 Medication Orders ondansetr on 4 mg disintegr ating tablet 2024 025 [id number], [address] [place], [address], 06/15/2025 11:43:33 Patient TargetsNo targets recorded. Patient Instructions Encounter Date Encounter Id Patient Instructions Last Modified By Organization Details Last Modified Time 05/06/2025 [id number] postconcussion syndrome: care instructions pmadden Not available 05/06/2025 16:24:14 Patient will follow up and keep appointment as scheduled. [email or web address] Not available 05/06/2025 16:22:29 06/15/2025 [id number] Medications (OTC , herbal therapies, supplements) reviewed and reconciled with patient and or caregiver, including potential side effects, drug interactions, instructions, and the consequences of not taking medication. Reviewed potential barriers to medication adherence, such as side effects from medication or cost of medication. [email or web address] Not available 06/15/2025 12:37:38 06/23/2025 [id number] well visit, wome n 50 to 65: care instructions [email or web address] Not available 06/23/2025 15:24:17 Cervical Cancer Screening ckokar Not available 06/23/2025 15:24:17 fainting: care instructions ckokar Not available 06/23/2025 15:24:17 lightheadedness or faintness: care instructions ckokar Not available 06/23/2025 15:24:16 Starting a Weight-Loss Plan: Care Instructions ckokar Not available 06/23/2025 15:24:17 07/14/2025 [id number] electrolyte imbalance: care instructions ckokar Not available 07/14/2025 11:31:50 hyponatremia: ca re instructions ckokar Not available 07/14/2025 11:31:50 epilepsy: care instructions ckokar Not available 07/14/2025 11:30:46 At [facility] follow up visit, all current and discharge medications (OTC, herbal therapies, supplements) reviewed and reconciled with patient and or caregiver, including potential side effects, drug interactions, instructions, and the consequences of not taking medication. Reviewed potential barriers to medication adherence, such as side effects from medication or cost of medication. 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 Referring Physician: Jonatan Martin, Internal Medicine, Encounter Date: 06/15/2025 Blade Changer Referral for Sc reening for malignant neoplasm of cervix Patient to schedule Referring Physician: Liv Fajardo Family Medicine, Encounter Date: 06/23/2025 Emergency Care Attendant Referral for Sy ncope Referring Physician: Liv Fajardo [facility], Encounter Date: 06/23/2025 Results Created Date Observation Date Name Description Value Unit Range Abnormal Flag Note LastModifiedBy Organization Detail LastModifiedTime 06/04/2006/05/2025 CBC WITH DIFFE RENTI AL/PL ATELE T WBC 6.7 x10e3 /uL 3.4-10 .8 normal Not Available [facility] ([facility]) [address] [place], [address], 06/05/2025 22:05:43 06/04/20 25 06/05/2025 CBC WITH DIFFE RENTI AL/PL ATELE T RBC 3.83 x10e6 /uL 3.77-5 .28 normal Not Available [facility] ([facility]) [address] [place], [address], 06/05/2025 22:05:43 06/04/20 25 06/05/2025 CBC WITH DIFFE RENTI AL/PL ATELE T hemoglobin 13.0 g/dL 11.1-1 5.9 normal Not Available [facility] ([facility]) [address] [place], [address], 06/05/2025 22:05:43 06/04/20 25 06/05/2025 CBC WITH DIFFE RENTI AL/PL ATELE T hematocrit 38.6 % 34.0-4 6.6 normal Not Available [facility] ([facility]) [address] [place], [address], 06/05/2025 22:05:43 06/04/20 25 06/05/2025 CBC WITH DIFFE RENTI AL/PL ATELE T MCV 101 fL 79-97 above high normal Not Available [facility] ([facility]) [address] [place], [address], 06/05/2025 22:05:43 06/04/20 25 06/05/2025 CBC WITH DIFFE RENTI AL/PL ATELE T MCH 33.9 pg 26.6-3 3.0 above high normal Not Available [facility] ([facility]) [address] [place], [address], 06/05/2025 22:05:43 06/04/20 25 06/05/2025 CBC WITH DIFFE RENTI AL/PL ATELE T MCHC 33.7 g/dL 31.5-3 5.7 normal Not Available [facility] ([facility]) [address] [place], [address], 06/05/2025 22:05:43 06/04/20 25 06/05/2025 CBC WITH DIFFE RENTI AL/PL ATELE T RDW 11.6 % 11.7-1 5.4 below low normal Not Available [facility] ([facility]) [address] [facility], [place], [address], 06/05/2025 22:05:43 06/04/20 25 06/05/2025 CBC WITH DIFFE RENTI AL/PL ATELE T platelets 301 x10e3 /uL 150-45 0 normal Not Available [facility] ([facility]) [address] [facility], [place], [address], 06/05/2025 22:05:43 06/04/20 25 06/05/2025 CBC WITH DIFFE RENTI AL/PL ATELE T neutrophils 62 % not estab. normal Not Available [facility] ([facility]) [address] [facility], [place], [address], 06/05/2025 22:05:43 06/04/20 25 06/05/2025 CBC WITH DIFFE RENTI AL/PL ATELE T lymphs 23 % not estab. normal Not Available [facility] ([facility]) [address] [facility], [place], [address], 06/05/2025 22:05:43 06/04/20 25 06/05/2025 CBC WITH DIFFE RENTI AL/PL ATELE T monocytes 10 % not estab. normal Not Available [facility] ([facility]) [address] [facility], [place], [address], 06/05/2025 22:05:43 06/04/20 25 06/05/2025 CBC WITH DIFFE RENTI AL/PL ATELE T eos 3 % not estab. normal Not Available [facility] ([facility]) [address] [facility], [place], [address], 06/05/2025 22:05:43 06/04/20 25 06/05/2025 CBC WITH DIFFE RENTI AL/PL ATELE T basos 2 % not estab. normal Not Available [facility] ([facility]) [address] [facility], [place], [address], 06/05/2025 22:05:43 06/04/20 25 06/05/2025 CBC WITH DIFFE RENTI AL/PL ATELE T immature cells BUSINESS SERVICES ADMINISTRATOR Not Available [facility] ([facility]) [address] [place], [address], 06/05/2025 22:05:43 06/04/20 25 06/05/2025 CBC WITH DIFFE RENTI AL/PL ATELE T neutrophils (absolute) 4.2 x10e3 /uL 1.4-7. 0 normal Not Available [facility] ([facility]) [address] [place], [address], 06/05/2025 22:05:43 06/04/20 25 06/05/2025 CBC WITH DIFFE RENTI AL/PL ATELE T lymphs (absolute) 1.5 x10e3 /uL 0.7-3. 1 normal Not Available [facility] ([facility]) [address] [place], [address], 06/05/2025 22:05:43 06/04/20 25 06/05/2025 CBC WITH DIFFE RENTI AL/PL ATELE T monocytes(ab solute) 0.7 x10e3 /uL 0.1-0. 9 normal Not Available [facility] ([facility]) [address] [place], [address], 06/05/2025 22:05:43 06/04/20 25 06/05/2025 CBC WITH DIFFE RENTI AL/PL ATELE T eos (absolute) 0.2 x10e3 /uL 0.0-0. 4 normal Not Available [facility] ([facility]) [address] [place], [address], 06/05/2025 22:05:43 06/04/20 25 06/05/2025 CBC WITH DIFFE RENTI AL/PL ATELE T baso (absolute) 0.1 x10e3 /uL 0.0-0. 2 normal Not Available [facility] ([facility]) [address] [facility], [place], [address], 06/05/2025 22:05:43 06/04/20 25 06/05/2025 CBC WITH DIFFE RENTI AL/PL ATELE T immature granulocytes 0 % not estab. Not Available [facility] ([facility]) [address] [facility], [place], [address], 06/05/2025 22:05:43 06/04/20 25 06/05/2025 CBC WITH DIFFE RENTI AL/PL ATELE T immature grans (abs) 0.0 x10e3 /uL 0.0-0. 1 Not Available [facility] ([facility]) [address] [facility], [place], [address], 06/05/2025 22:05:43 06/04/20 25 06/05/2025 CBC WITH DIFFE RENTI AL/PL ATELE T NRBC BUSINESS SERVICES ADMINISTRATOR Not Available [facility] ([facility]) [address] [facility], [place], [address], 06/05/2025 22:05:43 06/04/20 25 06/05/2025 CBC WITH DIFFE RENTI AL/PL ATELE T hematology comments: BUSINESS SERVICES ADMINISTRATOR Not Available [facility] ([facility]) [address] [facility], [place], [address], 06/05/2025 22:05:43 06/04/20 25 06/05/2025 COMP. METAB OLIC PANEL (14) glucose 74 mg/dL 70-99 normal Not Available [facility] ([facility]) [address] [facility], [place], [address], 06/05/2025 22:05:44 06/04/20 25 06/05/2025 COMP. METAB OLIC PANEL (14) BUN 17 mg/dL 6-24 normal Not Available [facility] ([facility]) [address] [facility], [place], [address], 06/05/2025 22:05:44 08/07/20 25 06/05/2025 COMP. METAB OLIC PANEL (14) creatinine 0.56 mg/dL 0.57-1 .00 below low normal Not Available [facility] ([facility]) [address] [facility] [place], [address], 06/05/2025 22:05:44 06/04/20 25 06/05/2025 COMP. METAB OLIC PANEL (14) eGFR 105 mL/mi n/1.7 3 >59 normal Not Available [facility] ([facility]) [address] [facility] [place], [address], 06/05/2025 22:05:44 06/04/20 25 06/05/2025 COMP. METAB OLIC PANEL (14) BUN/creatini ne ratio 30 9-23 above high normal Not Available [facility] ([facility]) [address] [facility] [place], [address], 06/05/2025 22:05:44 06/04/20 25 06/05/2025 COMP. METAB OLIC PANEL (14) sodium 133 mmol/ L 134-14 4 below low normal Not Available [facility] ([facility]) [address] [facility] [place], [address], 06/05/2025 22:05:44 06/04/20 25 06/05/2025 COMP. METAB OLIC PANEL (14) potassium 4.5 mmol/ L 3.5-5. 2 normal Not Available [facility] ([facility]) [address] [facility] [place], [address], 06/05/2025 22:05:44 06/04/20 25 06/05/2025 COMP. METAB OLIC PANEL (14) chloride 95 mmol/ L 96-106 below low normal Not Available [facility] ([facility]) [address] [facility] [place], [address], 06/05/2025 22:05:44 06/04/20 25 06/05/2025 COMP. METAB OLIC PANEL (14) carbon dioxide, total 22 mmol/ L 20-29 normal Not Available [facility] ([facility]) [address] [facility] [place], [address], 06/05/2025 22:05:44 06/04/20 25 06/05/2025 COMP. METAB OLIC PANEL (14) calcium 9.8 mg/dL 8.7-10 .2 normal Not Available [facility] ([facility]) [address] [facility] [place], [address], 06/05/2025 22:05:44 06/04/20 25 06/05/2025 COMP. METAB OLIC PANEL (14) protein, total 6.6 g/dL 6.0-8. 5 normal Not Available [facility] ([facility]) [address] [facility] [place], [address], 06/05/2025 22:05:44 06/04/20 25 06/05/2025 COMP. METAB OLIC PANEL (14) albumin 4.4 g/dL 3.8-4. 9 normal Not Available [facility] ([facility]) [address] [facility] [place], [address], 06/05/2025 22:05:44 06/04/20 25 06/05/2025 COMP. METAB OLIC PANEL (14) globulin, total 2.2 g/dL 1.5-4. 5 Not Available [facility] ([facility]) [address] [place], [address], 06/05/2025 22:05:44 06/04/20 25 06/05/2025 COMP. METAB OLIC PANEL (14) bilirubin, total 0.2 mg/dL 0.0-1. 2 normal Not Available [facility] ([facility]) [address] [facility] [place], [address], 06/05/2025 22:05:44 06/04/20 25 06/05/2025 COMP. METAB OLIC PANEL (14) alkaline phosphatase 111 IU/L 44-121 normal Not Available [facility] ([facility]) [address] [facility] [place], [address], 06/05/2025 22:05:44 06/04/20 25 06/05/2025 COMP. METAB OLIC PANEL (14) AST (SGOT) 22 IU/L 0-40 normal Not Available [facility] ([facility]) [address] [facility] [place], [address], 06/05/2025 22:05:44 06/04/20 25 06/05/2025 COMP. METAB OLIC PANEL (14) ALT (SGPT) 20 IU/L 0-32 normal Not Available [facility] ([facility]) [address] [facility] [place], [address], 06/05/2025 22:05:44 06/04/20 25 06/05/2025 URINA LYSIS , COMPL ETE specific gravity 1.016 1.005- 1.030 normal Not Available [facility] ([facility]) [address] [place], [address], 06/05/2025 22:05:44 06/04/20 25 06/05/2025 URINA LYSIS , COMPL ETE pH 6.5 5.0-7. 5 normal Not Available [facility] ([facility]) [address] [place], [address], 06/05/2025 22:05:44 06/04/20 25 06/05/2025 URINA LYSIS , COMPL ETE urine-color YELLOW yellow Not Available [facility] ([facility]) [address] [place], [address], 06/05/2025 22:05:44 06/04/20 25 06/05/2025 URINA LYSIS , COMPL ETE appearance CLEAR clear Not Available [facility] ([facility]) [address] [place], [address], 06/05/2025 22:05:44 06/04/20 25 06/05/2025 URINA LYSIS , COMPL ETE WBC esterase 2+ negati ve abnormal Not Available [facility] ([facility]) [address] [place], [address], 06/05/2025 22:05:44 06/04/20 25 06/05/2025 URINA LYSIS , COMPL ETE protein NEGATI VE negati ve/tra ce Not Available [facility] ([facility]) [address] [place], [address], 06/05/2025 22:05:44 06/04/20 25 06/05/2025 URINA LYSIS , COMPL ETE glucose NEGATI VE negati ve Not Available [facility] ([facility]) [address] [place], [address], 06/05/2025 22:05:44 06/04/20 25 06/05/2025 URINA LYSIS , COMPL ETE ketones NEGATI VE negati ve Not Available [facility] ([facility]) [address] [place], [address], 06/05/2025 22:05:44 06/04/20 25 06/05/2025 URINA LYSIS , COMPL ETE occult blood NEGATI VE negati ve Not Available [facility] ([facility]) [address] [place], [address], 06/05/2025 22:05:44 06/04/20 25 06/05/2025 URINA LYSIS , COMPL ETE bilirubin NEGATI VE negati ve Not Available [facility] ([facility]) [address] [place], [address], 06/05/2025 22:05:44 06/04/20 25 06/05/2025 URINA LYSIS , COMPL ETE urobilinogen ,semi-qn 0.2 mg/dL 0.2-1. 0 normal Not Available [facility] ([facility]) [address] [facility], [place], [address], 06/05/2025 22:05:44 06/04/20 25 06/05/2025 URINA LYSIS , COMPL ETE nitrite, urine NEGATI VE negati ve Not Available [facility] ([facility]) [address] [facility], [place], [address], 06/05/2025 22:05:44 06/04/20 25 06/05/2025 URINA LYSIS , COMPL ETE microscopic examination SEE BELOW: Micro scopi c was indic ated and was perfo rmed. Not Available [facility] ([facility]) [address] [facility], [place], [address], 06/05/2025 22:05:44 06/04/20 25 06/05/2025 URINA LYSIS , COMPL ETE WBC 11-30 /hpf 0 - 5 abnormal Not Available [facility] ([facility]) [address] [facility], [place], [address], 06/05/2025 22:05:44 06/04/20 25 06/05/2025 URINA LYSIS , COMPL ETE RBC NONE SEEN /hpf 0 - 2 Not Available [facility] ([facility]) [address] [facility], [place], [address], 06/05/2025 22:05:44 06/04/20 25 06/05/2025 URINA LYSIS , COMPL ETE epithelial cells (non renal) 0-10 /hpf 0 - 10 Not Available [facility] ([facility]) [address] [facility], [place], [address], 06/05/2025 22:05:44 06/04/20 25 06/05/2025 URINA LYSIS , COMPL ETE epithelial cells (renal) BUSINESS SERVICES ADMINISTRATOR Not Available [facility] ([facility]) [address] [place], [address], 06/05/2025 22:05:44 06/04/20 25 06/05/2025 URINA LYSIS , COMPL ETE casts NONE SEEN /lpf none seen Not Available [facility] ([facility]) [address] [facility], [place], [address], 06/05/2025 22:05:44 06/04/20 25 06/05/2025 URINA LYSIS , COMPL ETE cast type BUSINESS SERVICES ADMINISTRATOR Not Available [facility] ([facility]) [address] [facility], [place], [address], 06/05/2025 22:05:44 06/04/20 25 06/05/2025 URINA LYSIS , COMPL ETE crystals BUSINESS SERVICES ADMINISTRATOR Not Available [facility] ([facility]) [address] [facility], [place], [address], 06/05/2025 22:05:44 06/04/20 25 06/05/2025 URINA LYSIS , COMPL ETE crystal type BUSINESS SERVICES ADMINISTRATOR Not Available [facility] ([facility]) [address] [facility], [place], [address], 06/05/2025 22:05:44 06/04/20 25 06/05/2025 URINA LYSIS , COMPL ETE mucus threads BUSINESS SERVICES ADMINISTRATOR Not Available [facility] ([facility]) [address] [facility], [place], [address], 06/05/2025 22:05:44 06/04/20 25 06/05/2025 URINA LYSIS , COMPL ETE bacteria NONE SEEN none seen/f ew Not Available [facility] ([facility]) [address] [facility], [place], [address], 06/05/2025 22:05:44 06/04/20 25 06/05/2025 URINA LYSIS , COMPL ETE yeast BUSINESS SERVICES ADMINISTRATOR Not Available [facility] ([facility]) [address] [facility], [place], [address], 06/05/2025 22:05:44 06/04/20 25 06/05/2025 URINA LYSIS , COMPL ETE trichomonas BUSINESS SERVICES ADMINISTRATOR Not Available [facility] ([facility]) [address] [place], [address], 06/05/2025 22:05:44 06/04/20 25 06/05/2025 URINA LYSIS , COMPL ETE comment BUSINESS SERVICES ADMINISTRATOR Not Available [facility] ([facility]) [address] [facility], [place], [address], 06/05/2025 22:05:44 06/04/20 25 06/05/2025 URINA LYSIS , COMPL ETE microscopic examination BUSINESS SERVICES ADMINISTRATOR Not Available [facility] ([facility]) [address] [place], [address], 06/05/2025 22:05:44 06/04/20 25 06/05/2025 IRON AND TIBC iron bind.cap.(TI BC) 312 ug/dL 250-45 0 normal Not Available [facility] ([facility]) [address] [facility], [place], [address], 06/05/2025 22:05:45 06/04/20 25 06/05/2025 IRON AND TIBC UIBC 213 ug/dL 131-42 5 normal Not Available [facility] ([facility]) [address] [facility], [place], [address], 06/05/2025 22:05:45 06/04/20 25 06/05/2025 IRON AND TIBC iron 99 ug/dL 27-159 normal Not Available [facility] ([facility]) [address] [place], [address], 06/05/2025 22:05:45 06/04/20 25 06/05/2025 IRON AND TIBC iron saturation 32 % 15-55 normal Not Available [facility] ([facility]) [address] [facility], [place], [address], 06/05/2025 22:05:45 06/04/20 25 06/05/2025 FOLAT E (FOLI C ACID) , SERUM folate (folic acid), serum >20.0 NG/mL >3.0 A serum folat e amilcar ntrat ion of less than 3.1 ng/mL is consi dered to repre sent clini uriel defic iency . Not Available [facility] ([facility]) [address] [facility], [place], [address], 06/05/2025 22:05:45 06/04/2006/05/2025 VITAM IN D, 25-HY DROXY vitamin D, 25-hydroxy 38.3 NG/mL 30.0-1 00.0 Vitam in D defic [...] IOM (Inst itute of Medic ine). 2010. Dieta ry refer ence intak es for calci um and D. Duncan walton [place]: [facility] . 2. Ariana gonzalez MF, Hema chaudhry [place], Prateek off-F errar i EVANS, et al. Evalu ation , treat ment, and preve ntion of vitam in D defic iency : an Endoc rine Socie ty clini uriel pract ice guide line. JCEM. 2010; 96(7) :1911 -30. Not Available [facility] ([facility]) [address] [facility] [address], [place], [address], 06/05/2025 22:05:46 06/04/2006/05/2025 TSH RFX ON ABNOR MAL TO FREE T4 TSH 2.270 uIU/m L 0.450- 4.500 normal Not Available [facility] ([facility]) [address] [facility] [address], [place], [address], 06/05/2025 22:05:46 08/07/20 25 06/05/2025 URIC ACID uric acid 2.4 mg/dL 3.0-7. 2 below low normal Thera fabi salcedo t for gout patie nts: <6.0 Not Available [facility] ([facility]) [address] [place], [address], 06/05/2025 22:05:47 06/04/20 25 06/05/2025 PHOSP HORUS phosphorus 3.5 mg/dL 3.0-4. 3 normal Not Available [facility] ([facility]) [address] [place], [address], 06/05/2025 22:05:47 06/04/20 25 06/05/2025 VITAM IN B12 vitamin B12 755 pg/mL 232-12 45 normal Not Available [facility] ([facility]) [address] [place], [address], 06/05/2025 22:05:48 06/04/20 25 06/05/2025 CINDY TIN ferritin 67 NG/mL 15-150 normal Not Available [facility] ([facility]) [address] [place], [address], 06/05/2025 22:05:48 06/04/20 25 06/05/2025 RETIC ULOCY TE COUNT reticulocyte count 1.7 % 0.6-2. 6 Not Available [facility] ([facility]) [address] [place], [address], 06/05/2025 22:05:49 06/04/20 25 06/05/2025 URINE CULTU DAVIDE JOHNS urine culture, routine FINAL REPORT Not Available [facility] ([facility]) [address] [place], [address], 06/05/2025 22:05:49 06/04/20 25 06/05/2025 URINE CULTU DAVIDE JOHNS result 1 COMMEN T Mixed uroge nital kirk 25,00 0-50, 000 colon y formi ng units per mL Not Available [facility] ([facility]) [address] [place], [address], 06/05/2025 22:05:49 07/14/20 25 07/14/2025 CBC WITH DIFFE RENTI AL/PL ATELE T WBC 5.4 x10e3 /uL 3.4-10 .8 normal Not Available [facility] ([facility]) [address] [place], [address], 07/15/2025 10:06:42 07/14/20 25 07/14/2025 CBC WITH DIFFE RENTI AL/PL ATELE T RBC 4.01 x10e6 /uL 3.77-5 .28 normal Not Available [facility] ([facility]) [address] [place], [address], 07/15/2025 10:06:42 07/14/20 25 07/14/2025 CBC WITH DIFFE RENTI AL/PL ATELE T hemoglobin 13.4 g/dL 11.1-1 5.9 normal Not Available [facility] ([facility]) [address] [place], [address], 07/15/2025 10:06:42 07/14/20 25 07/14/2025 CBC WITH DIFFE RENTI AL/PL ATELE T hematocrit 40.2 % 34.0-4 6.6 normal Not Available [facility] ([facility]) [address] [place], [address], 07/15/2025 10:06:42 07/14/2007/14/2025 CBC WITH DIFFE RENTI AL/PL ATELE T MCV 100 fL 79-97 above high normal Not Available [facility] ([facility]) [address] [place], [address], 07/15/2025 10:06:42 07/14/20 25 07/14/2025 CBC WITH DIFFE RENTI AL/PL ATELE T MCH 33.4 pg 26.6-3 3.0 above high normal Not Available [facility] ([facility]) [address] [place], [address], 07/15/2025 10:06:42 07/14/20 25 07/14/2025 CBC WITH DIFFE RENTI AL/PL ATELE T MCHC 33.3 g/dL 31.5-3 5.7 normal Not Available [facility] ([facility]) [address] [place], [address], 07/15/2025 10:06:42 07/14/20 25 07/14/2025 CBC WITH DIFFE RENTI AL/PL ATELE T RDW 11.6 % 11.7-1 5.4 below low normal Not Available [facility] ([facility]) [address] [place], [address], 07/15/2025 10:06:42 07/14/20 25 07/14/2025 CBC WITH DIFFE RENTI AL/PL ATELE T platelets 350 x10e3 /uL 150-45 0 normal Not Available [facility] ([facility]) [address] [place], [address], 07/15/2025 10:06:42 07/14/20 25 07/14/2025 CBC WITH DIFFE RENTI AL/PL ATELE T neutrophils 56 % not estab. normal Not Available [facility] ([facility]) [address] [place], [address], 07/15/2025 10:06:42 07/14/20 25 07/14/2025 CBC WITH DIFFE RENTI AL/PL ATELE T lymphs 30 % not estab. normal Not Available [facility] ([facility]) [address] [place], [address], 07/15/2025 10:06:42 07/14/20 25 07/14/2025 CBC WITH DIFFE RENTI AL/PL ATELE T monocytes 9 % not estab. normal Not Available [facility] ([facility]) [address] [place], [address], 07/15/2025 10:06:42 07/14/20 25 07/14/2025 CBC WITH DIFFE RENTI AL/PL ATELE T eos 3 % not estab. normal Not Available [facility] ([facility]) [address] [facility] [address], [place], [address], 07/15/2025 10:06:42 07/14/20 25 07/14/2025 CBC WITH DIFFE RENTI AL/PL ATELE T basos 2 % not estab. normal Not Available [facility] ([facility]) [address] [facility] [address], [place], [address], 07/15/2025 10:06:42 07/14/20 25 07/14/2025 CBC WITH DIFFE RENTI AL/PL ATELE T immature cells BUSINESS SERVICES ADMINISTRATOR Not Available [facility] ([facility]) [address] [place], [address], 07/15/2025 10:06:42 07/14/20 25 07/14/2025 CBC WITH DIFFE RENTI AL/PL ATELE T neutrophils (absolute) 3.0 x10e3 /uL 1.4-7. 0 normal Not Available [facility] ([facility]) [address] [place], [address], 07/15/2025 10:06:42 07/14/20 25 07/14/2025 CBC WITH DIFFE RENTI AL/PL ATELE T lymphs (absolute) 1.6 x10e3 /uL 0.7-3. 1 normal Not Available [facility] ([facility]) [address] [place], [address], 07/15/2025 10:06:42 07/14/20 25 07/14/2025 CBC WITH DIFFE RENTI AL/PL ATELE T monocytes(ab solute) 0.5 x10e3 /uL 0.1-0. 9 normal Not Available [facility] ([facility]) [address] [facility], [place], [address], 07/15/2025 10:06:42 07/14/20 25 07/14/2025 CBC WITH DIFFE RENTI AL/PL ATELE T eos (absolute) 0.2 x10e3 /uL 0.0-0. 4 normal Not Available [facility] ([facility]) [address] [facility], [place], [address], 07/15/2025 10:06:42 07/14/20 25 07/14/2025 CBC WITH DIFFE RENTI AL/PL ATELE T baso (absolute) 0.1 x10e3 /uL 0.0-0. 2 normal Not Available [facility] ([facility]) [address] [facility] [address], [place], [address], 07/15/2025 10:06:42 07/14/20 25 07/14/2025 CBC WITH DIFFE RENTI AL/PL ATELE T immature granulocytes 0 % not estab. Not Available [facility] ([facility]) [address] [place], [address], 07/15/2025 10:06:42 07/14/20 25 07/14/2025 CBC WITH DIFFE RENTI AL/PL ATELE T immature grans (abs) 0.0 x10e3 /uL 0.0-0. 1 Not Available [facility] ([facility]) [address] [place], [address], 07/15/2025 10:06:42 07/14/20 25 07/14/2025 CBC WITH DIFFE RENTI AL/PL ATELE T NRBC BUSINESS SERVICES ADMINISTRATOR Not Available [facility] ([facility]) [address] [facility], [place], [address], 07/15/2025 10:06:42 07/14/20 25 07/14/2025 CBC WITH DIFFE RENTI AL/PL BAMBI T hematology comments: BUSINESS SERVICES ADMINISTRATOR Not Available [facility] ([facility]) [address] [facility], [place], [address], 07/15/2025 10:06:42 07/14/20 25 07/14/2025 COMP. METAB OLIC PANEL (14) glucose 94 mg/dL 70-99 normal Not Available [facility] ([facility]) [address] [facility] [place], [address], 07/15/2025 10:06:43 07/14/20 25 07/14/2025 COMP. METAB OLIC PANEL (14) BUN 15 mg/dL 6-24 normal Not Available [facility] ([facility]) [address] [facility], [place], [address], 07/15/2025 10:06:43 07/14/20 25 07/14/2025 COMP. METAB OLIC PANEL (14) creatinine 0.60 mg/dL 0.57-1 .00 normal Not Available [facility] ([facility]) [address] [facility] [place], [address], 07/15/2025 10:06:43 07/14/20 25 07/14/2025 COMP. METAB OLIC PANEL (14) eGFR 103 mL/mi n/1.7 3 >59 normal Not Available [facility] ([facility]) [address] [facility] [place], [address], 07/15/2025 10:06:43 07/14/20 25 07/14/2025 COMP. METAB OLIC PANEL (14) BUN/creatini ne ratio 25 9-23 above high normal Not Available [facility] ([facility]) [address] [facility] [place], [address], 07/15/2025 10:06:43 07/14/20 25 07/14/2025 COMP. METAB OLIC PANEL (14) sodium 133 mmol/ L 134-14 4 below low normal Not Available [facility] ([facility]) [address] [facility], [place], [address], 07/15/2025 10:06:43 07/14/20 25 07/14/2025 COMP. METAB OLIC PANEL (14) potassium 4.5 mmol/ L 3.5-5. 2 normal Not Available [facility] ([facility]) [address] [place], [address], 07/15/2025 10:06:43 07/14/20 25 07/14/2025 COMP. METAB OLIC PANEL (14) chloride 95 mmol/ L 96-106 below low normal Not Available [facility] ([facility]) [address] [place], [address], 07/15/2025 10:06:43 07/14/20 25 07/14/2025 COMP. METAB OLIC PANEL (14) carbon dioxide, total 22 mmol/ L 20-29 normal Not Available [facility] ([facility]) [address] [place], [address], 07/15/2025 10:06:43 07/14/20 25 07/14/2025 COMP. METAB OLIC PANEL (14) calcium 9.3 mg/dL 8.7-10 .2 normal Not Available [facility] ([facility]) [address] [place], [address], 07/15/2025 10:06:43 07/14/20 25 07/14/2025 COMP. METAB OLIC PANEL (14) protein, total 7.1 g/dL 6.0-8. 5 normal Not Available [facility] ([facility]) [address] [place], [address], 07/15/2025 10:06:43 07/14/20 25 07/14/2025 COMP. METAB OLIC PANEL (14) albumin 4.6 g/dL 3.8-4. 9 normal Not Available [facility] ([facility]) [address] [place], [address], 07/15/2025 10:06:43 07/14/20 25 07/14/2025 COMP. METAB OLIC PANEL (14) globulin, total 2.5 g/dL 1.5-4. 5 Not Available [facility] ([facility]) [address] [facility] [place], [address], 07/15/2025 10:06:43 07/14/20 25 07/14/2025 COMP. METAB OLIC PANEL (14) bilirubin, total 0.2 mg/dL 0.0-1. 2 normal Not Available [facility] ([facility]) [address] [facility] [place], [address], 07/15/2025 10:06:43 07/14/20 25 07/14/2025 COMP. METAB OLIC PANEL (14) alkaline phosphatase 122 IU/L 49-135 normal Ple ase note refer ence inter errol andrew e Not Available [facility] ([facility]) [address] [facility], [place], [address], 07/15/2025 10:06:43 07/14/20 25 07/14/2025 COMP. METAB OLIC PANEL (14) AST (SGOT) 15 IU/L 0-40 normal Not Available [facility] ([facility]) [address] [facility], [place], [address], 07/15/2025 10:06:43 07/14/20 25 07/14/2025 COMP. METAB OLIC PANEL (14) ALT (SGPT) 21 IU/L 0-32 normal Not Available [facility] ([facility]) [address] [facility] [place], [address], 07/15/2025 10:06:43 07/14/20 25 07/15/2025 VITAM IN D, 25-HY DROXY vitamin D, 25-hydroxy 36.0 NG/mL 30.0-1 00.0 Vitam in D defic [...] IOM (Inst itute of Medic ine). 2010. Nazarioa ry refer ence anahy es for calci um and D. Duncan walton [place]: [facility] . 2. Ariana gonzalez MF, Hema chaudhry [place], Bisch off-F errar i EVANS, et al. Evalu ation , treat ment, and preve ntion of vitam in D defic iency : an Endoc rine Socie ty clini uriel pract ice guide line. JCEM. 2010; 96(7) :1911 -30. Not Available [facility] ([facility]) [address] [place], [address], 07/15/2025 10:06:43 07/14/20 25 07/14/2025 TSH RFX ON ABNOR MAL TO FREE T4 TSH 2.600 uIU/m L 0.450- 4.500 normal Not Available [facility] ([facility]) [address] [place], [address], 07/15/2025 10:06:44 07/14/20 25 07/15/2025 URIC ACID uric acid 2.2 mg/dL 3.0-7. 2 below low normal Louisa salcedo t for gout patie nts: <6.0 Not Available [facility] ([facility]) [address] [place], [address], 07/15/2025 10:06:44 07/14/20 25 07/15/2025 PHOSP HORUS phosphorus 3.3 mg/dL 3.0-4. 3 normal Not Available [facility] ([facility]) [address] [place], [address], 07/15/2025 10:06:45 07/14/20 25 07/15/2025 MAGNE SIUM magnesium 2.1 mg/dL 1.6-2. 3 normal Not Available [facility] ([facility]) [address], [place], [address], 07/15/2025 10:06:45 06/02/20 25 06/02/2025 CT, head, w/o contr ast See Note [facility] , a member of [employer] [facility] Name: LAURIE ARNDT Date of : 1964 Reason for Exam: s/p head strike - pt sympto matic - r/o intrac ranial hemorr jermaine Exam Date: 2024 [id number] EST Report Status : Final Orderi ng Provid er: SERENA MARTIN PCP: LISA MUKHERJEE TION: Head trauma Techni que: Axial images were obtain ed from the skull base to the vertex withou t contra st enhanc ement. Scanne r: GE revolu tion fronti er 120 slice VCT Dose reduct ion techni que: ASIR (Adapt akosua statis tical iterat akosua recons tructi on) Dose: total exam DLP 1070 mGY per cm Compar valeria: Compar ed to multip le prior studie s most recent from March 11, 2023 FINDIN GS: Intrac ranial conten ts: No acute intrac ranial hemorr jermaine, midlin e shift or mass-e ffect. The ventri cles, sulci, dea n fissur es and basila r cister ns are symmet tete and normal in size and shape for the patien ts age. No abnorm al intra or extra- axial fluid collec tions. Mild perive ntricu lar white matter change s are nonspe cific but likely repres ent chroni c small vessel ischem ic diseas e. Bony struct ures/s oft tissue s: Within normal limits . Sinuse s: Parana wendy sinuse s are clear. Mastoi d air cells are well aerate d. IMPRES SPENSER: No eviden ce of acute intrac ranial proces s on noncon trast head CT. No signif icant change from the prior study. ------ -- FINAL REPORT ------ -- Dictat ed By: Elijah Mason Dictat ed Date: 2024 15:29 ET Assign ed Physic david: Elijah Mason Review ed and Electr onical ly Signed By: Elijah Mason nt Signed Date: 2024 15:34 ET Workst ation ID: [id number] Transc ribed By: Self Edit Transc ribed Date: 2024 15:29 ET [facility] U/S Dept [address] [facility], [place], [address], 06/15/2025 12:09:56 06/03/20 25 06/03/2025 elect roenc ephal ogram (EEG) , ambul atory (PROC ) No observ ation record ed. [facility] [address] [place], [address], 06/15/2025 12:09:56 06/25/20 25 06/25/2025 elect roenc ephal ogram No observ ation record ed. [facility]ost [facility] - Eeg Emg [address] [facility] [place], [address], 06/26/2025 08:19:51 06/26/2006/25/2025 elect roenc ephal ogram (EEG) , ambul atory (PROC ) No observ ation record ed. clarence Gusman MD [address] [place], [address], 07/16/2025 11:14:27 06/26/2006/26/2025 elect rocar diogr am No observ ation record ed. [email or web address] [facility] Vascular Surgery [address] [place], [address], 07/14/2025 14:19:06 06/27/20 25 06/25/2025 elect rocar diogr am No observ ation record ed. [address] Neurodiagnost ics - Eeg Emg [address] [facility] [place], [address], 07/15/2025 09:15:24 06/27/20 25 06/25/2025 elect rocar diogr am No observ ation record ed. [address] Vascular Surgery [address] [place], [address], 07/15/2025 09:23:20 06/27/20 25 06/27/2025 elect rocar diogr am No observ ation record ed. [address] Vascular Surgery [address] [place], [address], 07/15/2025 09:24:28 06/27/20 25 06/27/2025 elect rocar diogr am No observ ation record ed. [address] Vascular Surgery [address] [place], [address], 07/15/2025 09:25:00 06/28/20 25 06/28/2025 jose luis nuous EEG monit oring , e avaon al compo nent; 2-12 hrs, with VEEG (PROC ) No observ ation record ed. [facility] Vascular Surgery [address] [place], [address], 06/28/2025 11:30:42 06/29/20 25 06/25/2025 jose luis nuous EEG monit oring , wale akbar al compo nent; 12-26 hrs, with VEEG (PROC ) No observ ation record ed. [facility] Neurodiagnost ics - Eeg Emg [address] [facility] [address], [place], [address], 06/29/2025 11:02:59 06/29/20 25 06/27/2025 elect roenc ephal ogram (EEG) , ambul atory (PROC ) No observ ation record ed. [email or web address] (Imaging) [address], [place], [address], 06/30/2025 10:20:35 06/29/20 25 06/28/2025 elect roenc ephal ogram (EEG) , ambul atory (PROC ) No observ ation record ed. [address] (Imaging) [address], [place], [address], 07/27/2025 10:42:17 06/29/20 25 06/28/2025 elect roenc ephal ogram (EEG) , ambul atory (PROC ) No observ ation record ed. [address] (Imaging) [address], [place], [address], 07/27/2025 10:42:59 06/29/20 25 06/29/2025 jose luis nuous EEG monit oring , profe ssion al compo nent; 12-26 hrs, with VEEG (PROC ) No observ ation record ed. [facility] Vascular Surgery [address] [place], [address], 06/29/2025 18:51:56 06/30/20 25 06/30/2025 jose luis nuous EEG monit oring , profe ssion al compo nent; 12-26 hrs, with VEEG (PROC ) No observ ation record ed. [facility] Vascular Surgery [address] [place], [address], 06/30/2025 14:05:27 07/01/20 25 07/01/2025 jose luis nuous EEG monit oring , profe ssion al compo nent; 12-26 hrs, with VEEG (PROC ) No observ ation record ed. [facility] Vascular Surgery [address] [place], [address], 07/01/2025 12:46:47 07/02/20 25 07/01/2025 jose luis nuous EEG monit oring , profe ssion al compo nent; 12-26 hrs, with VEEG (PROC ) No observ ation record ed. [facility] Vascular Surgery [address] [place], [address], 07/02/2025 11:30:10 07/03/20 25 07/03/2025 jose luis nuous EEG monit oring , profe ssion al compo nent; 12-26 hrs, with VEEG (PROC ) No observ ation record ed. [facility] Vascular Surgery [address] [place], [address], 07/03/2025 10:38:22 07/03/20 25 07/02/2025 jose luis nuous EEG monit oring , profe ssion al compo nent; 12-26 hrs, with VEEG (PROC ) No observ ation record ed. [facility] Vascular Surgery [address] [place], [address], 07/03/2025 13:05:04 07/03/20 25 07/03/2025 jose luis nuous EEG monit oring , profe ssion al compo nent; 12-26 hrs, with VEEG (PROC ) No observ ation record ed. [facility] Vascular Surgery [address] [place], [address], 07/03/2025 13:05:17 07/04/20 25 07/03/2025 jose luis nuous EEG monit oring , profe ssion al compo nent; 12-26 hrs, with VEEG (PROC ) No observ ation record ed. [facility] Vascular Surgery [address] [place], [address], 07/04/2025 12:48:38 07/07/20 25 07/01/2025 elect bridgett yadav am No observ ation record ed. [email or web address] [facility] Cardiology [address] [place], [address], 07/08/2025 09:31:03 08/11/2008/11/2025 US, extre mity, nonva scula r, limit ed US Extrem ity Non-Va scular Left Limite d Reason : R22.9 LOCALI ZED SWELLI NG MASS LUMP UNSPEC IFIED; Clinic al Questi on(s): Lipoma COMPAR VALERIA: None. FINDIN GS: High-r esolut ion, linear array imagin g of the superf icial soft tissue s of the upper anteri or left arm was perfor med in the area of the patien t's palpab le findin g. Patien t report s feelin g a palpab le lump x years, increa sing in size, not tender . Corres pondin g to the patien t's palpab le findin g, there is fairly well-d efined isoech oic area in the subcut aneous fat just deep to the skin withou t health it specialist ior enhanc ement or shadow ing measur ing 4.5 x 2.2 x 5.6 cm. This lesion contai ns linear striat ions sugges tive of fat withou t photography intern al vascul arity on color dopple r imagin g. IMPRES SPENSER: Well-c ircums cribed subcut aneous mass corres pondin g to the patien t's palpab le findin g measur ing up to 5.6 cm and sugges tive of a lipoma . No suspic ious featur es. If the patien t's palpab le findin g contin ues to in size or become s progre ssivel y sympto matic, correl ation with MRI could be consid ered. WSN: [id number] Orderi ng Physic david: Lisa Fajardo Dictat ed By: Lane Pierre MD Dictat ed Date/T jasmin: 3:10 pm Review ed By: Lane Pierre MD Signed By: Lane Pierre MD Signed Date/T jasmin: 3:10 pm Transc ribed By: LEXIE Transc ribed Date/T jasmin: 10/14/ 25 2:03 pm Patien t Class: Outpat ient NAT [facility] (Outpt Imaging) [address], [place], [address], 08/11/2025 18:50:59 08/11/20 25 08/11/2025 US, upper arm No observ ation record ed. [email or web address] [facility] (Ultrasound) [address], [place], [address], 08/21/2025 11:50:12 Result Notes Documentation Provider Name and Address Organization Details Recorded Time Ct, Head, W/o Contrast : See Note [facility], a member of [employer] Patient Name: LAURIE CLEANING Date of : 1965 Reason for Exam: s/p head strike - pt symptomatic - r/o intracranial hemorrhage Exam Date: 06/02/2025 [id number] EST Report Status: Final Ordering Provider: JONATAN MARTIN PCP: LIV FAJARDO INDICATION: Head trauma Technique: Axial images were obtained from the skull base to the vertex without contrast enhancement. Scanner: [email or web address] 120 slice VCT Dose reduction technique: ASIR (Adaptive statistical iterative reconstruction) Dose: total exam DLP 1070 mGY per cm Comparison: Compared to multiple prior studies most recent from March 11, 2023 FINDINGS: Intracranial contents: No acute intracranial hemorrhage, midline shift or mass-effect. The ventricles, sulci, sylvian fissures and basilar cisterns are symmetric and normal in size and shape for the patients age. No abnormal intra or extra-axial fluid collections. Mild periventricular white matter changes are nonspecific but likely represent chronic small vessel ischemic disease. Bony structures/soft tissues: Within normal limits. Sinuses: Paranasal sinuses are clear. Mastoid air cells are well aerated. IMPRESSION: No evidence of acute intracranial process on noncontrast head CT. No significant change from the prior study. -------- FINAL REPORT -------- Dictated By: Onelia Mason Dictated Date: 06/02/2025 15:29 ET Assigned Physician: Onelia Mason Reviewed and Electronically Signed By: Onelia Mason Signed Date: 06/02/2025 15:34 ET Workstation ID: [id number] Transcribed By: Self Edit Transcribed Date: 06/02/2025 15:29 ET Jonatan Martin PA-C [address], [place], [address], [facility], [place] 06/15/2025 12:09:56 Problems Name Problem SNOMED Code Status Onset Date Resolution Date Notes Provider Name and Address Organization Details Recorded Time Acute asthma 447514468 Completed 12/31/2023 Liv Fajardo MD [address], [place], [address], [facility] 4 14:54:02 Chronic headache disorder [id number] Active follows neurolog y Liv Fajardo MD [address], [place], [address], [facility], [place] 2 14:47:52 Cough [id number] Completed 01/29/2017 Tiffany stevenson, [facility] 7 14:17:15 Menopaus al symptom [id number] Completed 09/13/2022 Liv Fajardo MD [address], [place], [address], [facility] 2 14:48:10 Thoracic back pain [id number] Completed 09/13/2022 Liv Fajardo MD [address], [place], [address], [facility] 2 14:48:24 Inflamma tion of sacroili ac joint [id number] Completed 06/23/2025 Liv Fajardo MD [address], [place], [address], [facility] 5 15:11:33 Inflamma tion of rotator cuff tendon 162164859 Completed 01/29/2017 Tiffany stevenson [facility] 7 14:17:24 Acute upper respirat ory infectio n [id number] Completed 01/29/2017 Tiffany stevenson [facility] 7 14:17:19 Acute sinusiti s [id number] Completed 09/13/2016 Liv Fajardo MD [address], [place], [address], [facility], [place] 5 15:10:10 Blood pressure above referenc e range [id number] Completed 09/13/2016 Elias brennan MA null, [facility] 6 13:19:07 Epilepsy [id number] Completed 201105/12/2014 RECORDED 01/19/20 12 1:46PM BY ELIAS CORTEZ MA, ANNOTATI ON/ADDEN DUM RYANN Silvestre, [facility] 8 09:44:39 Multiple sclerosi s [id number] Completed 201105/12/2014 RECORDED 01/19/20 12 1:46PM BY ELIAS CORTEZ MA, ANNOTATI ON/ADDEN DUM Liv Fajardo MD [address], [place], [address], [facility] [place], [place] 4 14:55:38 Administ ration of bacteria l and viral vaccine Completed 201105/12/2014 RECORDED 01/19/20 12 1:56PM BY ELIAS CORTEZ MA, OFFICE VISIT Jonatan Martin PA-C [address], [place], [address], [facility] [place], [place] 6 14:45:33 Administ ration of bacteria l and viral vaccine Completed 201106/04/2014 RECORDED 01/19/20 12 1:56PM BY ELIAS CORTEZ MA, OFFICE VISIT Jonatan Martin PA-C [address], [place], [address], [facility] 6 14:45:33 Administ ration of bacteria l and viral vaccine Completed 201106/05/2014 RECORDED 01/19/20 12 1:56PM BY ELIAS CORTEZ MA, OFFICE VISIT Jonatan Martin PA-C [address] [facility] [address], [place], [address], [facility] [place], [place] 6 14:45:33 Screenin g for malignan t neoplasm of breast Completed 201105/12/2014 RECORDED 10/23/20 12 1:54PM BY BUCKY WILSON ON/ADDEN DUM Jonatan DICKEYC [address] [facility] [address], [place], [address], [facility] [place], [place] 6 14:45:34 Neck pain [id number] Completed 201105/12/2014 RECORDED 10/23/20 12 1:55PM BY BUCKY WILSON ON/ADDEN DUM Jonatan Martin PA-C [address] [facility] [address], [place], [address], [facility] [place], [place] 6 14:45:33 Cough [id number] Completed 201105/12/2014 IMPRESSI ON: PERSISTE NT COUGH. LESS LIKELY TO BE POST-BRO NCHITIC GIVEN THE PROLONGE D DURATION ; RECORDED 10/23/20 12 1:56PM BY BUCKY WILSON ON/ADDEN DUM [facility] 7 14:17:15 Follow-u p encounte r Completed 201105/12/2014 RECORDED 10/23/20 12 1:54PM BY BUCKY WILSON ON/ADDEN DUM Jonatan DICKEYC [address] [facility] [address], [place], [address], [facility] [place], [place] 6 14:45:33 Pain of hip region 15438131 Completed 201105/12/2014 IMPRESSI ON: FROM FALL, TO PT; RECORDED 10/23/20 12 1:55PM BY BUCKY WILSON ON/ADDEN DUM Jonatan Martin PA-C [address] [facility] [address], [place], [address], [facility] [place], [place] 6 14:45:33 Skin sensatio n disturba nje [id number] Completed 201105/12/2014 IMPRESSI ON: PT TO ADDRESS WITH NEW NEUROLOG IST, THEY TOLD HER SHE DOES NOT HAVE MS BUT SHOUDL GET EYARLY MRI'S, PT WILL GET NEW NEUROLOG IST; RECORDED 10/23/20 12 1:54PM BY BUCKY WILSON ON/ADDRADHA HERMAN-C [address], [place], [address], [facility] [place], [place] 6 14:45:33 Shoulder joint pain [id number] Completed 201105/12/2014 IMPRESSI ON: FROM FALL, PT TO SET UP PT AND START MUSCLE RELAXER; RECORDED 10/23/20 12 1:55PM BY BUCKY WILSON ON/PRECIOUS HERMAN-C [address], [place], [address], [facility] [place], [place] 6 14:45:33 Increase d frequenc y of urinatio n [id number] Completed 201105/12/2014 RECORDED 10/23/20 12 1:54PM BY BUCKY WILSON ON/PRECIOUS HERMAN-C [address] [facility] [address], [place], [address], [facility] [place], [place] 6 14:45:33 Wheezing [id number] Completed 201105/12/2014 RECORDED 10/23/20 12 1:54PM BY BUCKY WILSON/PRECIOUS HERMAN-C [address], [place], [address], [facility] [place], [place] 6 14:45:33 Screenin g for malignan t neoplasm of breast Completed 201106/04/2014 RECORDED 10/23/20 12 1:54PM BY BUCKY WILSON ON/ADDEN DUM Jonatan HERMAN-C [address] [facility] [address], [place], [address], [facility] [place], [place] 6 14:45:34 Neck pain [id number] Completed 201106/04/2014 RECORDED 10/23/20 12 1:55PM BY BUCKY WILSON ON/ADDEN DUM Jonatan HERMAN-C [address] [facility] [address], [place], [address], [facility] [place], [place] 6 14:45:33 Cough [id number] Completed 201106/04/2014 IMPRESSI ON: PERSISTE NT COUGH. LESS LIKELY TO BE POST-BRO NCHITIC GIVEN THE PROLONGE D DURATION ; RECORDED 10/23/20 12 1:56PM BY BUCKY WILSON ON/ADDEN DUM [facility] 7 14:17:15 Follow-u p encounte r Completed 201106/04/2014 RECORDED 10/23/20 12 1:54PM BY BUCKY WILSON ON/ADDEN DUM Jonatan HERMAN-C [address] [address], [place], [address], [facility] [place], [place] 6 14:45:33 Pain of hip region 98972215 Completed 201106/04/2014 IMPRESSI ON: FROM FALL, TO PT; RECORDED 10/23/20 12 1:55PM BY BUCKY WILSON ON/ADDEN DUM Jonatan HERMAN-C [address] [facility] [address], [place], [address], [facility] [place], [place] 6 14:45:33 Skin sensatio n disturba nce [id number] Completed 201106/04/2014 IMPRESSI ON: PT TO ADDRESS WITH NEW NEUROLOG IST, THEY TOLD HER SHE DOES NOT HAVE MS BUT SHOUDL GET EYARLY MRI'S, PT WILL GET NEW NEUROLOG IST; RECORDED 10/23/20 12 1:54PM BY BUCKY WILSON ON/ADDEN DUM Jonatan Martin PA-C [address], [place], [address], [facility] [place], [place] 6 14:45:33 Shoulder joint pain [id number] Completed 201106/04/2014 IMPRESSI ON: FROM FALL, PT TO SET UP PT AND START MUSCLE RELAXER; RECORDED 10/23/20 12 1:55PM BY BUCKY WILSON ON/ADDEN DUM Jonatan Martin PA-C [address], [place], [address], [facility] [place], [place] 6 14:45:33 Increase d frequenc y of urinatio n [id number] Completed 201106/04/2014 RECORDED 10/23/20 12 1:54PM BY BUCKY WILSON ON/ADDEN DUM Jonatan Martin PA-C [address], [place], [address], [facility] [place], [place] 6 14:45:33 Wheezing [id number] Completed 201106/04/2014 RECORDED 10/23/20 12 1:54PM BY BUCKY WILSON ON/ADDEN DUM Jonatan Martin PA-C [address] [facility] [address], [place], [address], [facility] [place], [place] 6 14:45:33 Screenin g for malignan t neoplasm of breast Completed 201106/05/2014 RECORDED 10/23/20 12 1:54PM BY BUCKY WILSON ON/ADDEN DUM Jonatan Martin PA-C [address], [place], [address], [facility] [place], [place] 6 14:45:34 Neck pain [id number] Completed 201106/05/2014 RECORDED 10/23/20 12 1:55PM BY BUCKY WILSON ON/ADDEN DUM Jonatan Martin PA-C [address], [place], [address], [facility] [place], [place] 6 14:45:33 Cough [id number] Completed 201106/05/2014 IMPRESSI ON: PERSISTE NT COUGH. LESS LIKELY TO BE POST-BRO NCHITIC GIVEN THE PROLONGE D DURATION ; RECORDED 10/23/20 12 1:56PM BY BUCKY WILSON ON/ADDEN DUM Tiffany Wray MA null, [facility] 7 14:17:15 Follow-u p encounte r Completed 201106/05/2014 RECORDED 10/23/20 12 1:54PM BY BUCKY WILSON ON/PRECIOUS Martin PA-C [address], [place], [address], [facility] [place], [place] 6 14:45:33 Pain of hip region 49427940 Completed 201106/05/2014 IMPRESSI ON: FROM FALL, TO PT; RECORDED 10/23/20 12 1:55PM BY BUCKY WILSON ON/PRECIOUS DUM Jonatan Martin PA-C [address], [place], [address], [facility] [place], [place] 6 14:45:33 Skin sensatio n disturba nce 71202155 Completed 201106/05/2014 IMPRESSI ON: PT TO ADDRESS WITH NEW NEUROLOG IST, THEY TOLD HER SHE DOES NOT HAVE MS BUT SHOUDL GET EYARLY MRI'S, PT WILL GET NEW NEUROLOG IST; RECORDED 10/23/20 12 1:54PM BY BUCKY WILSON ON/PRECIOUS DUM Jonatan DICKEYC [address], [place], [address], [facility] [place], [place] 6 14:45:33 Shoulder joint pain [id number] Completed 201106/05/2014 IMPRESSI ON: FROM FALL, PT TO SET UP PT AND START MUSCLE RELAXER; RECORDED 10/23/20 12 1:55PM BY BUCKY WILSON/PRECIOUS HERMAN-C [address], [place], [address], [facility] [place], [place] 6 14:45:33 Increase d frequenc y of urinatio n [id number] Completed 201106/05/2014 RECORDED 10/23/20 12 1:54PM BY BUCKY WILSON ON/ADDEN DUM Jonatan Alemidaden PA-C [address], [place], [address], [facility] [place], [place] 6 14:45:33 Wheezing [id number] Completed 201106/05/2014 RECORDED 10/23/20 12 1:54PM BY BUCKY WILSON ON/ADDEN DUM Jonatan Almeidaden PA-C [address], [place], [address], [facility] [place], [place] 6 14:45:33 Influenz a vaccine needed [id number] 06 Completed 201205/12/2014 RECORDED 01/07/20 13 1:14PM BY ELIAS CORTEZ MA, BUCKY ON/ADDEN DUM Jonatan Martin PA-C [address] [facility] [address], [place], [address], [facility] [place], [place] 6 14:45:33 Influenz a vaccine needed [id number] 06 Completed 201206/04/2014 RECORDED 01/07/20 13 1:14PM BY ELIAS CORTEZ MA, BUCKY ON/ADDEN DUM Jonatan Almeidaden PA-C [address], [place], [address], [facility] [place], [place] 6 14:45:33 Influenz a vaccine needed [id number] 06 Completed 201206/05/2014 RECORDED 01/07/20 13 1:14PM BY ELIAS CORTEZ MA, BUCKY ON/ADDEN DUM Jonatan Almeidaden PA-C [address], [place], [address], [facility] [place], [place] 6 14:45:33 Malaise and fatigue 957796460 Completed 201205/12/2014 RECORDED 02/16/20 13 9:57AM BY SERENITY ROLAND MA, ANNOTATI ON/ADDEN DUM Jonatan Martin PA-C [address], [place], [address], [facility] [place], [place] 6 14:45:33 Renewal of prescrip tion Completed 201205/12/2014 RECORDED 02/16/20 13 9:57AM BY SERENITY ROLAND MA, ANNOTATI ON/ADDEN DUM Jonatan Martin PA-C [address], [place], [address], [facility] [place], [place] 6 14:45:33 Chest pain 92394054 Completed 201205/12/2014 RECORDED 02/16/20 13 9:56AM BY SERENITY ROLAND MA, ANNOTATI ON/ADDEN DUM Jonatan Martin PA-C [address], [place], [address], [facility] [place], [place] 6 14:45:33 Malaise and fatigue 395280864 Completed 201206/04/2014 RECORDED 02/16/20 13 9:57AM BY SERENITY ROLAND MA, ANNOTATI ON/ADDEN DUM Jonatan Martin PA-C [address], [place], [address], [facility] [place], [place] 6 14:45:33 Renewal of prescrip tion Completed 201206/04/2014 RECORDED 02/16/20 13 9:57AM BY SERENITY ROLAND MA, ANNOTATI ON/ADDEN DUM Jonatan Martin PA-C [address], [place], [address], [facility] [place], [place] 6 14:45:33 Chest pain 12782967 Completed 201206/04/2014 RECORDED 02/16/20 13 9:56AM BY SERENITY ROLAND MA, ANNOTATI ON/ADDEN DUM Jonatan Martin PA-C [address], [place], [address], [facility] [place], [place] 6 14:45:33 Malaise and fatigue 506295894 Completed 201206/05/2014 RECORDED 02/16/20 13 9:57AM BY SERENITY ROLAND MA, ANNOTATI ON/ADDEN DUM Jonatan Martin PA-C [address], [place], [address], [facility] [place], [place] 6 14:45:33 Renewal of prescrip tion Completed 201206/05/2014 RECORDED 02/16/20 13 9:57AM BY SERENITY ROLAND MA, ANNOTATI ON/ADDEN DUM Jonatan Martin PA-C [address], [place], [address], [facility] [place], [place] 6 14:45:33 Chest pain 81011324 Completed 201206/05/2014 RECORDED 02/16/20 13 9:56AM BY SERENITY ROLAND MA, ANNOTATI ON/ADDEN DUM Jonatan Martin PA-C [address], [place], [address], [facility] [place], [place] 6 14:45:33 Adult health examinat ion Completed 201205/12/2014 RECORDED 02/26/20 13 4:42PM BY ELIAS CORTEZ MA, ANNOTATI ON/ADDEN DUM Jonatan Martin PA-C [address], [place], [address], [facility] [place], [place] 6 14:45:33 Patient status finding [id number] Completed 201205/12/2014 RECORDED 02/26/20 13 1:14PM BY DAWN FOWLER MA, ANNOTATI ON/ADDEN DUM Jonatan Martin PA-C [address], [place], [address], [facility] [place], [place] 6 14:45:33 Chronic sinusiti s 44262664 Completed 201205/12/2014 RECORDED 02/26/20 13 1:14PM BY DAWN FOWLER MA, ANNOTATI ON/ADDEN DUM Jonatan Almeidaden PA-C [address], [place], [address], [facility] [place], [place] 6 14:45:33 Adult health examinat ion Completed 201206/04/2014 RECORDED 02/26/20 13 4:42PM BY ELIAS CORTEZ MA, ANNOTATI ON/ADDEN DUM Jonatan Martin PA-C [address], [place], [address], [facility] [place], [place] 6 14:45:33 Chronic sinusiti s 61781937 Completed 201206/04/2014 RECORDED 02/26/20 13 1:14PM BY DAWN FOWLER MA, ANNOTATI ON/ADDRADHA Martin PA-C [address], [place], [address], [facility] [place], [place] 6 14:45:33 Adult health examinat ion Completed 201206/05/2014 RECORDED 02/26/20 13 4:42PM BY ELIAS CORTEZ MA, ANNOTATI ON/ADDEN DUM Jonatan Almeidaden PA-C [address], [place], [address], [facility] [place], [place] 6 14:45:33 Chronic sinusiti s 78675609 Completed 201206/05/2014 RECORDED 02/26/20 13 1:14PM BY DAWN FOWLER MA, ANNOTATI ON/ADDEN DUM Jonatan Almeidaden PA-C [address], [place], [address], [facility] [place], [place] 6 14:45:33 Anemia 124000383 Completed 201205/12/2014 RECORDED 10/14/20 13 3:55PM BY NICK CIFUENTES MD, YISSELATI ON/ADDEN YEFRI Martin PA-C [address], [place], [address], [facility] [place], [place] 6 14:45:33 Laborato ry procedur e performe d [id number] Completed 201205/12/2014 RECORDED 10/14/20 13 3:15PM BY ELIAS CORTEZ MA, ANNOTATI ON/ADDRADHA Martin PA-C [address], [place], [address], [facility] [place], [place] 6 14:45:33 Acute sinusiti s 53870723 Completed 201205/12/2014 RECORDED 10/14/20 13 3:15PM BY ELIAS CORTEZ MA, BUCKY ON/ADDRADHA Fajardo MD [address], [place], [address], [facility] [place], [place] 5 15:10:10 Disorder of skin and/or subcutan eous tissue 93304678 Completed 201205/12/2014 IMPRESSI ON: SEE ABOVE NOTE, UNCLEAR CAUSE, PT TO SET UP APPT WITH DERM, URIEL IF WORSENS; RECORDED 10/14/20 13 3:15PM BY ELIAS CORTEZ MA, ANNOTATI ON/PRECIOUS Martin PA-C [address], [place], [address], [facility] [place], [place] 6 14:45:33 Disorder of pharynx Completed 201205/12/2014 IMPRESSI ON: FOR A MONTH LIMIT PHONE WORK TO 3 HOURS A DAY TO LIMIT THROAT IRRITATI ON; RECORDED 10/14/20 13 3:15PM BY ELIAS CORTEZ MA, ANNOTATI ON/ADDEN YEFRI HERMAN-C [address], [place], [address], [facility] [place], [place] 6 14:45:34 Abnormal involunt shaka movement 139925624 Completed 201205/12/2014 IMPRESSI ON: WE DISCUSSE D THAT NEUROLOG Y NEEDS TO TREAT HER TREMORS. SHE HAS ASKED THAT WE CALL HER NEUROLOG IST. I WILL CALL; RECORDED 10/14/20 13 3:15PM BY ELIAS CORTEZ MA, BUCKY ON/PRECIOUS HERMAN-C [address], [place], [address], [facility] [place], [place] 6 14:45:33 Anemia 397049272 Completed 201206/04/2014 RECORDED 10/14/20 13 3:55PM BY NICK CIFUENTES MD, BUCKY ON/PRECIOUS HERMAN-C [address], [place], [address], [facility] [place], [place] 6 14:45:33 Laborato ry procedur e performe d [id number] Completed 201206/04/2014 RECORDED 10/14/20 13 3:15PM BY ELIAS CORTEZ MA, BUCKY ON/PRECIOUS HERMAN-C [address], [place], [address], [facility] [place], [place] 6 14:45:33 Acute sinusiti s 40504877 Completed 201206/04/2014 RECORDED 10/14/20 13 3:15PM BY ELIAS CORTEZ MA, BUCKY ON/PRECIOUS Fajardo MD [address], [place], [address], [facility] [place], [place] 5 15:10:10 Disorder of skin and/or subcutan eous tissue 36102058 Completed 201206/04/2014 IMPRESSI ON: SEE ABOVE NOTE, UNCLEAR CAUSE, PT TO SET UP APPT WITH DERM, URIEL IF WORSENS; RECORDED 10/14/20 13 3:15PM BY ELIAS CORTEZ MA, BUCKY ON/PRECIOUS Martin PA-C [address] [facility] [address], [place], [address], [facility] [place], [place] 6 14:45:33 Disorder of pharynx Completed 201206/04/2014 IMPRESSI ON: FOR A MONTH LIMIT PHONE WORK TO 3 HOURS A DAY TO LIMIT THROAT IRRITATI ON; RECORDED 10/14/20 13 3:15PM BY ELIAS CORTEZ MA, BUCKY ON/PRECIOUS Martin PA-C [address] [facility] [address], [place], [address], [facility] [place], [place] 6 14:45:34 Abnormal involunt shaka movement [id number] Completed 201206/04/2014 IMPRESSI ON: WE DISCUSSE D THAT NEUROLOG Y NEEDS TO TREAT HER TREMORS. SHE HAS ASKED THAT WE CALL HER NEUROLOG IST. I WILL CALL; RECORDED 10/14/20 13 3:15PM BY ELIAS CORTEZ MA, BUCKY ON/PRECIOUS Martin PA-C [address] [facility] [address], [place], [address], [facility] [place], [place] 6 14:45:33 Anemia 518950505 Completed 201206/05/2014 RECORDED 10/14/20 13 3:55PM BY NICK CIFUENTES MD, BUCKY ON/PRECIOUS Martin PA-C [address] [facility] [address], [place], [address], [facility] [place], [place] 6 14:45:33 Laborato ry procedur e performe d [id number] Completed 201206/05/2014 RECORDED 10/14/20 13 3:15PM BY ELIAS CORTEZ MA, BUCKY ON/PRECIOUS Martin PA-C [address], [place], [address], [facility] [place], [place] 6 14:45:34 Acute sinusiti s 01747078 Completed 201206/05/2014 RECORDED 10/14/20 13 3:15PM BY ELIAS CORTEZ MA, BUCKY ON/PRECIOUS Fajardo MD [address] [facility] [address], [place], [address], [facility] [place], [place] 5 15:10:10 Disorder of skin and/or subcutan eous tissue 68783740 Completed 201206/05/2014 IMPRESSI ON: SEE ABOVE NOTE, UNCLEAR CAUSE, PT TO SET UP APPT WITH DERM, URIEL IF WORSENS; RECORDED 10/14/20 13 3:15PM BY ELIAS CORTEZ MA, BUCKY ON/PRECIOUS Martin PA-C [address] [facility] [address], [place], [address], [facility] [place], [place] 6 14:45:33 Disorder of pharynx Completed 201206/05/2014 IMPRESSI ON: FOR A MONTH LIMIT PHONE WORK TO 3 HOURS A DAY TO LIMIT THROAT IRRITATI ON; RECORDED 10/14/20 13 3:15PM BY ELIAS CORTEZ MA, BUCKY ON/PRECIOUS Martin PA-C [address] [facility] [address], [place], [address], [facility] 6 14:45:34 Abnormal involunt shaka movement 048619036 Completed 201206/05/2014 IMPRESSI ON: WE DISCUSSE D THAT NEUROLOG Y NEEDS TO TREAT HER TREMORS. SHE HAS ASKED THAT WE CALL HER NEUROLOG IST. I WILL CALL; RECORDED 10/14/20 13 3:15PM BY ELIAS CORTEZ MA, BUCKY WILLIAM/PRECIOUS Martin PA-C [address] [facility], [place], [address], [facility] [place], [place] 6 14:45:33 Mammogra phy abnormal 290893117 Completed 201305/12/2014 RECORDED 02/20/20 14 3:15PM BY ELIAS CORTEZ MA, ANNOTATI ON/ADDEN DUM Jonatan Martin PA-C [address], [place], [address], [facility] [place], [place] 6 14:45:33 Dizzines s and giddines s 382375041 Completed 201305/12/2014 IMPRESSI ON: THERE SEEMS TO BE NO CHANGE FROM HER BASELINE AND HER EXAM IS NORMAL.; RECORDED 02/20/20 14 3:15PM BY ELIAS CORTEZ MA, ANNOTATI ON/ADDEN DUM Jonatan Martin PA-C [address], [place], [address], [facility] [place], [place] 6 14:45:33 Headache 12025031 Completed 201305/12/2014 RECORDED 02/20/20 14 3:15PM BY ELIAS CORTEZ MA, ANNOTATI ON/ADDEN DUM Jonatan Martin PA-C [address], [place], [address], [facility] [place], [place] 6 14:45:33 Pre-surg raymundo evaluati on Completed 201305/12/2014 RECORDED 02/20/20 14 3:15PM BY ELIAS CORTEZ MA, ANNOTATI ON/ADDEN DUM Jonatan Martin PA-C [address], [place], [address], [facility] [place], [place] 6 14:45:34 Mammogra phy abnormal 313190690 Completed 201306/04/2014 RECORDED 02/20/20 14 3:15PM BY ELIAS CORTEZ MA, ANNOTATI ON/ADDEN DUM Jonatan Martin PA-C [address], [place], [address], [facility] [place], [place] 6 14:45:33 Dizzines s and giddines s 094010279 Completed 201306/04/2014 IMPRESSI ON: THERE SEEMS TO BE NO CHANGE FROM HER BASELINE AND HER EXAM IS NORMAL.; RECORDED 02/20/20 14 3:15PM BY ELIAS CORTEZ MA, ANNOTATI ON/ADDEN DUM Jonatan Martin PA-C [address], [place], [address], [facility] [place], [place] 6 14:45:33 Headache 79246426 Completed 201306/04/2014 RECORDED 02/20/20 14 3:15PM BY ELIAS CORTEZ MA, ANNOTATI ON/ADDEN DUM Jonatan Martin PA-C [address], [place], [address], [facility] [place], [place] 6 14:45:33 Pre-surg raymundo evaluati on Completed 201306/04/2014 RECORDED 02/20/20 14 3:15PM BY ELIAS CORTEZ MA, ANNOTATI ON/ADDEN DUM Jonatan Martin PA-C [address] [facility] [address], [place], [address], [facility] [place], [place] 6 14:45:34 Mammogra phy abnormal 684669313 Completed 201306/05/2014 RECORDED 02/20/20 14 3:15PM BY ELIAS CORTEZ MA, ANNOTATI ON/ADDEN DUM Jonatan Martin PA-C [address], [place], [address], [facility] [place], [place] 6 14:45:33 Dizzines s and giddines s 236457371 Completed 201306/05/2014 IMPRESSI ON: THERE SEEMS TO BE NO CHANGE FROM HER BASELINE AND HER EXAM IS NORMAL.; RECORDED 02/20/20 14 3:15PM BY ELIAS CORTEZ MA, ANNOTATI ON/ADDEN DUM Jonatan Martin PA-C [address], [place], [address], [facility] [place], [place] 6 14:45:33 Headache 87439927 Completed 201306/05/2014 RECORDED 02/20/20 14 3:15PM BY ELIAS CORTEZ MA, ANNOTATI ON/ADDEN DUM Jonatan Martin PA-C [address], [place], [address], [facility] [place], [place] 6 14:45:33 Pre-surg raymundo evaluati on Completed 201306/05/2014 RECORDED 02/20/20 14 3:15PM BY ELIAS CORTEZ MA, ANNOTATI ON/ADDEN DUM Jonatan Martin PA-C [address], [place], [address], [facility] [place], [place] 6 14:45:34 Posttrau matic headache 26275621 Completed 201305/12/2014 RECORDED 03/02/20 14 1:27PM BY ANDRZEJ IBRAHIM MA, ANNOTATI ON/ADDEN DUM Jonatan Martin PA-C [address], [place], [address], [facility] [place], [place] 6 14:45:33 Posttrau matic headache 13060252 Completed 201306/04/2014 RECORDED 03/02/20 14 1:27PM BY ANDRZEJ IBRAHIM MA, ANNOTATI ON/ADDEN DUM Jonatan Martin PA-C [address], [place], [address], [facility] [place], [place] 6 14:45:33 Posttrau matic headache 92675779 Completed 201306/05/2014 RECORDED 03/02/20 14 1:27PM BY ANDRZEJ IBRAHIM MA, ANNOTATI ON/ADDEN DUM Jonatan Martin PA-C [address], [place], [address], [facility] [place], [place] 6 14:45:33 Allergic rhinitis [id number] Completed 201301/29/2017 RECORDED 03/27/20 14 3:49PM BY SERENITY ROLAND MA, OFFICE VISIT Tiffany stevenson, [facility] 7 14:17:27 Hypertro phy of breast [id number] Completed 201303/04/2022 Liv Fajardo MD [address], [place], [address], [facility] [place], [place] 2 14:21:43 Major depressi on single episode, in partial remissio n [id number] Active 2013 DX: F32.4 Ofelia stevenson, [facility] 0 16:02:20 Epilepsy 35369501 Active 2013 RYANN Silvestre, [facility] 8 09:44:39 Gastroes ophageal reflux disease [id number] Active 2013 RYANN Silvestre, [facility] 6 13:19:02 Hyperlip idemia 98947692 Active 2013 11.19 - ascvd risk 3.6% Jonatan Martin PA-C [address], [place], [address], [place] [facility] [facility] [place] [place] 9 13:45:01 Thyrotox icosis 35841919 Active 2013 STORY: FOLLOWED BY RYANN Mcgee, [facility] 8 09:44:46 Insomnia 547456352 Completed 201306/23/2025 Liv Fajardo MD [address], [place], [address], [facility] [place], [place] 5 15:11:45 Irritabl e bowel syndrome 98868892 Active 2013 RYANN Silvestre, [facility] 6 13:18:38 Asthma 080672701 Active 2013 STORY: FOLLOWED BY PULMONAR Y RYANN Silvestre, [facility] 6 13:18:58 Multiple sclerosi s 36541670 Completed 201312/31/2023 Liv Fajardo MD [address], [place], [address], [facility] [place], [place] 4 14:55:38 Postconc ussion syndrome 90937873 Completed 201312/31/2023 Jonatan Martin PA-C [address], [place], [address], [facility] [place], [place] 5 16:02:11 Syncope and collapse 678753381 Completed 201301/29/2017 IMPRESSI ON: DUE TO BLOOD DONATION , NEG WORKUP FOR OTHER CAUSES, BP IS STABLE, NO FURTHER BLOOD DRAWS, NO DRIVING WHILE ON PAIN MEDS AND HAS SUCH SHOUDLER PAIN; RECORDED 03/27/20 14 3:49PM BY SERENITY ROLAND MA, OFFICE VISIT Tiffany stevenson, [facility] 7 14:17:03 Non-toxi c uninodul ar goiter 555852528 Active 2013 RYANN Silvestre, [facility] 6 13:18:48 Obesity 298397938 Active 2018 Ofelia stevenson, [facility] 9 16:45:45 Anxiety 81778933 Completed 202006/23/2025 Liv Fajardo MD [address], [place], [address], [facility] [place], [place] 5 15:09:15 Osteopor osis 06322003 Active 2021 Liv Fajardo MD [address], [place], [address], [facility] [place], [place] 2 14:32:37 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 47747458119 186677 Active 2021 follows breast center Liv Fajardo MD [address], [place], [address], [facility] [place], [place] 2 14:21:54 Gastropa resis syndrome 760238709 Active 2021 Jonatan Martin PA-C [address], [place], [address], [facility] [place], [place] 2 13:42:35 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 716838607 Active 2022 Liv Fajardo MD [address], [place], [address], [facility] [place], [place] 3 17:39:21 Obstruct akosua sleep apnea syndrome 60107873 Active 2023 Liv Fajardo MD [address], [place], [address], [facility] [place], [place] 4 07:27:30 Acute sinusiti s 90330036 Completed 202406/23/2025 Liv Fajardo MD [address], [place], [address], [facility] [place], [place] 5 15:10:10 Mass of right adrenal gland 38433299741 901225 Active 2024 Yonny Heredia MD [address], [place], [address], [facility] [place], [place] 5 12:03:03 Essentia l hyperten spenser 72051406 Active 2024 Yonny Heredia MD [address], [place], [address], [facility] [place], [place] 5 12:52:08 Tachycar maya 8985067 Active 2024 Yonny Heredia MD [address], [place], [address], [facility] [place], [place] 5 12:53:42 Postconc ussion syndrome 40159810 Active 2024 Jonatan Martin PA-C [address], [place], [address], [facility] [place], [place] 5 16:02:11 Fanconi syndrome 21001171 Completed 202406/23/2025 Liv Fajardo MD [address], [place], [address], [facility] [place], [place] 5 15:09:40 Kidney stone 38369238 Active 2024 Liv Fajardo MD [address], [place], [address], [facility] [place], [place] 5 15:12:32 Mass of urinary bladder 094666185 Active 2024 -Follows urology. Liv Fajardo MD [address], [place], [address], [facility] [place], [place] 5 15:13:51 Notes:Some problems listed i n Documents: #[id number], #[id number], #[id number] could not be added to this patient's chart. Please review these documents and add these problems to the patient's chart manually as needed. Problem Notes None recorded. Procedures Surgical History Date Name Laterality Status Provider Name and Address Organization Details Recorded Time 025 ultrasonography completed Jaylin Liu [facility] 08/21/2025 11:50:04 025 video EEG completed Jaylin Liu [facility] 07/14/2025 14:18:47 023 Suture/Staple removal completed Liv Fajardo MD [address], [place], [address], [facility] [place], [place] 04/02/2023 14:53:12 023 Suture/Staple removal completed Liv Fajardo MD [address], [place], [address], [facility] [place] [place] 03/27/2023 14:58:04 023 Suture/Staple removal completed Caprice Cheney [facility] 03/23/2023 08:04:07 023 Dressing Change completed Caprice Cheney [facility] 03/23/2023 08:02:30 022 EGD completed Juliana Real [facility] 05/11/2022 15:28:09 021 laryngoscopy completed Juliana Real [facility] 08/23/2021 14:30:55 021 Most Recent Mammogram completed Juliana Real [facility] 12/07/2020 15:12:02 021 Mammogram Screening completed Juliana Real [facility] 12/07/2020 15:11:50 019 Mammogram one breast completed Serinaclay Chapman [facility] 04/02/2019 09:37:05 019 Most Recent Bone Density completed Serinaclay Chapman [facility] 03/26/2019 10:16:32 019 Dxa bone density nader vrt fx completed Serina Ari [facility] 03/26/2019 10:16:27 019 Date of Last Pap Smear completed Serinaclay Chapman [facility] 07/24/2019 15:05:30 016 excision of intra-abdominal mass completed Elias Lucero MA [facility] 08/15/2021 13:53:40 016 Date of Last Colonoscopy completed Juliana Farhan [facility] 11/23/2015 09:28:38 016 Colonoscopy completed Juliana Farhan [facility] 11/23/2015 09:28:38 015 Joint Injection completed Nick Cifuentse MD [address] [facility] [address], [place], [address], [facility] [place] [place] 08/24/2015 14:54:08 013 Thyroid Surgery completed Dawn Fowler MA [facility] 08/18/2022 12:53:35 013 Gastrointestinal Surgery completed Dawn Fowler [facility] 08/18/2022 12:53:36 Imaging Results None recorded. Procedure Notes None recorded. Medical Equipment None Reported. Allergies Allergen ID Allergen Name Allergen Category Reaction Reaction Severity Criticality Documentation Date Start Date Code Code System Note Provider Name and Address Organization Details Recorded Time 3124 Demerol medicatio n angioedem a Not available Not available 05/12/20142013 77569 1 [facility] 5 14:10:49 Medications Name Sig Start Date Stop Date Status Note LastModified by Organization Details LastModified Time verapamil ER (SR) 120 mg tablet,ex tended release Take 1 tablet every day by oral route for 90 days, for tachycar maya. 2024 active Not Available Not Available Not Avai lable celecoxib 200 mg capsule 1 in am 1 in pm 03/03 completed Not Available Not Available Not Available cyclobenz aprine 10 mg tablet 03/03 completed Not Available Not Available Not Available amoxicill in 500 mg capsule TAKE 1 TABLET 3 TIMES A DAY UNTIL GONE 12/30 completed Not Available Not Available Not Available Keppra 500 mg tablet Take 1 tablet twice a day by oral route as directed . 2024 active Not Available Not Available Not Avai lable oxcarbaze pine 150 mg tablet THREE TIMES [...] TABLET BY MOUTH TWICE A DAY NEEDED 07/14 completed Not Available Not Available Not Available albuterol sulfate 2.5 mg/3 mL (0.083 [...] 4:18PM BY JET Martins MD, ANNOTATI ON/PRECIOUS ASIF; Not Available Not Available Not Available Zyrtec [...] omeprazol e 40 mg capsule,d elayed release active Not Available Not Available Not Available tramadol 50 mg tablet THREE TIMES DAILY, NEEDED. MAY TAKE WITH FLUOXETI NE 12/30 completed Not Available Not Available Not Available zonisamid e 100 mg capsule Take 3 capsules every day by oral route as directed . 05/06 completed Not Available Not Available Not Available verapamil 120 mg tablet TAKE ONE TABLET BY MOUTH EVERY DAY active Not Available Not Available No [...] APPLICAT ION TWICE DAILY FOR 14 DAYS 06/15 completed Not Available Not Available Not Available docusate [...] Available Not Available Nasonex 50 mcg/actua tion Levelland Levelland 2 sprays every day by intranas al [...] day by topical route for 14 days. 06/15 completed Not Available Not Available Not Available oxybutyni n chloride 5 mg tablet Take 1 tablet every day by oral route for 90 days. 06/28 completed Not Available Not Available Not Available ondansetr on 4 mg disintegr ating tablet Place 1 tablet 3 times a day by translin gual route as needed for 5 days. 06/15 completed Not Available Not Available Not Available [...] Not Available Not Available Not Available Vitamin B6 50 mg tablet Take 1 tablet twice a day by oral route. active Not Available Not Available No t Available albuterol (refill) 90 mcg/actua tion aerosol [...] aprine 5 mg tablet 1 po bid 06/15 completed prn Not Available Not Available Not Available bupropion HCl XL 300 mg 24 hr tablet, extended release DAILY 10/14 completed RECORDED 10/14/20 13 3:21PM BY ELIAS CORTEZ MA, OFFICE VISIT; Not Available Not Available Not Available nitrofura ntoin monohydra te/macroc rystals 100 mg capsule 03/13 completed Not Available Not Available Not Available magnesium 500 mg daily 2024 active Not Available Not Available Not Avai lable Flonase TWO TIMES DAILY 2012 active RECORDED 10/14/20 13 3:22PM BY ELIAS CORTEZ MA, OFFICE VISIT; Not Available Not Available Not Available calcium DAILY active RECORDED 03/02/20 14 1:27PM BY ANDRZEJ IBRAHIM MA, OFFICE VISIT; Not Available Not Available Not Available B Complex 1 capsule po daily active Not Available Not Available No t Available hydroxyzi ne HCl 50 mg BID 2024 active Not Available Not Available Not Avai lable Fish Oil 1,200 mg po daily 07/29 completed Not Available Not Available Not Available amitripty line AT BEDTIME 2013 [...] VISIT; Not Available Not Available Not Available sodium chloride 1,000 mg soluble tablet 1 daily active Not Available Not Available Not Available fluticaso ne propionat e 115 mcg-salme terol 21 mcg/actua tion HFA inhaler 06/15 completed Not Available Not Available Not Available Advair [...] completed Not Available Not Available Not Available clobazam 10 mg tablet Take 1 tablet twice a day by oral route. 07/[address] Epperson Not Available Not Available Not Available melatonin 10 mg tablet Take 1 tablet every day by oral route at bedtime. active Not Available Not Available No t Available Combivent Respimat 20 mcg-100 mcg/actua tion solution for inhalatio n Inhale 1 puff 4 times a day by inhalati on route for 90 days. active per patient uses 2-3 times daily Not Available Not Available Not [...] tion nasal spray,tej pension Take 2 sprays as needed by nasal route at bedtime for 30 days. 2023 active Not Available Not Available Not Avai lable Fish Oil 1,200 mg (144 mg-216 mg) capsule Take 1 capsule every day by oral route. active Not Available Not Available No t Available Trelegy Ellipta 200 mcg-62.5 mcg-25 mcg powder [...] and Address Organization Details Last Updated DateTime 5 163.2 cm 32.5 kg/m2 75275.1 4 g 97 % 97 % 80 /min 97.5 [degF] 127/83 mm[Hg] Vonnie Law [facility] 5 15:34:54 Date Recorded Body height Body mass index (BMI) Body weight Heart rate Oxygen saturation Oxygen saturation in Arterial blood by Pulse oximetry Body temperature Systolic And Diastolic Systolic And Diastolic Provider Name and Address Organization Details Last Updated DateTime 5 163.2 cm 33 kg/m2 01656.9 2 g 81 /min 98 % 98 % 97.4 [degF] 157/84 mm[Hg] 140/80 mm[Hg] Magnolia Bowers [facility] 5 11:42:02 Date Recorded Body height Body mass index (BMI) Body weight Heart rate Oxygen saturation Oxygen saturation in Arterial blood by Pulse oximetry Body temperature Systolic And Diastolic Provider Name and Address Organization Details Last Updated DateTime 5 163.2 cm 33 kg/m2 84860.9 2 g 88 /min 97 % 97 % 97.8 [degF] 128/82 mm[Hg] [facility] 5 14:51:18 Date Recorded Systolic And Diastolic Provider Name and Address Organization Details Last Updated DateTime 07/14/2025 146/94 mm[Hg] Liv Fajardo MD [address], [address], [facility] 07/14/2025 10:59:35 Date Recorded Body mass index (BMI) Body weight Heart rate Oxygen saturation Oxygen saturation in Arterial blood by Pulse oximetry Body temperature Systolic And Diastolic Provider Name and Address Organization Details Last Updated DateTime 5 33.3 kg/m2 21112.3 1 g 97 /min 97 % 97 % 97.6 [degF] 161/89 mm[Hg] Ava Beck MA [facility] 10:49:05 Date Recorded Body height Provider Name an d Address Organization Details Last Updated DateTime 07/14/2025 163.2 cm Elias Lucero MA [facility] 07/14/2025 10:45:10 Social History Question Answer Notes LastModified by Organizat ion Details LastModified Time Tobacco Smoking Status Never Smoker Elias Luceor MA null [facility] 05/19/2014 14:49:38 Do You Have An [...] Or Greater Than 100 Degrees Fahrenheit? No [email or web address] Information not available 08/11/2020 Are You Or Anyone In Your Household A Health Care Provider Or Emergency Responder? No [email or web address] Information not available 08/11/2020 To The Best Of Your Knowledge Have You Been In Close Proximity To Any Individual Who Tested Positive For COVID-19? No [email or web address] Information not available 08/11/2020 *AWV ONLY* Are [...] Date Of Your Most Recent Tobacco Screening? 07/14/2025 Information not available 07/14/2025 How Many Children Do You Have? 0 [...] Functional Status Question Answer Note LastModified by Organizat ion Details LastModified Time Do you use any illicit or recreational drugs? No Information not available 06/23/2025 Do you or have you ever used [...] not available 08/31/2014 Are you able to walk independently without assistance or assistive devices? [email or web address] Information not available 09/13/2022 Are you able to care for yourself independently? Yes Information not available 05/19/2014 What is [...] situ of body of stomach 2nd to tank hall s Not available 12/31/2023 14:46:35 Unspecified Relation Blood coagulation disorder [email or web address] Not available 2021 12:53:16 Medical History Condition Response Other N Gout N Blood Diseases N Kidney Stones N Hyperthyroidism N Breast Cancer N Hypothyroidism Y Depression N COPD Y Lung Disease N Defects or Inherited Disease N Anesthesia Complications [...] Problems Y GI Problems Y Acne N Skin Problems N Eating Disorder N Anemia N Constipation N Bladder Problems N Mental Illness N Ovarian Cancer N Diabetes N Blood Transfusions N Seizures/Epilepsy Y Tuberculosis N AIDS/HIV N Congestive Heart Failure (CHF) N Eczema N Diverticulitis N Abuse/Domestic Violence N Asthma Y Allergies N Reflux/GERD Y Hepatitis N Pulmonary Embolism N Hypertension N Osteoporosis Y Chicken Pox N Autism Spectrum Disorder (ASD) N Gynecological History Statement/Question Response Date of Last [...] Influenza, split virus, trivalent, preservative 6 completed Elias Lucero [facility] 09/13/2016 13:22:20 Influenza, split virus, quadrivalent, preservative 7 completed Vonnie Law [facility] 02/04/2018 13:39:59 Influenza, split virus, quadrivalent, preservative 9 completed Ava Beck MA [facility] 05/24/2022 15:17:51 COVID-19, mRNA, LNP-S, PF, 30 mcg/0.3 mL dose 1 completed Elias Lucero MA null, [facility] 08/15/2021 13:59:09 COVID-19, mRNA, LNP-S, PF, 30 mcg/0.3 mL dose 1 completed Elias Lucero MA null, [facility] 08/15/2021 13:58:59 pneumococcal polysaccharide PPV23 2 completed RYANN Mccormick, [facility] 03/23/2022 14:40:14 Influenza, split virus, quadrivalent, PF 1 completed RYANN Alberts, [facility] 05/24/2022 15:17:50 Influenza, split virus, quadrivalent, PF 0 completed RYANN Alberts, [facility] 05/24/2022 15:17:51 Tdap 1 completed RYANN Alberts, [facility] 05/24/2022 15:17:51 Influenza, split virus, quadrivalent, PF 8 completed RYANN Alberts, [facility] 05/24/2022 15:17:51 Influenza, split virus, quadrivalent, PF 2 completed RYANN Reece, [facility] 09/13/2022 14:08:34 Influenza, split virus, trivalent, PF 4 completed RYANN Wilson, [facility] 02/06/2025 13:49:47 Influenza, split virus, trivalent, preservative 0 completed Not Available [facility] 05/12/2014 13:40:06 Tdap 2 completed Not Available [facility] 05/12/2014 13:40:06 Influenza, split virus, trivalent, preservative 2 completed Not Available [facility] 05/12/2014 13:40:06 Influenza, split virus, trivalent, preservative 3 completed Not Available [facility] 05/12/2014 13:40:06 Influenza, split virus, quadrivalent, PF 4 completed RYANN Wilson, [facility] 12/31/2023 15:25:26 Influenza, split virus, trivalent, PF 5 completed RYANN Alberts, [facility] 07/14/2025 12:00:46 Past Encounters Encounter ID Performer Location Encounter Start Date Encounter Closed Date Diagnosis/Indication Diagnosis SNOMED-CT Code Diagnosis ICD10 Code Diagnosis IMO Codes Diagnosis Note [id number] Nick Cifuentes MD Main Office [address] [facility] [address] [place] [address] 05/19/2014 15:48:53 05/19/2014 16:39:57 Acute asthma 774277663 Chronic he adache disorder 633323868 [id number] [employer] [address] [facility] [place] [address] 07/11/2010 00:00:00 [id number] auto[employer] erce [address] [facility] [place] [address] 11/16/2010 00:00:00 [id number] auto[employer]Comm erce [address] [facility] [place] [address] 12/26/2010 00:00:00 [id number] auto[employer] erce [address] [facility] [place] [address] 04/17/2011 00:00:00 [id number] auto[employer]Comm erce [address] [facility] [place] [address] 04/26/2011 00:00:00 [id number] auto[employer] erce [address] [facility] [place] [address] 06/12/2011 00:00:00 [id number] auto[employer] erce [address] [facility] [place] [address] 11/02/2011 00:00:00 [id number] [address] [place] [address] 01/02/2012 00:00:00 [id number] [address] [address] [place] [address] 01/19/2012 00:00:00 [id number] [address] [address]ce [address] [place] [address] 02/23/2012 00:00:00 [id number] [address]Comm [address]ce [address] [place] [address] 04/11/2012 00:00:00 [id number] [address] [address] [place] [address] 10/23/2012 00:00:00 [id number] [address] [address] [place] [address] 01/06/2013 00:00:00 [id number] autoEComm erce [address] [place] [address] 02/15/2013 00:00:00 [id number] [address] [address] [place] [address] 02/25/2013 00:00:00 [id number] auto[employer]ce [address] [place] [address] 04/16/2013 00:00:00 [id number] [address]ce [address] [place] [address] 10/14/2013 00:00:00 [id number] [employer]ce [address] [place] [address] 01/31/2014 00:00:00 [id number] [employer] [place] [address] 02/19/2014 00:00:00 [id number] auto[employer]ce [address] [place] [address] 03/02/2014 00:00:00 [id number] autoEComm erce [address] [facility] [place] [address] 03/27/2014 00:00:00 [id number] Nick Cifuentes MD Main Office [address] [address] [place] [address] 08/31/2014 15:05:23 08/31/2014 15:54:26 Thoracic back pain 360168601 [id number] Nick Cifuentes MD Main Office [address] [address] [place] [address] 10/01/2014 14:00:18 10/01/2014 14:52:47 Screening for malignant neoplasm of cervix 218422449 Screening for malignant neoplasm of breast 106957512 Inflammati on of sacroiliac joint 14012638 Osteopenia 866524711 Bone density 08/2014 [id number] Nick Cifuentes MD Main Office [address] [address] [place] [address] 08/24/2015 14:03:42 08/24/2015 15:10:41 Inflammation of rotator cuff tendon 920065895 M65.812 [id number] JOSE GUADALUPE Ortiz Main Office [address] [address] [place] [address] 09/29/2015 10:19:49 09/29/2015 10:59:05 Acute upper respiratory infection 65376894 J06.9 Symptomati c treatment- lots of fluids, rest, tea with honey, OTC cough drops/ cough med as needed, humidifier as needed, continue inhalers as prescribed , she will call Dr. Huff for a refill on robitussin with codeine, in the meantime she may take tylenol #3 every 6 hours as needed. Multiple sclerosis 91482 007 G35 Asthma 550946655 J45.90 9 [id number] Nick Cifuentes MD Main Office [address] [address] [place] [address] 01/11/2016 10:21:01 01/11/2016 13:07:30 Acute sinusitis 46853922 J01.90 [id number] Nick Cifuentes MD Main Office [address] [address] [place] [address] 03/20/2016 11:41:33 03/28/2016 18:07:28 [id number] Jonatan Martin PA-C Main Office [address] [facility] [address] [place] [address] 03/30/2016 13:48:22 03/30/2016 15:23:15 Epilepsy 64958929 G40.909 is on new med - to f/u c neuro on 04.14.16 Blood pres sure above reference range 58530923 R03.0 Asthma 410541071 J45.90 9 [id number] Jonatan Martin PA-C Main Office [address] [facility] [address] [place] [address] 08/16/2016 14:47:07 08/16/2016 15:34:58 Cough 73111196 R05 prob d/t pnd Epilepsy 41293079 G40.90 9 cont. to f/u c neuro Sinusitis 01088589 J32.9 Asthma 597327906 J45.90 9 stable Right uppe r quadrant pain 580768751 R10.11 Nausea and vomiting 1692 1999 R11.2 [id number] Jonatan Martin PA-C Main Office [address] [facility] [address] [place] [address] 08/22/2016 14:43:41 08/22/2016 16:04:19 Sinusitis 25331775 J32.9 ? contributi ng to fatigue Cough 61001414 R05 prob d/t pnd Asthma 390302104 J45.90 9 stable Right uppe r quadrant pain 900298727 R10.11 mild, persistent - ? d/t gallbladde r dyskinesia - will send to GI for eval Nausea and vomiting 1692 1999 R11.2 cont prn zofran, offered reassuranc e that Cr is stable Alkaline p hosphatase above reference range 520640779 R74.8 nl ast/alt Non-alcoho lic fatty liver 399253719 K76.0 as per abd u/s 08/13 - pt does not drink etoh - will send to GI for eval - see above [id number] Jonatan Martin PA-C Main Office [address] [facility] [address] [place] [address] 09/13/2016 13:14:09 09/13/2016 14:57:10 Shoulder joint pain 163895814 M25.519 pain / ecch at injxn site [...] coordinati on of care. Nausea and vomiting 1693 1999 R11.2 seen by gi and gen surg (no notes to review - sent to medical records to get them faxed to us) - has pending lap vs open awais on 10.06.16 Asthma 869579507 J45.90 9 stable [id number] Jonatan Martin PA-C Main Office [address] [facility] [address] [facility] [address] 11/20/2016 14:12:18 11/20/2016 15:54:29 Adult health examination 753375471 Z00.00 reviewed breast center consult .16 - pt considerin g breast mri, was supposed to get 10/13 - encouraged pt to call them to schedule & f/u c them in 4.17 encouraged pt to call Dr. Mckeon's office - due for pap smear colon utd last cmp nonfasting - will get fasting labs Body mass index 30+ - obesity 975046306 Z68.39 Hypothyroidism 80914483 E03.9 cont to f/u c endo - reviewed note 06/13 Asthma 980999362 J45.30 stable, cont to f/u c Dr. Huff Epilepsy 25668368 G40.90 9 cont. to f/u c neuro Multiple sclerosis 82700 007 G35 cont to f/u c neuro Irritable bowel syndrome 93421798 K58.9 stable lately, had neg. colonoscop y Gastroesop hageal reflux disease 034040985 K21.9 getting breakthru sxs on 20mg - will increase to 40mg qd Mixed anxi ety and depressive disorder 770457385 F41.8 not followed by psych or counsellor , doing okay - pt will consider if worse [id number] Jonatan Martin PA-C Main Office [address] [facility] [place] [address] 01/29/2017 14:04:22 01/29/2017 15:22:00 Asthma 081252831 J45.30 stable, cont meds / f/u c Dr. Bateman tomorrow Gastroesop hageal reflux disease 534481747 K21.9 stable on ppi & probiotic Cough 90722909 R05 prob d/t pnd, but c deep cough worried about possible pna given her sig asthma hx Sinusitis 72490853 J32.9 [id number] Jonatan Martin PA-C Main Office [address] [place] [address] 05/09/2017 14:36:53 05/09/2017 15:44:21 Dizziness 913245818 R42 better lately, normal exam - rec. increase water intake and more sleep Benign par oxysmal positional vertigo 153428740 H81.10 25 minute office visit with greater than 50% of the visit face-to-fa ce with the patient and/or family providing counseling and/or coordinati on of care. [id number] Jonatan Martin PA-C Main Office [address] [place] [address] 09/04/2017 14:48:06 09/04/2017 16:07:23 Moderate persistent asthma 592866180 J45.40 nl spirometry - cont inhalers as dir - cont f/u c pulm also - pt expressed a lot of concern / confusion over new meds to rx her sz, etc - will arrange for eval c pharm clinic Atypical chest pain 1025 56009 R07.89 m-s d/t cough - see below Costal chondritis 133670 04 M94.0 Allergic rhinitis 995190 04 J30.9 [id number] Jonatan Martin PA-C Main Office [address] [place] [address] 01/15/2018 13:34:51 01/15/2018 16:01:17 Cough 28393040 R05 prob d/t pnd - see below - more concerned about sinusitis than clinical pna Acute sinusitis 20108083 J01.90 rec. take probiotic supp or pashto yogurt while on abx [id number] Jonatan Martin PA-C Main Office [address] [place] [address] 01/30/2018 12:43:28 01/30/2018 13:38:24 Cough 72798962 R05 finished augmentin for sinusitis, still coughing despite karuna ac - more so barking cough but tdap is utd - will empiricall y cover c zpak and check cxr for further evaluation take probiotics while on abx Pneumonia 887399888 J18. 9 will cover for atypical pna Acute asthma 246284854 J 45.901 [id number] Jonatan Martin PA-C Main Office [address] [place] [address] 02/04/2018 13:20:28 02/04/2018 14:55:42 Adult health examination 098134324 Z00.00 encouraged pt to call Dr. Mckeon's office - due for pap smear colon utd encouraged pt to call Dr Hinojosa for breast mri as per mammo report 11.17 Screening for malignant neoplasm of cervix 156763595 Z12.4 Thyrotoxicosis 70473007 E05.90 h/o graves s/p surgery, now on supp, cont f/u c endo Chronic back pain 975531 002 G89.29 acute on chronic - rec. hep, not interested in PT d/t $ Epilepsy 62647107 G40.90 9 cont. to f/u c neuro q yr Multiple sclerosis 06147 007 G35 ? not demyelinat ing d/o - cont to f/u c specialist prn Asthma 747275139 J45.40 stable, cont meds / f/u c Dr. Huff tomorrow-- lungs clear, finish abx / pred as dir Major depr ession single episode, in partial remission 55107406 F32.4 has good support system at home, no seen by counsellor in a long time Irritable bowel syndrome 07095317 K58.9 stable lately, had neg. colonoscop y - rec. probiotic yogurt Gastroesop hageal reflux disease 718793631 K21.9 stable on ppi Body mass index 30+ - obesity 721969018 Z68.33 Obesity 931261252 E66.9 Vitamin D deficiency 347 64605 E55.9 [id number] Jonatan Martin PA-C Main Office [address] [place] [address] 06/18/2018 15:49:55 06/18/2018 17:00:50 Dysphagia 15961080 R13.10 had small HH c egd 1.25.16 - ? peptic stricture vs other - see below Atypical chest pain 1025 19183 R07.89 neg cardiac w/u in ER 2 days ago - see below - likely d/t gerd and / or costochond ritis (lifting heavy lately) Chronic low back pain 27 3199393 M54.5 G89.29 ongoing, int - rec increase hep, recently resumed Gastroesop hageal reflux disease without esophagitis 220302159 K21.9 rec increase ppi to bid x few wks Costal chondritis 807280 04 M94.0 [id number] Jonatan Martin PA-C Main Office [address] [facility] [address] [place] [address] 07/29/2018 13:21:09 07/29/2018 14:23:06 Needs influenza immunization 327714405 Z23 Gastroesop hageal reflux disease without esophagitis 473520983 K21.9 s/p egd c dil a few wks ago, helped a little- cont ppi as dir - tolerating qd - still has some pill dysphagia to large pills - so advised her to stop fish oil supp and consider look for a smaller supp - ? in gummy form Patient en counter status 493265499 Z00.00 needs for QM Hypothyroidism 27390550 E03.9 cont to f/u c endo - reviewed note 06/13 Epilepsy 55979783 G40.90 9 cont. to f/u c neuro q yr - next is 1.19 Abrasion o f skin of left knee 8548767415 5040933 S80.212A full epidermal abrasion, no evidence of cellulitis - gave xeroform - use qd x 1 wk to help promote re-epithel ialization - then can go back to triple abx ointment 1-2x/day as dir - f/u if worse/no better [id number] Yonny Heredia MD Main Office [address] [facility] [address] [place] [address] 07/07/2019 12:52:15 07/07/2019 15:06:02 Adult health examination 143485978 Z00.[address] Mckeon's office - pap (will attempt to get records), mammo and bone density utd colon utd Osteoporosis 42781363 M8 1.0 had recent bone density (ordered by rail car mechanic) - cont raloxifene as dir by breast specialist (h/o pre-breast cancer, no h/o lumpectomy ) and f/u c endo 10.19 Thyrotoxicosis 70796795 E05.90 h/o graves s/p surgery, now on supp, cont f/u c endo Asthma 253310406 J45.40 stable, cont meds / f/u c Dr. Huff Multiple sclerosis 80506 007 G35 ? not demyelinat ing d/o - cont to f/u c specialist prn Epilepsy 47483764 G40.90 9 cont. to f/u c neuro q yr Major depr essive disorder 859005207 F32.9 sig better off fluoxetine x 10 days - no evidence of withdrawal , doing very well - will take off med list, no need for counsellin g Gastroesop hageal reflux disease 726659123 K21.9 stable on ppi Varicella vaccination 68 634248 Z23 Body mass index 30+ - obesity 356458778 Z68.32 Obesity 949476303 E66.9 Chronic low back pain 27 1926302 M54.5 G89.29 ongoing, int - rec increase hep, has had int x yrs - will get xrays and refer to pssp Impaired f asting glycemia 948747098 R73.01 [id number] Nick Cifuentes MD Main Office [address] [facility] [address] [place] [address] 08/22/2019 11:27:14 08/22/2019 12:41:24 Upper respiratory infection 88306814 J06.9 Acute asthma 900890633 J 45.901 Continue Symbicort BID and rescue inhaler. Add Medrol dose pack. [id number] Yonny Heredia MD Main Office [address] [facility] [address] [place] [address] 08/11/2020 13:27:52 08/11/2020 14:45:28 Adult health examination 135549380 Z00.[address] Mckeon's office - pap utd, mammo pending and bone density utd (fol by endo) colon utd Needs infl uenza immunization 671454543 Z23 Tension-type headache 39 8456650 G44.209 Neck pain 55527627 M54.2 Dizziness 609191703 R42 cont f/u c neuro pending see eye md in a few wks d/t decreased visual acuity lately see below Osteoporosis 72344518 M8 1.0 had recent bone density (ordered by rail car mechanic) - cont raloxifene as dir by breast specialist (h/o pre-breast cancer, no h/o lumpectomy ) and f/u c endo Thyrotoxicosis 60668585 E05.90 h/o graves s/p surgery, now on supp, cont f/u c endo Asthma 608919328 J45.40 stable, cont meds / f/u c Dr. Huff Multiple sclerosis 34653 007 G35 ? not demyelinat ing d/o - cont to f/u c specialist prn Epilepsy 72713862 G40.90 9 cont. to f/u c neuro Major depr essive disorder 306777895 F32.9 sig better off fluoxetine , no need for counsellin g Gastroesop hageal reflux disease 495808483 K21.9 stable on ppi Obesity 847873155 E66.9 Body mass index 30+ - obesity 281528465 Z68.33 Impaired f asting glycemia 695515437 R73.01 Varicella vaccination 68 761202 Z23 Hyperlipidemia 29370327 E78.5 Benign par oxysmal positional vertigo 120184927 H81.10 rec stay hydrated, try exercises - no help, then get vestibular therapy Constipation 86134675 K5 9.00 mild - consider colace qd [id number] Jonatan Martin PA-C Main Office [address] [address] [place] [address] 03/17/2021 13:52:13 03/17/2021 14:55:32 Pain of left wrist 0731908007 71185 M25.532 ? wrist tendinitis and/or lateral/me dial epicondyli tis - will change wrist splint to thumb spica, add TE support, cont prn motrin, and will get hand specialist eval [id number] Liv Fajardo MD Main Office [address] [facility] [address] [place] [address] 06/28/2021 13:04:48 06/28/2021 14:53:24 Dizziness 946972495 R42 EKG unremarkab le and orthostati c negative. Chapito hallpike resulted in dizziness - see plan below under BPPV.Will also refer to ENT. Sore throat 846492974 J0 2.9 Could be in the setting [...] Elevated blood-pressure reading without diagnosis of hypertension 996415404 R03.0 No hx of bp elevation, could be due toA. discomfort B. Recent loss and stress with familyWith dizziness will hold adding medication but rather educate on signs sx of htn emergency and red flags, including when to go to ed.She has cuff at home advise to take BP daily will have PATTERN PAINTER f/u reading. Benign par oxysmal positional vertigo 812107521 H81.10 [id number] Liv Fajardo MD Main Office [address] [address] 08/15/2021 13:38:43 08/15/2021 15:02:38 Epilepsy 56616087 G40.909 Follows in [place] in [facility] single episode, in partial remission 42711698 F32.4 Denies homicidal suicidal ideation. Adult heal th examination 728080648 Z00.00 Patient was counseled on healthy diet, [...] dAP: 08/15/21Zo ster: scrip providedPC V13: not [id number]: not dueInfluen za: 08/15/21Co vid: 03/25/21, 04/09/21 Routine labs today, with STI workupProv ided derm referral for annual skin check. Immunizati on status reviewed. Will screen based on risk factors. Regular dental and ophtho care advised as well as seat belt and sunscreen use. Distracted driving discussed. Medication reconciled . Needs infl uenza immunization 117073582 Z23 Administra tion of viral vaccine 42173678 Z23 Varicella vaccination 68 602929 Z23 Screening for malignant neoplasm of breast 073130721 Z12.39 follows breast center Multiple sclerosis 85188 007 G35 Saw MS doctor does not believe MS, has open channel with them if this worsens. Counseling 589963293 Z71 .9 Referral for counseling with Genny / DOC Connolly. Please provide patient with contact info to schedule their appointmen tCharla Diez# email: [email or web address] Menopause present 748885 006 Z78.0 Bereavement 51070234 Z63 .4 Right uppe r quadrant pain 484396475 R10.11 On exam Laurie had some discomfort of the RUQ on palpation. Figueroa;s sign was negative, will start with LFT's first, prior to imaging. Impaired f asting glycemia 019961702 R73.01 On PO steroids. Obesity 090470865 E66.9 Body mass index 30+ - obesity 280600779 Z68.30 - Diet and exercise discussed- Patient made aware of risks of obesity- Encouraged to loose weight- Avoid starchy and fatty food- Encouraged use of green vegetables and fruits Elevated blood-pressure reading without diagnosis of hypertension 504720914 R03.0 Laurie has kept a BP log with acceptable BP ranges and reading in office today has been great.Will continue to monitor on regular office visits, cw lifestyle changes, no medication s needed at this time. [id number] Liv Fajardo MD Main Office [address] [place] [address] 12/07/2021 09:42:51 12/07/2021 11:27:13 Multiple sclerosis 27084130 G35 Saw MS doctor does not believe MS, has open channel with them if this worsens. Epilepsy 62360438 G40.90 9 Follows in [place] in [place] Neck pain 40806721 M54.2 Sent to ed Pain of hip region 50651 002 M25.552 sent to ED [id number] Liv Fajardo MD Main Office [address] [place] [address] 02/13/2022 13:58:44 02/13/2022 14:48:43 Mixed anxiety and depressive disorder 250142388 F41.8 Hyperlipidemia 66756599 E78.5 Will re-check lipids Major depr ession single episode, in partial remission 76399858 F32.4 Denies homicidal suicidal ideation.D iscussed option for therapy as grief can percipitat e sx. Osteoporosis 16011524 M8 1.0 Following endo.and breast sp.On raloxifene . Anxiety 48225493 F41.9 Spasm of back muscles 20 2157432 M62.830 RUQ and to back likely MSK as it is palpable, will do trial of lidocainte patch. [id number] Yonny Heredia MD Main Office [address] [address] [place] [address] 03/23/2022 14:25:01 03/23/2022 15:20:22 Gastroesophageal reflux disease 242296844 K21.9 pt states is running low on ppi - requests refill Epigastric pain 28984964 R10.13 will check labs and stool study for further eval Early satiety 275602395 R68.81 will check ugis to r/o goo - may need gastric emptying scan and / or gi re-eval if no sig improvemen t Nausea 676488649 R11.0 [id number] Yonny Heredia MD Main Office [address] [facility] [address] [place] [address] 05/24/2022 14:56:33 05/24/2022 16:08:23 Gastroesophageal reflux disease 414602612 K21.9 cont ppi as dir Gastropare sis syndrome 876833028 K31.84 recently dx'd by gi, but advised [...] for gastric pacemaker if no better Constipation 58105612 K5 9.00 mild - consider increasing colace to qod, could skip a day if has good bm c reglan above [id number] Yonny Heredia MD [facility] [address] [facility] [address] [facility] [place] [address] 06/20/2022 08:32:15 06/20/2022 13:48:59 Burning sensation 45762936 R20.8 SYMPTOMS:b urning with urination? yesfrequen cy? [...] Antibiotic treatment Urinary tr act infectious disease 58020656 N39.0 she already took bactrim bid x 3 days - better, last took sunday - now worse - will rx c cipro recommend probiotics while on abx Gastropare sis syndrome 375645835 K31.84 recently dx'd by gi, but advised [...] - fairly stable, only used reglan once [id number] Yonny Heredia MD Main Office [address] [facility] [address] [place] [address] 07/26/2022 15:44:16 07/26/2022 16:56:33 Postconcussion syndrome 46604966 F07.81 Patient symptoms correlate with post-concu ssive [...] consider local ice prn Contusion of head 202060 009 S00.03XA has small hematoma top of head - very sensitive - rec avoid headband, limit/avoi d brushing hair in this region, consider local ice prn Accidental ly struck by or against objects or persons 959347749 W22.8XXA [id number] Liv Fajardo MD Main Office [address] [facility] [address] [place] [address] 08/18/2022 12:42:04 08/18/2022 13:53:20 Adult health examination 434769672 Z00.00 Patient was counseled on healthy diet, exercise and nutrition due to Body mass index is 30.1 kg/m . Last Colonoscop y:Date: 11/22/15Res ult: wnlPlan: Per GI repeat 10yrs Last Mammogram: Date: 12/03/20Resu lt: Birad -1Plan: getting done at breast center. Last Pap smearDate: 01/30/19Resu lt: Neg for MELIDA, TZ present, HPV negPlan: Repeat in 5 yrs per USPTF Bone density scanDate: 01/16/22Res ult: osteoporos isPlan: On raloxifene , by breast center. Vaccines:T dAP: 08/15/21Zo ster rec: scrip providedPC V20: not [id number]: 03/13/22Inf luenza: 08/18/21Co vid: 03/25/21, 04/09/21, bivalent vaccine discussed. Routine labs today Provided derm referral for annual skin check. Immunizati on status reviewed. Will screen based on risk factors. Regular dental and ophtho care advised as well as seat belt and sunscreen use. Distracted driving discussed. Medication reconciled . Epilepsy 81019052 G40.90 9 Follows in [place] in [place] Major depr ession single episode, in partial remission 14950497 F32.4 Denies homicidal suicidal ideation. Obesity 789722871 E66.9 Body mass index 30+ - obesity 866269886 Z68.30 - Diet and exercise discussed- Patient made aware of risks of obesity- Encouraged to loose weight- Avoid starchy and fatty food- Encouraged use of green vegetables and fruits Elevated blood-pressure reading without diagnosis of hypertension 758993617 R03.0 Advised to keep bp log, notes home bp under 130/90, BP reading in office today borderline .cw lifestyle changesWil l follow up in 1 mo. Varicella vaccination 68 361453 Z23 Needs infl uenza immunization 324493535 Z23 Screening for malignant neoplasm of breast 510496476 Z12.39 follows [facility] Gastropare sis syndrome 839935170 K31.84 Followed by GI Fatigue 41831688 R53.83 Hyperlipidemia 88488169 E78.5 Will re-check lipids Anxiety 51890013 F41.9 Discussed risk of benzo use. Will refer to allie. Gave 2 resources and advised to also reach out to insurance. [id number] Liv Fajardo MD Main Office [address] [facility] [address] [place] [address] 09/13/2022 13:59:36 09/13/2022 15:03:04 Elevated blood-pressure reading without diagnosis of hypertension 615919700 R03.0 BP at home within ACC guideline today BP is also stable with out signs of hypertensi ve emergency. Will hold any meds and cont to follow up in PE. Hyperlipidemia 77622263 E78.5 Will re-check lipids Gastropare sis syndrome 330156409 K31.84 Followed by GI, looking for second opinion, referral msg to help her with this. Pain of right wrist 3169 447109 37704 M25.531 Laurie noted to me some tenderness at the ulnar styloid process, there was no anatomical snuffbox tenderness . radial pulses and sensation intact. I suspect this is possibly due to a ganglion cyst however we will get an x-ray first and have her follow-up in about 1 to 2 weeks. [id number] Caprice shi, BUSINESS SERVICES ADMINISTRATOR Main Office [address] [address] [place] [address] 03/21/2023 13:20:35 03/21/2023 14:34:36 Laceration of left knee 7107953197 1412768 S81.012A #6 stitches removed, will come back in 2 days for re evaluation and possible rest of sutures out, would steristrip ped and bandaged. Watch for any sx of infection Closed fra cture of fifth metatarsal bone 20163700 S92.354A Has ortho appt next week, use ice and elevation, otc pain reliever. Syncope 907682050 R55 2 back to back syncopal episodes, will do holter and see cardiology , to call neurology to make followup appt. Does not think fall was seizure related, lab today . Call if has any other presyncope or dizziness Hyponatremia 87261283 E8 7.1 recheck labs, sodium was 132, K+ 3.5 in ED [id number] Liv Fajardo MD Main Office [address] [address] [place] [address] 03/27/2023 14:18:40 03/27/2023 15:18:53 Removal of suture 78770690 Z48.02 3 suture removed, area clean, no warmth erythema or fluctuanac e.Will keep 3 more in, in medial position as wound still open.Will follow up after day 21 for suture removal. Closed fra cture of fifth metatarsal bone 39610503 S92.351D Pending podiatry follow up. [id number] Liv Fajardo MD Main Office [address] [address] [place] [address] 04/02/2023 14:12:59 04/02/2023 15:01:40 Removal of suture 82213690 Z48.02 3 suture removed, area clean, no warmth erythema or fluctuanac e.Will keep 3 more in, in medial position as wound still open.scar away advised. Closed fra cture of fifth metatarsal bone 10644572 S92.351D Pending podiatry follow up. [id number] Liv Faajrdo MD Main Office [address] [address] [place] [address] 12/31/2023 14:18:56 12/31/2023 15:26:13 Adult health examination 870345604 Z00.00 Patient was counseled on healthy diet, exercise and nutrition due to Body mass index is 30.1 kg/m . Last Colonoscop y:Date: 11/22/15Res ult: wnlPlan: Per GI repeat 10yrs Last Mammogram: Date: 03/06/23Resu lt: Birad -1Plan: [facility] Last Pap smearDate: 01/30/19Resu lt: Neg for MELIDA, TZ present, HPV negPlan: Repeat in 5 yrs per USPTF Bone density scanDate: 01/16/22Res ult: osteoporos isPlan: On raloxifene , by [facility]. Vaccines:T dAP: 08/15/21Zo ster rec: scrip provided [id number] : not [id number]: 03/13/22Inf luenza: 12/31/23Covi d: 03/25/21, 04/09/21, encourage updated vaccine. Routine labs today Provided derm referral for annual skin check. Immunizati on status reviewed. Will screen based on risk factors. Regular dental and ophtho care advised as well as seat belt and sunscreen use. Distracted driving discussed. Medication reconciled . Epilepsy 72659436 G40.90 9 Follows in [place] in [facility] single episode, in partial remission 55547884 F32.4 Denies homicidal suicidal Ideation. Obesity 337749305 E66.9 Body mass index 30+ - obesity 103061235 Z68.30 - Diet and exercise discussed- Encouraged to loose weight- Avoid starchy and fatty food- Encouraged use of green vegetables and fruits Varicella vaccination 68 275642 Z23 Screening for malignant neoplasm of breast 204010733 Z12.39 follows [facility] Gastropare sis syndrome 969429939 K31.84 Followed by GI Fatigue 60276568 R53.83 Hyperlipidemia 92501772 E78.5 Will re-check lipids Macrocytos is - no anemia 267976904 D75.89 Alkaline p hosphatase above reference range 809038948 R74.8 Osteoporosis 42163486 M8 1.0 Following endo.and breast sp.On raloxifene . Thyrotoxicosis 03517679 E05.90 Needs infl uenza immunization 518363380 Z23 Insomnia 623268683 G47.0 0 Melanocytic nevus 212466 001 D22.9 [id number] Liv Fajardo MD Main Office [address] [address] [place] [address] 01/18/2024 08:58:26 01/18/2024 14:23:50 [id number] Mike Ferreira MD Main Office [address] [address] [place] [address] 01/28/2024 13:57:09 01/28/2024 14:46:09 Syncope 595582825 R55 2 syncopal episodes per witness of her . Patient did sustained a fall during the second event. Laying on the floor patient complained of severe lower back pain unable to get up-has appt scheduled with neurology in April-ED workup; EKG was unremarkab le and head CT was WNL Compressio n fracture of thoracic vertebra 1250674579 104 M48.54XD -c/w wearing back brace daily [...] of care from emergency department to self-care 0051416517 93007 Z76.89 reviewed hospital documentat ion Bone density finding 385 743743 M85.89 [id number] Liv Fajardo MD Main Office [address] [address] [place] [address] 05/21/2024 11:40:11 05/21/2024 14:41:30 Adrenal incidentaloma 0106232598 9105 D49.7 Mass of ur inary bladder 885956866 N32.89 Osteoporosis 95311187 M8 1.0 Following endo.and breast sp.On raloxifene . [id number] Mike [facility] [address] [address] [place] [address] 11/19/2024 15:14:08 11/19/2024 15:52:48 Acute sinusitis 44433680 J01.90 Sx since september, green nasal discharge, now moving into her chest.Hydr ation, rest, tylenol or ibuprofen as needed, tea with honey, OTC cough meds as needed, nasal sinus rinses as needed, continue Asthma 462499540 J45.40 prednisone burst as directed x 5 days. Continue inhalers as directed. [id number] Yonny Heredia MD [facility] [address] [facility] [address] [place] [address] 02/06/2025 12:36:47 02/06/2025 16:30:48 Erysipelas 05245383 A46 Possibly infectious . Will see if short course of cephalexin helps with this. Eczema 22709017 L30.9 Has a atopic medical history, and pollen counts are rising. Will see if short steroid taper helps. Advised to continue all her usual allergy meds. [id number] Yonny Heredia MD Main Office [address] [facility] [address] [place] [address] 03/03/2025 11:19:41 03/03/2025 12:30:32 Pruritic dermatitis 4316236107 L30.8 564 Will see if antifungal therapy helps and if not ask derm for insight. Essential hypertension 54271702 I10 09966 New diagnosis but present on 2 separate office visits. Given her tachycardi a something to decrease rate but won't affect asthma seem warranted. Reluctant to use diuretic with her low Na. See if more cardiosele ctive CCB helps and is tolerated. Tachycardia 6233252 R00. 0 33274 Had extended rhythm monitoring done in 2022 that showed SVT/tachyc ardia, ECHO was normal in 11/2023. ECG without acute findings today. Labs deferred to nephrology who she will be seeing later today. Mass of ri ght adrenal gland 6725949420 7715673 E27.8 770415 Based on follow up imaging and lab testing determined to be a benign adenoma. Dizziness [id number] R42 50507 Possibly related to AEDs vs HTN. Will monitor with effort to control BP. Adequate hydration advised with electrolyt e water given her low Na. [id number] Yonny Heredia MD Main Office [address] [facility] [address] [place] [address] 05/06/2025 15:05:12 05/06/2025 16:35:10 Contusion of head [id number] S00.93XA [id number] c sxs - pt declines going to ER - will get stat brain ctadvised pt if feels like she is getting worse and if we cannot get her in stat for a head ct, then she should go to the ER for prompt evaluation o/w - re-eval in 1 wk, sooner prn Postconcus spenser syndrome 17660470 F07.81 018355 Patient symptoms correlate with post-concu ssive syndrome. [...] cell phone & tv & reading Dizziness [id number] R42 76692 cont f/u c neuro pending see eye md in a few wks d/t decreased visual acuity lately 7.25 - dizzy x past 6 months, cont f/u c neuro Epilepsy 41015790 G40.90 9 will check eeg as per neuro reccont. to f/u c neuro -- cc: results of eeg and head ct to neuro *will fwd copy of this ov note to neuro* Fatigue 58497394 R53.83 1411689 Vitamin D deficiency 347 42087 E55.9 Hypophosphatemia 2321267 E83.39 47160 Hypomagnesemia 999245492 E83.42 9931 Primary gout 21906775 M1 0.00 [id number] pt had low uric acid level in 1.25 - will recheckas per online:Low uric acid levels may be associated with dizziness, particular ly in the context of benign paroxysmal positional vertigo (BPPV). Dysuria 20568576 R30.0 09352 Nausea 118121614 R11.0 38116 will give prn zofran Hyponatremia 58406722 E8 7.1 73118 cont f/u c neph *will fwd copy of this ov note to neph* [id number] Yonny Heredia MD Main Office [address] [facility] [place] [address] 06/15/2025 11:20:48 06/15/2025 13:27:55 Dizziness [id number] R42 03136 cont f/u c neuro pending see eye md in a few wks d/t decreased visual acuity lately 7.25 - dizzy x past 6 months, cont f/u c neuro 8.25 - seen by vestibular therapy in past, cont f/u c neuro, see below Epilepsy 08217831 G40.90 9 will check eeg as per neuro reccont. to f/u c neuro -- cc: results of eeg and head ct to neuro *will fwd copy of this ov note to neuro* 8.25 - pending another 5 day eeg, cont f/u c neuro, see below Urine urat e below reference range 5651745157 R82.998 [id number] Laurie - your uric acid level is still low - it was 2.0 back in October 2024 - I suggest that you call your kidney doctor about this.As per online:Low uric acid levels may be associated with dizziness, particular ly in the context of benign paroxysmal positional vertigo (BPPV).Hop e you're feeling better soon,Pat gave pt handout of lab result c above, and printed below as well Low uric acid levels, dizziness, and seizures: A potential connection Recent research suggests a possible associatio n between low serum uric acid levels (hypourice bob) and an increased risk of epilepsy. Uric acid, a natural antioxidan t, may play a protective role in the brain by combating oxidative stress, which is a factor implicated in epilepsy developmen t. Some studies show that individual s with uric acid levels below 4.1 mg/dL may have a higher risk of developing epilepsy compared to those with uric acid levels in the normal range (5.8-6.5 mg/dL), according to the National Institutes of Health (NIH). However, the exact nature of this connection requires further investigat ion.While a direct causal link between low uric acid and dizziness or seizures is not fully establishe d, it's important to consider other possible connection s:Underlyi ng Medical Conditions : Both low uric acid and neurologic al symptoms like dizziness and seizures can be signs of other underlying health issues. For example, Fanconi syndrome, a kidney disorder that can cause low uric acid, can also lead to symptoms like muscle weakness and fatigue.Pa rkinson's Disease: Research suggests that low uric acid levels may be associated with an increased risk and progressio n of Parkinson' s disease, which can include symptoms like tremors, rigidity, and balance problems that might be perceived as dizziness. BPPV and Vertigo: Some studies have explored a link between gout (a condition often associated with high uric acid) and conditions like Benign Paroxysmal Positional Vertigo (BPPV), characteri zed by episodes of dizziness triggered by head movements. However, the role of high or low uric acid levels as an independen t risk factor for BPPV remains inconclusi ve.Shared Risk Factors: Dizziness and seizures can be caused by various factors, some of which may overlap with factors influencin g uric acid levels. These include high blood pressure and other medical conditions .It's crucial to consult with a healthcare profession al to properly diagnose and address the cause of dizziness and seizures. A medical evaluation will help determine whether low uric acid is playing a role or if other underlying conditions need to be identified and treated. *will fwd copy of this note to neuro* Fanconi syndrome 3018981 4 E72.09 10586 ? has fanconi syndrome to explain above - will get new neph eval (the other neph she saw was out of network) [id number] Liv Fajardo MD Main Office [address] [phone] 06/23/2025 14:19:21 06/23/2025 15:40:26 Adult health examination 041900312 Z00.00 Patient was counseled on healthy diet, exercise and nutrition due to Body mass index is 33 kg/m . Last Colonoscop y:Date: 11/22/15Res ult: wnlPlan: Per GI repeat 10yrs Last Mammogram: Date: 08/27/2024 Result: Birad -1Plan: gets done at breast center Last Pap smearDate: 01/30/19Resu lt: Neg for MELIDA, TZ present, HPV negPlan: Repeat in 5 yrs per USPTF, order placed. Bone density scanDate: 01/16/22Res ult: osteoporos isPlan: On raloxifene , by breast center. Vaccines:T dAP: 08/15/21Zo ster rec: scrip provided [id number] : script given.PPSV 23: 03/13/22Inf luenza: yearly flu encouraged Covid: encourage updated vaccine. Routine labs today Provided derm referral for annual skin check. Immunizati on status reviewed. Will screen based on risk factors. Regular dental and ophtho care advised as well as seat belt and sunscreen use. Distracted driving discussed. Medication reconciled . Epilepsy 54260327 G40.90 9 Follows in [place] in [facility] single episode, in partial remission 18241477 F32.4 No intrusive thoughts likley controlled with TCA. Obesity 285221300 E66.9 Body mass index 30+ - obesity 047250230 Z68.30 Eating well and engaged in strenght training. Varicella vaccination 68 889077 Z23 Screening for malignant neoplasm of breast 210219998 Z12.39 follows breast center Gastropare sis syndrome 543523193 K31.84 Followed by GI Hyperlipidemia 94899296 E78.5 Will re-check lipids Osteoporosis 51840100 M8 1.0 Following endo.and breast centerOn raloxifene . Administra tion of pneumococcal vaccine 91264007 Z23 Screening for malignant neoplasm of cervix 109146459 Z12.4 Syncope 787111055 R55 980926061 Melanocytic nevus 380011 001 D22.9 481253888 Following derm for skin check on back. 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 928145610 G40.109 Epilepsy 50367760 G40.90 9 Needs infl uenza immunization 358278743 Z23 19 YEARS AND OLDER ONLY Hyponatremia 89726727 E8 7.1 73138 Elevated blood-pressure reading without diagnosis of hypertension 022300897 R03.0 78864601 Transition of care 54381 67450 105 Z78.9 52876149 Health Concerns Section Related Observation LastModified by Organization Detai ls LastModified Time None Recorded Concern Status LastModified by Organization Details LastModified Time None Recorded Advance Directives Directive Y: Payers Insurance Date Sequence Insurance Name Policy Number Policy Barbour Covered Member ID Barbour Member ID Guarantor Name 08/27/2025 1 [facility] [id number] Lucrecia Pandey Black [id number] Lucrecia Cao Black 08/18/2025 2 MEDICARE [place]: [employer] Laurie Cleaning [id number] Lucrecia Cao Black 03/17/2021 1 [facility] [id number] Lucrecia Black [id number] Lucrecia Cao Black Notes Date Note Type Note Provider Name and Address Organization Details Recorded Time 5 text/html Pt fell in her bedroom on May 01 2025(she is seeing Neurology [...] c her neurologist - Dr. Isbell - [facility] - he rec check eegas per pt has been doing okay lately - able to do adl's/iadl's, just takes longer d/t dizzinessno double vision, mild blurry vision+ nausea but no vomiting Jonatan Martin PA-C [address] [facility] [address], [place], [phone], [facility] [place], [place] 05/06/2025 17:59:23 5 text/html Pt fell in her bedroom on May 01 2025(she is seeing Neurology [...] c her neurologist - Dr. Isbell - [facility] - he rec check eegas per pt has been doing okay lately - able to do adl's/iadl's, just takes longer d/t dizzinessno double vision, mild blurry vision+ nausea but no vomiting 8.25 - here for f/u visitreviewed labs, ct results c ptmajority of labs wnl, x uric acid level still low Jonatan Martin PA-C [address] [address], [place], [phone], [facility], [place] 06/15/2025 13:02:29 5 text/html Generic HPI TemplateReported by Patient Here for wellness visit. Reviewed chronic medications and medical problems. Discussed screening guidelines as well as goals for fitness and weight management. Reviewed medications. Liv Fajardo MD [address] [facility] [address], [place], [address], [facility] 06/23/2025 15:40:32 5 text/html Hospitalization Contact RecordReported by PatientHospitalization Contact RecordFor follow up, patient reportshospital: out of area hospital,admit date: (please enter in format 'mm/dd/yyyy') (06/24/2025),date of discharge: (please enter in format 'mm/dd/yyyy') (07/04/2025), anddate of contact: (please enter in format 'mm/dd/yyyy') (07/06/2025)([facility]).Medicar e covered inpatient stay? yes Medicare SHAJI with in 48 working hours? yes High Complexity code valid on or before:June Moderate Complexity code valid on or before: June HCP on file? no MOLST on file? no Discharge Summary available? yes 59 year old female history of seizure disorder who presented to [facility] on 06/24/[address] Isbell due to seizure episodes. Patient noted increase in fall unsteady gait, and more sleepy throughout the day. Admitted for further medical and medication management. Medication changes: oxcarb 900mg BID Keppra 500 mg BID Due to anxiety and panic attacks additional medication was added._ hydroxyzine, magnesium, Naci 1 gm Epilepsy remained stable during hospital course. Patient to follow up : PCP within 2 weeksNeuro psychEpileptologist Newspaper Deliverer SHAJI call to patient reviewed medication with patient, compliant, no questions or concerns. This admission was for further evaluation due to a long history of seizures which started at the age of 55 years old. Patient has also struggles with anxiety and panic attacks and due to high cost for medication patient benefited to admission. At this time patient will contact specialist to schedule follow up, I attempted to schedule follow up with PCP deferred reports will call back . Liv Fajardo MD [address], [address], [facility], [place] 07/06/2025 11:56:08 5 text/html Hospitalization Contact RecordReported by PatientHospitalization Contact RecordFor follow up, patient reportshospital: out of area hospital,admit date: (please enter in format 'mm/dd/yyyy') (06/24/2025),date of discharge: (please enter in format 'mm/dd/yyyy') (07/04/2025), anddate of contact: (please enter in format 'mm/dd/yyyy') (07/06/2025)([facility]).Medicar e covered inpatient stay? yesMedicare SHAJI with in 48 working hours? yesHigh Complexity code valid on or before:JuneModerate Complexity code valid on or before:JuneHCP on file? noMOLST on file? noDischarge Summary available? yes 59-year-old female with a long-standing history of seizure disorder (onset age 5) and anxiety/panic attacks, who was admitted to [facility] on 06/24/2025 (per Dr. Isbell) for seizure episodes, increased falls, unsteady gait, and daytime somnolence. She was admitted for further medical and medication management. During hospitalization:-Medication changes: Started on oxcarbazepine 900 mg BID and Keppra 500 mg BID.-Additional medications for anxiety/panic attacks: hydroxyzine, magnesium, and NaCl 1 g.-Epilepsy remained stable during hospital course.-Newspaper Deliverer SHAJI call: medications reviewed, patient compliant, no concerns.-Discharge plan: follow-up with PCP (within 2 weeks), neuropsychology, and epileptologist. At today s follow-up visit:-Patient reports continued r ising feeling prior to seizure activity.-Neurology follow-up scheduled for 09/01/2025 (telehealth).-Reports adherence to oxcarbazepine and Keppra.-Patient frustrated about being prescribed hydroxyzine during admission. She and her family deny panic attacks or behavioral issues during hospitalization. Discussed that records are not entirely clear; possible seizure-related etiology considered. Advised to clarify further with neurologist.-Patient still exploring surgical options for seizure.-Had low sodium during admission; sodium is being monitored by her neurologist. She has lab orders and is taking sodium tablets.-Still has pending follow-up with nephrology and cardiology; referrals provided and patient encouraged to schedule.-Pending ultrasound of upper arm; hearing screen coordinator to assist.-Patient denies need for hydroxyzine at this time. She is compliant with follow-up recommendations for Epileptologist neuropsychology. Liv Fajardo MD [address] [address], [place], [address], [place] [facility] 07/14/2025 12:48:59 OBGyn Episode No OBEpisode recorded.
== END 2025-09-15 13:16 | disposition home or self-care (01) ==
LOC: HO.HPS 12:34
PROVIDERS: PCP Family Medicine; Visit Provider Hospitalist
DX: J44.9 Chronic obstructive pulmonary disease, unspecified (principal); G47.33 Obstructive sleep apnea (adult) (pediatric); R05.9 Cough, unspecified; K21.9 Gastro-esophageal reflux disease without esophagitis; J01.90 Acute sinusitis, unspecified
CPT/HCPCS: 99214; G2211